=== PATIENT | female | born 1950 | race Caucasian/White ===

== ENCOUNTER 2016-07-25 17:47 | Emergency (ER) | payer MEDICARE, OTHER ==
[2016-07-25 17:55] VITALS: BP 125/62; PULSE 85; TEMP 97.8; BMI 25.6
--- NOTE | 2016-07-25 18:44 | PDOC ---
[id number] History Source: Patient - History of Present Illness Initial Comments: 07/25/16 18:38 66 year old female s/p slip and fall down 7 flight of stairs landed on left side of back on wet floor. now with pain to left side and left hip. pain worsen with movement. denies patient with history of asthma, fibromyalgia, hypercholestremia. denies head trauma or midline tenderness <Cammie Barahona - Last Filed: 08/08/16 12:09> - General Chief Complaint: Injury Stated Complaint: FALL Time Seen by Provider: 07/25/16 18:16 Past History <Denia Jaramillo - Last Filed: 07/25/16 22:35> - Past Medical History Anemia: No Asthma: Yes Cancer: No Cardiac Disorders: No CVA: No COPD: No CHF: No Dementia: No Diabetes: No GI Disorders: Yes (DIVERTICULITIS (clinical diagnosis, not demonstrated on previous CT study)) Disorders: No HTN: No Hypercholesterolemia: Yes Liver Disease: No Suicide Attempt (Hx): No Seizures: No Thyroid Disease: No Other medical history: fibromyalgia - Surgical History Abdominal Surgery: No Appendectomy: Yes Cardiac Surgery: No Cholecystectomy: No Lung Surgery: No Neurologic Surgery: No Orthopedic Surgery: Yes - Immunization History Immunization Up to Date: Yes - Psycho/Social/Smoking Cessation Hx Anxiety: No Suicidal Ideation: No Smoking Status: No Smoking History: Never smoked Have you smoked in the past 12 months: No Number of Cigarettes Smoked Daily: 0 Information on smoking cessation initiated: No Hx Alcohol Use: No Drug/Substance Use Hx: No Substance Use Type: None Hx Substance Use Treatment: No <Cammie Barahona - Last Filed: 08/08/16 12:09> - Past Medical History Allergies/Adverse Reactions: Allergies Allergy/AdvReac Type Severity Reaction Status Date / Time No Known Allergies Allergy Verified 08/04/14 21:02 Home Medications: Ambulatory Orders Amitriptyline HCl [Elavil -] 10 mg PO DAILY 07/25/16 Fluoxetine HCl [Prozac -] 20 mg PO DAILY 07/25/16 Ibuprofen [Motrin -] 600 mg PO TID PRN #21 tablet 07/25/16 Omeprazole 20 mg PO ASDIR 07/25/16 Oxycodone HCl/Acetaminophen [Percocet 5-325 mg Tablet] 1 - 2 tab PO Q6H PRN #10 tab MDD 8 tabs 07/25/16 Simvastatin 40 mg PO ASDIR 07/25/16 *Physical Exam - Vital Signs Last Vital Signs Temp Pulse Resp BP Pulse Ox 97.8 F 85 20 125/62 99 07/25/16 17:52 07/25/16 17:52 07/25/16 17:52 07/25/16 17:52 07/25/16 17:52 <Denia Jaramillo - Last Filed: 07/25/16 22:35> - Vital Signs Last Vital Signs Temp Pulse Resp BP Pulse Ox 97.8 F 85 20 125/62 99 07/25/16 17:52 07/25/16 17:52 07/25/16 17:52 07/25/16 17:52 07/25/16 17:52 - Physical Exam General Appearance: Yes: Appropriately Dressed Respiratory/Chest: positive: Lungs Clear, Normal Breath Sounds Cardiovascular: positive: Regular Rhythm, Regular Rate Gastrointestinal/Abdominal: positive: Normal Bowel Sounds, Soft Musculoskeletal: positive: Muscle Spasm (left flank area), Other (left hip + weightbearing with difficulty. ) Extremity: positive: Normal Inspection, Normal Range of Motion Integumentary: positive: Normal Color, Dry, Warm Neurologic: positive: Fully Oriented, Alert, Normal Mood/Affect <Cammie Barahona - Last Filed: 08/08/16 12:09> ED Treatment Course - ADDITIONAL ORDERS Additional order review: Laboratory Results 07/25/16 19:15 Urine Color Yellow Urine Appearance Clear Urine pH 5.0 Ur Specific [place] 1.025 Urine Protein Negative Urine Glucose (UA) Negative Urine Ketones Negative Urine Blood 1+ H Urine Nitrite Negative Urine Bilirubin Negative Urine Urobilinogen Negative Ur Leukocyte Esterase Negative Urine RBC 2 Urine WBC <1 Urine Mucus Rare - Medications Given in the ED: ED Medications Discontinued Medications Generic Name Dose Route Start Last Admin Trade Name Freq PRN Reason Stop Dose Admin Ibuprofen 600 mg 07/25/16 19:31 07/25/16 19:57 Motrin - PO 07/25/16 19:32 Not Given ONCE ONE Oxycodone/Acetaminophen 1 combo 07/25/16 19:33 07/25/16 19:56 Percocet 5/325 - PO 07/25/16 19:34 1 combo ONCE ONE Administration <Denia Jaramillo - Last Filed: 07/25/16 22:35> - RADIOLOGY Radiograph Interpretation: 07/25/16 19:31 rib xray: negative <Cammie Barahona - Last Filed: 08/08/16 12:09> Progress Note - Progress Note Progress Note: A: elderly fall, left hip and flank pain P: xray: negative ctAP r/o occult bleeding: pending result patient signed out to Mary jaramillo. <Cammie Barahona - Last Filed: 08/08/16 12:09> Medical Decision Making - Medical Decision Making 07/25/16 22:35 results of cat scan discussed dc inst given to pt and her daughter. pt ambulatory out of ER no acute distress. all questions regarding follow up care asked and answered. <Denia Jaramillo - Last Filed: 07/25/16 22:35> *DC/Admit/Observation/Transfer <Denia Jaramillo - Last Filed: 07/25/16 22:35> <Cammie Barahona - Last Filed: 08/08/16 12:09> Diagnosis at time of Disposition: Musculoskeletal back pain, Fall in elderly patient - Discharge Dispostion Disposition: HOME Condition at time of disposition: Good - Prescriptions Prescriptions: Ibuprofen [Motrin -] 600 mg PO TID PRN #21 tablet PRN Reason: Pain Oxycodone HCl/Acetaminophen [Percocet 5-325 mg Tablet] 1 - 2 tab PO Q6H PRN #10 tab MDD 8 tabs PRN Reason: Severe Pain - Referrals Referrals: Keesha Gaona MD [Primary Care Provider] - John Hammer MD [Staff Physician] - - Patient Instructions Printed Discharge Instructions: DI for Musculoskeletal Pain Additional Instructions: follow with your primary care doctor Thursday for follow up take the medication as prescribed for pain apply heating pad, warm compresses to the areas of pain Return if any worsening Pain
[2016-07-25 19:23] LABS: URINE APPEARANCE CLEAR; URINE BILIRUBIN NEGATIVE (NEGATIVE); URINE COLOR YELLOW; URINE GLUCOSE (UA) NEGATIVE (NEGATIVE); URINE KETONE NEGATIVE (NEGATIVE); URINE LEUK ESTERASE NEGATIVE (NEGATIVE); URINE NITRITE NEGATIVE (NEGATIVE); URINE PROTEIN NEGATIVE (NEGATIVE); URINE UROBILINOGEN NEGATIVE E.U./dl (0.2-1.0)
[2016-07-25 19:30] LABS: URINE BLOOD 1+ (NEGATIVE); URINE MUCUS RARE; URINE RBC 2 /hpf (0-3); URINE WBC <1 /hpf (3-5)
[2016-07-25] MEDS ORDERED: IBUPROFEN 600 MG TABLET (FP) PO ONE (19:31)
[2016-07-25] MEDS ORDERED: OXYCODONE/APAP 5/325MG COMBO TABLET PO ONE (19:33)
[2016-07-25] MEDS ORDERED: OXYCODONE/APAP 5/325MG COMBO TABLET ONE (19:55)
== END 2016-07-25 20:38 | disposition home or self-care (01) ==
LOC: JERFT 17:47
DX: M54.5 Low back pain (principal); W10.8XXA Fall (on) (from) other stairs and steps, initial encounter; Y93.E5 Activity, floor mopping and cleaning; Y92.038 Other place in apartment as the place of occurrence of the external cause
CPT/HCPCS: 71101-TC; 73523-TC; 74176-TC; 81003; 81015; 99281-25

== ENCOUNTER 2018-04-16 12:40 | Emergency (ER) | payer MEDICARE, OTHER ==
[2018-04-16 13:07] VITALS: BP 128/62; PULSE 79; TEMP 98.8; BMI 25.4
--- NOTE | 2018-04-16 13:20 | PDOC ---
Attending Attestation - HPI HPI: 04/16/18 13:45 The patient is a 68 year old female, with a significant PMH of hypertension, asthma, peptic ulcer disease, fibromyalgia, who presents to the emergency department with 3 episodes of emesis (non bloody, non bilious) beginning at 2 am. The patient states several hours after she developed diarrhea (non bloody) and constant mid abdominal pain. The patient states she has never experienced this abdominal pain before. The patient states she had 2 pieces of coconut prior to going to sleep. The patient states no one else had the coconut. The patient denies chest pain, shortness of breath, headache and dizziness. Denies fever, chills, and constipation. Denies dysuria, frequency, urgency and hematuria. Allergies: NKA Documentation prepared by Ignacio Wilson, acting as medical receptionist biller for Kenna Lutz MD. - Physicial Exam PE: 04/16/18 14:22 GENERAL: The patient is in no acute distress. HEAD: Normal with no signs of trauma. EYES: PERRLA, EOMI, sclera anicteric, conjunctiva clear. ENT: Ears normal, nares patent, oropharynx clear without exudates. Moist mucous membranes. NECK: Normal range of motion, supple without lymphadenopathy, JVD, or masses. LUNGS: Breath sounds equal, clear to auscultation bilaterally. No wheezes, and no crackles. HEART:Regular rate and rhythm, normal S1 and S2 without murmur, rub or gallop. ABDOMEN: (+) Epigastric tenderness, (+) RUQ tenderness, (+) Mild lower abdominal tenderness. No rebound or guarding. Soft, normoactive bowel sounds.No masses palpable. EXTREMITIES: Normal range of motion, no edema. No clubbing or cyanosis. No erythema, or tenderness. NEUROLOGICAL: Cranial nerves II through XII grossly intact. Normal speech. No focal neurological deficits. MUSCULOSKELETAL: Back non-tender to palpation, no CVA tenderness SKIN: Warm, Dry, normal turgor, no rashes or lesions noted. <Ignacio Wilson - Last Filed: 04/16/18 14:22> - Resident Resident Name: Olesya Valdivia - ED Attending Attestation I have performed the following: I have examined & evaluated the patient, The case was reviewed & discussed with the resident, I agree w/resident's findings & plan, Exceptions are as noted - Medical Decision Making 04/16/18 17:22 Laboratory Tests 04/16/18 04/16/18 04/16/18 13:33 13:46 13:46 WBC 13.4 H Hgb 13.3 Hct 41.1 Plt Count 245 Neutrophils % 89.7 H D Lymphocytes % 4.0 L D BUN 17 Creatinine 0.7 Lipase 81 Urine Blood Negative Urine Nitrite Negative Ur Leukocyte Esterase Negative US pending 04/16/18 17:55 US demonstrates no gallstones, no PCCF, no gallbladder wall thickening Pending CT Pt signed out to Dr. Silveira Anticipate discharge <Kenna Lutz - Last Filed: 04/17/18 18:22>
[2018-04-16] MEDS ORDERED: ONDANSETRON 4 MG/2 ML VIAL IVPUSH ONE (13:26)
[2018-04-16] MEDS ORDERED: ACETAMINOPHEN 1000 MG/100 ML VIAL (NON FORMULARY) IVPB ONE (13:26)
[2018-04-16] MEDS ORDERED: MAG HYDROX/AL HYDROX/SIMETH 30 ML UNIT-DOSE CUP PO ONE (13:28)
[2018-04-16] MEDS ORDERED: FAMOTIDINE 20 MG/50 ML IVPB 20 MG/50 ML MG IVPB ONE ×2 (13:28→14:07)
--- NOTE | 2018-04-16 13:28 | PDOC ---
History of Present Illness - General Chief Complaint: Pain Stated Complaint: ABD PAIN Time Seen by Provider: 04/16/18 13:10 - History of Present Illness Initial Comments: 04/16/18 13:24 history of HTN, fibromyalgia, peptic ulcer and asthma who presents with 3 episodes of NBNB vomtiing that started at 0200 and woke her up from sleep and with diarrhea several hours later in the day and with 10/10 mid abdominal pain that has been constant since onset after vomiting. The patient denies dysuria, hematuria, blood in diarrhea, denies abdominal surgeries. Past History - Past Medical History Allergies/Adverse Reactions: Allergies Allergy/AdvReac Type Severity Reaction Status Date / Time No Known Allergies Allergy Verified 04/16/18 13:07 Home Medications: Ambulatory Orders Amitriptyline HCl [Elavil -] 20 mg PO DAILY 07/25/16 Fluoxetine HCl [Prozac -] 20 mg PO HS 07/25/16 Ondansetron [Zofran Odt -] 4 mg SL PRN #14 od.tablet 04/16/18 Anemia: No Asthma: Yes Cancer: No Cardiac Disorders: No CVA: No COPD: No CHF: No Dementia: No Diabetes: No GI Disorders: Yes (DIVERTICULITIS (clinical diagnosis, not demonstrated on previous CT study)) Disorders: No HTN: No Hypercholesterolemia: Yes Liver Disease: No Seizures: No Thyroid Disease: No - Surgical History Abdominal Surgery: No Appendectomy: Yes Cardiac Surgery: No Cholecystectomy: No Lung Surgery: No Neurologic Surgery: No Orthopedic Surgery: Yes - Immunization History Immunization Up to Date: Yes - Suicide/Smoking/Psychosocial Hx Smoking Status: No Smoking History: Never smoked Have you smoked in the past 12 months: No Number of Cigarettes Smoked Daily: 0 Information on smoking cessation initiated: No Hx Alcohol Use: No Drug/Substance Use Hx: No Substance Use Type: None Hx Substance Use Treatment: No *Physical Exam - Vital Signs Last Vital Signs Temp Pulse Resp BP Pulse Ox 98.8 F 79 18 128/62 96 04/16/18 13:05 04/16/18 13:05 04/16/18 13:05 04/16/18 13:05 04/16/18 13:05 - Physical Exam Comments: 04/16/18 13:28 RUQ and LUQ tenderness to palpation L CVA tenderness CTAB, RRR Moderate Sedation - Procedure Monitoring Vital Signs: Procedure Monitoring Vital Signs Temperature 98.8 F 04/16/18 13:05 Pulse Rate 79 04/16/18 13:05 Respiratory Rate 18 04/16/18 13:05 Blood Pressure 128/62 04/16/18 13:05 O2 Sat by Pulse Oximetry (%) 96 04/16/18 13:05 ED Treatment Course - LABORATORY CBC & Chemistry Diagram: 04/16/18 13:46 04/16/18 13:46 Medical Decision Making - Medical Decision Making 04/16/18 13:29 ED Course consider gastroenteritis vs pud vs pancreatitis vs cholecystits 04/16/18 14:30 wbs 13.4 with left shift 04/16/18 14:39 lipase unremarkable, cmp wnl pending lactic 04/16/18 16:24 patient reassessed with positive oneil's sign lactic .7 will order US to r/o gallstones/ cholecystitis 04/16/18 16:44 ua - unremarkable. pending abd US 04/16/18 18:31 US: without acute findings Patient reassessed, RUQ tenderness to palpation 04/16/18 22:[address]: unremarkable Will PO trial successful and discharge with follow up/. 04/16/18 22:26 *DC/Admit/Observation/Transfer Diagnosis at time of Disposition: Vomiting, Diarrhea - Discharge Dispostion Disposition: HOME Condition at time of disposition: Stable Decision to Admit order: No - Prescriptions Prescriptions: Ondansetron [Zofran Odt -] 4 mg SL PRN #14 od.tablet - Referrals Referrals: Chalo Gaona MD [Primary Care Provider] - - Patient Instructions Printed Discharge Instructions: DI for Viral Gastroenteritis -- Adult Additional Instructions: You were seen in the ED for complaints of vomiting and diarrhea. In the ED you were evaluated with labwork and imaging. Your results were unremarkable. There does not appear to be an acute need for immediate hospitalization. You are advised to follow up with your Primary Care Physician within 1 week. You were given a prescription for Zofran anti-nausea medication. Please take medication as directed. Return to the ED immediately if you experience worsening abdominal pain, bloody vomiting or diarrhea, fever > 101F, chest pain or shortness of breath. Usted fue visto en el servicio de urgencias por quejas de vmitos y diarrea. En el servicio de urgencias se le evalu con trabajo de laboratorio e imgenes. Carmen resultados no fueron notables. No parece ronda fabiola necesidad aguda de hospitalizacin inmediata. Se recomienda realizar un seguimiento con grant mdico de atencin primaria dentro de 1 semana. Recibieron fabiola receta para el medicamento contra la nusea Zofran. Por favor, tome la medicacin segn las indicaciones. Regrese a la oriana de urgencias inmediatamente si experimenta un empeoramiento del dolor abdominal, vmitos con cary o diarrea, fiebre> 101F, dolor en el pecho o falta de aire. - Post Discharge Activity
[2018-04-16] MEDS ORDERED: SODIUM CHLORIDE 1,000 ML IV SCH (13:30)
[2018-04-16 13:56] LABS: BASO % 0.2 % (0-2.0); EOS % 0.1 % (0-4.5); HEMATOCRIT 41.1 % (32.4-45.2); HEMOGLOBIN 13.3 GM/dL (10.7-15.3); MCH 27.4 pg (25.7-33.7); MCHC 32.3 g/dl (32.0-36.0); MEAN CELL VOLUME 84.9 fl (80-96); MEAN PLT VOLUME 8.3 fl (7.5-11.1); NEUT % 89.7 % (42.8-82.8); PLATELET COUNT 245 K/MM3 (134-434); RBC 4.84 M/mm3 (3.60-5.2); RDW 13.3 % (11.6-15.6); WHITE BLOOD COUNT 13.4 K/mm3 (4.0-10.0)
[2018-04-16] MEDS ORDERED: MAG HYDROX/AL HYDROX/SIMETH 30 ML UNIT-DOSE CUP ONE (14:07)
[2018-04-16] MEDS ORDERED: ONDANSETRON 4 MG/2 ML VIAL ONE (14:07)
[2018-04-16] MEDS ORDERED: ACETAMINOPHEN INJECTION 100 ML IVPB ONE (14:07)
[2018-04-16 14:37] LABS: ALBUMIN 3.2 g/dl (3.4-5.0); ALK PHOS 77 U/L (45-117); ANION GAP 5 MMOL/L (8-16); BILIRUBIN,TOTAL 0.4 mg/dL (0.2-1); BLOOD UREA NITROGEN 17 mg/dL (7-18); CALCIUM 8.6 mg/dL (8.5-10.1); CHLORIDE 108 mmol/L (98-107); CO2 25 mmol/L (21-32); CREATININE 0.7 mg/dL (0.55-1.3); GLUCOSE,RANDOM 121 mg/dL (74-106); LIPASE 81 U/L (73-393); SGOT/AST 35 U/L (15-37); SGPT/ALT 30 U/L (13-61); SODIUM 138 mmol/L (136-145); TOT PROT 6.8 g/dl (6.4-8.2)
[2018-04-16 16:23] LABS: URINE APPEARANCE CLEAR; URINE BILIRUBIN NEGATIVE (<2.0 mg/dL); URINE COLOR LTYELLOW; URINE GLUCOSE (UA) NEGATIVE (NEGATIVE); URINE KETONE NEGATIVE (NEGATIVE); URINE LEUK ESTERASE NEGATIVE (NEGATIVE); URINE NITRITE NEGATIVE (NEGATIVE); URINE PROTEIN NEGATIVE (NEGATIVE); URINE UROBILINOGEN NEGATIVE mg/dL (0.2-1.0)
--- NOTE | 2018-04-16 19:56 | PDOC ---
*Physical Exam - Vital Signs Last Vital Signs Temp Pulse Resp BP Pulse Ox 98.8 F 79 18 128/62 96 04/16/18 13:05 04/16/18 13:05 04/16/18 13:05 04/16/18 13:05 04/16/18 13:05 ED Treatment Course - LABORATORY CBC & Chemistry Diagram: 04/16/18 13:46 04/16/18 13:46 - ADDITIONAL ORDERS Additional order review: Laboratory Results 04/16/18 04/16/18 04/16/18 13:46 13:46 13:33 Sodium 138 Potassium 5.0 Chloride 108 H Carbon Dioxide 25 Anion Gap 5 L BUN 17 Creatinine 0.7 Creat Clearance w eGFR > 60 Random Glucose 121 H Lactic Acid 0.7 Calcium 8.6 Total Bilirubin 0.4 AST 35 ALT 30 Alkaline Phosphatase 77 Total Protein 6.8 Albumin 3.2 L Lipase 81 Urine Color Ltyellow Urine Appearance Clear Urine pH 7.0 D Ur Specific [place] 1.019 Urine Protein Negative Urine Glucose (UA) Negative Urine Ketones Negative Urine Blood Negative Urine Nitrite Negative Urine Bilirubin Negative Urine Urobilinogen Negative Ur Leukocyte Esterase Negative 04/16/18 13:46 RBC 4.84 MCV 84.9 MCHC 32.3 RDW 13.3 MPV 8.3 Neutrophils % 89.7 H D Lymphocytes % 4.0 L D Monocytes % 6.0 Eosinophils % 0.1 D Basophils % 0.2 - Medications Given in the ED: ED Medications Discontinued Medications Generic Name Dose Route Start Last Admin Trade Name Freq PRN Reason Stop Dose Admin Acetaminophen 1,000 mg 04/16/18 13:26 04/16/18 14:16 Ofirmev Injection - IVPB 04/16/18 13:27 1,000 mg ONCE ONE Administration Al Hydroxide/Mg Hydroxide 30 ml 04/16/18 13:28 04/16/18 14:16 Mylanta Oral Suspension - PO 04/16/18 13:29 30 ml ONCE ONE Administration Famotidine/Sodium Chloride 20 mg in 50 mls @ 100 mls/hr 04/16/18 13:28 14:16 Pepcid 20 Mg Premixed Ivpb - IVPB 04/16/18 13:57 100 mls/hr ONCE ONE Administration Ondansetron HCl 4 mg 04/16/18 13:26 04/16/18 14:16 Zofran Injection IVPUSH 04/16/18 13:27 4 mg ONCE ONE Administration Medical Decision Making - Medical Decision Making 04/16/18 19:55 Pt signed out to me; She has abd pain and diarrhea and vomiting. Sounds like gastroenteritis. However with epig pain; RUQ sono was normal. Labs normal. Only high WBC. Pt awaiting a CT scan. She states that she is feeling better after hydration and after pain meds. She wants to eat, but we will wait till after the CT scan. 04/18/18 06:[address] normal. Pt will be discharged. *DC/Admit/Observation/Transfer Diagnosis at time of Disposition: Vomiting, Diarrhea - Discharge Dispostion Disposition: HOME Condition at time of disposition: Stable - Prescriptions Prescriptions: Ondansetron [Zofran Odt -] 4 mg SL PRN #14 od.tablet - Referrals Referrals: Chalo Gaona MD [Primary Care Provider] - - Patient Instructions Printed Discharge Instructions: DI for Viral Gastroenteritis -- Adult Additional Instructions: You were seen in the ED for complaints of vomiting and diarrhea. In the ED you were evaluated with labwork and imaging. Your results were unremarkable. There does not appear to be an acute need for immediate hospitalization. You are advised to follow up with your Primary Care Physician within 1 week. You were given a prescription for Zofran anti-nausea medication. Please take medication as directed. Return to the ED immediately if you experience worsening abdominal pain, bloody vomiting or diarrhea, fever > 101F, chest pain or shortness of breath. Usted fue visto en el servicio de urgencias por quejas de vmitos y diarrea. En el servicio de urgencias se le evalu con trabajo de laboratorio e imgenes. Carmen resultados no fueron notables. No parece ronda fabiola necesidad aguda de hospitalizacin inmediata. Se recomienda realizar un seguimiento con grant mdico de atencin primaria dentro de 1 semana. Recibieron fabiola receta para el medicamento contra la nusea Zofran. Por favor, tome la medicacin segn las indicaciones. Regrese a la oriana de urgencias inmediatamente si experimenta un empeoramiento del dolor abdominal, vmitos con cary o diarrea, fiebre> 101F, dolor en el pecho o falta de aire. - Post Discharge Activity
== END 2018-04-16 22:38 | disposition home or self-care (01) ==
LOC: JER 12:40
PROC: 3E033GC Introduction of Other Therapeutic Substance into Peripheral Vein, Percutaneous Approach (ICD-10-PCS; principal; 2018-04-16)
PROC: 3E033GC Introduction of Other Therapeutic Substance into Peripheral Vein, Percutaneous Approach (ICD-10-PCS; 2018-04-16)
PROC: 3E033NZ Introduction of Analgesics, Hypnotics, Sedatives into Peripheral Vein, Percutaneous Approach (ICD-10-PCS; 2018-04-16)
DX: A08.4 Viral intestinal infection, unspecified (principal); B97.89 Other viral agents as the cause of diseases classified elsewhere; I10 Essential (primary) hypertension; M79.7 Fibromyalgia; Z87.19 Personal history of other diseases of the digestive system; Z87.09 Personal history of other diseases of the respiratory system
CPT/HCPCS: 36415; 74177-TC; 76700-TC; 80053; 81003; 83605; 83690; 85025; 87086; 96365; 96375; 99282-25; J0131; J7030

== ENCOUNTER 2018-04-23 14:49 | Emergency (ER) | payer MEDICARE, OTHER ==
--- NOTE | 2018-04-23 15:02 | PDOC ---
History of Present Illness - General Stated Complaint: DEHYDRATION Time Seen by Provider: 04/23/18 15:01 - History of Present Illness Initial Comments: 04/23/18 15:01 Ms. Sebastian is a 68 yo female w/ pmh of HTN, peptic ulcer, asthma, fibromylagia; evaluated 04/16 for NBNB vomiting with diarrhea and found to have gastritis who presents for evaluation via EMS from urgent care. Patient reports she presented today as she has experienced 2-3 days of dizziness, headache, cough, and lower back pain. Patient was found to have orthostatic hypotension at urgent care center today and EMS was called for further evaluation. Patient has gotten 1L NS from EMS. The patient denies chest pain, and shortness of breath. Denies chills, nausea, vomit, diarrhea and constipation. Denies dysuria, frequency, urgency and hematuria. Past History - Past Medical History Allergies/Adverse Reactions: Allergies Allergy/AdvReac Type Severity Reaction Status Date / Time No Known Allergies Allergy Verified 04/16/18 13:07 Home Medications: Ambulatory Orders Amitriptyline HCl [Elavil -] 20 mg PO DAILY 07/25/16 Fluoxetine HCl [Prozac -] 20 mg PO HS 07/25/16 Ondansetron [Zofran Odt -] 4 mg SL PRN #14 od.tablet 04/16/18 Anemia: No Asthma: Yes Cancer: No Cardiac Disorders: No CVA: No COPD: No CHF: No Dementia: No Diabetes: No GI Disorders: Yes (DIVERTICULITIS (clinical diagnosis, not demonstrated on previous CT study)) Disorders: No HTN: No Hypercholesterolemia: Yes Liver Disease: No Seizures: No Thyroid Disease: No - Surgical History Abdominal Surgery: No Appendectomy: Yes Cardiac Surgery: No Cholecystectomy: No Lung Surgery: No Neurologic Surgery: No Orthopedic Surgery: Yes - Immunization History Immunization Up to Date: Yes - Suicide/Smoking/Psychosocial Hx Smoking Status: No Smoking History: Never smoked Have you smoked in the past 12 months: No Number of Cigarettes Smoked Daily: 0 Hx Alcohol Use: No Drug/Substance Use Hx: No Substance Use Type: None Hx Substance Use Treatment: No Review of Systems - Review of Systems Comments:: 04/23/18 15:01 GENERAL/CONSTITUTIONAL: +Subjective fevers at home. No chills. No weakness. HEAD, EYES, EARS, NOSE AND THROAT: No change in vision. No ear pain or discharge. No sore throat. CARDIOVASCULAR: No chest pain or shortness of breath RESPIRATORY: +Dry cough for 2-3 days. No wheezing or hemoptysis. GASTROINTESTINAL: No nausea, vomiting, diarrhea or constipation. GENITOURINARY: No dysuria, frequency, or change in urination. MUSCULOSKELETAL: No joint or muscle swelling or pain. No neck or back pain. SKIN: No rash NEUROLOGIC: +Headache coinciding with cough and dizziness. No vertigo, loss of consciousness, or change in strength/sensation. ENDOCRINE: No increased thirst. No abnormal weight change HEMATOLOGIC/LYMPHATIC: No anemia, easy bleeding, or history of blood clots. ALLERGIC/IMMUNOLOGIC: No hives or skin allergy. *Physical Exam - Physical Exam Comments: 04/23/18 15:02 GENERAL: Awake, alert, and fully oriented, in no acute distress HEAD: No signs of trauma, normocephalic, atraumatic EYES: PERRLA, EOMI, sclera anicteric, conjunctiva clear ENT: Auricles normal inspection, hearing grossly normal, nares patent, oropharynx clear without exudates. Moist mucosa NECK: Normal ROM, supple, no lymphadenopathy, JVD, or masses LUNGS: No distress, speaks full sentences, clear to auscultation bilaterally HEART: Regular rate and rhythm, normal S1 and S2, no murmurs, rubs or gallops, peripheral pulses normal and equal bilaterally. ABDOMEN: Soft, nontender, normoactive bowel sounds. No guarding, no rebound. No masses EXTREMITIES: Normal inspection, Normal range of motion, no edema. No clubbing or cyanosis. NEUROLOGICAL: Cranial nerves II through XII grossly intact. Normal speech, normal gait, no focal sensorimotor deficits SKIN: Warm, Dry, normal turgor, no rashes or lesions noted. ED Treatment Course - LABORATORY CBC & Chemistry Diagram: 04/23/18 15:23 04/23/18 15:23 Medical Decision Making - Medical Decision Making 04/23/18 15:33 Ms. Sebastian is a 68 yo female w/ pmh as described who presents for evaluation of symptoms concerning for flu vs. dehydration vs. infectious process vs. electrolyte abnormality vs. cardiac process. Patient evaluated accordingly with CBC/CMP/Cardiac profile/EKG/CXR. Patient given 1L NS by EMS and additional 1L NS upon presentation. Further workup pending. 04/23/18 16:47 Labs grossly wnl as below. EKG normal. CXR negative. Head CT negative for acute process. Patient reporting improvement of symptoms following fluids/reglan/ tylenol. No concern for acute process at this time. Discharging to home. Laboratory Results - last 24 hr 04/23/18 04/23/18 04/23/18 15:23 15:23 15:23 WBC 9.2 RBC 4.41 Hgb 12.7 Hct 37.8 MCV 85.8 MCH 28.9 MCHC 33.6 RDW 13.5 Plt Count 243 MPV 7.9 Absolute Neuts (auto) 7.4 Neutrophils % 80.1 Lymphocytes % 10.3 D Monocytes % 9.0 Eosinophils % 0.2 D Basophils % 0.4 Nucleated RBC % 0 Sodium 138 Potassium 4.4 Chloride 106 Carbon Dioxide 24 Anion Gap 8 BUN 13 Creatinine 0.8 Creat Clearance w eGFR > 60 Random Glucose 101 Calcium 8.4 L Total Bilirubin 0.4 AST 11 L ALT 17 Alkaline Phosphatase 66 Creatine Kinase 97 Troponin I 0.03 Total Protein 6.5 Albumin 3.1 L Urine Color Urine Appearance Urine pH Ur Specific Gilberts Urine Protein Urine Glucose (UA) Urine Ketones Urine Blood Urine Nitrite Urine Bilirubin Urine Urobilinogen Ur Leukocyte Esterase Urine WBC (Auto) Urine RBC (Auto) Ur Epithelial Cells Urine Mucus Influenza A (Rapid) Negative Influenza B (Rapid) Negative 04/23/18 15:23 WBC RBC Hgb Hct MCV MCH MCHC RDW Plt Count MPV Absolute Neuts (auto) Neutrophils % Lymphocytes % Monocytes % Eosinophils % Basophils % Nucleated RBC % Sodium Potassium Chloride Carbon Dioxide Anion Gap BUN Creatinine Creat Clearance w eGFR Random Glucose Calcium Total Bilirubin AST ALT Alkaline Phosphatase Creatine Kinase Troponin I Total Protein Albumin Urine Color Ltyellow Urine Appearance Slcloudy Urine pH 6.0 Ur Specific [place] 1.005 L Urine Protein Negative Urine Glucose (UA) Negative Urine Ketones 1+ H Urine Blood 1+ H Urine Nitrite Negative Urine Bilirubin Negative Urine Urobilinogen Negative Ur Leukocyte Esterase Trace Urine WBC (Auto) 4 Urine RBC (Auto) 1 Ur Epithelial Cells Moderate Urine Mucus Rare Influenza A (Rapid) Influenza B (Rapid) *DC/Admit/Observation/Transfer Diagnosis at time of Disposition: Dehydration Headache Qualifiers: Headache type: unspecified Headache chronicity pattern: unspecified pattern Intractability: not intractable Qualified Code(s): R51 - Headache - Discharge Dispostion Disposition: HOME - Referrals Referrals: Keesha Gaona MD [Primary Care Provider] - - Patient Instructions Printed Discharge Instructions: DI for Viral Upper Respiratory Infection -- Adult Additional Instructions: You were evaluated today in the ER for your symptoms and found to be very dehydrated. Chest Xray, EKG, Flu tests, Head CT, and labs were all normal. We believe you have a viral illness at this time. Please follow-up with primary care provider later this week for further evaluation. Return to ER if any exacerbation of headache, fever, chills, or other concerning symptoms. - Post Discharge Activity
[2018-04-23 15:04] VITALS: BMI 26.9
[2018-04-23 15:06] VITALS: TEMP 98.7
[2018-04-23] MEDS ORDERED: SODIUM CHLORIDE 1,000 ML IV STA (15:22)
[2018-04-23 15:47] LABS: BASO % 0.4 % (0-2.0); EOS % 0.2 % (0-4.5); HEMATOCRIT 37.8 % (32.4-45.2); HEMOGLOBIN 12.7 GM/dL (10.7-15.3); LYMPH % 10.3 % (8-40); MCH 28.9 pg (25.7-33.7); MCHC 33.6 g/dl (32.0-36.0); MEAN CELL VOLUME 85.8 fl (80-96); MEAN PLT VOLUME 7.9 fl (7.5-11.1); NEUT % 80.1 % (42.8-82.8); PLATELET COUNT 243 K/MM3 (134-434); RBC 4.41 M/mm3 (3.60-5.2); RDW 13.5 % (11.6-15.6); WHITE BLOOD COUNT 9.2 K/mm3 (4.0-10.0)
[2018-04-23 15:56] LABS: URINE APPEARANCE SLCLOUDY; URINE BILIRUBIN NEGATIVE (<2.0 mg/dL); URINE COLOR LTYELLOW; URINE GLUCOSE (UA) NEGATIVE (NEGATIVE); URINE KETONE 1+ (NEGATIVE); URINE LEUK ESTERASE TRACE (NEGATIVE); URINE NITRITE NEGATIVE (NEGATIVE); URINE PROTEIN NEGATIVE (NEGATIVE); URINE UROBILINOGEN NEGATIVE mg/dL (0.2-1.0)
[2018-04-23 16:00] LABS: EPI CELLS MODERATE /HPF (FEW); URINE MUCUS RARE
[2018-04-23] MEDS ORDERED: ACETAMINOPHEN 1000 MG/100 ML VIAL (NON FORMULARY) IVPB ONE (16:08)
[2018-04-23] MEDS ORDERED: METOCLOPRAMIDE HCL INJECTION 10 MG/2 ML VIAL IVPB ONE (16:08)
--- NOTE | 2018-04-23 16:17 | PDOC ---
Attending Attestation - Resident Resident Name: Andrea Burrows - ED Attending Attestation I have performed the following: I have examined & evaluated the patient, The case was reviewed & discussed with the resident, I agree w/resident's findings & plan, Exceptions are as noted - HPI HPI: 04/23/18 16:16 The patient is a 68 year old female, with a significant past medical history of hypertension, asthma, peptic ulcer disease, fibromyalgia, who presents to the emergency department from an urgent care with complaint of back pain, and dry cough. The patient states these symptoms began 2-3 days ago. The patient notes the back pain is exacerbated by her dry cough. Denies any injury. The patient states she also has a headache that was brought on by coughing. The patient also notes the urgent care provided her with fluids and sent her to come be seen in the ED. The patient reports to have been in our ED a week ago for nausea , vomiting ,and diarrhea but denies any of these symptoms today. She does report that the back pain she is experiencing started when she was seen here last week. The patient denies chest pain, shortness of breath. The patient denies fever, chills. The patient denies vomiting, diarrhea, and constipation. The patient denies dysuria, frequency, urgency and hematuria. Allergies: NKA - Physicial Exam PE: 04/23/18 16:17 GENERAL: Awake, alert, and fully oriented, in no acute distress. HEAD: No signs of trauma EYES: PERRLA, EOMI, sclera anicteric, conjunctiva clear ENT: Auricles normal inspection, hearing grossly normal, nares patent, oropharynx clear without exudates. Moist mucosa NECK: Nontender, no stepoffs, Normal ROM, supple, no lymphadenopathy, JVD, or masses LUNGS: Breath sounds equal, clear to auscultation bilaterally. No wheezes, and no crackles HEART: Regular rate and rhythm, normal S1 and S2, no murmurs, rubs or gallops ABDOMEN: Soft, nontender, normoactive bowel sounds. No guarding, no rebound. No masses EXTREMITIES: Normal range of motion, no edema. No clubbing or cyanosis. No cords, erythema, or tenderness NEUROLOGICAL: Cranial nerves II through XII intact. 5/5 strength and sensation in all extremities, Normal speech, normal gait, normal cerebellar function SKIN: Warm, Dry, normal turgor, no rashes or lesions noted. - Medical Decision Making 04/23/18 16:18 68 F with cough and headache. Likely viral URI. Pt with no fever in ED. Will r/ o influenza. Will also r/o PNA with CXR. Pt with headache that is exacerbated by cough. No neuro deficits but will obtain CT head given age. - Labs, flu swab - CXR - IVF, tylenol, reglan 04/23/18 17:12 Labs wnl CXR clear on my read CT head pending Pt signed out to oncoming attending, pending CT and re-evaluation.
[2018-04-23] MEDS ORDERED: ACETAMINOPHEN INJECTION 100 ML IVPB ONE ×2 (16:20→16:48)
[2018-04-23] MEDS ORDERED: METOCLOPRAMIDE HCL INJECTION 10 MG/2 ML VIAL ONE (16:20)
[2018-04-23 16:38] LABS: ALBUMIN 3.1 g/dl (3.4-5.0); ALK PHOS 66 U/L (45-117); ANION GAP 8 MMOL/L (8-16); BILIRUBIN,TOTAL 0.4 mg/dL (0.2-1); BLOOD UREA NITROGEN 13 mg/dL (7-18); CALCIUM 8.4 mg/dL (8.5-10.1); CHLORIDE 106 mmol/L (98-107); CO2 24 mmol/L (21-32); CREATININE 0.8 mg/dL (0.55-1.3); GLUCOSE,RANDOM 101 mg/dL (74-106); POTASSIUM 4.4 mmol/L (3.5-5.1); SGOT/AST 11 U/L (15-37); SGPT/ALT 17 U/L (13-61); SODIUM 138 mmol/L (136-145); TOT PROT 6.5 g/dl (6.4-8.2)
[2018-04-23 18:12] VITALS: BP 123/60; PULSE 80
--- NOTE | 2018-04-23 20:16 | EKG ---
Test Reason : Blood Pressure : / mmHG Vent. Rate : 079 BPM Atrial Rate : 079 BPM P-R Int : 162 ms QRS Dur : 064 ms QT Int : 378 ms P-R-T Axes : 059 060 022 degrees QTc Int : 433 ms NORMAL SINUS RHYTHM NORMAL ECG WHEN COMPARED WITH ECG OF 04-AUG-2014 21:39, PREMATURE SUPRAVENTRICULAR COMPLEXES ARE NO LONGER PRESENT Confirmed by AKREN JIMENEZ, KEELEY ([id number]) on 04/23/2018 8:16:35 PM Referred By: Confirmed By:KEELEY JONES MD
== END 2018-04-23 18:25 | disposition home or self-care (01) ==
LOC: JER 14:49
PROC: 3E0337Z Introduction of Electrolytic and Water Balance Substance into Peripheral Vein, Percutaneous Approach (ICD-10-PCS; principal; 2018-04-23)
PROC: 3E033GC Introduction of Other Therapeutic Substance into Peripheral Vein, Percutaneous Approach (ICD-10-PCS; 2018-04-23)
PROC: 3E033NZ Introduction of Analgesics, Hypnotics, Sedatives into Peripheral Vein, Percutaneous Approach (ICD-10-PCS; 2018-04-23)
DX: E86.0 Dehydration (principal); R51 Headache; I10 Essential (primary) hypertension; M79.7 Fibromyalgia
CPT/HCPCS: 36415; 70450-TC; 71045-TC-FY; 80053; 81003; 81015; 82550; 84484; 85025; 87086; 87804; 93005; 93010; 96361; 96374; 96375; 99283-25; J0131; J7030

== ENCOUNTER 2021-07-09 13:43 | Emergency (ER) | payer MEDICARE, OTHER ==
[2021-07-09 14:01] VITALS: BP 119/76; PULSE 76; TEMP 98; BMI 25.0
[2021-07-09 16:41] LABS: BASO % 0.5 % (0-2.0); EOS % 1.4 % (0-4.5); HEMATOCRIT 40.2 % (32.4-45.2); HEMOGLOBIN 13.4 GM/dL (10.7-15.3); LYMPH % 24.8 % (8-40); MCH 28.4 pg (25.7-33.7); MCHC 33.2 g/dl (32.0-36.0); MEAN CELL VOLUME 85.5 fl (80-96); MEAN PLT VOLUME 8.4 fl (7.5-11.1); MONO % 6.5 % (3.8-10.2); NEUT % 66.8 % (42.8-82.8); PLATELET COUNT 213 10^3/uL (134-434); RDW 13.4 % (11.6-15.6); WHITE BLOOD COUNT 7.5 K/mm3 (4.0-10.0)
[2021-07-09 17:03] LABS: CALCIUM 9.7 mg/dL (8.5-10.1)
[2021-07-09 17:04] LABS: ALBUMIN 3.9 g/dl (3.4-5.0); BLOOD UREA NITROGEN 14.6 mg/dL (7-18)
[2021-07-09 17:07] LABS: CREATININE 0.8 mg/dL (0.55-1.3)
[2021-07-09 17:08] LABS: BILIRUBIN,TOTAL 0.4 mg/dL (0.2-1); TOT PROT 7.2 g/dl (6.4-8.2)
[2021-07-09] MEDS ORDERED: ACETAMINOPHEN 500 MG TABLET (FP) PO ONE (17:50)
[2021-07-09] MEDS ORDERED: ACETAMINOPHEN 500 MG TABLET (FP) ONE (17:55)
== END 2021-07-09 20:46 | disposition home or self-care (01) ==
LOC: JERFT 13:43
DX: M79.602 Pain in left arm (principal)
CPT/HCPCS: 36415; 71046-TC-FY; 73030-TC-LT-FY; 73060-TC-LT-FY; 73070-TC-LT-FY; 73090-TC-LT-FY; 80053; 84484; 85025; 93005; 93010; 99285-25

== ENCOUNTER 2021-07-30 15:06 | Inpatient (IN) | payer MEDICARE, OTHER ==
[2021-07-30 15:28] VITALS: BMI 24.2
[2021-07-30] MEDS ORDERED: VANCOMYCIN 1 GM in D5W (PRE-DOCKED) 1,000 MG/250 ML IVPB ONE (17:24)
[2021-07-30] MEDS ORDERED: ACETAMINOPHEN 1000 MG/100 ML BAG IVPB ONE (17:24)
[2021-07-30] MEDS ORDERED: PIPERACILLIN/TAZOB 3.375 GM 3.375 GM in DEXTROSE 5%-WATER - 50 ML IVPB ONE (17:25)
[2021-07-30] MEDS ORDERED: VANCOMYCIN 1 GRAM (PRE-DOCKED) 1,000 MG/250 ML BAG IVPB ONE (17:31)
[2021-07-30] MEDS ORDERED: ACETAMINOPHEN INJECTION 100 ML IVPB ONE (17:31)
[2021-07-30 18:23] LABS: BASO % 0.3 % (0-2.0); EOS % 1.3 % (0-4.5); HEMOGLOBIN 13.2 GM/dL (10.7-15.3); MCH 28.4 pg (25.7-33.7); MEAN CELL VOLUME 85.9 fl (80-96); MEAN PLT VOLUME 7.9 fl (7.5-11.1); NEUT % 68.4 % (42.8-82.8); PLATELET COUNT 280 10^3/uL (134-434); RBC 4.66 M/mm3 (3.60-5.2); RDW 13.5 % (11.6-15.6); WHITE BLOOD COUNT 6.8 K/mm3 (4.0-10.0)
[2021-07-30] MEDS ORDERED: PIPERACILLIN/TAZOB 3.375 GM 3.375 GM/50 ML BAG IVPB ONE (18:27)
[2021-07-30 18:39] LABS: CHLORIDE 104 mmol/L (98-107); SODIUM 136 mmol/L (136-145)
[2021-07-30 18:40] LABS: CALCIUM 9.2 mg/dL (8.5-10.1)
[2021-07-30 18:41] LABS: ALBUMIN 3.6 g/dl (3.4-5.0); ANION GAP 7 MMOL/L (8-16); BLOOD UREA NITROGEN 15.6 mg/dL (7-18); CO2 25 mmol/L (21-32); GLUCOSE,RANDOM 147 mg/dL (74-106)
[2021-07-30 18:44] LABS: CREATININE 0.8 mg/dL (0.55-1.3); SGOT/AST 23 U/L (15-37); SGPT/ALT 37 U/L (13-61)
[2021-07-30 18:46] LABS: ALK PHOS 95 U/L (45-117); BILIRUBIN,TOTAL 0.2 mg/dL (0.2-1); TOT PROT 7.3 g/dl (6.4-8.2)
[2021-07-30 19:09] LABS: INR 1.04 (0.83-1.09)
[2021-07-30 19:27] LABS: ERYTHROCYTE SEDIMENTATION RATE 81 mm/hr (0-30)
[2021-07-31] MEDS ORDERED: PIPERACILLIN/TAZOBACTAM 3.375 GM VIAL IVPB ONE ×2 (01:00→08:54)
[2021-07-31] MEDS ORDERED: DEXTROSE 5%-WATER - 50 ML IVPB ONE ×2 (01:00→08:54)
[2021-07-31] MEDS: PIPERACILLIN/TAZOB 3.375 GM 3.375 GM in DEXTROSE 5%-WATER - 50 ML IVPB SCH ×4 (01:49→20:24)
[2021-07-31] MEDS ORDERED: VANCOMYCIN 1 GM in D5W (PRE-DOCKED) 1,000 MG/250 ML IVPB SCH (02:00)
[2021-07-31] MEDS: ACETAMINOPHEN 1000 MG/100 ML BAG IVPB PRN ×2 (04:03→17:20)
[2021-07-31] MEDS: VANCOMYCIN 1 GM/200 ML PREMIX BAG IVPB SCH ×2 (05:58→20:15)
[2021-07-31] MEDS: LEVOTHYROXINE NA 25 MCG TABLET (FP) PO SCH (06:06)
[2021-07-31 08:30] LABS: BASO % 0.7 % (0-2.0); EOS % 2.9 % (0-4.5); HEMATOCRIT 33.4 % (32.4-45.2); HEMOGLOBIN 11.4 GM/dL (10.7-15.3); LYMPH % 29.2 % (8-40); MCHC 34.2 g/dl (32.0-36.0); MEAN PLT VOLUME 8.2 fl (7.5-11.1); MONO % 9.5 % (3.8-10.2); NEUT % 57.7 % (42.8-82.8); PLATELET COUNT 228 10^3/uL (134-434); RBC 3.93 M/mm3 (3.60-5.2); RDW 13.4 % (11.6-15.6); WHITE BLOOD COUNT 5.6 K/mm3 (4.0-10.0)
[2021-07-31 08:56] LABS: CHOLESTEROL 150 mg/dL (50-200); TRIGLYCERIDES 44 mg/dL (0-150)
[2021-07-31 08:58] LABS: BLOOD UREA NITROGEN 15.3 mg/dL (7-18); CALCIUM 8.5 mg/dL (8.5-10.1); LDL CHOLESTEROL (ONLY SJRH) 99 mg/dL (5-100)
[2021-07-31 08:59] LABS: HDL CHOLESTEROL 46 mg/dL (40-60)
[2021-07-31 09:02] LABS: CREATININE 0.9 mg/dL (0.55-1.3)
[2021-07-31] MEDS: ENOXAPARIN NA (PORCINE) 40 MG/0.4 ML DISP.SYRIN SQ SCH ×2 (09:23→09:37)
[2021-07-31] MEDS: EZETIMIBE 10 MG TABLET (FP) PO SCH (09:23)
[2021-07-31] MEDS ORDERED: DEXTROSE 5%-WATER 100 ML IVPB ONE (17:05)
[2021-07-31] MEDS: CEFTRIAXONE 2 GM in DEXTROSE 5%-WATER 2 GM/100 ML BAG IVPB SCH (18:57)
[2021-07-31] MEDS: ATORVASTATIN CA 80 MG TABLET (FP) PO SCH (21:33)
[2021-08-01 04:56] LABS: HEMATOCRIT 35.5 % (32.4-45.2); HEMOGLOBIN 12.1 GM/dL (10.7-15.3); MCHC 34.1 g/dl (32.0-36.0); MEAN CELL VOLUME 85.1 fl (80-96); MEAN PLT VOLUME 7.9 fl (7.5-11.1); PLATELET COUNT 226 10^3/uL (134-434); RBC 4.18 M/mm3 (3.60-5.2); RDW 13.5 % (11.6-15.6); WHITE BLOOD COUNT 5.6 K/mm3 (4.0-10.0)
[2021-08-01 05:22] LABS: CALCIUM 8.6 mg/dL (8.5-10.1)
[2021-08-01 05:26] LABS: CREATININE 0.8 mg/dL (0.55-1.3)
[2021-08-01] MEDS ORDERED: ACETAMINOPHEN 1000 MG/100 ML BAG IVPB ONE (06:06)
[2021-08-01] MEDS: LEVOTHYROXINE NA 25 MCG TABLET (FP) PO SCH (06:29)
[2021-08-01] MEDS: VANCOMYCIN 1 GM/200 ML PREMIX BAG IVPB SCH ×2 (06:33→17:02)
[2021-08-01] MEDS ORDERED: DEXTROSE 5%-WATER 100 ML IVPB ONE (10:00)
[2021-08-01] MEDS: CEFTRIAXONE 2 GM in DEXTROSE 5%-WATER 2 GM/100 ML BAG IVPB SCH (10:04)
[2021-08-01] MEDS: ENOXAPARIN NA (PORCINE) 40 MG/0.4 ML DISP.SYRIN SQ SCH ×2 (10:04→10:15)
[2021-08-01] MEDS: EZETIMIBE 10 MG TABLET (FP) PO SCH (10:04)
[2021-08-01] MEDS: ACETAMINOPHEN 325 MG TABLET (FP) PO PRN ×2 (15:10→21:04)
[2021-08-01] MEDS: VANCOMYCIN/WATER FOR INJ (PEG) 750 MG/150 ML BAG IVPB SCH (20:11)
[2021-08-01] MEDS: ATORVASTATIN CA 80 MG TABLET (FP) PO SCH (21:02)
[2021-08-02] MEDS: ACETAMINOPHEN 325 MG TABLET (FP) PO PRN ×2 (03:00→22:23)
[2021-08-02] MEDS: LEVOTHYROXINE NA 25 MCG TABLET (FP) PO SCH (06:09)
[2021-08-02] MEDS ORDERED: DEXTROSE 5%-WATER 100 ML IVPB ONE (10:16)
[2021-08-02] MEDS: ENOXAPARIN NA (PORCINE) 40 MG/0.4 ML DISP.SYRIN SQ SCH ×2 (10:25→10:39)
[2021-08-02] MEDS: CEFTRIAXONE 2 GM in DEXTROSE 5%-WATER 2 GM/100 ML BAG IVPB SCH (10:25)
[2021-08-02] MEDS: EZETIMIBE 10 MG TABLET (FP) PO SCH (10:27)
[2021-08-02 10:49] LABS: BASO % 0.5 % (0-2.0); HEMOGLOBIN 12.7 GM/dL (10.7-15.3); LYMPH % 28.5 % (8-40); MCH 28.8 pg (25.7-33.7); MCHC 33.3 g/dl (32.0-36.0); MEAN CELL VOLUME 86.3 fl (80-96); MEAN PLT VOLUME 8.2 fl (7.5-11.1); MONO % 8.4 % (3.8-10.2); NEUT % 59.6 % (42.8-82.8); PLATELET COUNT 261 10^3/uL (134-434); RDW 13.5 % (11.6-15.6); WHITE BLOOD COUNT 4.8 K/mm3 (4.0-10.0)
[2021-08-02] MEDS: VANCOMYCIN/WATER FOR INJ (PEG) 750 MG/150 ML BAG IVPB SCH ×2 (10:49→20:22)
[2021-08-02 11:26] LABS: BLOOD UREA NITROGEN 20.4 mg/dL (7-18); CREATININE 0.9 mg/dL (0.55-1.3)
[2021-08-02] MEDS: ATORVASTATIN CA 80 MG TABLET (FP) PO SCH (21:51)
[2021-08-03] MEDS: LEVOTHYROXINE NA 25 MCG TABLET (FP) PO SCH (06:50)
[2021-08-03] MEDS ORDERED: DEXTROSE 5%-WATER 100 ML IVPB ONE ×2 (10:59→16:08)
[2021-08-03] MEDS: CEFTRIAXONE 2 GM in DEXTROSE 5%-WATER 2 GM/100 ML BAG IVPB SCH ×2 (11:00→16:13)
[2021-08-03] MEDS: EZETIMIBE 10 MG TABLET (FP) PO SCH (11:01)
[2021-08-03] MEDS: ENOXAPARIN NA (PORCINE) 40 MG/0.4 ML DISP.SYRIN SQ SCH (11:06)
[2021-08-03 11:21] LABS: BASO % 0.6 % (0-2.0); EOS % 2.1 % (0-4.5); HEMOGLOBIN 12.2 GM/dL (10.7-15.3); LYMPH % 24.3 % (8-40); MCH 28.9 pg (25.7-33.7); MCHC 33.9 g/dl (32.0-36.0); MEAN CELL VOLUME 85.3 fl (80-96); MONO % 7.4 % (3.8-10.2); NEUT % 65.6 % (42.8-82.8); PLATELET COUNT 231 10^3/uL (134-434); RBC 4.22 M/mm3 (3.60-5.2); RDW 13.6 % (11.6-15.6); WHITE BLOOD COUNT 4.8 K/mm3 (4.0-10.0)
[2021-08-03 11:44] LABS: ALBUMIN 3.1 g/dl (3.4-5.0); BLOOD UREA NITROGEN 19.2 mg/dL (7-18)
[2021-08-03 11:46] LABS: CREATININE 0.9 mg/dL (0.55-1.3)
[2021-08-03 11:48] LABS: BILIRUBIN,TOTAL 0.2 mg/dL (0.2-1); TOT PROT 6.3 g/dl (6.4-8.2)
[2021-08-03] MEDS: VANCOMYCIN/WATER FOR INJ (PEG) 750 MG/150 ML BAG IVPB SCH ×2 (15:09→21:57)
[2021-08-03] MEDS: ACETAMINOPHEN 325 MG TABLET (FP) PO PRN (18:56)
[2021-08-03] MEDS: ATORVASTATIN CA 80 MG TABLET (FP) PO SCH (21:57)
[2021-08-04] MEDS: ACETAMINOPHEN 325 MG TABLET (FP) PO PRN ×3 (06:20→21:40)
[2021-08-04] MEDS: LEVOTHYROXINE NA 25 MCG TABLET (FP) PO SCH (06:21)
[2021-08-04] MEDS ORDERED: ASPIRIN 81 MG CHEWABLE TABLETS PO ONE (07:23)
[2021-08-04] MEDS ORDERED: CLOPIDOGREL BISULFATE 75 MG PO SCH (07:27)
[2021-08-04] MEDS: VANCOMYCIN/WATER FOR INJ (PEG) 750 MG/150 ML BAG IVPB SCH (09:00)
[2021-08-04] MEDS: ENOXAPARIN NA (PORCINE) 40 MG/0.4 ML DISP.SYRIN SQ SCH (09:00)
[2021-08-04] MEDS: CLOPIDOGREL BISULFATE 75 MG TABLET (FP) PO SCH (09:08)
[2021-08-04] MEDS: CEFTRIAXONE 2 GM in DEXTROSE 5%-WATER 2 GM/100 ML BAG IVPB SCH ×2 (09:08→14:27)
[2021-08-04] MEDS: metoPROLOL SUCCINATE 25 MG TAB.SR.24H (FP) PO SCH (09:08)
[2021-08-04] MEDS: EZETIMIBE 10 MG TABLET (FP) PO SCH (09:08)
[2021-08-04 10:32] LABS: HEMATOCRIT 37.4 % (32.4-45.2); HEMOGLOBIN 12.4 GM/dL (10.7-15.3); MCH 28.5 pg (25.7-33.7); MCHC 33.2 g/dl (32.0-36.0); MEAN CELL VOLUME 85.6 fl (80-96); MEAN PLT VOLUME 8.2 fl (7.5-11.1); PLATELET COUNT 259 10^3/uL (134-434); RBC 4.36 M/mm3 (3.60-5.2); RDW 13.5 % (11.6-15.6); WHITE BLOOD COUNT 5.6 K/mm3 (4.0-10.0)
[2021-08-04 10:39] LABS: CALCIUM 8.9 mg/dL (8.5-10.1)
[2021-08-04 10:40] LABS: ALBUMIN 3.2 g/dl (3.4-5.0); BLOOD UREA NITROGEN 20.8 mg/dL (7-18); MAGNESIUM 2.1 mg/dL (1.8-2.4)
[2021-08-04 10:43] LABS: CREATININE 0.8 mg/dL (0.55-1.3)
[2021-08-04 10:45] LABS: BILIRUBIN,TOTAL 0.3 mg/dL (0.2-1); TOT PROT 6.6 g/dl (6.4-8.2)
[2021-08-04] MEDS ORDERED: DEXTROSE 5%-WATER 100 ML IVPB ONE (14:16)
[2021-08-04] MEDS: ATORVASTATIN CA 80 MG TABLET (FP) PO SCH (21:40)
[2021-08-05] MEDS: LEVOTHYROXINE NA 25 MCG TABLET (FP) PO SCH (06:05)
[2021-08-05] MEDS: traMADol HCL 50 MG TABLET PO PRN ×2 (09:33→21:05)
[2021-08-05] MEDS: metoPROLOL SUCCINATE 25 MG TAB.SR.24H (FP) PO SCH ×2 (09:34→09:48)
[2021-08-05] MEDS: EZETIMIBE 10 MG TABLET (FP) PO SCH (09:40)
[2021-08-05] MEDS: CLOPIDOGREL BISULFATE 75 MG TABLET (FP) PO SCH (09:40)
[2021-08-05] MEDS: ASPIRIN 81 MG CHEWABLE TABLETS PO SCH (09:40)
[2021-08-05] MEDS: ENOXAPARIN NA (PORCINE) 40 MG/0.4 ML DISP.SYRIN SQ SCH (09:40)
[2021-08-05] MEDS ORDERED: PATIENT'S OWN MEDICATION (NON-FORMULARY) (Aspirin 81 MG) PO SCH (10:00)
[2021-08-05] MEDS ORDERED: DEXTROSE 5%-WATER 100 ML IVPB ONE (12:45)
[2021-08-05] MEDS: CEFTRIAXONE 2 GM in DEXTROSE 5%-WATER 2 GM/100 ML BAG IVPB SCH (12:50)
[2021-08-05] MEDS: DAPTOMYCIN 450 MG in SODIUM CHLORIDE 50 ML IVPB SCH (18:26)
[2021-08-06] MEDS: ACETAMINOPHEN 325 MG TABLET (FP) PO PRN ×2 (01:40→20:13)
[2021-08-06] MEDS: LEVOTHYROXINE NA 25 MCG TABLET (FP) PO SCH (06:15)
[2021-08-06] MEDS ORDERED: DEXTROSE 5%-WATER 100 ML IVPB ONE (08:59)
[2021-08-06] MEDS: CEFTRIAXONE 2 GM in DEXTROSE 5%-WATER 2 GM/100 ML BAG IVPB SCH (09:20)
[2021-08-06] MEDS: CLOPIDOGREL BISULFATE 75 MG TABLET (FP) PO SCH (09:21)
[2021-08-06] MEDS: ASPIRIN 81 MG CHEWABLE TABLETS PO SCH (09:21)
[2021-08-06] MEDS: ENOXAPARIN NA (PORCINE) 40 MG/0.4 ML DISP.SYRIN SQ SCH (09:21)
[2021-08-06] MEDS: metoPROLOL SUCCINATE 25 MG TAB.SR.24H (FP) PO SCH (09:21)
[2021-08-06] MEDS: EZETIMIBE 10 MG TABLET (FP) PO SCH (09:21)
[2021-08-06] MEDS: DAPTOMYCIN 450 MG in SODIUM CHLORIDE 50 ML IVPB SCH (10:50)
[2021-08-06] MEDS: traMADol HCL 50 MG TABLET PO PRN (20:10)
[2021-08-07] MEDS: ACETAMINOPHEN 325 MG TABLET (FP) PO PRN (05:44)
[2021-08-07] MEDS: LEVOTHYROXINE NA 25 MCG TABLET (FP) PO SCH (06:03)
[2021-08-07] MEDS ORDERED: DEXTROSE 5%-WATER 100 ML IVPB ONE (10:01)
[2021-08-07] MEDS: EZETIMIBE 10 MG TABLET (FP) PO SCH (10:29)
[2021-08-07] MEDS: metoPROLOL SUCCINATE 25 MG TAB.SR.24H (FP) PO SCH (10:29)
[2021-08-07] MEDS: CLOPIDOGREL BISULFATE 75 MG TABLET (FP) PO SCH (10:30)
[2021-08-07] MEDS: ASPIRIN 81 MG CHEWABLE TABLETS PO SCH (10:30)
[2021-08-07] MEDS: CEFTRIAXONE 2 GM in DEXTROSE 5%-WATER 2 GM/100 ML BAG IVPB SCH (10:42)
[2021-08-07] MEDS: DAPTOMYCIN 450 MG in SODIUM CHLORIDE 50 ML IVPB SCH (11:09)
[2021-08-07 11:34] VITALS: BP 116/71; PULSE 87; TEMP 98.2
== END 2021-08-07 13:00 | disposition home or self-care (01) | DRG 541 ==
LOC: JER 15:06 → JERBED 19:46 → J5S 21:49
PROVIDERS: ADMIT Hospitalist
PROC: 02HV33Z Insertion of Infusion Device into Superior Vena Cava, Percutaneous Approach (ICD-10-PCS; principal; 2021-08-05)
PROC: B518ZZA Fluoroscopy of Superior Vena Cava, Guidance (ICD-10-PCS; 2021-08-05)
DX: M86.8X2 Other osteomyelitis, upper arm (principal); M60.822 Other myositis, left upper arm; I25.10 Atherosclerotic heart disease of native coronary artery without angina pectoris; I10 Essential (primary) hypertension; E78.5 Hyperlipidemia, unspecified; E03.9 Hypothyroidism, unspecified; E55.9 Vitamin D deficiency, unspecified; J45.909 Unspecified asthma, uncomplicated; M79.7 Fibromyalgia; K21.9 Gastro-esophageal reflux disease without esophagitis; M54.50 Low back pain, unspecified; F41.8 Other specified anxiety disorders; E78.1 Pure hyperglyceridemia; R07.89 Other chest pain; R73.03 Prediabetes; Z95.5 Presence of coronary angioplasty implant and graft
CPT/HCPCS: 36415; 36569; 71045-TC-FY; 77001-TC-FY; 80048; 80053; 80061; 83036; 83735; 84443; 84484; 85025; 85027; 85610; 85651; 86140; 87040; 93005; 93010; 97116-GP; 97161-GP; 99285-25; C1751; C9803-CS; G0480; J0878; U0003; U0005

== ENCOUNTER 2021-08-08 12:46 | Day surgery (SDC) | payer MEDICARE, OTHER ==
[~2021-08-08 12:46] MED LIST: CEFTRIAXONE 2 GM in DEXTROSE 5%-WATER 2 GM/100 ML BAG IVPB ONE; DAPTOMYCIN 450 MG in SODIUM CHLORIDE 50 ML IVPB ONE
[2021-08-08] MEDS ORDERED: DEXTROSE 5%-WATER 100 ML IVPB ONE (13:22)
[2021-08-08] MEDS ORDERED: CEFTRIAXONE 2 GM in DEXTROSE 5%-WATER 2 GM/100 ML BAG IVPB ONE (13:30)
[2021-08-08] MEDS ORDERED: DAPTOMYCIN 450 MG in SODIUM CHLORIDE 50 ML IVPB ONE (13:45)
[2021-08-08 16:06] VITALS: BP 120/57; PULSE 78; TEMP 98.5
== END 2021-08-08 15:30 | disposition home or self-care (01) ==
LOC: JINFUSION 12:46 → J7W 12:47 → JINFUSION 15:30
PROVIDERS: ATTEND Internal Medicine Infectious Disease
DX: M86.8X2 Other osteomyelitis, upper arm (principal)
CPT/HCPCS: 96365; 96367; J0878

== ENCOUNTER 2021-08-09 12:40 | Day surgery (SDC) | payer MEDICARE, OTHER ==
[~2021-08-09 12:40] MED LIST changes: +CEFTRIAXONE 2 GM in DEXTROSE 5%-WATER 100 ML IVPB ONE; -CEFTRIAXONE 2 GM in DEXTROSE 5%-WATER 2 GM/100 ML BAG IVPB ONE
[2021-08-09] MEDS ORDERED: DEXTROSE 5%-WATER 100 ML IVPB ONE (13:12)
[2021-08-09 13:33] LABS: HEMATOCRIT 37.2 % (32.4-45.2); HEMOGLOBIN 12.2 GM/dL (10.7-15.3); MCH 28.4 pg (25.7-33.7); MCHC 32.9 g/dl (32.0-36.0); MEAN CELL VOLUME 86.3 fl (80-96); PLATELET COUNT 262 10^3/uL (134-434); RBC 4.31 M/mm3 (3.60-5.2); RDW 13.7 % (11.6-15.6); WHITE BLOOD COUNT 6.3 K/mm3 (4.0-10.0)
[2021-08-09 14:00] LABS: ALBUMIN 3.1 g/dl (3.4-5.0)
[2021-08-09 14:01] LABS: BLOOD UREA NITROGEN 16.2 mg/dL (7-18)
[2021-08-09 14:04] LABS: CREATININE 0.7 mg/dL (0.55-1.3)
[2021-08-09 14:05] LABS: BILIRUBIN,TOTAL 0.2 mg/dL (0.2-1); TOT PROT 6.4 g/dl (6.4-8.2)
[2021-08-09 15:31] VITALS: BP 135/80; PULSE 84; TEMP 98
== END 2021-08-09 15:15 | disposition home or self-care (01) ==
LOC: JINFUSION 12:40 → J7W 12:41 → JINFUSION 15:15
PROVIDERS: ATTEND Internal Medicine Infectious Disease
DX: M86.8X2 Other osteomyelitis, upper arm (principal)
CPT/HCPCS: 36415; 80053; 82550; 85027; 96365; 96367; J0878

== ENCOUNTER 2021-08-10 13:26 | Day surgery (SDC) | payer MEDICARE, OTHER ==
[2021-08-10] MEDS ORDERED: DEXTROSE 5%-WATER 100 ML IVPB ONE (13:41)
[2021-08-10] MEDS ORDERED: CEFTRIAXONE 2 GM in DEXTROSE 5%-WATER 100 ML IVPB ONE (14:00)
[2021-08-10] MEDS ORDERED: DAPTOMYCIN 450 MG in SODIUM CHLORIDE 50 ML IVPB ONE (15:00)
[2021-08-10 15:10] VITALS: BP 156/74; PULSE 75; TEMP 97.7
== END 2021-08-10 15:12 | disposition home or self-care (01) ==
LOC: J7W 13:26 → JINFUSION 13:26
PROVIDERS: ATTEND Internal Medicine Infectious Disease
DX: M86.8X2 Other osteomyelitis, upper arm (principal)
CPT/HCPCS: 96365; 96367; J0878

== ENCOUNTER 2021-08-13 11:47 | Day surgery (SDC) | payer MEDICARE, OTHER ==
[2021-08-13] MEDS ORDERED: DEXTROSE 5%-WATER 100 ML IVPB ONE (11:56)
[2021-08-13] MEDS ORDERED: CEFTRIAXONE 2 GM in DEXTROSE 5%-WATER 100 ML IVPB ONE (12:00)
[2021-08-13] MEDS ORDERED: DAPTOMYCIN 450 MG in SODIUM CHLORIDE 50 ML IVPB ONE (12:00)
[2021-08-13 13:13] VITALS: BP 159/108; PULSE 82; TEMP 98.4
== END 2021-08-13 13:26 | disposition home or self-care (01) ==
LOC: JINFUSION 11:47 → J7W 11:47 → JINFUSION 13:26
PROVIDERS: ATTEND Internal Medicine Infectious Disease
DX: M86.8X2 Other osteomyelitis, upper arm (principal)
CPT/HCPCS: 96365; 96367; J0878

== ENCOUNTER 2021-08-13 13:07 | Inpatient (IN) | payer MEDICARE, OTHER ==
[2021-08-13] MEDS ORDERED: morphine CARPU-JECT 4 MG/1 ML DISP.SYRIN IVPUSH ONE ×2 (13:30→15:22)
[2021-08-13 14:48] LABS: HEMATOCRIT 38.5 % (32.4-45.2); MCH 28.8 pg (25.7-33.7); MCHC 33.7 g/dl (32.0-36.0); MEAN CELL VOLUME 85.4 fl (80-96); MEAN PLT VOLUME 7.5 fl (7.5-11.1); PLATELET COUNT 206 10^3/uL (134-434); RBC 4.51 M/mm3 (3.60-5.2); RDW 13.9 % (11.6-15.6)
[2021-08-13 14:49] LABS: ALBUMIN 3.3 g/dl (3.4-5.0); BLOOD UREA NITROGEN 17.4 mg/dL (7-18); CALCIUM 9.3 mg/dL (8.5-10.1)
[2021-08-13 14:52] LABS: CREATININE 0.7 mg/dL (0.55-1.3); WHITE BLOOD COUNT 0.9 K/mm3 (4.0-10.0)
[2021-08-13 14:54] LABS: BILIRUBIN,TOTAL 0.4 mg/dL (0.2-1); TOT PROT 6.9 g/dl (6.4-8.2)
[2021-08-13] MEDS ORDERED: ONDANSETRON 4 MG/2 ML VIAL IVPUSH ONE (15:22)
[2021-08-13] MEDS ORDERED: ACETAMINOPHEN 1000 MG/100 ML BAG IVPB ONE ×2 (15:25→22:38)
[2021-08-13] MEDS ORDERED: ACETAMINOPHEN INJECTION 100 ML IVPB ONE ×2 (15:27→22:46)
[2021-08-13] MEDS ORDERED: ONDANSETRON 4 MG/2 ML VIAL ONE (15:27)
[2021-08-13 15:30] LABS: PLATELET ESTIMATE NORMAL
[2021-08-13 15:38] LABS: ERYTHROCYTE SEDIMENTATION RATE 83 mm/hr (0-30)
[2021-08-13] MEDS ORDERED: LIDOCAINE 5% TOPICAL PATCH TP ONE (21:47)
[2021-08-13] MEDS ORDERED: LIDOCAINE 5% TOPICAL PATCH ONE (22:46)
[2021-08-14 00:20] LABS: HEMATOCRIT 31.7 % (32.4-45.2); HEMOGLOBIN 10.7 GM/dL (10.7-15.3); MCH 28.9 pg (25.7-33.7); MCHC 33.9 g/dl (32.0-36.0); MEAN CELL VOLUME 85.1 fl (80-96); MEAN PLT VOLUME 7.7 fl (7.5-11.1); PLATELET COUNT 200 10^3/uL (134-434); RBC 3.72 M/mm3 (3.60-5.2); RDW 13.5 % (11.6-15.6)
[2021-08-14] MEDS ORDERED: ONDANSETRON 4 MG/2 ML VIAL IVPUSH PRN (00:58)
[2021-08-14] MEDS ORDERED: DAPTOMYCIN 450 MG in SODIUM CHLORIDE 50 ML IVPB SCH ×2 (01:01→02:00)
[2021-08-14] MEDS ORDERED: CEFTRIAXONE 2 GM/100 ML BAG IVPB ONE (01:43)
[2021-08-14] MEDS: CEFTRIAXONE 2 GM in DEXTROSE 5%-WATER 2 GM/100 ML BAG IVPB SCH ×2 (01:49→09:18)
[2021-08-14 02:55] LABS: ANISOCYTOSIS 2+; MACROCYTOSIS 0; OVALOCYTE 1+
[2021-08-14 04:01] VITALS: BMI 27.3
[2021-08-14] MEDS: LIDOCAINE PATCH REMOVAL MC SCH ×2 (04:20→21:02)
[2021-08-14] MEDS: ACETAMINOPHEN 1000 MG/100 ML BAG IVPB PRN ×3 (04:35→21:04)
[2021-08-14] MEDS: LEVOTHYROXINE NA 25 MCG TABLET (FP) PO SCH (06:02)
[2021-08-14] MEDS: INSULIN SLIDING SCALE (NOVOLOG) 1 VIAL SQ SCH ×4 (06:05→21:02)
[2021-08-14 08:13] LABS: BASO % 0.1 % (0-2.0); EOS % 2.5 % (0-4.5); HEMATOCRIT 32.2 % (32.4-45.2); MCHC 34.3 g/dl (32.0-36.0); MEAN CELL VOLUME 84.6 fl (80-96); MEAN PLT VOLUME 7.9 fl (7.5-11.1); MONO % 6.3 % (3.8-10.2); NEUT % 85.1 % (42.8-82.8); PLATELET COUNT 184 10^3/uL (134-434); RDW 13.5 % (11.6-15.6); WHITE BLOOD COUNT 6.6 K/mm3 (4.0-10.0)
[2021-08-14] MEDS ORDERED: DEXTROSE 5%-WATER 100 ML IVPB ONE (09:13)
[2021-08-14] MEDS: CLOPIDOGREL BISULFATE 75 MG TABLET (FP) PO SCH (09:15)
[2021-08-14] MEDS: PANTOPRAZOLE 40 MG TABLET PO SCH (09:15)
[2021-08-14] MEDS: ASPIRIN 81 MG CHEWABLE TABLETS PO SCH (09:15)
[2021-08-14] MEDS: metoPROLOL SUCCINATE 25 MG TAB.SR.24H (FP) PO SCH (09:15)
[2021-08-14] MEDS: ENOXAPARIN NA (PORCINE) 40 MG/0.4 ML DISP.SYRIN SQ SCH ×2 (09:15→10:09)
[2021-08-14 09:24] LABS: CALCIUM 8.4 mg/dL (8.5-10.1)
[2021-08-14 09:25] LABS: BLOOD UREA NITROGEN 15.9 mg/dL (7-18)
[2021-08-14 09:28] LABS: CREATININE 0.8 mg/dL (0.55-1.3); PHOSPHOROUS 3.5 mg/dL (2.5-4.9)
[2021-08-14 09:29] LABS: BILIRUBIN,TOTAL 0.3 mg/dL (0.2-1); TOT PROT 5.4 g/dl (6.4-8.2)
[2021-08-14 09:50] LABS: ALBUMIN 2.6 g/dl (3.4-5.0); MAGNESIUM 2.2 mg/dL (1.8-2.4)
[2021-08-14 18:02] LABS: PH,URINE 5.5 (5.0-8.0); URINE APPEARANCE CLEAR; URINE BILIRUBIN NEGATIVE (NEGATIVE); URINE COLOR YELLOW; URINE GLUCOSE (UA) NEGATIVE (NEGATIVE); URINE KETONE NEGATIVE (NEGATIVE); URINE NITRITE NEGATIVE (NEGATIVE); URINE PROTEIN 1+ (NEGATIVE); URINE UROBILINOGEN 0.2 mg/dL (0.2-1.0)
[2021-08-14 18:03] LABS: URINE LEUK ESTERASE NEGATIVE (NEGATIVE)
[2021-08-15] MEDS ORDERED: ACETAMINOPHEN 1000 MG/100 ML BAG IVPB ONE (05:56)
[2021-08-15] MEDS: LEVOTHYROXINE NA 25 MCG TABLET (FP) PO SCH (06:09)
[2021-08-15] MEDS: INSULIN SLIDING SCALE (NOVOLOG) 1 VIAL SQ SCH ×4 (06:45→21:44)
[2021-08-15 07:52] LABS: BASO % 0.3 % (0-2.0); EOS % 4.6 % (0-4.5); HEMATOCRIT 35.1 % (32.4-45.2); HEMOGLOBIN 11.5 GM/dL (10.7-15.3); LYMPH % 11.9 % (8-40); MCH 28.2 pg (25.7-33.7); MCHC 32.9 g/dl (32.0-36.0); MEAN CELL VOLUME 85.8 fl (80-96); MEAN PLT VOLUME 8.5 fl (7.5-11.1); MONO % 6.6 % (3.8-10.2); NEUT % 76.6 % (42.8-82.8); PLATELET COUNT 180 10^3/uL (134-434); RBC 4.09 M/mm3 (3.60-5.2); RDW 14.1 % (11.6-15.6); WHITE BLOOD COUNT 5.6 K/mm3 (4.0-10.0)
[2021-08-15 08:38] LABS: CALCIUM 8.5 mg/dL (8.5-10.1)
[2021-08-15 08:39] LABS: ALBUMIN 2.6 g/dl (3.4-5.0); BLOOD UREA NITROGEN 15.4 mg/dL (7-18)
[2021-08-15 08:42] LABS: CREATININE 0.7 mg/dL (0.55-1.3)
[2021-08-15 08:44] LABS: TOT PROT 5.8 g/dl (6.4-8.2)
[2021-08-15 08:45] LABS: BILIRUBIN,TOTAL 0.6 mg/dL (0.2-1)
[2021-08-15] MEDS ORDERED: DEXTROSE 5%-WATER 100 ML IVPB ONE (09:15)
[2021-08-15] MEDS: PANTOPRAZOLE 40 MG TABLET PO SCH (09:30)
[2021-08-15] MEDS: CEFTRIAXONE 2 GM in DEXTROSE 5%-WATER 2 GM/100 ML BAG IVPB SCH (09:30)
[2021-08-15] MEDS: CLOPIDOGREL BISULFATE 75 MG TABLET (FP) PO SCH (09:30)
[2021-08-15] MEDS: ASPIRIN 81 MG CHEWABLE TABLETS PO SCH (09:30)
[2021-08-15] MEDS: metoPROLOL SUCCINATE 25 MG TAB.SR.24H (FP) PO SCH (09:30)
[2021-08-15] MEDS: ENOXAPARIN NA (PORCINE) 40 MG/0.4 ML DISP.SYRIN SQ SCH (09:33)
[2021-08-15] MEDS: DAPTOMYCIN 450 MG in SODIUM CHLORIDE 50 ML IVPB SCH (10:30)
[2021-08-15] MEDS: LIDOCAINE PATCH REMOVAL MC SCH (21:45)
[2021-08-15] MEDS: ACETAMINOPHEN 325 MG TABLET (FP) PO PRN (22:27)
[2021-08-16] MEDS: LEVOTHYROXINE NA 25 MCG TABLET (FP) PO SCH (06:46)
[2021-08-16] MEDS: INSULIN SLIDING SCALE (NOVOLOG) 1 VIAL SQ SCH ×4 (06:49→23:40)
[2021-08-16] MEDS ORDERED: DEXTROSE 5%-WATER 100 ML IVPB ONE (09:35)
[2021-08-16] MEDS: metoPROLOL SUCCINATE 25 MG TAB.SR.24H (FP) PO SCH (09:40)
[2021-08-16] MEDS: CEFTRIAXONE 2 GM in DEXTROSE 5%-WATER 2 GM/100 ML BAG IVPB SCH (09:40)
[2021-08-16] MEDS: PANTOPRAZOLE 40 MG TABLET PO SCH (09:40)
[2021-08-16] MEDS: ENOXAPARIN NA (PORCINE) 40 MG/0.4 ML DISP.SYRIN SQ SCH (10:35)
[2021-08-16] MEDS: DAPTOMYCIN 450 MG in SODIUM CHLORIDE 50 ML IVPB SCH (11:54)
[2021-08-16] MEDS: ACETAMINOPHEN 325 MG TABLET (FP) PO PRN ×2 (11:58→19:55)
[2021-08-16] MEDS: LIDOCAINE PATCH REMOVAL MC SCH (21:40)
[2021-08-17] MEDS: LEVOTHYROXINE NA 25 MCG TABLET (FP) PO SCH (06:21)
[2021-08-17] MEDS: INSULIN SLIDING SCALE (NOVOLOG) 1 VIAL SQ SCH ×4 (06:21→21:14)
[2021-08-17] MEDS: ACETAMINOPHEN 325 MG TABLET (FP) PO PRN ×2 (08:20→21:06)
[2021-08-17] MEDS ORDERED: DEXTROSE 5%-WATER 100 ML IVPB ONE (10:05)
[2021-08-17] MEDS: CEFTRIAXONE 2 GM in DEXTROSE 5%-WATER 2 GM/100 ML BAG IVPB SCH (10:32)
[2021-08-17] MEDS: ENOXAPARIN NA (PORCINE) 40 MG/0.4 ML DISP.SYRIN SQ SCH (10:32)
[2021-08-17] MEDS: PANTOPRAZOLE 40 MG TABLET PO SCH (10:32)
[2021-08-17] MEDS: metoPROLOL SUCCINATE 25 MG TAB.SR.24H (FP) PO SCH (10:32)
[2021-08-17] MEDS: DAPTOMYCIN 450 MG in SODIUM CHLORIDE 50 ML IVPB SCH (11:33)
[2021-08-17] MEDS ORDERED: INSULIN (NOVOLOG) ASPART 100 UNITS/ML 10ML VIAL ONE (11:38)
[2021-08-17] MEDS: LIDOCAINE PATCH REMOVAL MC SCH (21:14)
[2021-08-18] MEDS: LEVOTHYROXINE NA 25 MCG TABLET (FP) PO SCH (06:26)
[2021-08-18] MEDS: INSULIN SLIDING SCALE (NOVOLOG) 1 VIAL SQ SCH ×4 (06:27→21:19)
[2021-08-18] MEDS: ACETAMINOPHEN 325 MG TABLET (FP) PO PRN (08:25)
[2021-08-18] MEDS ORDERED: DEXTROSE 5%-WATER 100 ML IVPB ONE (09:35)
[2021-08-18] MEDS: metoPROLOL SUCCINATE 25 MG TAB.SR.24H (FP) PO SCH (09:36)
[2021-08-18] MEDS: PANTOPRAZOLE 40 MG TABLET PO SCH (09:36)
[2021-08-18] MEDS: CEFTRIAXONE 2 GM in DEXTROSE 5%-WATER 2 GM/100 ML BAG IVPB SCH (09:37)
[2021-08-18] MEDS: ENOXAPARIN NA (PORCINE) 40 MG/0.4 ML DISP.SYRIN SQ SCH (09:37)
[2021-08-18] MEDS: LORATADINE 10 MG TABLET PO SCH (10:46)
[2021-08-18] MEDS: DAPTOMYCIN 450 MG in SODIUM CHLORIDE 50 ML IVPB SCH (12:14)
[2021-08-18 14:36] LABS: ALBUMIN 2.8 g/dl (3.4-5.0); BLOOD UREA NITROGEN 15.9 mg/dL (7-18); CALCIUM 8.8 mg/dL (8.5-10.1)
[2021-08-18 14:40] LABS: CREATININE 0.7 mg/dL (0.55-1.3); TOT PROT 6.7 g/dl (6.4-8.2)
[2021-08-18 14:42] LABS: BILIRUBIN,TOTAL 0.3 mg/dL (0.2-1)
[2021-08-18] MEDS: LIDOCAINE PATCH REMOVAL MC SCH (21:19)
[2021-08-19] MEDS: ACETAMINOPHEN 325 MG TABLET (FP) PO PRN (02:07)
[2021-08-19] MEDS: INSULIN SLIDING SCALE (NOVOLOG) 1 VIAL SQ SCH ×3 (06:35→16:31)
[2021-08-19] MEDS: LEVOTHYROXINE NA 25 MCG TABLET (FP) PO SCH (06:35)
[2021-08-19] MEDS ORDERED: DEXTROSE 5%-WATER 100 ML IVPB ONE (10:08)
[2021-08-19] MEDS: PANTOPRAZOLE 40 MG TABLET PO SCH (10:15)
[2021-08-19] MEDS: ENOXAPARIN NA (PORCINE) 40 MG/0.4 ML DISP.SYRIN SQ SCH ×2 (10:15→10:21)
[2021-08-19] MEDS: CEFTRIAXONE 2 GM in DEXTROSE 5%-WATER 2 GM/100 ML BAG IVPB SCH (10:15)
[2021-08-19] MEDS: DAPTOMYCIN 450 MG in SODIUM CHLORIDE 50 ML IVPB SCH (10:15)
[2021-08-19] MEDS: LORATADINE 10 MG TABLET PO SCH (10:15)
[2021-08-19] MEDS: metoPROLOL SUCCINATE 25 MG TAB.SR.24H (FP) PO SCH (10:16)
[2021-08-19 11:06] LABS: BLOOD UREA NITROGEN 17.2 mg/dL (7-18)
[2021-08-19 11:08] LABS: ALBUMIN 2.6 g/dl (3.4-5.0); CALCIUM 8.8 mg/dL (8.5-10.1)
[2021-08-19 11:10] LABS: BILIRUBIN,TOTAL 0.5 mg/dL (0.2-1); CREATININE 0.7 mg/dL (0.55-1.3); TOT PROT 6.3 g/dl (6.4-8.2)
[2021-08-19 11:31] LABS: HEMATOCRIT 35.8 % (32.4-45.2); HEMOGLOBIN 11.8 GM/dL (10.7-15.3); MCH 28.4 pg (25.7-33.7); MEAN CELL VOLUME 86.2 fl (80-96); MEAN PLT VOLUME 8.4 fl (7.5-11.1); PLATELET COUNT 285 10^3/uL (134-434); RBC 4.15 M/mm3 (3.60-5.2); RDW 14.3 % (11.6-15.6); WHITE BLOOD COUNT 5.9 K/mm3 (4.0-10.0)
[2021-08-19 13:17] LABS: PLATELET ESTIMATE NORMAL
[2021-08-19] MEDS: CLOPIDOGREL BISULFATE 75 MG TABLET (FP) PO SCH (13:22)
[2021-08-19] MEDS: ASPIRIN 81 MG CHEWABLE TABLETS PO SCH (13:22)
[2021-08-19 14:22] VITALS: BP 110/64; PULSE 75; TEMP 98.5
== END 2021-08-19 18:45 | disposition home or self-care (01) | DRG 552 ==
LOC: JER 13:07 → JERBED 22:49 → J6S 08-14 03:24
PROVIDERS: ADMIT Internal Medicine
DX: M51.36 Other intervertebral disc degeneration, lumbar region (principal); C34.32 Malignant neoplasm of lower lobe, left bronchus or lung; C79.51 Secondary malignant neoplasm of bone; M86.8X2 Other osteomyelitis, upper arm; I10 Essential (primary) hypertension; I25.10 Atherosclerotic heart disease of native coronary artery without angina pectoris; E11.9 Type 2 diabetes mellitus without complications; E03.9 Hypothyroidism, unspecified; M79.7 Fibromyalgia; J45.909 Unspecified asthma, uncomplicated; I25.2 Old myocardial infarction; D70.9 Neutropenia, unspecified; K21.9 Gastro-esophageal reflux disease without esophagitis; F41.8 Other specified anxiety disorders; G89.29 Other chronic pain; M60.822 Other myositis, left upper arm; Z95.5 Presence of coronary angioplasty implant and graft
CPT/HCPCS: 36415; 70553-TC; 71270-TC; 72131-TC; 72149-TC; 78306-TC; 80053; 81003; 82550; 82962; 83735; 84100; 85025; 85651; 86140; 93005; 93010; 97116-GP; 97162-GP; 99291; A9503; A9579; C9803-CS; J0878; Q9967; U0003; U0005

== ENCOUNTER 2021-10-18 07:28 | Day surgery (SDC) | payer MEDICARE, OTHER ==
[2021-10-18] MEDS ORDERED: ZOLEDRONIC ACID 4 MG in SODIUM CHLORIDE 100 ML IVPB ONE (10:00)
[2021-10-18 12:06] LABS: BASO % 0.7 % (0-2.0); EOS % 1.2 % (0-4.5); HEMATOCRIT 35.8 % (32.4-45.2); LYMPH % 11.1 % (8-40); MCH 28.7 pg (25.7-33.7); MCHC 33.5 g/dl (32.0-36.0); MEAN CELL VOLUME 85.6 fl (80-96); MEAN PLT VOLUME 7.2 fl (7.5-11.1); MONO % 7.4 % (3.8-10.2); NEUT % 79.6 % (42.8-82.8); PLATELET COUNT 349 10^3/uL (134-434); RBC 4.18 M/mm3 (3.60-5.2); RDW 13.5 % (11.6-15.6); WHITE BLOOD COUNT 9.1 K/mm3 (4.0-10.0)
[2021-10-18 12:34] LABS: ALBUMIN 3.1 g/dl (3.4-5.0); BLOOD UREA NITROGEN 17.8 mg/dL (7-18)
[2021-10-18 12:37] LABS: CREATININE 0.8 mg/dL (0.55-1.3)
[2021-10-18 12:39] LABS: BILIRUBIN,TOTAL 0.3 mg/dL (0.2-1); TOT PROT 6.5 g/dl (6.4-8.2)
[2021-10-18] MEDS ORDERED: ACETAMINOPHEN 325 MG TABLET (FP) PO ONE (13:00)
[2021-10-18] MEDS ORDERED: oxyCODONE HCL 5 MG TABLET PO ONE (13:07)
[2021-10-18] MEDS ORDERED: CYANOCOBALAMIN (VITAMIN B-12) 1000 MCG/1 ML VIAL IM ONE (13:30)
[2021-10-18 17:11] VITALS: BP 145/68; PULSE 64; TEMP 98.6
== END 2021-10-18 15:05 | disposition home or self-care (01) ==
LOC: JONCCHEMO 07:28
PROVIDERS: ATTEND Internal Medicine Hematology & Oncology
PROC: 3E033GC Introduction of Other Therapeutic Substance into Peripheral Vein, Percutaneous Approach (ICD-10-PCS; principal; 2021-10-18)
PROC: 3E013GC Introduction of Other Therapeutic Substance into Subcutaneous Tissue, Percutaneous Approach (ICD-10-PCS; 2021-10-18)
DX: Z76.89 Persons encountering health services in other specified circumstances (principal); C34.90 Malignant neoplasm of unspecified part of unspecified bronchus or lung; C79.51 Secondary malignant neoplasm of bone
CPT/HCPCS: 36415; 80053; 85025; 96365; 96372; J3489

== ENCOUNTER 2021-10-23 07:19 | Day surgery (SDC) | payer MEDICARE, OTHER ==
[2021-10-23 10:35] LABS: BASO % 0.4 % (0-2.0); EOS % 1.5 % (0-4.5); HEMATOCRIT 36.6 % (32.4-45.2); HEMOGLOBIN 11.9 GM/dL (10.7-15.3); LYMPH % 16.9 % (8-40); MCHC 32.5 g/dl (32.0-36.0); MEAN CELL VOLUME 85.9 fl (80-96); MEAN PLT VOLUME 7.6 fl (7.5-11.1); MONO % 8.9 % (3.8-10.2); NEUT % 72.3 % (42.8-82.8); PLATELET COUNT 372 10^3/uL (134-434); RBC 4.26 M/mm3 (3.60-5.2); RDW 13.6 % (11.6-15.6)
[2021-10-23 10:52] LABS: BLOOD UREA NITROGEN 9.4 mg/dL (7-18); CALCIUM 7.8 mg/dL (8.5-10.1); MAGNESIUM 2.5 mg/dL (1.8-2.4)
[2021-10-23 10:55] LABS: CREATININE 0.6 mg/dL (0.55-1.3)
[2021-10-23 10:57] LABS: BILIRUBIN,TOTAL 0.2 mg/dL (0.2-1); TOT PROT 6.4 g/dl (6.4-8.2)
[2021-10-23] MEDS ORDERED: SODIUM CHLORIDE 250 ML IV ONE (11:00)
[2021-10-23] MEDS ORDERED: DEXAMETHASONE SOD PHOSPHATE 10 MG/1 ML VIAL IVPB ONE (11:16)
[2021-10-23] MEDS ORDERED: FOSAPREPITANT DIMEGLUMINE 150 MG in SODIUM CHLORIDE 145 ML IVPB ONE (11:30)
[2021-10-23] MEDS ORDERED: PALONOSETRON HCL 0.25 MG/5 ML VIAL IVPUSH ONE (11:30)
[2021-10-23] MEDS ORDERED: PEMBROLIZUMAB 200 MG in SODIUM CHLORIDE 100 ML IV ONE (12:00)
[2021-10-23] MEDS ORDERED: PEMETREXED DISODIUM IVPB ONE (12:30)
[2021-10-23] MEDS ORDERED: SODIUM CHLORIDE IVPB ONE ×2 (12:30→12:45)
[2021-10-23] MEDS ORDERED: CARBOPLATIN IVPB ONE (12:45)
[2021-10-23 12:54] VITALS: TEMP 98.8
[2021-10-23] MEDS ORDERED: DEXAMETHASONE SODIUM PHOSPHATE 10 MG in SODIUM CHLORIDE 50 ML IVPB ONE (13:00)
[2021-10-23 16:29] VITALS: BP 131/66; PULSE 73
== END 2021-10-23 16:00 | disposition home or self-care (01) ==
LOC: JONCCHEMO 07:19
PROVIDERS: ATTEND Internal Medicine Hematology & Oncology
DX: Z51.11 Encounter for antineoplastic chemotherapy (principal); C34.90 Malignant neoplasm of unspecified part of unspecified bronchus or lung; C79.51 Secondary malignant neoplasm of bone
CPT/HCPCS: 36415; 80053; 83735; 84439; 84443; 85025; 96367; 96375; 96411; 96413; 96417; J1453; J2469; J9271; J9305

== ENCOUNTER 2021-10-25 07:28 | Day surgery (SDC) | payer MEDICARE, OTHER ==
[2021-10-25] MEDS ORDERED: PEGFILGRASTIM-BMEZ 6 MG/0.6 ML SYRINGE SQ ONE (11:00)
[2021-10-25 17:10] VITALS: BP 133/71; PULSE 59; RESP 18; TEMP 98.5
== END 2021-10-25 13:20 | disposition home or self-care (01) ==
LOC: JONCNONCHE 07:28
PROVIDERS: ATTEND Internal Medicine Hematology & Oncology
PROC: 3E013GC Introduction of Other Therapeutic Substance into Subcutaneous Tissue, Percutaneous Approach (ICD-10-PCS; principal; 2021-10-25)
DX: C34.90 Malignant neoplasm of unspecified part of unspecified bronchus or lung (principal); C79.51 Secondary malignant neoplasm of bone; Z76.89 Persons encountering health services in other specified circumstances
CPT/HCPCS: 96372; Q5120

== ENCOUNTER 2021-11-13 07:23 | Day surgery (SDC) | payer MEDICARE, OTHER ==
[2021-11-13] MEDS ORDERED: SODIUM CHLORIDE 250 ML IV ONE (10:15)
[2021-11-13 10:22] LABS: BASO % 0.7 % (0-2.0); EOS % 1.3 % (0-4.5); HEMATOCRIT 34.8 % (32.4-45.2); HEMOGLOBIN 11.5 GM/dL (10.7-15.3); LYMPH % 25.3 % (8-40); MCH 28.3 pg (25.7-33.7); MEAN CELL VOLUME 85.8 fl (80-96); MEAN PLT VOLUME 7.6 fl (7.5-11.1); MONO % 8.9 % (3.8-10.2); NEUT % 63.8 % (42.8-82.8); PLATELET COUNT 434 10^3/uL (134-434); RBC 4.06 M/mm3 (3.60-5.2); RDW 14.4 % (11.6-15.6); WHITE BLOOD COUNT 6.7 K/mm3 (4.0-10.0)
[2021-11-13 10:51] LABS: ALBUMIN 3.1 g/dl (3.4-5.0); BLOOD UREA NITROGEN 14.6 mg/dL (7-18)
[2021-11-13 10:53] LABS: CALCIUM 8.3 mg/dL (8.5-10.1); CREATININE 0.7 mg/dL (0.55-1.3)
[2021-11-13 10:54] LABS: BILIRUBIN,TOTAL 0.2 mg/dL (0.2-1)
[2021-11-13 10:56] LABS: TOT PROT 6.3 g/dl (6.4-8.2)
[2021-11-13] MEDS ORDERED: PEMBROLIZUMAB 200 MG in SODIUM CHLORIDE 100 ML IV ONE (11:00)
[2021-11-13] MEDS ORDERED: PALONOSETRON HCL 0.25 MG/5 ML VIAL IVPUSH ONE (11:00)
[2021-11-13] MEDS ORDERED: FOSAPREPITANT DIMEGLUMINE 150 MG in SODIUM CHLORIDE 145 ML IVPB ONE (11:00)
[2021-11-13] MEDS ORDERED: DEXAMETHASONE SOD PHOSPHATE 10 MG/1 ML VIAL IVPB ONE (11:28)
[2021-11-13] MEDS ORDERED: SODIUM CHLORIDE IVPB ONE ×2 (11:30→12:00)
[2021-11-13] MEDS ORDERED: PEMETREXED DISODIUM IVPB ONE (11:30)
[2021-11-13] MEDS ORDERED: CARBOPLATIN IVPB ONE (12:00)
[2021-11-13] MEDS ORDERED: DEXAMETHASONE INJECTION 10 MG in SODIUM CHLORIDE 50 ML IVPB ONE (12:00)
[2021-11-13 16:31] VITALS: TEMP 98.8
[2021-11-13 16:33] VITALS: BP 135/62; PULSE 64; RESP 18
== END 2021-11-13 14:45 | disposition home or self-care (01) ==
LOC: JONCCHEMO 07:23
PROVIDERS: ATTEND Internal Medicine Hematology & Oncology
DX: Z51.11 Encounter for antineoplastic chemotherapy (principal); C34.90 Malignant neoplasm of unspecified part of unspecified bronchus or lung; C79.51 Secondary malignant neoplasm of bone
CPT/HCPCS: 36415; 80053; 84439; 84443; 85025; 96367; 96375; 96411; 96413; 96417; J1100; J1453; J2469; J9271; J9305

== ENCOUNTER 2021-11-14 07:55 | Day surgery (SDC) | payer MEDICARE, OTHER ==
[2021-11-14] MEDS ORDERED: PEGFILGRASTIM-BMEZ 6 MG/0.6 ML SYRINGE SQ ONE (13:15)
[2021-11-14 14:27] VITALS: BP 104/50; PULSE 71; RESP 18; TEMP 98.2
== END 2021-11-14 16:27 | disposition home or self-care (01) ==
LOC: JONCCHEMO 07:55
PROVIDERS: ATTEND Internal Medicine Hematology & Oncology
DX: C34.90 Malignant neoplasm of unspecified part of unspecified bronchus or lung (principal); C79.51 Secondary malignant neoplasm of bone; Z76.89 Persons encountering health services in other specified circumstances
CPT/HCPCS: 96372; Q5120

== ENCOUNTER 2021-12-05 07:45 | Day surgery (SDC) | payer MEDICARE, OTHER ==
[2021-12-05] MEDS ORDERED: SODIUM CHLORIDE 250 ML IV ONE (09:00)
[2021-12-05] MEDS ORDERED: DEXAMETHASONE INJECTION 10 MG in SODIUM CHLORIDE 50 ML IVPB ONE (09:30)
[2021-12-05] MEDS ORDERED: PALONOSETRON HCL 0.25 MG/5 ML VIAL IVPUSH ONE (09:30)
[2021-12-05] MEDS ORDERED: FOSAPREPITANT DIMEGLUMINE 150 MG in SODIUM CHLORIDE 145 ML IVPB ONE (09:30)
[2021-12-05] MEDS ORDERED: PEMBROLIZUMAB 200 MG in SODIUM CHLORIDE 100 ML IV ONE (10:00)
[2021-12-05] MEDS ORDERED: PEMETREXED DISODIUM IVPB ONE (10:30)
[2021-12-05] MEDS ORDERED: SODIUM CHLORIDE IVPB ONE ×2 (10:30→10:45)
[2021-12-05] MEDS ORDERED: CARBOPLATIN IVPB ONE (10:45)
[2021-12-05] MEDS ORDERED: CYANOCOBALAMIN (VITAMIN B-12) 1000 MCG/1 ML VIAL IM ONE (11:24)
[2021-12-05 12:27] LABS: BASO % 0.1 % (0-2.0); HEMATOCRIT 35.5 % (32.4-45.2); HEMOGLOBIN 11.6 GM/dL (10.7-15.3); LYMPH % 8.5 % (8-40); MCH 28.4 pg (25.7-33.7); MCHC 32.7 g/dl (32.0-36.0); MEAN CELL VOLUME 86.7 fl (80-96); MEAN PLT VOLUME 7.7 fl (7.5-11.1); MONO % 6.6 % (3.8-10.2); NEUT % 84.8 % (42.8-82.8); PLATELET COUNT 302 10^3/uL (134-434); RBC 4.09 M/mm3 (3.60-5.2); RDW 15.3 % (11.6-15.6); WHITE BLOOD COUNT 8.7 K/mm3 (4.0-10.0)
[2021-12-05 12:48] LABS: ALBUMIN 3.4 g/dl (3.4-5.0); BLOOD UREA NITROGEN 15.6 mg/dL (7-18); MAGNESIUM 1.9 mg/dL (1.8-2.4)
[2021-12-05 12:50] LABS: ACTIVATED PTT 29.8 SECONDS (25.2-36.5); INR 1.02 (0.83-1.09); PROTHROMBIN TIME (PATIENT) 11.7 SEC (9.7-13.0)
[2021-12-05 12:51] LABS: BILIRUBIN,DIRECT 0.1 mg/dL (0.0-0.2); CREATININE 0.8 mg/dL (0.55-1.3)
[2021-12-05 12:53] LABS: BILIRUBIN,TOTAL 0.2 mg/dL (0.2-1); TOT PROT 6.7 g/dl (6.4-8.2)
[2021-12-05 17:23] VITALS: BP 114/50; PULSE 79; RESP 18; TEMP 98.1
== END 2021-12-05 16:30 | disposition home or self-care (01) ==
LOC: JONCCHEMO 07:45
PROVIDERS: ATTEND Internal Medicine Hematology & Oncology
PROC: 3E03305 Introduction of Other Antineoplastic into Peripheral Vein, Percutaneous Approach (ICD-10-PCS; principal; 2021-12-05)
PROC: 3E013GC Introduction of Other Therapeutic Substance into Subcutaneous Tissue, Percutaneous Approach (ICD-10-PCS; 2021-12-05)
DX: Z51.11 Encounter for antineoplastic chemotherapy (principal); C34.90 Malignant neoplasm of unspecified part of unspecified bronchus or lung; C79.51 Secondary malignant neoplasm of bone
CPT/HCPCS: 36415; 80048; 80076; 82378; 83735; 84439; 84443; 85025; 85610; 85730; 96367; 96372; 96375; 96411; 96413; 96417; J1100; J1453; J2469; J9271; J9305

== ENCOUNTER 2021-12-06 07:52 | Day surgery (SDC) | payer MEDICARE, OTHER ==
[2021-12-06] MEDS ORDERED: PEGFILGRASTIM-CBQV (UDENYCA) 6 MG/0.6 ML SYRINGE SQ ONE (10:00)
[2021-12-06] MEDS ORDERED: PEGFILGRASTIM-BMEZ 6 MG/0.6 ML SYRINGE SQ ONE (10:00)
[2021-12-06 16:33] VITALS: BP 131/64; PULSE 67; RESP 20; TEMP 98.3
== END 2021-12-06 13:55 | disposition home or self-care (01) ==
LOC: JONCCHEMO 07:52
PROVIDERS: ATTEND Internal Medicine Hematology & Oncology
PROC: 3E033GC Introduction of Other Therapeutic Substance into Peripheral Vein, Percutaneous Approach (ICD-10-PCS; principal; 2021-12-06)
DX: Z76.89 Persons encountering health services in other specified circumstances (principal); C34.90 Malignant neoplasm of unspecified part of unspecified bronchus or lung
CPT/HCPCS: 96372; Q5120

== ENCOUNTER 2021-12-25 06:08 | Day surgery (SDC) | payer MEDICARE, OTHER ==
[2021-12-23 16:13] VITALS: BMI 23.8
[2021-12-25] MEDS ORDERED: MIDAZOLAM HCL 2 MG/2 ML SINGLE DOSE VIAL ONE (10:47)
[2021-12-25] MEDS: MIDAZOLAM HCL 2 MG/2 ML SINGLE DOSE VIAL IVPB SCH ×2 (10:58→11:08)
[2021-12-25] MEDS ORDERED: ACETAMINOPHEN 325 MG TABLET (FP) ONE (12:32)
[2021-12-25 15:33] VITALS: BP 113/60; PULSE 80; RESP 20; TEMP 97.8
== END 2021-12-25 14:30 | disposition home or self-care (01) ==
LOC: JRADIR 06:08
PROVIDERS: ATTEND Internal Medicine Hematology & Oncology
PROC: 05HP33Z Insertion of Infusion Device into Right External Jugular Vein, Percutaneous Approach (ICD-10-PCS; principal; 2021-12-25)
PROC: B543ZZA Ultrasonography of Right Jugular Veins, Guidance (ICD-10-PCS; 2021-12-25)
DX: Z45.2 Encounter for adjustment and management of vascular access device (principal); C34.90 Malignant neoplasm of unspecified part of unspecified bronchus or lung
CPT/HCPCS: 36561; 76937; C1751; 77001-TC-FY; C1788

== ENCOUNTER 2021-12-26 12:57 | Day surgery (SDC) | payer MEDICARE, OTHER ==
[~2021-12-26 12:57] MED LIST changes: +CARBOPLATIN IVPB ONE; -CEFTRIAXONE 2 GM in DEXTROSE 5%-WATER 100 ML IVPB ONE; +CYANOCOBALAMIN (VITAMIN B-12) 1000 MCG/1 ML VIAL IM ONE; -DAPTOMYCIN 450 MG in SODIUM CHLORIDE 50 ML IVPB ONE; +DEXAMETHASONE INJECTION 10 MG in SODIUM CHLORIDE 50 ML IVPB ONE; +FOSAPREPITANT DIMEGLUMINE 150 MG in SODIUM CHLORIDE 145 ML IVPB ONE; +PALONOSETRON HCL 0.25 MG/5 ML VIAL IVPUSH ONE; +PEMBROLIZUMAB 200 MG in SODIUM CHLORIDE 100 ML IV ONE; +PEMETREXED DISODIUM IVPB ONE; +SODIUM CHLORIDE 250 ML IV ONE; +SODIUM CHLORIDE IVPB ONE; +ZOLEDRONIC ACID 3.5 MG in SODIUM CHLORIDE 100 ML IVPB ONE
[2021-12-26 13:54] LABS: HEMATOCRIT 38.1 % (32.4-45.2); HEMOGLOBIN 12.3 GM/dL (10.7-15.3); MCH 28.9 pg (25.7-33.7); MCHC 32.3 g/dl (32.0-36.0); MEAN CELL VOLUME 89.5 fl (80-96); MEAN PLT VOLUME 8.1 fl (7.5-11.1); PLATELET COUNT 320 10^3/uL (134-434); RBC 4.26 M/mm3 (3.60-5.2); RDW 19.1 % (11.6-15.6)
[2021-12-26 14:23] LABS: CALCIUM 8.9 mg/dL (8.5-10.1)
[2021-12-26 14:24] LABS: ALBUMIN 3.4 g/dl (3.4-5.0); BLOOD UREA NITROGEN 13.7 mg/dL (7-18); MAGNESIUM 1.7 mg/dL (1.8-2.4)
[2021-12-26 14:26] LABS: BILIRUBIN,DIRECT 0.1 mg/dL (0.0-0.2); CREATININE 0.8 mg/dL (0.55-1.3)
[2021-12-26 14:28] LABS: BILIRUBIN,TOTAL 0.3 mg/dL (0.2-1); TOT PROT 6.8 g/dl (6.4-8.2)
[2021-12-26 15:14] LABS: ANISOCYTOSIS 1+; MACROCYTOSIS 1+
[2021-12-26] MEDS ORDERED: MAGNESIUM 2GM/50ML STERILE WATER IVPB IVPB ONE (15:30)
[2021-12-26 16:46] VITALS: RESP 20; TEMP 99
[2021-12-26] MEDS ORDERED: PORTA CATH FLUSH 10 ML IVPUSH PRN (16:52)
[2021-12-26 18:36] VITALS: BP 119/57; PULSE 81
== END 2021-12-26 18:48 | disposition home or self-care (01) ==
LOC: JONCCHEMO 12:57
PROVIDERS: ATTEND Internal Medicine Hematology & Oncology
PROC: 3E04305 Introduction of Other Antineoplastic into Central Vein, Percutaneous Approach (ICD-10-PCS; principal; 2021-12-26)
PROC: 3E043GC Introduction of Other Therapeutic Substance into Central Vein, Percutaneous Approach (ICD-10-PCS; 2021-12-26)
PROC: 3E0437Z Introduction of Electrolytic and Water Balance Substance into Central Vein, Percutaneous Approach (ICD-10-PCS; 2021-12-26)
PROC: 3E04305 Introduction of Other Antineoplastic into Central Vein, Percutaneous Approach (ICD-10-PCS; 2021-12-26)
DX: Z51.11 Encounter for antineoplastic chemotherapy (principal); C34.90 Malignant neoplasm of unspecified part of unspecified bronchus or lung
CPT/HCPCS: 36415; 80048; 80076; 82150; 82378; 82533; 83690; 83735; 84439; 84443; 85025; 96367; 96375; 96409; 96413; 96415; 96417; J1100; J1453; J2469; J3489; J9271; J9305

== ENCOUNTER 2021-12-27 16:33 | Day surgery (SDC) | payer MEDICARE, OTHER ==
[~2021-12-27 16:33] MED LIST changes: -CARBOPLATIN IVPB ONE; -CYANOCOBALAMIN (VITAMIN B-12) 1000 MCG/1 ML VIAL IM ONE; -DEXAMETHASONE INJECTION 10 MG in SODIUM CHLORIDE 50 ML IVPB ONE; -FOSAPREPITANT DIMEGLUMINE 150 MG in SODIUM CHLORIDE 145 ML IVPB ONE; -PALONOSETRON HCL 0.25 MG/5 ML VIAL IVPUSH ONE; +PEGFILGRASTIM-BMEZ 6 MG/0.6 ML SYRINGE SQ ONE; -PEMBROLIZUMAB 200 MG in SODIUM CHLORIDE 100 ML IV ONE; -PEMETREXED DISODIUM IVPB ONE; -SODIUM CHLORIDE 250 ML IV ONE; -SODIUM CHLORIDE IVPB ONE; -ZOLEDRONIC ACID 3.5 MG in SODIUM CHLORIDE 100 ML IVPB ONE
[2021-12-27 17:14] VITALS: BP 112/83; PULSE 85; RESP 20; TEMP 98
== END 2021-12-27 17:16 | disposition home or self-care (01) ==
LOC: JONCCHEMO 16:33
PROVIDERS: ATTEND Internal Medicine Hematology & Oncology
PROC: 3E013GC Introduction of Other Therapeutic Substance into Subcutaneous Tissue, Percutaneous Approach (ICD-10-PCS; principal; 2021-12-27)
DX: Z76.89 Persons encountering health services in other specified circumstances (principal); C34.90 Malignant neoplasm of unspecified part of unspecified bronchus or lung
CPT/HCPCS: Q5120

== ENCOUNTER 2021-12-31 14:38 | Inpatient (IN) | payer MEDICARE, OTHER ==
[2021-12-31] MEDS ORDERED: ACETAMINOPHEN 1000 MG/100 ML BAG IVPB ONE (15:33)
[2021-12-31] MEDS ORDERED: SODIUM CHLORIDE 0.9% 500 ML INFUS.BAG IV ONE (15:33)
[2021-12-31] MEDS ORDERED: ACETAMINOPHEN INJECTION 100 ML IVPB ONE (15:48)
[2021-12-31] MEDS ORDERED: morphine CARPU-JECT 2 MG/1 ML DISP.SYRIN IVPUSH ONE ×2 (16:13→16:51)
[2021-12-31 17:03] LABS: BASO % 0.3 % (0-2.0); EOS % 0.3 % (0-4.5); HEMATOCRIT 36.8 % (32.4-45.2); LYMPH % 6.6 % (8-40); MCHC 32.5 g/dl (32.0-36.0); MEAN CELL VOLUME 89.2 fl (80-96); MEAN PLT VOLUME 8.1 fl (7.5-11.1); NEUT % 85.8 % (42.8-82.8); PLATELET COUNT 290 10^3/uL (134-434); RBC 4.12 M/mm3 (3.60-5.2); RDW 19.4 % (11.6-15.6); WHITE BLOOD COUNT 18.5 K/mm3 (4.0-10.0)
[2021-12-31 17:11] LABS: INR 1.06 (0.83-1.09); PROTHROMBIN TIME (PATIENT) 12.2 SEC (9.7-13.0)
[2021-12-31] MEDS ORDERED: morphine CARPU-JECT 4 MG/1 ML DISP.SYRIN IVPUSH ONE (17:11)
[2021-12-31] MEDS ORDERED: HYDROmorphone HCL CARPU-JECT 2 MG/1 ML DISP.SYRIN IVPUSH ONE (17:12)
[2021-12-31 17:14] LABS: ACTIVATED PTT 27.6 SECONDS (25.2-36.5)
[2021-12-31] MEDS ORDERED: HYDROmorphone HCl 2 MG/ML VIAL ONE (17:17)
[2021-12-31 17:32] LABS: ALBUMIN 3.2 g/dl (3.4-5.0); CALCIUM 8.4 mg/dL (8.5-10.1)
[2021-12-31 17:35] LABS: CREATININE 0.5 mg/dL (0.55-1.3)
[2021-12-31 17:37] LABS: BILIRUBIN,TOTAL 0.4 mg/dL (0.2-1); TOT PROT 6.7 g/dl (6.4-8.2)
[2021-12-31 21:06] LABS: PH,URINE 7.5 (5.0-8.0); URINE APPEARANCE CLEAR; URINE BILIRUBIN NEGATIVE (NEGATIVE); URINE COLOR YELLOW; URINE GLUCOSE (UA) NEGATIVE (NEGATIVE); URINE KETONE 1+ (NEGATIVE); URINE LEUK ESTERASE NEGATIVE (NEGATIVE); URINE NITRITE NEGATIVE (NEGATIVE); URINE PROTEIN NEGATIVE (NEGATIVE); URINE UROBILINOGEN 0.2 mg/dL (0.2-1.0)
[2021-12-31] MEDS ORDERED: DOCUSATE SODIUM 100 MG CAPSULE (FP) PO PRN (22:05)
[2021-12-31] MEDS ORDERED: HYDROmorphone HCL 2 MG TABLET PO PRN (22:05)
[2021-12-31] MEDS ORDERED: ACETAMINOPHEN 325 MG TABLET (FP) PO PRN (22:07)
[2022-01-01 07:09] LABS: HEMATOCRIT 35.1 % (32.4-45.2); HEMOGLOBIN 11.8 GM/dL (10.7-15.3); MCH 29.8 pg (25.7-33.7); MCHC 33.6 g/dl (32.0-36.0); MEAN CELL VOLUME 88.6 fl (80-96); MEAN PLT VOLUME 7.6 fl (7.5-11.1); PLATELET COUNT 241 10^3/uL (134-434); RBC 3.96 M/mm3 (3.60-5.2); RDW 19.2 % (11.6-15.6); WHITE BLOOD COUNT 17.9 K/mm3 (4.0-10.0)
[2022-01-01 07:22] LABS: CALCIUM 8.5 mg/dL (8.5-10.1)
[2022-01-01 07:23] LABS: ALBUMIN 3.2 g/dl (3.4-5.0); BLOOD UREA NITROGEN 10.1 mg/dL (7-18); MAGNESIUM 2.1 mg/dL (1.8-2.4)
[2022-01-01 07:24] LABS: PHOSPHOROUS 2.8 mg/dL (2.5-4.9)
[2022-01-01 07:26] LABS: BILIRUBIN,TOTAL 0.4 mg/dL (0.2-1); CREATININE 0.5 mg/dL (0.55-1.3); TOT PROT 6.5 g/dl (6.4-8.2)
[2022-01-01 08:45] LABS: ANISOCYTOSIS 0; HELMET CELLS 0; HOWELL-JOLLY BODIES 0; MACROCYTOSIS 0; OVALOCYTE 0; ROULEAU 0; SICKELED CELLS 0; TARGET CELLS 0; TEAR DROP CELLS 0; TOXIC GRANULATION 0
[2022-01-01] MEDS: INSULIN SLIDING SCALE (NOVOLOG) 1 VIAL SQ SCH ×4 (09:37→22:50)
[2022-01-01] MEDS ORDERED: ENOXAPARIN NA (PORCINE) 40 MG/0.4 ML DISP.SYRIN SQ ONE ×2 (09:48→11:09)
[2022-01-01] MEDS ORDERED: ENOXAPARIN NA (PORCINE) 40 MG/0.4 ML DISP.SYRIN SQ SCH (10:00)
[2022-01-01] MEDS: HYDROmorphone HCL 2 MG TABLET PO PRN ×2 (10:30→22:00)
[2022-01-01] MEDS ORDERED: HYDROmorphone HCL 2 MG TABLET ONE ×2 (10:56→22:01)
[2022-01-01] MEDS: ENOXAPARIN NA (PORCINE) 40 MG/0.4 ML DISP.SYRIN SQ SCH (11:11)
[2022-01-01] MEDS ORDERED: HYDROmorphone HCL CARPU-JECT 2 MG/1 ML DISP.SYRIN IVPUSH ONE (14:33)
[2022-01-01] MEDS ORDERED: HYDROmorphone HCl 2 MG/ML VIAL ONE (14:48)
[2022-01-01] MEDS ORDERED: SENNOSIDES 8.6MG TABLET (FP) PO ONE (22:01)
[2022-01-01] MEDS: SENNOSIDES 8.6MG TABLET (FP) PO SCH (22:50)
[2022-01-02] MEDS: HYDROmorphone HCL 2 MG TABLET PO PRN ×2 (03:00→08:23)
[2022-01-02] MEDS: INSULIN SLIDING SCALE (NOVOLOG) 1 VIAL SQ SCH ×4 (06:21→21:34)
[2022-01-02 09:31] LABS: HEMATOCRIT 36.5 % (32.4-45.2); HEMOGLOBIN 11.8 GM/dL (10.7-15.3); MCH 28.6 pg (25.7-33.7); MCHC 32.4 g/dl (32.0-36.0); MEAN CELL VOLUME 88.3 fl (80-96); MEAN PLT VOLUME 8.1 fl (7.5-11.1); PLATELET COUNT 237 10^3/uL (134-434); RBC 4.13 M/mm3 (3.60-5.2); WHITE BLOOD COUNT 23.4 K/mm3 (4.0-10.0)
[2022-01-02 10:25] LABS: ALBUMIN 3.5 g/dl (3.4-5.0); BLOOD UREA NITROGEN 12.7 mg/dL (7-18); CALCIUM 8.6 mg/dL (8.5-10.1)
[2022-01-02 10:28] LABS: CREATININE 0.6 mg/dL (0.55-1.3)
[2022-01-02 10:30] LABS: TOT PROT 6.6 g/dl (6.4-8.2)
[2022-01-02 10:32] LABS: BILIRUBIN,TOTAL 0.8 mg/dL (0.2-1)
[2022-01-02] MEDS: ENOXAPARIN NA (PORCINE) 40 MG/0.4 ML DISP.SYRIN SQ SCH (11:56)
[2022-01-02 12:11] VITALS: BMI 22.0
[2022-01-02] MEDS ORDERED: GABAPENTIN 300 MG CAPSULE PO ONE (13:00)
[2022-01-02] MEDS ORDERED: HYDROmorphone HCl 2 MG/ML VIAL IVPUSH PRN (15:37)
[2022-01-02] MEDS ORDERED: FENTANYL PATCH WASTE TD PRN (15:38)
[2022-01-02] MEDS: fentaNYL 75mcg/hr PATCH.TD72 TD SCH (16:09)
[2022-01-02] MEDS ORDERED: COSYNTROPIN 0.25 MG VIAL IM ONE (16:14)
[2022-01-02] MEDS: PREGABALIN 50 MG CAPSULE PO SCH (21:35)
[2022-01-02] MEDS: SENNOSIDES 8.6MG TABLET (FP) PO SCH (21:35)
[2022-01-02] MEDS: GABAPENTIN 300 MG CAPSULE PO SCH (21:35)
[2022-01-03] MEDS: GABAPENTIN 300 MG CAPSULE PO SCH (05:42)
[2022-01-03] MEDS: INSULIN SLIDING SCALE (NOVOLOG) 1 VIAL SQ SCH ×4 (06:05→21:58)
[2022-01-03 07:34] LABS: HEMATOCRIT 32.7 % (32.4-45.2); HEMOGLOBIN 11.1 GM/dL (10.7-15.3); MCH 29.8 pg (25.7-33.7); MCHC 33.8 g/dl (32.0-36.0); MEAN CELL VOLUME 88.1 fl (80-96); MEAN PLT VOLUME 7.6 fl (7.5-11.1); PLATELET COUNT 192 10^3/uL (134-434); RBC 3.71 M/mm3 (3.60-5.2); WHITE BLOOD COUNT 14.1 K/mm3 (4.0-10.0)
[2022-01-03 08:11] LABS: ALBUMIN 3.1 g/dl (3.4-5.0)
[2022-01-03 08:12] LABS: BLOOD UREA NITROGEN 17.4 mg/dL (7-18); CALCIUM 8.1 mg/dL (8.5-10.1); MAGNESIUM 2.1 mg/dL (1.8-2.4)
[2022-01-03 08:15] LABS: CREATININE 0.5 mg/dL (0.55-1.3)
[2022-01-03 08:16] LABS: BILIRUBIN,TOTAL 0.4 mg/dL (0.2-1); TOT PROT 6.1 g/dl (6.4-8.2)
[2022-01-03] MEDS: ENOXAPARIN NA (PORCINE) 40 MG/0.4 ML DISP.SYRIN SQ SCH (09:34)
[2022-01-03] MEDS: PREGABALIN 50 MG CAPSULE PO SCH ×2 (09:34→21:38)
[2022-01-03] MEDS ORDERED: oxyCODONE HCL 5 MG TABLET PO PRN (12:30)
[2022-01-03] MEDS: SENNOSIDES 8.6MG TABLET (FP) PO SCH (21:38)
[2022-01-04] MEDS: INSULIN SLIDING SCALE (NOVOLOG) 1 VIAL SQ SCH ×4 (06:15→22:45)
[2022-01-04 08:24] LABS: HEMOGLOBIN 10.2 GM/dL (10.7-15.3); MCH 29.1 pg (25.7-33.7); MCHC 32.9 g/dl (32.0-36.0); MEAN CELL VOLUME 88.4 fl (80-96); PLATELET COUNT 171 10^3/uL (134-434); RBC 3.51 M/mm3 (3.60-5.2); RDW 19.3 % (11.6-15.6); WHITE BLOOD COUNT 13.5 K/mm3 (4.0-10.0)
[2022-01-04 08:45] LABS: ALBUMIN 2.9 g/dl (3.4-5.0); BLOOD UREA NITROGEN 24.8 mg/dL (7-18); CALCIUM 8.6 mg/dL (8.5-10.1)
[2022-01-04 08:49] LABS: CREATININE 0.6 mg/dL (0.55-1.3)
[2022-01-04 08:51] LABS: BILIRUBIN,TOTAL 0.2 mg/dL (0.2-1); TOT PROT 5.8 g/dl (6.4-8.2)
[2022-01-04] MEDS: PREGABALIN 50 MG CAPSULE PO SCH ×2 (09:47→22:44)
[2022-01-04] MEDS: ENOXAPARIN NA (PORCINE) 40 MG/0.4 ML DISP.SYRIN SQ SCH (09:47)
[2022-01-04] MEDS ORDERED: PORTA CATH FLUSH 10 ML IVPUSH PRN (19:00)
[2022-01-04] MEDS: SENNOSIDES 8.6MG TABLET (FP) PO SCH ×2 (22:44→22:47)
[2022-01-05] MEDS: INSULIN SLIDING SCALE (NOVOLOG) 1 VIAL SQ SCH ×2 (06:16→11:01)
[2022-01-05 08:44] VITALS: RESP 20; TEMP 97.8
[2022-01-05 09:20] LABS: BASO % 0.3 % (0-2.0); EOS % 0.6 % (0-4.5); HEMOGLOBIN 10.3 GM/dL (10.7-15.3); MCH 29.6 pg (25.7-33.7); MCHC 33.3 g/dl (32.0-36.0); MEAN CELL VOLUME 88.9 fl (80-96); MEAN PLT VOLUME 8.3 fl (7.5-11.1); MONO % 8.9 % (3.8-10.2); NEUT % 73.2 % (42.8-82.8); PLATELET COUNT 160 10^3/uL (134-434); RBC 3.49 M/mm3 (3.60-5.2); RDW 19.1 % (11.6-15.6); WHITE BLOOD COUNT 9.7 K/mm3 (4.0-10.0)
[2022-01-05] MEDS: ENOXAPARIN NA (PORCINE) 40 MG/0.4 ML DISP.SYRIN SQ SCH (09:28)
[2022-01-05] MEDS: PREGABALIN 50 MG CAPSULE PO SCH (09:29)
[2022-01-05 09:36] LABS: CALCIUM 8.4 mg/dL (8.5-10.1)
[2022-01-05 09:38] LABS: BLOOD UREA NITROGEN 18.2 mg/dL (7-18)
[2022-01-05 09:40] LABS: CREATININE 0.7 mg/dL (0.55-1.3)
[2022-01-05 11:00] VITALS: BP 126/56; PULSE 100
[2022-01-05] MEDS: fentaNYL 75mcg/hr PATCH.TD72 TD SCH (15:06)
== END 2022-01-05 15:53 | disposition home health service (06) | DRG 543 ==
LOC: JER 14:38 → JERBED 18:16 → J7W 01-02 01:08
PROVIDERS: ADMIT Internal Medicine; ATTEND Internal Medicine
DX: C79.51 Secondary malignant neoplasm of bone (principal); C34.90 Malignant neoplasm of unspecified part of unspecified bronchus or lung; I10 Essential (primary) hypertension; Z95.5 Presence of coronary angioplasty implant and graft; D72.829 Elevated white blood cell count, unspecified; I25.10 Atherosclerotic heart disease of native coronary artery without angina pectoris; R94.5 Abnormal results of liver function studies; E11.9 Type 2 diabetes mellitus without complications; K21.9 Gastro-esophageal reflux disease without esophagitis; R63.0 Anorexia; E03.9 Hypothyroidism, unspecified; R53.83 Other fatigue; J45.909 Unspecified asthma, uncomplicated; E78.5 Hyperlipidemia, unspecified; R74.01 Elevation of levels of liver transaminase levels
CPT/HCPCS: 36415; 71045-TC-FY; 80048; 80053; 81003; 82024; 82533; 82550; 82962; 83036; 83605; 83735; 84100; 84484; 85025; 85027; 85610; 85730; 87040; 87086; 93005; 93010; 97116-GP; 99285-25; C9803-CS; J0834; U0003; U0005

== ENCOUNTER 2022-01-23 12:46 | Day surgery (SDC) | payer MEDICARE, OTHER ==
[~2022-01-23 12:46] MED LIST changes: +CYANOCOBALAMIN (VITAMIN B-12) 1000 MCG/1 ML VIAL IM ONE; +DEXAMETHASONE SODIUM PHOSPHATE 6 MG, ONDANSETRON INJECTION 8 MG in SODIUM CHLORIDE 100 ML IVPB ONE; -PEGFILGRASTIM-BMEZ 6 MG/0.6 ML SYRINGE SQ ONE; +PEMBROLIZUMAB 200 MG in SODIUM CHLORIDE 100 ML IVPB ONE; +PEMETREXED DISODIUM IVPB ONE; +SODIUM CHLORIDE 250 ML IV ONE; +SODIUM CHLORIDE IVPB ONE; +ZOLEDRONIC ACID 3.5 MG in SODIUM CHLORIDE 100 ML IVPB ONE
[2022-01-23 13:35] LABS: BASO % 0.3 % (0-2.0); HEMOGLOBIN 11.1 GM/dL (10.7-15.3); LYMPH % 14.3 % (8-40); MCH 31.1 pg (25.7-33.7); MCHC 33.6 g/dl (32.0-36.0); MEAN CELL VOLUME 92.5 fl (80-96); MEAN PLT VOLUME 7.6 fl (7.5-11.1); MONO % 13.6 % (3.8-10.2); NEUT % 71.8 % (42.8-82.8); PLATELET COUNT 293 10^3/uL (134-434); RBC 3.57 M/mm3 (3.60-5.2); RDW 20.7 % (11.6-15.6); WHITE BLOOD COUNT 9.6 K/mm3 (4.0-10.0)
[2022-01-23 14:11] LABS: ANISOCYTOSIS 2+; MACROCYTOSIS 1+; OVALOCYTE 1+; TEAR DROP CELLS 0
[2022-01-23 14:41] LABS: ALBUMIN 3.4 g/dl (3.4-5.0); BLOOD UREA NITROGEN 22.1 mg/dL (7-18); CALCIUM 8.9 mg/dL (8.5-10.1)
[2022-01-23 14:44] LABS: CREATININE 0.8 mg/dL (0.55-1.3)
[2022-01-23 14:45] LABS: BILIRUBIN,TOTAL 0.3 mg/dL (0.2-1)
[2022-01-23 14:46] LABS: TOT PROT 6.8 g/dl (6.4-8.2)
[2022-01-23 14:53] LABS: BILIRUBIN,DIRECT 0.1 mg/dL (0.0-0.2)
[2022-01-23 18:19] VITALS: RESP 18; TEMP 98.1
[2022-01-23 18:29] VITALS: BP 112/46; PULSE 89
[2022-01-23] MEDS ORDERED: PORTA CATH FLUSH 10 ML IVPUSH PRN (18:29)
== END 2022-01-23 18:20 | disposition home or self-care (01) ==
LOC: JONCCHEMO 12:46
PROVIDERS: ATTEND Internal Medicine Hematology & Oncology
DX: Z51.11 Encounter for antineoplastic chemotherapy (principal); C34.31 Malignant neoplasm of lower lobe, right bronchus or lung
CPT/HCPCS: 36415; 80048; 80076; 82150; 82378; 82533; 82540; 83690; 83735; 84439; 84443; 85025; 96367; 96372; 96411; 96413; J3489; J9271; J9305

== ENCOUNTER 2022-01-24 18:33 | Day surgery (SDC) | payer MEDICARE, OTHER ==
[2022-01-24 18:31] VITALS: BP 146/59; PULSE 88; RESP 20; TEMP 98.1
[~2022-01-24 18:33] MED LIST changes: -CYANOCOBALAMIN (VITAMIN B-12) 1000 MCG/1 ML VIAL IM ONE; -DEXAMETHASONE SODIUM PHOSPHATE 6 MG, ONDANSETRON INJECTION 8 MG in SODIUM CHLORIDE 100 ML IVPB ONE; +PEGFILGRASTIM-CBQV (UDENYCA) 6 MG/0.6 ML SYRINGE SQ ONE; -PEMBROLIZUMAB 200 MG in SODIUM CHLORIDE 100 ML IVPB ONE; -PEMETREXED DISODIUM IVPB ONE; -SODIUM CHLORIDE 250 ML IV ONE; -SODIUM CHLORIDE IVPB ONE; -ZOLEDRONIC ACID 3.5 MG in SODIUM CHLORIDE 100 ML IVPB ONE
== END 2022-01-24 19:15 | disposition home or self-care (01) ==
LOC: JONCCHEMO 18:33
PROVIDERS: ATTEND Internal Medicine Hematology & Oncology
PROC: 3E013GC Introduction of Other Therapeutic Substance into Subcutaneous Tissue, Percutaneous Approach (ICD-10-PCS; principal; 2022-01-24)
DX: C34.31 Malignant neoplasm of lower lobe, right bronchus or lung (principal); Z76.89 Persons encountering health services in other specified circumstances
CPT/HCPCS: 96372; Q5111

== ENCOUNTER 2022-03-11 11:57 | Day surgery (SDC) | payer MEDICARE, OTHER ==
[~2022-03-11 11:57] MED LIST changes: +GEMCITABINE HCL IVPB ONE; +ONDANSETRON INJECTION 8 MG in SODIUM CHLORIDE 50 ML IVPB ONE; +SODIUM CHLORIDE 250 ML IV ONE; +SODIUM CHLORIDE IVPB ONE
[2022-03-11] MEDS ORDERED: LIDOCAINE 2.5%/PRILOCAINE 2.5% 30 GRAM TUBE TP SCH (12:00)
[2022-03-11 12:36] LABS: BASO % 0.2 % (0-2.0); HEMATOCRIT 36.1 % (32.4-45.2); HEMOGLOBIN 12.1 GM/dL (10.7-15.3); LYMPH % 5.2 % (8-40); MCH 31.8 pg (25.7-33.7); MCHC 33.6 g/dl (32.0-36.0); MEAN CELL VOLUME 94.7 fl (80-96); MEAN PLT VOLUME 7.6 fl (7.5-11.1); MONO % 14.8 % (3.8-10.2); NEUT % 79.8 % (42.8-82.8); PLATELET COUNT 248 10^3/uL (134-434); RBC 3.81 M/mm3 (3.60-5.2); RDW 13.7 % (11.6-15.6); WHITE BLOOD COUNT 8.3 K/mm3 (4.0-10.0)
[2022-03-11 12:57] LABS: ALBUMIN 3.2 g/dl (3.4-5.0); CALCIUM 8.6 mg/dL (8.5-10.1); MAGNESIUM 2.3 mg/dL (1.8-2.4)
[2022-03-11 13:00] LABS: BILIRUBIN,DIRECT 0.1 mg/dL (0.0-0.2); CREATININE 0.7 mg/dL (0.55-1.3)
[2022-03-11 13:02] LABS: BILIRUBIN,TOTAL 0.2 mg/dL (0.2-1); TOT PROT 6.7 g/dl (6.4-8.2)
[2022-03-11 15:08] VITALS: RESP 18; TEMP 97.3
[2022-03-11 15:09] VITALS: BP 122/67; PULSE 74
[2022-03-11] MEDS ORDERED: PORTA CATH FLUSH 10 ML IVPUSH PRN (15:15)
== END 2022-03-11 15:16 | disposition home or self-care (01) ==
LOC: JONCCHEMO 11:57
PROVIDERS: ATTEND Internal Medicine Hematology & Oncology
DX: Z51.11 Encounter for antineoplastic chemotherapy (principal); C34.31 Malignant neoplasm of lower lobe, right bronchus or lung
CPT/HCPCS: 36415; 80048; 80076; 83735; 85025; 96375; 96413

== ENCOUNTER 2022-03-18 11:02 | Day surgery (SDC) | payer MEDICARE, OTHER ==
[~2022-03-18 11:02] MED LIST changes: +DEXAMETHASONE SODIUM PHOSPHATE 6 MG, ONDANSETRON INJECTION 8 MG in SODIUM CHLORIDE 100 ML IVPB ONE; +DOCETAXEL 124 MG in SODIUM CHLORIDE 250 ML IV ONE; +LORATADINE 10 MG TABLET PO ONE; -ONDANSETRON INJECTION 8 MG in SODIUM CHLORIDE 50 ML IVPB ONE; -PEGFILGRASTIM-CBQV (UDENYCA) 6 MG/0.6 ML SYRINGE SQ ONE; +oxyCODONE HCL 5 MG TABLET PO ONE
[2022-03-18 11:42] LABS: ALBUMIN 2.8 g/dl (3.4-5.0); CALCIUM 8.6 mg/dL (8.5-10.1)
[2022-03-18 11:43] LABS: BLOOD UREA NITROGEN 25.5 mg/dL (7-18)
[2022-03-18 11:45] LABS: BASO % 0.3 % (0-2.0); BILIRUBIN,DIRECT 0.1 mg/dL (0.0-0.2); CREATININE 0.8 mg/dL (0.55-1.3); HEMATOCRIT 33.5 % (32.4-45.2); HEMOGLOBIN 11.1 GM/dL (10.7-15.3); LYMPH % 5.7 % (8-40); MCHC 33.1 g/dl (32.0-36.0); MEAN CELL VOLUME 93.8 fl (80-96); MEAN PLT VOLUME 7.6 fl (7.5-11.1); MONO % 7.9 % (3.8-10.2); NEUT % 86.1 % (42.8-82.8); PLATELET COUNT 107 10^3/uL (134-434); RBC 3.57 M/mm3 (3.60-5.2); RDW 13.6 % (11.6-15.6); WHITE BLOOD COUNT 7.2 K/mm3 (4.0-10.0)
[2022-03-18 11:47] LABS: BILIRUBIN,TOTAL 0.3 mg/dL (0.2-1); TOT PROT 6.3 g/dl (6.4-8.2)
[2022-03-18] MEDS ORDERED: ACETAMINOPHEN 325 MG TABLET (FP) PO ONE (14:12)
[2022-03-18 16:49] VITALS: BP 117/65; PULSE 64; RESP 18; TEMP 98.1
[2022-03-18] MEDS ORDERED: PORTA CATH FLUSH 10 ML IVPUSH PRN (16:49)
== END 2022-03-18 15:25 | disposition home or self-care (01) ==
LOC: JONCCHEMO 11:02
PROVIDERS: ATTEND Internal Medicine Hematology & Oncology
DX: Z51.11 Encounter for antineoplastic chemotherapy (principal); C34.31 Malignant neoplasm of lower lobe, right bronchus or lung
CPT/HCPCS: 36415; 80048; 80076; 83735; 85025; 96361; 96367; 96413; 96417; J2405; J9171

== ENCOUNTER 2022-03-19 12:43 | Day surgery (SDC) | payer MEDICARE, OTHER ==
[~2022-03-19 12:43] MED LIST changes: -DEXAMETHASONE SODIUM PHOSPHATE 6 MG, ONDANSETRON INJECTION 8 MG in SODIUM CHLORIDE 100 ML IVPB ONE; -DOCETAXEL 124 MG in SODIUM CHLORIDE 250 ML IV ONE; -GEMCITABINE HCL IVPB ONE; +PEGFILGRASTIM-CBQV (UDENYCA) 6 MG/0.6 ML SYRINGE SQ ONE; -SODIUM CHLORIDE 250 ML IV ONE; -SODIUM CHLORIDE IVPB ONE; -oxyCODONE HCL 5 MG TABLET PO ONE
[2022-03-19 15:11] VITALS: BP 122/51; PULSE 75; RESP 20; TEMP 98.1
== END 2022-03-19 13:10 | disposition home or self-care (01) ==
LOC: JONCCHEMO 12:43
PROVIDERS: ATTEND Internal Medicine Hematology & Oncology
PROC: 3E013GC Introduction of Other Therapeutic Substance into Subcutaneous Tissue, Percutaneous Approach (ICD-10-PCS; principal; 2022-03-19)
DX: C34.31 Malignant neoplasm of lower lobe, right bronchus or lung (principal); Z76.89 Persons encountering health services in other specified circumstances
CPT/HCPCS: 96372; Q5111

== ENCOUNTER 2022-03-27 09:54 | Inpatient (IN) | payer MEDICARE, OTHER ==
[2022-03-27] MEDS ORDERED: LACTATED RINGERS SOLUTION 1000 ML INFUS.BAG IV ONE (11:02)
[2022-03-27] MEDS ORDERED: CEFEPIME HCL/D5W 2 GM/50 ML BAG IVPB ONE (11:05)
[2022-03-27] MEDS ORDERED: CEFEPIME 1 GM/100 ML BAG IVPB ONE (11:48)
[2022-03-27 12:10] LABS: VENOUS BASE EXCESS -0.2 mmol/L (-2-2); VENOUS O2 SATURATION 60.7 % (70-80); VENOUS PCO2 39.7 mmHg (38-52); VENOUS PH 7.407 (7.310-7.410)
[2022-03-27 12:13] LABS: HEMATOCRIT 29.5 % (32.4-45.2); HEMOGLOBIN 9.7 GM/dL (10.7-15.3); MCH 30.4 pg (25.7-33.7); MCHC 32.8 g/dl (32.0-36.0); MEAN CELL VOLUME 92.9 fl (80-96); MEAN PLT VOLUME 8.9 fl (7.5-11.1); RBC 3.18 M/mm3 (3.60-5.2); RDW 13.7 % (11.6-15.6)
[2022-03-27 12:20] LABS: INR 1.39 (0.83-1.09)
[2022-03-27 12:23] LABS: ACTIVATED PTT 28.9 SECONDS (25.2-36.5)
[2022-03-27 12:33] LABS: BLOOD UREA NITROGEN 19.5 mg/dL (7-18); CALCIUM 7.9 mg/dL (8.5-10.1)
[2022-03-27 12:36] LABS: CREATININE 0.8 mg/dL (0.55-1.3)
[2022-03-27 12:38] LABS: BILIRUBIN,TOTAL 0.7 mg/dL (0.2-1); TOT PROT 5.6 g/dl (6.4-8.2)
[2022-03-27 12:50] LABS: ALBUMIN 2.2 g/dl (3.4-5.0)
[2022-03-27 13:28] LABS: ANISOCYTOSIS 0; MACROCYTOSIS 0
[2022-03-27 13:30] LABS: PLATELET COUNT 13 10^3/uL (134-434)
[2022-03-27 15:06] LABS: EPI CELLS 10 /uL (0-25.1); HYALINE CASTS 1 /uL (0-3.1); PH,URINE 5.5 (5.0-8.0); URINE APPEARANCE CLEAR; URINE BACTERIA 74 /uL (0-1359); URINE BILIRUBIN NEGATIVE (NEGATIVE); URINE COLOR YELLOW; URINE GLUCOSE (UA) NEGATIVE (NEGATIVE); URINE KETONE TRACE (NEGATIVE); URINE LEUK ESTERASE NEGATIVE (NEGATIVE); URINE NITRITE NEGATIVE (NEGATIVE); URINE PROTEIN 1+ (NEGATIVE); URINE RBC 54 /uL (0-23.9); URINE UROBILINOGEN 0.2 mg/dL (0.2-1.0); URINE WBC 35 /uL (0-25.8)
[2022-03-27] MEDS ORDERED: ACETAMINOPHEN INJECTION 100 ML IVPB ONE (17:38)
[2022-03-27] MEDS ORDERED: ACETAMINOPHEN 1000 MG/100 ML BAG IVPB ONE (17:53)
[2022-03-27] MEDS: INSULIN SLIDING SCALE (NOVOLOG) 1 VIAL SQ SCH ×2 (17:54→23:28)
[2022-03-27 18:23] LABS: RETICULOCYTES 1.14 % (0.5-1.5)
[2022-03-27] MEDS ORDERED: ONDANSETRON 8 MG TABLET (FP) PO PRN (18:33)
[2022-03-27] MEDS ORDERED: PROCHLORPERAZINE MALEATE 5 MG TABLET PO PRN (18:33)
[2022-03-27] MEDS: SENNOSIDES 8.6MG TABLET (FP) PO SCH (22:15)
[2022-03-28] MEDS ORDERED: ACETAMINOPHEN 325 MG TABLET (FP) ONE (00:21)
[2022-03-28] MEDS ORDERED: PIPERACILLIN/TAZOB 3.375 GM 3.375 GM/50 ML BAG IVPB ONE ×2 (01:55→09:09)
[2022-03-28] MEDS: PIPERACILLIN/TAZOB 3.375 GM 3.375 GM in DEXTROSE 5%-WATER - 50 ML IVPB SCH ×2 (02:01→09:20)
[2022-03-28] MEDS ORDERED: LEVOTHYROXINE NA 25 MCG TABLET (FP) ONE (07:51)
[2022-03-28 07:58] LABS: HEMATOCRIT 29.4 % (32.4-45.2); HEMOGLOBIN 9.6 GM/dL (10.7-15.3); MCH 30.2 pg (25.7-33.7); MCHC 32.7 g/dl (32.0-36.0); MEAN CELL VOLUME 92.4 fl (80-96); MEAN PLT VOLUME 8.9 fl (7.5-11.1); PLATELET COUNT 72 10^3/uL (134-434); RBC 3.19 M/mm3 (3.60-5.2); RDW 13.8 % (11.6-15.6); WHITE BLOOD COUNT 5.1 K/mm3 (4.0-10.0)
[2022-03-28] MEDS: LEVOTHYROXINE NA 25 MCG TABLET (FP) PO SCH (07:58)
[2022-03-28] MEDS: INSULIN SLIDING SCALE (NOVOLOG) 1 VIAL SQ SCH ×4 (07:58→21:46)
[2022-03-28 08:18] LABS: ALBUMIN 2.3 g/dl (3.4-5.0); BLOOD UREA NITROGEN 14.6 mg/dL (7-18); CALCIUM 8.5 mg/dL (8.5-10.1); MAGNESIUM 2.4 mg/dL (1.8-2.4)
[2022-03-28 08:21] LABS: CREATININE 0.7 mg/dL (0.55-1.3)
[2022-03-28 08:22] LABS: PHOSPHOROUS 2.8 mg/dL (2.5-4.9)
[2022-03-28 08:23] LABS: BILIRUBIN,TOTAL 0.6 mg/dL (0.2-1)
[2022-03-28 08:52] LABS: ANISOCYTOSIS 2+; MACROCYTOSIS 0; PLATELET ESTIMATE DECREASED
[2022-03-28] MEDS ORDERED: FOLIC ACID 1 MG TABLET (FP) ONE (09:08)
[2022-03-28] MEDS ORDERED: PREGABALIN 25 MG CAPSULE ONE (09:08)
[2022-03-28] MEDS ORDERED: PREGABALIN 50 MG CAPSULE ONE (09:08)
[2022-03-28] MEDS ORDERED: PANTOPRAZOLE 40 MG TABLET PO ONE (09:08)
[2022-03-28] MEDS: EZETIMIBE 10 MG TABLET (FP) PO SCH (09:20)
[2022-03-28] MEDS: PREGABALIN 25 MG CAPSULE PO SCH ×2 (09:20→21:48)
[2022-03-28] MEDS: FOLIC ACID 1 MG TABLET (FP) PO SCH (09:20)
[2022-03-28] MEDS: PANTOPRAZOLE 40 MG TABLET PO SCH (09:20)
[2022-03-28] MEDS ORDERED: REMDESIVIR 200 MG in SODIUM CHLORIDE 250 ML IVPB ONE (13:00)
[2022-03-28] MEDS: CEFTRIAXONE 1 GM in DEXTROSE 5%-WATER - 50 ML IVPB SCH (13:45)
[2022-03-28] MEDS: DEXAMETHASONE SOD PHOSPHATE 10 MG/1 ML VIAL IVPUSH SCH (14:07)
[2022-03-28] MEDS ORDERED: ACETAMINOPHEN 1000 MG/100 ML BAG IVPB PRN (16:45)
[2022-03-28] MEDS: SENNOSIDES 8.6MG TABLET (FP) PO SCH (21:48)
[2022-03-29] MEDS: INSULIN SLIDING SCALE (NOVOLOG) 1 VIAL SQ SCH ×4 (06:33→21:04)
[2022-03-29] MEDS: LEVOTHYROXINE NA 25 MCG TABLET (FP) PO SCH (06:33)
[2022-03-29] MEDS: PIPERACILLIN/TAZOB 3.375 GM 3.375 GM in DEXTROSE 5%-WATER - 50 ML IVPB SCH (08:02)
[2022-03-29 08:19] LABS: HEMATOCRIT 27.5 % (32.4-45.2); HEMOGLOBIN 8.8 GM/dL (10.7-15.3); MCH 29.7 pg (25.7-33.7); MEAN CELL VOLUME 92.9 fl (80-96); MEAN PLT VOLUME 8.7 fl (7.5-11.1); PLATELET COUNT 57 10^3/uL (134-434); RBC 2.96 M/mm3 (3.60-5.2); RDW 13.9 % (11.6-15.6); WHITE BLOOD COUNT 5.6 K/mm3 (4.0-10.0)
[2022-03-29 08:20] LABS: CALCIUM 7.4 mg/dL (8.5-10.1)
[2022-03-29 08:21] LABS: ALBUMIN 1.9 g/dl (3.4-5.0)
[2022-03-29 08:24] LABS: CREATININE 0.7 mg/dL (0.55-1.3)
[2022-03-29 08:25] LABS: TOT PROT 5.6 g/dl (6.4-8.2)
[2022-03-29 08:26] LABS: BILIRUBIN,TOTAL 0.3 mg/dL (0.2-1)
[2022-03-29] MEDS: CEFTRIAXONE 1 GM in DEXTROSE 5%-WATER - 50 ML IVPB SCH (10:41)
[2022-03-29] MEDS: PANTOPRAZOLE 40 MG TABLET PO SCH (10:42)
[2022-03-29] MEDS: DEXAMETHASONE SOD PHOSPHATE 10 MG/1 ML VIAL IVPUSH SCH (10:42)
[2022-03-29] MEDS: EZETIMIBE 10 MG TABLET (FP) PO SCH (10:42)
[2022-03-29] MEDS: FOLIC ACID 1 MG TABLET (FP) PO SCH (10:42)
[2022-03-29] MEDS: PREGABALIN 25 MG CAPSULE PO SCH ×2 (10:42→21:00)
[2022-03-29 11:41] LABS: ANISOCYTOSIS 0; HELMET CELLS 0; HOWELL-JOLLY BODIES 0; MACROCYTOSIS 0; OVALOCYTE 0; ROULEAU 0; SICKELED CELLS 0; TARGET CELLS 0; TEAR DROP CELLS 0; TOXIC GRANULATION 0
[2022-03-29] MEDS: REMDESIVIR 100 MG in SODIUM CHLORIDE 250 ML IVPB SCH (14:22)
[2022-03-29] MEDS: SENNOSIDES 8.6MG TABLET (FP) PO SCH (21:00)
[2022-03-30] MEDS: INSULIN SLIDING SCALE (NOVOLOG) 1 VIAL SQ SCH ×5 (06:31→21:38)
[2022-03-30] MEDS: LEVOTHYROXINE NA 25 MCG TABLET (FP) PO SCH (06:31)
[2022-03-30] MEDS ORDERED: FENTANYL PATCH WASTE TD PRN (08:00)
[2022-03-30 08:10] LABS: HEMATOCRIT 26.8 % (32.4-45.2); HEMOGLOBIN 8.7 GM/dL (10.7-15.3); MCH 30.1 pg (25.7-33.7); MCHC 32.5 g/dl (32.0-36.0); MEAN CELL VOLUME 92.7 fl (80-96); MEAN PLT VOLUME 9.5 fl (7.5-11.1); PLATELET COUNT 70 10^3/uL (134-434); RBC 2.89 M/mm3 (3.60-5.2); WHITE BLOOD COUNT 7.1 K/mm3 (4.0-10.0)
[2022-03-30 08:23] LABS: CHLORIDE 100 mmol/L (98-107); SODIUM 132 mmol/L (136-145)
[2022-03-30 08:25] LABS: CALCIUM 7.3 mg/dL (8.5-10.1)
[2022-03-30 08:26] LABS: ANION GAP 12 MMOL/L (8-16); BLOOD UREA NITROGEN 28.5 mg/dL (7-18); CO2 20 mmol/L (21-32); MAGNESIUM 2.5 mg/dL (1.8-2.4)
[2022-03-30 08:29] LABS: CREATININE 0.8 mg/dL (0.55-1.3)
[2022-03-30 08:30] LABS: GLUCOSE,RANDOM 445 mg/dL (74-106)
[2022-03-30] MEDS: PANTOPRAZOLE 40 MG TABLET PO SCH (09:25)
[2022-03-30] MEDS: PREGABALIN 25 MG CAPSULE PO SCH ×2 (09:25→21:24)
[2022-03-30] MEDS: EZETIMIBE 10 MG TABLET (FP) PO SCH (09:26)
[2022-03-30] MEDS: CEFTRIAXONE 1 GM in DEXTROSE 5%-WATER - 50 ML IVPB SCH (09:27)
[2022-03-30] MEDS: DEXAMETHASONE SOD PHOSPHATE 10 MG/1 ML VIAL IVPUSH SCH (09:27)
[2022-03-30] MEDS: FOLIC ACID 1 MG TABLET (FP) PO SCH (09:27)
[2022-03-30 10:04] LABS: ANISOCYTOSIS 0; HELMET CELLS 0; HOWELL-JOLLY BODIES 0; MACROCYTOSIS 0; OVALOCYTE 0; ROULEAU 0; SICKELED CELLS 0; TARGET CELLS 0; TEAR DROP CELLS 0; TOXIC GRANULATION 0
[2022-03-30] MEDS: fentaNYL 75mcg/hr PATCH.TD72 TD SCH (10:29)
[2022-03-30] MEDS: REMDESIVIR 100 MG in SODIUM CHLORIDE 250 ML IVPB SCH (13:11)
[2022-03-30] MEDS ORDERED: ACETAMINOPHEN 325 MG TABLET (FP) PO ONE (18:07)
[2022-03-30] MEDS ORDERED: ACETAMINOPHEN 1000 MG/100 ML BAG IVPB ONE (18:11)
[2022-03-30] MEDS: SENNOSIDES 8.6MG TABLET (FP) PO SCH (21:24)
[2022-03-30] MEDS ORDERED: KETOROLAC TROMETHAMINE 15 MG/ML VIAL IVPUSH ONE (22:06)
[2022-03-31] MEDS: INSULIN SLIDING SCALE (NOVOLOG) 1 VIAL SQ SCH ×4 (06:11→22:04)
[2022-03-31] MEDS: LEVOTHYROXINE NA 25 MCG TABLET (FP) PO SCH (06:11)
[2022-03-31 07:22] LABS: HEMATOCRIT 26.8 % (32.4-45.2); HEMOGLOBIN 8.7 GM/dL (10.7-15.3); MCHC 32.6 g/dl (32.0-36.0); MEAN CELL VOLUME 91.8 fl (80-96); MEAN PLT VOLUME 9.5 fl (7.5-11.1); PLATELET COUNT 74 10^3/uL (134-434); RBC 2.92 M/mm3 (3.60-5.2); RDW 14.3 % (11.6-15.6); WHITE BLOOD COUNT 7.9 K/mm3 (4.0-10.0)
[2022-03-31 07:50] LABS: ALBUMIN 1.8 g/dl (3.4-5.0); BLOOD UREA NITROGEN 36.5 mg/dL (7-18); CALCIUM 7.6 mg/dL (8.5-10.1); MAGNESIUM 2.3 mg/dL (1.8-2.4)
[2022-03-31 07:53] LABS: CREATININE 0.7 mg/dL (0.55-1.3); PHOSPHOROUS 2.5 mg/dL (2.5-4.9)
[2022-03-31 07:55] LABS: BILIRUBIN,TOTAL 0.2 mg/dL (0.2-1); TOT PROT 5.1 g/dl (6.4-8.2)
[2022-03-31] MEDS: EZETIMIBE 10 MG TABLET (FP) PO SCH (10:47)
[2022-03-31] MEDS: FOLIC ACID 1 MG TABLET (FP) PO SCH (10:47)
[2022-03-31] MEDS: PANTOPRAZOLE 40 MG TABLET PO SCH (10:47)
[2022-03-31] MEDS: DEXAMETHASONE SOD PHOSPHATE 10 MG/1 ML VIAL IVPUSH SCH (10:47)
[2022-03-31] MEDS: PREGABALIN 25 MG CAPSULE PO SCH ×2 (10:47→22:09)
[2022-03-31] MEDS: INSULIN (LEVEMIR) 100 UNITS/ML UNITS SQ SCH ×2 (11:25→22:04)
[2022-03-31] MEDS: REMDESIVIR 100 MG in SODIUM CHLORIDE 250 ML IVPB SCH (12:54)
[2022-03-31] MEDS: oxyCODONE HCL 5 MG TABLET PO PRN (20:19)
[2022-03-31] MEDS: SENNOSIDES 8.6MG TABLET (FP) PO SCH (22:09)
[2022-04-01] MEDS: INSULIN SLIDING SCALE (NOVOLOG) 1 VIAL SQ SCH ×4 (06:44→22:02)
[2022-04-01] MEDS: INSULIN (LEVEMIR) 100 UNITS/ML UNITS SQ SCH ×2 (06:45→22:02)
[2022-04-01] MEDS: LEVOTHYROXINE NA 25 MCG TABLET (FP) PO SCH (06:51)
[2022-04-01] MEDS: PANTOPRAZOLE 40 MG TABLET PO SCH (09:21)
[2022-04-01] MEDS: EZETIMIBE 10 MG TABLET (FP) PO SCH (09:21)
[2022-04-01] MEDS: DEXAMETHASONE SOD PHOSPHATE 10 MG/1 ML VIAL IVPUSH SCH (09:22)
[2022-04-01] MEDS: FOLIC ACID 1 MG TABLET (FP) PO SCH (09:22)
[2022-04-01] MEDS: PREGABALIN 25 MG CAPSULE PO SCH ×2 (09:22→22:01)
[2022-04-01] MEDS: REMDESIVIR 100 MG in SODIUM CHLORIDE 250 ML IVPB SCH (12:15)
[2022-04-01] MEDS: oxyCODONE HCL 5 MG TABLET PO PRN (12:39)
[2022-04-01] MEDS ORDERED: LIDOCAINE 5% TOPICAL PATCH TP ONE (14:57)
[2022-04-01 17:16] LABS: HEMATOCRIT 28.5 % (32.4-45.2); HEMOGLOBIN 9.5 GM/dL (10.7-15.3); MCH 30.4 pg (25.7-33.7); MCHC 33.2 g/dl (32.0-36.0); MEAN CELL VOLUME 91.6 fl (80-96); PLATELET COUNT 87 10^3/uL (134-434); RBC 3.11 M/mm3 (3.60-5.2); RDW 14.1 % (11.6-15.6); WHITE BLOOD COUNT 9.7 K/mm3 (4.0-10.0)
[2022-04-01 17:49] LABS: ALBUMIN 1.9 g/dl (3.4-5.0); BLOOD UREA NITROGEN 23.6 mg/dL (7-18); CALCIUM 7.9 mg/dL (8.5-10.1); MAGNESIUM 1.7 mg/dL (1.8-2.4)
[2022-04-01 17:53] LABS: CREATININE 0.7 mg/dL (0.55-1.3); PHOSPHOROUS 3.1 mg/dL (2.5-4.9)
[2022-04-01 17:54] LABS: TOT PROT 5.2 g/dl (6.4-8.2)
[2022-04-01 17:55] LABS: BILIRUBIN,TOTAL 0.2 mg/dL (0.2-1)
[2022-04-01] MEDS ORDERED: MAGNESIUM SULF 50% (8.12 MEQ/2 ML-1 GM VIAL) IVPB ONE ×2 (18:40→22:00)
[2022-04-01] MEDS: ATORVASTATIN CA 80 MG TABLET (FP) PO SCH (22:01)
[2022-04-01] MEDS: SENNOSIDES 8.6MG TABLET (FP) PO SCH (22:01)
[2022-04-01] MEDS: LIDOCAINE PATCH REMOVAL MC SCH (22:32)
[2022-04-02] MEDS: INSULIN (LEVEMIR) 100 UNITS/ML UNITS SQ SCH (06:18)
[2022-04-02] MEDS: LEVOTHYROXINE NA 25 MCG TABLET (FP) PO SCH (06:18)
[2022-04-02] MEDS: INSULIN SLIDING SCALE (NOVOLOG) 1 VIAL SQ SCH ×4 (06:19→22:47)
[2022-04-02 06:55] LABS: PH,URINE 5.5 (5.0-8.0); URINE APPEARANCE CLEAR; URINE BILIRUBIN NEGATIVE (NEGATIVE); URINE COLOR YELLOW; URINE GLUCOSE (UA) 3+ (NEGATIVE); URINE KETONE NEGATIVE (NEGATIVE); URINE LEUK ESTERASE NEGATIVE (NEGATIVE); URINE NITRITE NEGATIVE (NEGATIVE); URINE PROTEIN NEGATIVE (NEGATIVE); URINE UROBILINOGEN 0.2 mg/dL (0.2-1.0)
[2022-04-02 08:38] LABS: HEMATOCRIT 27.2 % (32.4-45.2); HEMOGLOBIN 8.7 GM/dL (10.7-15.3); MCH 29.3 pg (25.7-33.7); MCHC 32.1 g/dl (32.0-36.0); MEAN CELL VOLUME 91.4 fl (80-96); MEAN PLT VOLUME 8.7 fl (7.5-11.1); PLATELET COUNT 78 10^3/uL (134-434); RBC 2.98 M/mm3 (3.60-5.2); RDW 14.6 % (11.6-15.6); WHITE BLOOD COUNT 8.5 K/mm3 (4.0-10.0)
[2022-04-02] MEDS: oxyCODONE HCL 5 MG TABLET PO PRN (08:44)
[2022-04-02 09:03] LABS: CALCIUM 8.1 mg/dL (8.5-10.1)
[2022-04-02 09:04] LABS: BLOOD UREA NITROGEN 20.3 mg/dL (7-18)
[2022-04-02 09:06] LABS: ALBUMIN 1.8 g/dl (3.4-5.0)
[2022-04-02 09:07] LABS: CREATININE 0.5 mg/dL (0.55-1.3)
[2022-04-02 09:10] LABS: BILIRUBIN,TOTAL 0.4 mg/dL (0.2-1); TOT PROT 4.9 g/dl (6.4-8.2)
[2022-04-02 09:43] LABS: ANISOCYTOSIS 0; MACROCYTOSIS 0; TARGET CELLS 1+
[2022-04-02] MEDS: PREGABALIN 25 MG CAPSULE PO SCH ×2 (09:45→22:41)
[2022-04-02] MEDS ORDERED: metoPROLOL SUCCINATE 25 MG TAB.SR.24H (FP) PO SCH (10:00)
[2022-04-02] MEDS: DEXAMETHASONE SOD PHOSPHATE 10 MG/1 ML VIAL IVPUSH SCH (10:27)
[2022-04-02] MEDS: FOLIC ACID 1 MG TABLET (FP) PO SCH (10:27)
[2022-04-02] MEDS: EZETIMIBE 10 MG TABLET (FP) PO SCH (10:27)
[2022-04-02] MEDS: CLOPIDOGREL BISULFATE 75 MG TABLET (FP) PO SCH (10:27)
[2022-04-02] MEDS: PANTOPRAZOLE 40 MG TABLET PO SCH (10:27)
[2022-04-02] MEDS: fentaNYL 75mcg/hr PATCH.TD72 TD SCH (10:38)
[2022-04-02] MEDS ORDERED: oxyCODONE HCL 5 MG TABLET PO PRN (14:27)
[2022-04-02] MEDS ORDERED: IBUPROFEN 400 MG TABLET (FP) PO ONE (16:38)
[2022-04-02] MEDS ORDERED: INSULIN (LEVEMIR) 100 UNITS/ML UNITS SQ SCH (22:00)
[2022-04-02] MEDS: SENNOSIDES 8.6MG TABLET (FP) PO SCH (22:41)
[2022-04-02] MEDS: ATORVASTATIN CA 80 MG TABLET (FP) PO SCH (22:41)
[2022-04-02] MEDS: LIDOCAINE PATCH REMOVAL MC SCH (22:47)
[2022-04-03] MEDS: INSULIN SLIDING SCALE (NOVOLOG) 1 VIAL SQ SCH ×4 (06:12→22:00)
[2022-04-03] MEDS: LEVOTHYROXINE NA 25 MCG TABLET (FP) PO SCH (06:45)
[2022-04-03] MEDS ORDERED: SODIUM CHLORIDE 500 ML IV STA ×2 (08:02→11:12)
[2022-04-03] MEDS ORDERED: metoPROLOL SUCCINATE 25 MG TAB.SR.24H (FP) PO SCH (08:02)
[2022-04-03 08:30] LABS: HEMATOCRIT 31.3 % (32.4-45.2); HEMOGLOBIN 10.2 GM/dL (10.7-15.3); MCH 29.9 pg (25.7-33.7); MCHC 32.7 g/dl (32.0-36.0); MEAN CELL VOLUME 91.6 fl (80-96); MEAN PLT VOLUME 8.9 fl (7.5-11.1); PLATELET COUNT 89 10^3/uL (134-434); RBC 3.42 M/mm3 (3.60-5.2); RDW 14.6 % (11.6-15.6); WHITE BLOOD COUNT 8.3 K/mm3 (4.0-10.0)
[2022-04-03] MEDS: DEXAMETHASONE SOD PHOSPHATE 10 MG/1 ML VIAL IVPUSH SCH (10:27)
[2022-04-03] MEDS: PREGABALIN 25 MG CAPSULE PO SCH ×2 (10:28→21:47)
[2022-04-03] MEDS: EZETIMIBE 10 MG TABLET (FP) PO SCH (10:28)
[2022-04-03] MEDS: CLOPIDOGREL BISULFATE 75 MG TABLET (FP) PO SCH (10:29)
[2022-04-03] MEDS: FOLIC ACID 1 MG TABLET (FP) PO SCH (10:30)
[2022-04-03] MEDS: PANTOPRAZOLE 40 MG TABLET PO SCH (10:30)
[2022-04-03] MEDS: LIDOCAINE 5% TOPICAL PATCH TP SCH (12:18)
[2022-04-03] MEDS ORDERED: CEFTRIAXONE 2 MG in DEXTROSE 5%-WATER - 50 ML IVPB ONE (14:47)
[2022-04-03] MEDS ORDERED: CEFTRIAXONE 1 GM in DEXTROSE 5%-WATER - 50 ML IVPB ONE (15:30)
[2022-04-03] MEDS ORDERED: SODIUM CHLORIDE 1,000 ML IV STA (17:39)
[2022-04-03] MEDS: AZITHROMYCIN IVPB 500 MG/250 ML BAG IVPB SCH (18:41)
[2022-04-03 19:22] LABS: CHLORIDE 102 mmol/L (98-107); SODIUM 133 mmol/L (136-145)
[2022-04-03 19:23] LABS: ANION GAP 12 MMOL/L (8-16); BLOOD UREA NITROGEN 31.2 mg/dL (7-18); CALCIUM 7.8 mg/dL (8.5-10.1); CO2 20 mmol/L (21-32)
[2022-04-03 19:28] LABS: CREATININE 1.4 mg/dL (0.55-1.3)
[2022-04-03 19:51] LABS: GLUCOSE,RANDOM 477 mg/dL (74-106)
[2022-04-03] MEDS: SENNOSIDES 8.6MG TABLET (FP) PO SCH (21:48)
[2022-04-03] MEDS: ATORVASTATIN CA 80 MG TABLET (FP) PO SCH (21:48)
[2022-04-03] MEDS: LIDOCAINE PATCH REMOVAL MC SCH (21:48)
[2022-04-03] MEDS: INSULIN (LEVEMIR) 100 UNITS/ML UNITS SQ SCH (22:00)
[2022-04-04] MEDS: INSULIN SLIDING SCALE (NOVOLOG) 1 VIAL SQ SCH ×4 (06:23→22:09)
[2022-04-04] MEDS: LEVOTHYROXINE NA 25 MCG TABLET (FP) PO SCH (06:27)
[2022-04-04 07:50] LABS: HEMATOCRIT 27.2 % (32.4-45.2); HEMOGLOBIN 8.7 GM/dL (10.7-15.3); MCH 29.4 pg (25.7-33.7); MEAN PLT VOLUME 9.1 fl (7.5-11.1); PLATELET COUNT 81 10^3/uL (134-434); RBC 2.96 M/mm3 (3.60-5.2); RDW 14.7 % (11.6-15.6); WHITE BLOOD COUNT 8.6 K/mm3 (4.0-10.0)
[2022-04-04 08:05] LABS: CALCIUM 8.1 mg/dL (8.5-10.1)
[2022-04-04 08:07] LABS: ALBUMIN 1.8 g/dl (3.4-5.0)
[2022-04-04 08:13] LABS: BILIRUBIN,TOTAL 0.3 mg/dL (0.2-1)
[2022-04-04 08:20] LABS: CREATININE 0.7 mg/dL (0.55-1.3)
[2022-04-04 09:01] LABS: ANISOCYTOSIS 0; MACROCYTOSIS 0
[2022-04-04] MEDS ORDERED: CEFTRIAXONE 1 GM in DEXTROSE 5%-WATER - 50 ML IVPB SCH (10:00)
[2022-04-04] MEDS: SODIUM CHLORIDE 1,000 ML IV SCH (10:08)
[2022-04-04] MEDS: PREGABALIN 25 MG CAPSULE PO SCH ×2 (10:14→21:14)
[2022-04-04] MEDS: FOLIC ACID 1 MG TABLET (FP) PO SCH (10:15)
[2022-04-04] MEDS: CLOPIDOGREL BISULFATE 75 MG TABLET (FP) PO SCH (10:15)
[2022-04-04] MEDS: EZETIMIBE 10 MG TABLET (FP) PO SCH (10:15)
[2022-04-04] MEDS: PANTOPRAZOLE 40 MG TABLET PO SCH (10:15)
[2022-04-04] MEDS: LIDOCAINE 5% TOPICAL PATCH TP SCH (10:15)
[2022-04-04] MEDS: AZITHROMYCIN IVPB 500 MG/250 ML BAG IVPB SCH (12:14)
[2022-04-04] MEDS ORDERED: oxyCODONE HCL 5 MG TABLET PO PRN (12:25)
[2022-04-04] MEDS: ATORVASTATIN CA 80 MG TABLET (FP) PO SCH (21:14)
[2022-04-04] MEDS: SENNOSIDES 8.6MG TABLET (FP) PO SCH (21:14)
[2022-04-04] MEDS ORDERED: ENOXAPARIN NA (PORCINE) 40 MG/0.4 ML DISP.SYRIN SQ SCH (22:00)
[2022-04-04] MEDS: HEPARIN NA (PORCINE) 5,000 UNITS/ML 1ML VIAL SQ SCH (22:08)
[2022-04-04] MEDS: INSULIN (LEVEMIR) 100 UNITS/ML UNITS SQ SCH (22:08)
[2022-04-04] MEDS: LIDOCAINE PATCH REMOVAL MC SCH (22:09)
[2022-04-05] MEDS: HEPARIN NA (PORCINE) 5,000 UNITS/ML 1ML VIAL SQ SCH ×3 (05:42→22:17)
[2022-04-05] MEDS: SODIUM CHLORIDE 1,000 ML IV SCH ×2 (05:43→12:45)
[2022-04-05] MEDS: LEVOTHYROXINE NA 25 MCG TABLET (FP) PO SCH (06:01)
[2022-04-05] MEDS: ACETAMINOPHEN 325 MG TABLET (FP) PO PRN ×3 (06:13→20:36)
[2022-04-05] MEDS: INSULIN SLIDING SCALE (NOVOLOG) 1 VIAL SQ SCH ×4 (07:34→22:30)
[2022-04-05] MEDS ORDERED: CEFEPIME 0.5 GM in DEXTROSE 5%-WATER - 100 ML IVPB SCH (10:00)
[2022-04-05] MEDS ORDERED: ENOXAPARIN NA (PORCINE) 40 MG/0.4 ML DISP.SYRIN SQ SCH (10:15)
[2022-04-05] MEDS: fentaNYL 75mcg/hr PATCH.TD72 TD SCH (12:39)
[2022-04-05] MEDS: FOLIC ACID 1 MG TABLET (FP) PO SCH (12:44)
[2022-04-05] MEDS: CLOPIDOGREL BISULFATE 75 MG TABLET (FP) PO SCH (12:44)
[2022-04-05] MEDS: PANTOPRAZOLE 40 MG TABLET PO SCH (12:44)
[2022-04-05] MEDS: PREGABALIN 25 MG CAPSULE PO SCH ×2 (12:44→22:17)
[2022-04-05] MEDS: EZETIMIBE 10 MG TABLET (FP) PO SCH (12:44)
[2022-04-05] MEDS: AZITHROMYCIN IVPB 500 MG/250 ML BAG IVPB SCH (12:45)
[2022-04-05] MEDS: LIDOCAINE 5% TOPICAL PATCH TP SCH (12:45)
[2022-04-05 12:53] LABS: HEMOGLOBIN 9.4 GM/dL (10.7-15.3); MCH 29.6 pg (25.7-33.7); MCHC 32.6 g/dl (32.0-36.0); MEAN CELL VOLUME 90.9 fl (80-96); MEAN PLT VOLUME 9.2 fl (7.5-11.1); PLATELET COUNT 76 10^3/uL (134-434); RBC 3.19 M/mm3 (3.60-5.2); RDW 15.2 % (11.6-15.6); WHITE BLOOD COUNT 8.4 K/mm3 (4.0-10.0)
[2022-04-05 13:23] LABS: ALBUMIN 1.8 g/dl (3.4-5.0); BLOOD UREA NITROGEN 20.4 mg/dL (7-18)
[2022-04-05 13:26] LABS: CREATININE 0.8 mg/dL (0.55-1.3)
[2022-04-05 13:27] LABS: BILIRUBIN,TOTAL 0.2 mg/dL (0.2-1); TOT PROT 5.2 g/dl (6.4-8.2)
[2022-04-05 13:32] LABS: ANISOCYTOSIS 2+; MACROCYTOSIS 0; PLATELET ESTIMATE DECREASED
[2022-04-05] MEDS ORDERED: POLYETHYLENE GLYCOL (HEALTHYLAX) 3350 17 GM PACKET PO PRN (14:32)
[2022-04-05 19:17] LABS: URINE APPEARANCE CLEAR; URINE BILIRUBIN NEGATIVE (NEGATIVE); URINE COLOR YELLOW; URINE GLUCOSE (UA) NEGATIVE (NEGATIVE); URINE KETONE NEGATIVE (NEGATIVE); URINE LEUK ESTERASE NEGATIVE (NEGATIVE); URINE NITRITE NEGATIVE (NEGATIVE); URINE PROTEIN NEGATIVE (NEGATIVE); URINE UROBILINOGEN 0.2 mg/dL (0.2-1.0)
[2022-04-05] MEDS: CEFEPIME 1 GM in DEXTROSE 5%-WATER 100 ML IVPB SCH (20:37)
[2022-04-05] MEDS: SENNOSIDES 8.6MG TABLET (FP) PO SCH (22:17)
[2022-04-05] MEDS: ATORVASTATIN CA 80 MG TABLET (FP) PO SCH (22:17)
[2022-04-05] MEDS: LIDOCAINE PATCH REMOVAL MC SCH (22:31)
[2022-04-05] MEDS: INSULIN (LEVEMIR) 100 UNITS/ML UNITS SQ SCH (22:31)
[2022-04-06] MEDS: CEFEPIME 1 GM in DEXTROSE 5%-WATER 100 ML IVPB SCH ×2 (03:30→10:00)
[2022-04-06] MEDS: HEPARIN NA (PORCINE) 5,000 UNITS/ML 1ML VIAL SQ SCH ×3 (06:19→21:12)
[2022-04-06] MEDS: INSULIN SLIDING SCALE (NOVOLOG) 1 VIAL SQ SCH ×4 (06:19→21:29)
[2022-04-06] MEDS: LEVOTHYROXINE NA 25 MCG TABLET (FP) PO SCH (06:19)
[2022-04-06] MEDS: SODIUM CHLORIDE 1,000 ML IV SCH ×3 (06:20→21:17)
[2022-04-06 08:09] LABS: HEMATOCRIT 25.8 % (32.4-45.2); HEMOGLOBIN 8.3 GM/dL (10.7-15.3); MCHC 32.1 g/dl (32.0-36.0); MEAN CELL VOLUME 90.5 fl (80-96); MEAN PLT VOLUME 9.2 fl (7.5-11.1); PLATELET COUNT 72 10^3/uL (134-434); RBC 2.85 M/mm3 (3.60-5.2); RDW 14.9 % (11.6-15.6); WHITE BLOOD COUNT 9.2 K/mm3 (4.0-10.0)
[2022-04-06 08:28] LABS: CALCIUM 7.5 mg/dL (8.5-10.1)
[2022-04-06 08:29] LABS: BLOOD UREA NITROGEN 15.6 mg/dL (7-18)
[2022-04-06 08:32] LABS: CREATININE 0.7 mg/dL (0.55-1.3)
[2022-04-06] MEDS: EZETIMIBE 10 MG TABLET (FP) PO SCH (09:59)
[2022-04-06] MEDS: FOLIC ACID 1 MG TABLET (FP) PO SCH (09:59)
[2022-04-06] MEDS: LIDOCAINE 5% TOPICAL PATCH TP SCH (09:59)
[2022-04-06] MEDS: PREGABALIN 25 MG CAPSULE PO SCH ×2 (09:59→21:17)
[2022-04-06] MEDS: CLOPIDOGREL BISULFATE 75 MG TABLET (FP) PO SCH (09:59)
[2022-04-06] MEDS: PANTOPRAZOLE 40 MG TABLET PO SCH (10:00)
[2022-04-06] MEDS: SENNOSIDES 8.6MG TABLET (FP) PO SCH ×2 (10:00→21:14)
[2022-04-06] MEDS ORDERED: CEFEPIME 1 GM in DEXTROSE 5%-WATER 100 ML IVPB SCH (10:00)
[2022-04-06 10:10] LABS: ANISOCYTOSIS 0; HELMET CELLS 0; HOWELL-JOLLY BODIES 0; MACROCYTOSIS 0; OVALOCYTE 0; ROULEAU 0; SICKELED CELLS 0; TARGET CELLS 0; TEAR DROP CELLS 0; TOXIC GRANULATION 0
[2022-04-06] MEDS: AZITHROMYCIN IVPB 500 MG/250 ML BAG IVPB SCH (10:34)
[2022-04-06 11:13] LABS: MAGNESIUM 1.8 mg/dL (1.8-2.4)
[2022-04-06 11:17] LABS: PHOSPHOROUS 2.5 mg/dL (2.5-4.9)
[2022-04-06] MEDS: ACETAMINOPHEN 325 MG TABLET (FP) PO PRN (12:23)
[2022-04-06] MEDS ORDERED: VANCOMYCIN 1 GM/200 ML PREMIX BAG (RESTRICTED TO ID ONLY) IVPB ONE ×2 (12:27→12:45)
[2022-04-06] MEDS ORDERED: KETOROLAC TROMETHAMINE 15 MG/ML VIAL IVPUSH ONE (13:55)
[2022-04-06] MEDS ORDERED: NYSTATIN 500,000 UNITS TABLET PO SCH (14:00)
[2022-04-06 14:29] LABS: ARTERIAL BLOOD GAS BASE EXCESS 0.7 mmol/L (-2-2); ARTERIAL BLOOD GAS PO2 73.8 mmHg (80-100); ARTERIAL BLOOD GAS pH 7.492 (7.350-7.450)
[2022-04-06 14:33] LABS: ALLENS TEST POSITIVE
[2022-04-06] MEDS ORDERED: SODIUM CHLORIDE 1,000 ML IV STA (17:05)
[2022-04-06] MEDS ORDERED: HYDROCORTISONE SOD SUCCINATE 100 MG/2 ML VIAL IVPB ONE (17:40)
[2022-04-06] MEDS: NYSTATIN 500,000 UNITS/5 ML SUSPENSION PO SCH (17:45)
[2022-04-06] MEDS: MEROPENEM 1 GM in DEXTROSE 5%-WATER 100 ML IVPB SCH (18:19)
[2022-04-06 18:48] LABS: N-TERMINAL BNP 295.1 pg/ml (5-125)
[2022-04-06] MEDS: ATORVASTATIN CA 80 MG TABLET (FP) PO SCH (21:13)
[2022-04-06] MEDS: LIDOCAINE PATCH REMOVAL MC SCH (21:16)
[2022-04-06] MEDS: INSULIN (LEVEMIR) 100 UNITS/ML UNITS SQ SCH (21:29)
[2022-04-07] MEDS: HYDROCORTISONE SOD SUCCINATE 100 MG/2 ML VIAL IVPUSH SCH ×2 (01:00→09:13)
[2022-04-07] MEDS: VANCOMYCIN/WATER FOR INJ (PEG) 1,000 MG/200 ML BAG IVPB SCH ×2 (01:01→13:27)
[2022-04-07] MEDS: NYSTATIN 500,000 UNITS/5 ML SUSPENSION PO SCH ×5 (01:02→23:46)
[2022-04-07] MEDS: MEROPENEM 1 GM in DEXTROSE 5%-WATER 100 ML IVPB SCH ×3 (03:44→17:46)
[2022-04-07] MEDS: HEPARIN NA (PORCINE) 5,000 UNITS/ML 1ML VIAL SQ SCH ×3 (06:23→22:06)
[2022-04-07] MEDS: LEVOTHYROXINE NA 25 MCG TABLET (FP) PO SCH (06:23)
[2022-04-07] MEDS: INSULIN SLIDING SCALE (NOVOLOG) 1 VIAL SQ SCH ×4 (06:25→22:07)
[2022-04-07 08:08] LABS: HEMATOCRIT 25.7 % (32.4-45.2); HEMOGLOBIN 8.4 GM/dL (10.7-15.3); MCH 29.9 pg (25.7-33.7); MCHC 32.6 g/dl (32.0-36.0); MEAN CELL VOLUME 91.7 fl (80-96); MEAN PLT VOLUME 9.2 fl (7.5-11.1); PLATELET COUNT 80 10^3/uL (134-434); RDW 14.9 % (11.6-15.6); WHITE BLOOD COUNT 11.8 K/mm3 (4.0-10.0)
[2022-04-07 08:43] LABS: BLOOD UREA NITROGEN 16.3 mg/dL (7-18)
[2022-04-07 08:45] LABS: CALCIUM 7.5 mg/dL (8.5-10.1)
[2022-04-07 08:46] LABS: CREATININE 0.7 mg/dL (0.55-1.3)
[2022-04-07] MEDS: EZETIMIBE 10 MG TABLET (FP) PO SCH (09:14)
[2022-04-07] MEDS: CLOPIDOGREL BISULFATE 75 MG TABLET (FP) PO SCH (09:14)
[2022-04-07] MEDS: LIDOCAINE 5% TOPICAL PATCH TP SCH (09:14)
[2022-04-07] MEDS: FOLIC ACID 1 MG TABLET (FP) PO SCH (09:14)
[2022-04-07] MEDS: PREGABALIN 25 MG CAPSULE PO SCH ×2 (09:14→22:06)
[2022-04-07] MEDS: SENNOSIDES 8.6MG TABLET (FP) PO SCH ×2 (09:14→22:08)
[2022-04-07] MEDS: PANTOPRAZOLE 40 MG TABLET PO SCH (09:14)
[2022-04-07 09:48] LABS: ANISOCYTOSIS 2+; MACROCYTOSIS 1+; PLATELET ESTIMATE NORMAL
[2022-04-07 17:09] LABS: ARTERIAL BLD GAS O2 SATURATION 99.2 % (95-98); ARTERIAL BLOOD GAS BASE EXCESS 0.3 mmol/L (-2-2); ARTERIAL BLOOD GAS PO2 160.6 mmHg (80-100); ARTERIAL BLOOD GAS pH 7.506 (7.350-7.450)
[2022-04-07 17:10] LABS: ALLENS TEST POSITIVE; VENT MODE IPAP15; VENT RATE 12
[2022-04-07] MEDS: DEXMEDETOMIDINE PREMIX 400 MCG/100 ML BAG IVPB SCH (17:32)
[2022-04-07] MEDS ORDERED: FENTANYL PATCH WASTE TD PRN (20:51)
[2022-04-07] MEDS ORDERED: PROCHLORPERAZINE MALEATE 5 MG TABLET PO PRN (20:51)
[2022-04-07] MEDS ORDERED: INSULIN (LEVEMIR) 100 UNITS/ML UNITS SQ SCH (22:00)
[2022-04-07] MEDS: SODIUM CHLORIDE 1,000 ML IV SCH (22:05)
[2022-04-07] MEDS: MUPIROCIN 2% TOPICAL OINTMENT FOR DECOLONIZATION NS SCH (22:06)
[2022-04-07] MEDS: CHLORHEXIDINE GLUCONATE 4% CLEANSER FOR DECOLONIZATION TP SCH (22:06)
[2022-04-07] MEDS: LIDOCAINE PATCH REMOVAL MC SCH (22:07)
[2022-04-07] MEDS: ACETAMINOPHEN 325 MG TABLET (FP) PO PRN (22:09)
[2022-04-07] MEDS: ATORVASTATIN CA 80 MG TABLET (FP) PO SCH (22:11)
[2022-04-07] MEDS ORDERED: COSYNTROPIN 0.25 MG VIAL IVPUSH ONE (22:15)
[2022-04-08] MEDS ORDERED: LACTATED RINGERS SOLUTION 1000 ML INFUS.BAG IV ONE ×2 (00:45→11:20)
[2022-04-08] MEDS: MEROPENEM 1 GM in DEXTROSE 5%-WATER 100 ML IVPB SCH ×3 (01:10→16:59)
[2022-04-08] MEDS: VANCOMYCIN/WATER FOR INJ (PEG) 1,000 MG/200 ML BAG IVPB SCH ×2 (01:37→12:15)
[2022-04-08] MEDS ORDERED: fentaNYL CITRATE 250 MCG/5 ML VIAL ONE (04:18)
[2022-04-08] MEDS ORDERED: DEXTROSE 50%-WATER 25 GM/50 ML DISP.SYRIN ONE (05:44)
[2022-04-08] MEDS ORDERED: HYDROmorphone HCl 2 MG/ML VIAL IVPUSH ONE (06:00)
[2022-04-08] MEDS: NYSTATIN 500,000 UNITS/5 ML SUSPENSION PO SCH ×4 (06:03→23:40)
[2022-04-08] MEDS: HEPARIN NA (PORCINE) 5,000 UNITS/ML 1ML VIAL SQ SCH (06:03)
[2022-04-08] MEDS: INSULIN SLIDING SCALE (NOVOLOG) 1 VIAL SQ SCH ×4 (06:04→21:56)
[2022-04-08] MEDS: INSULIN (LEVEMIR) 100 UNITS/ML UNITS SQ SCH ×2 (06:04→21:55)
[2022-04-08] MEDS: LEVOTHYROXINE NA 25 MCG TABLET (FP) PO SCH (06:04)
[2022-04-08] MEDS ORDERED: DEXTROSE 50%-WATER - 25 GM/50 ML VIAL IVPUSH ONE (06:07)
[2022-04-08] MEDS ORDERED: DEXTROSE 50%-WATER 25 GM/50 ML DISP.SYRIN IVPUSH ONE (06:07)
[2022-04-08] MEDS ORDERED: RAPID SEQUENCE INTUBATION KIT NR ONE (06:22)
[2022-04-08] MEDS ORDERED: PROPOFOL 1,000,000 MCG/100 ML VIAL ONE (06:29)
[2022-04-08] MEDS ORDERED: FENTANYL NS IVPB 500 MCG/100 ML BAG IVPB ONE (06:29)
[2022-04-08] MEDS: PROPOFOL 1,000,000 MCG/100 ML VIAL IVPB SCH ×2 (06:57→14:30)
[2022-04-08] MEDS ORDERED: FENTANYL IVPB 500 MCG/100 ML BAG IVPB SCH (07:00)
[2022-04-08] MEDS: FENTANYL NS IVPB 500 MCG/100 ML BAG IVPB SCH ×2 (07:00→13:10)
[2022-04-08 07:43] LABS: BLOOD UREA NITROGEN 13.5 mg/dL (7-18); CALCIUM 7.2 mg/dL (8.5-10.1); HEMATOCRIT 26.1 % (32.4-45.2); HEMOGLOBIN 8.4 GM/dL (10.7-15.3); MCH 29.3 pg (25.7-33.7); MCHC 32.2 g/dl (32.0-36.0); MEAN PLT VOLUME 9.2 fl (7.5-11.1); PLATELET COUNT 112 10^3/uL (134-434); RBC 2.87 M/mm3 (3.60-5.2); RDW 15.5 % (11.6-15.6); WHITE BLOOD COUNT 17.1 K/mm3 (4.0-10.0)
[2022-04-08 07:46] LABS: CREATININE 0.6 mg/dL (0.55-1.3)
[2022-04-08 07:48] LABS: BILIRUBIN,TOTAL 0.3 mg/dL (0.2-1); TOT PROT 5.4 g/dl (6.4-8.2)
[2022-04-08 07:52] LABS: ALBUMIN 1.4 g/dl (3.4-5.0)
[2022-04-08 08:54] LABS: ARTERIAL BLD GAS O2 SATURATION 90.3 % (95-98); ARTERIAL BLOOD GAS BASE EXCESS -5.5 mmol/L (-2-2); ARTERIAL BLOOD GAS PO2 69.8 mmHg (80-100); ARTERIAL BLOOD GAS pH 7.223 (7.350-7.450)
[2022-04-08] MEDS ORDERED: MINERAL OIL/PETROLATUM,WHITE 3.5 GM TUBE OU PRN (09:25)
[2022-04-08] MEDS ORDERED: ARTIFICIAL TEARS (POLYVINYL ALCOHOL) OPTH DROPS OU PRN (09:25)
[2022-04-08] MEDS ORDERED: ROCURONIUM BROMIDE 50 MG/5 ML VIAL IV ONE (09:25)
[2022-04-08] MEDS ORDERED: ROCURONIUM BROMIDE 500 MG/300 ML BAG IVPB SCH (09:30)
[2022-04-08 09:31] LABS: ANISOCYTOSIS 1+; MACROCYTOSIS 0; PLATELET ESTIMATE DECREASED
[2022-04-08] MEDS ORDERED: VECURONIUM BROMIDE 20 MG/20 ML VIAL ONE (09:45)
[2022-04-08] MEDS ORDERED: VECURONIUM BROMIDE 10 MG/10 ML VIAL IVPUSH ONE (10:00)
[2022-04-08] MEDS ORDERED: PANTOPRAZOLE 40 MG TABLET PO SCH (10:00)
[2022-04-08] MEDS ORDERED: DEXAMETHASONE SOD PHOSPHATE 4 MG/1 ML VIAL IVPUSH SCH (10:00)
[2022-04-08] MEDS ORDERED: fentaNYL 75mcg/hr PATCH.TD72 TD SCH (10:00)
[2022-04-08] MEDS: CLOPIDOGREL BISULFATE 75 MG TABLET (FP) PO SCH (10:07)
[2022-04-08] MEDS: SENNOSIDES 8.6MG TABLET (FP) PO SCH ×2 (10:07→21:56)
[2022-04-08] MEDS: FOLIC ACID 1 MG TABLET (FP) PO SCH (10:07)
[2022-04-08] MEDS: PREGABALIN 25 MG CAPSULE PO SCH ×2 (10:07→21:55)
[2022-04-08] MEDS: EZETIMIBE 10 MG TABLET (FP) PO SCH (10:08)
[2022-04-08] MEDS: SODIUM CHLORIDE 1,000 ML IV SCH ×2 (10:09→21:52)
[2022-04-08] MEDS: LIDOCAINE 5% TOPICAL PATCH TP SCH (10:10)
[2022-04-08] MEDS: ENOXAPARIN NA (PORCINE) 60 MG/0.6 ML DISP.SYRIN SQ SCH ×2 (10:23→21:55)
[2022-04-08] MEDS: DEXAMETHASONE SOD PHOSPHATE 10 MG/1 ML VIAL IVPUSH SCH (10:23)
[2022-04-08] MEDS: MUPIROCIN 2% TOPICAL OINTMENT FOR DECOLONIZATION NS SCH ×2 (10:24→21:55)
[2022-04-08] MEDS: VECURONIUM BROMIDE 100 MG/100 ML BAG IVPB SCH (11:00)
[2022-04-08 11:23] LABS: ARTERIAL BLD GAS O2 SATURATION 98.6 % (95-98); ARTERIAL BLOOD GAS PO2 157.8 mmHg (80-100); ARTERIAL BLOOD GAS pH 7.203 (7.350-7.450)
[2022-04-08 11:24] LABS: ALLENS TEST POSITIVE; VENT MODE AC; VENT RATE 28
[2022-04-08] MEDS: PHENYLEPHRINE NS PREMIX 50,000 MCG/500 ML BAG CVP SCH (16:56)
[2022-04-08] MEDS: DEXMEDETOMIDINE PREMIX 400 MCG/100 ML BAG IVPB SCH (16:56)
[2022-04-08 17:48] LABS: ARTERIAL BLOOD GAS BASE EXCESS -6.1 mmol/L (-2-2); ARTERIAL BLOOD GAS PO2 186.2 mmHg (80-100); ARTERIAL BLOOD GAS pH 7.213 (7.350-7.450)
[2022-04-08 17:51] LABS: ALLENS TEST POSITIVE
[2022-04-08 17:52] LABS: VENT MODE AC; VENT RATE 28
[2022-04-08] MEDS: CHLORHEXIDINE GLUCONATE 4% CLEANSER FOR DECOLONIZATION TP SCH (21:55)
[2022-04-08] MEDS: LIDOCAINE PATCH REMOVAL MC SCH (21:55)
[2022-04-08] MEDS: ATORVASTATIN CA 80 MG TABLET (FP) PO SCH (21:55)
[2022-04-09] MEDS: MEROPENEM 1 GM in DEXTROSE 5%-WATER 100 ML IVPB SCH ×3 (01:03→17:34)
[2022-04-09] MEDS: VANCOMYCIN/WATER FOR INJ (PEG) 1,000 MG/200 ML BAG IVPB SCH ×2 (01:13→12:52)
[2022-04-09] MEDS: PHENYLEPHRINE NS PREMIX 50,000 MCG/500 ML BAG CVP SCH (05:37)
[2022-04-09] MEDS: VASOPRESSIN 40 UNITS/100 ML BAG IV SCH (05:37)
[2022-04-09 06:01] LABS: ALLENS TEST POSITIVE; ARTERIAL BLD GAS O2 SATURATION 97.9 % (95-98); ARTERIAL BLOOD GAS BASE EXCESS -5.8 mmol/L (-2-2); ARTERIAL BLOOD GAS PO2 130.4 mmHg (80-100); ARTERIAL BLOOD GAS pH 7.205 (7.350-7.450)
[2022-04-09 06:02] LABS: VENT MODE A/C; VENT RATE 28
[2022-04-09] MEDS: NYSTATIN 500,000 UNITS/5 ML SUSPENSION PO SCH ×4 (06:03→23:20)
[2022-04-09] MEDS: INSULIN (LEVEMIR) 100 UNITS/ML UNITS SQ SCH ×2 (06:04→22:55)
[2022-04-09] MEDS: LEVOTHYROXINE NA 25 MCG TABLET (FP) PO SCH (06:04)
[2022-04-09] MEDS: INSULIN SLIDING SCALE (NOVOLOG) 1 VIAL SQ SCH ×4 (06:04→22:54)
[2022-04-09 08:25] LABS: HEMATOCRIT 22.5 % (32.4-45.2); HEMOGLOBIN 7.3 GM/dL (10.7-15.3); MCH 29.8 pg (25.7-33.7); MCHC 32.4 g/dl (32.0-36.0); MEAN CELL VOLUME 91.9 fl (80-96); MEAN PLT VOLUME 8.8 fl (7.5-11.1); PLATELET COUNT 98 10^3/uL (134-434); RBC 2.45 M/mm3 (3.60-5.2); RDW 15.2 % (11.6-15.6); WHITE BLOOD COUNT 12.2 K/mm3 (4.0-10.0)
[2022-04-09 09:09] LABS: ALBUMIN 1.2 g/dl (3.4-5.0); BILIRUBIN,TOTAL 0.2 mg/dL (0.2-1); BLOOD UREA NITROGEN 28.7 mg/dL (7-18); CREATININE 1.1 mg/dL (0.55-1.3); MAGNESIUM 2.2 mg/dL (1.8-2.4); PHOSPHOROUS 4.1 mg/dL (2.5-4.9); TOT PROT 4.7 g/dl (6.4-8.2)
[2022-04-09 09:23] LABS: ANISOCYTOSIS 0; HELMET CELLS 0; HOWELL-JOLLY BODIES 0; MACROCYTOSIS 0; OVALOCYTE 0; ROULEAU 0; SICKELED CELLS 0; TARGET CELLS 0; TEAR DROP CELLS 0; TOXIC GRANULATION 0
[2022-04-09] MEDS: PROPOFOL 1,000,000 MCG/100 ML VIAL IVPB SCH ×2 (10:00→17:32)
[2022-04-09] MEDS: EZETIMIBE 10 MG TABLET (FP) PO SCH (10:01)
[2022-04-09] MEDS: PANTOPRAZOLE SODIUM 40 MG VIAL IVPUSH SCH (10:01)
[2022-04-09] MEDS: ENOXAPARIN NA (PORCINE) 60 MG/0.6 ML DISP.SYRIN SQ SCH ×2 (10:01→22:30)
[2022-04-09] MEDS: SENNOSIDES 8.6MG TABLET (FP) PO SCH ×2 (10:01→22:30)
[2022-04-09] MEDS: FOLIC ACID 1 MG TABLET (FP) PO SCH (10:01)
[2022-04-09] MEDS: CLOPIDOGREL BISULFATE 75 MG TABLET (FP) PO SCH (10:01)
[2022-04-09] MEDS: DEXAMETHASONE SOD PHOSPHATE 10 MG/1 ML VIAL IVPUSH SCH (10:01)
[2022-04-09] MEDS: MUPIROCIN 2% TOPICAL OINTMENT FOR DECOLONIZATION NS SCH ×2 (10:02→22:29)
[2022-04-09] MEDS: LIDOCAINE 5% TOPICAL PATCH TP SCH (10:02)
[2022-04-09] MEDS: FENTANYL NS IVPB 500 MCG/100 ML BAG IVPB SCH ×2 (10:03→20:20)
[2022-04-09] MEDS: PREGABALIN 25 MG CAPSULE PO SCH ×2 (10:03→22:29)
[2022-04-09 13:22] LABS: HEMATOCRIT 23.7 % (32.4-45.2); HEMOGLOBIN 7.4 GM/dL (10.7-15.3); MCH 29.1 pg (25.7-33.7); MCHC 31.4 g/dl (32.0-36.0); MEAN CELL VOLUME 92.8 fl (80-96); MEAN PLT VOLUME 8.8 fl (7.5-11.1); PLATELET COUNT 103 10^3/uL (134-434); RBC 2.56 M/mm3 (3.60-5.2); RDW 15.4 % (11.6-15.6); WHITE BLOOD COUNT 12.9 K/mm3 (4.0-10.0)
[2022-04-09] MEDS ORDERED: FUROSEMIDE 40 MG/4 ML INJECTABLE VIAL IVPUSH ONE (13:42)
[2022-04-09] MEDS: SODIUM CHLORIDE 1,000 ML IV SCH (13:45)
[2022-04-09] MEDS ORDERED: METOPROLOL TARTRATE 5 MG/5 ML VIAL ONE (17:31)
[2022-04-09] MEDS: LIDOCAINE PATCH REMOVAL MC SCH (22:30)
[2022-04-09] MEDS: ATORVASTATIN CA 80 MG TABLET (FP) PO SCH (22:30)
[2022-04-09] MEDS: CHLORHEXIDINE GLUCONATE 4% CLEANSER FOR DECOLONIZATION TP SCH (22:30)
[2022-04-09 23:43] LABS: HEMATOCRIT 24.7 % (32.4-45.2); HEMOGLOBIN 8.1 GM/dL (10.7-15.3); MCHC 32.9 g/dl (32.0-36.0); MEAN PLT VOLUME 8.2 fl (7.5-11.1); PLATELET COUNT 86 10^3/uL (134-434); RBC 2.71 M/mm3 (3.60-5.2); RDW 14.5 % (11.6-15.6); WHITE BLOOD COUNT 8.3 K/mm3 (4.0-10.0)
[2022-04-10] MEDS: VANCOMYCIN/WATER FOR INJ (PEG) 1,000 MG/200 ML BAG IVPB SCH (00:50)
[2022-04-10] MEDS: PROPOFOL 1,000,000 MCG/100 ML VIAL IVPB SCH ×3 (00:55→22:00)
[2022-04-10] MEDS: MEROPENEM 1 GM in DEXTROSE 5%-WATER 100 ML IVPB SCH ×3 (01:42→18:39)
[2022-04-10] MEDS ORDERED: MIDAZOLAM IN 0.9 % SOD.CHLORID 100 MG/100 ML PLAST..BAG IVPB SCH (02:15)
[2022-04-10] MEDS: FENTANYL NS IVPB 500 MCG/100 ML BAG IVPB SCH ×3 (02:37→23:40)
[2022-04-10] MEDS: VASOPRESSIN 40 UNITS/100 ML BAG IV SCH ×2 (04:00→20:18)
[2022-04-10 05:51] LABS: ARTERIAL BLD GAS O2 SATURATION 98.7 % (95-98); ARTERIAL BLOOD GAS BASE EXCESS -7.7 mmol/L (-2-2); ARTERIAL BLOOD GAS PO2 149.6 mmHg (80-100); ARTERIAL BLOOD GAS pH 7.297 (7.350-7.450)
[2022-04-10 05:56] LABS: VENT MODE V-A/C; VENT RATE 28
[2022-04-10] MEDS: LEVOTHYROXINE NA 25 MCG TABLET (FP) PO SCH (06:08)
[2022-04-10] MEDS: NYSTATIN 500,000 UNITS/5 ML SUSPENSION PO SCH ×4 (06:09→23:44)
[2022-04-10] MEDS: INSULIN SLIDING SCALE (NOVOLOG) 1 VIAL SQ SCH ×4 (06:33→21:42)
[2022-04-10] MEDS: INSULIN (LEVEMIR) 100 UNITS/ML UNITS SQ SCH ×2 (06:34→21:43)
[2022-04-10 08:18] LABS: BASO % 0.2 % (0-2.0); HEMATOCRIT 22.7 % (32.4-45.2); HEMOGLOBIN 7.8 GM/dL (10.7-15.3); LYMPH % 2.3 % (8-40); MCH 31.5 pg (25.7-33.7); MCHC 34.3 g/dl (32.0-36.0); MEAN CELL VOLUME 91.9 fl (80-96); MEAN PLT VOLUME 8.5 fl (7.5-11.1); MONO % 6.9 % (3.8-10.2); NEUT % 90.6 % (42.8-82.8); PLATELET COUNT 75 10^3/uL (134-434); RBC 2.47 M/mm3 (3.60-5.2); RDW 14.4 % (11.6-15.6); WHITE BLOOD COUNT 6.9 K/mm3 (4.0-10.0)
[2022-04-10 09:28] LABS: CHLORIDE 108 mmol/L (98-107); SODIUM 139 mmol/L (136-145)
[2022-04-10 09:30] LABS: ANION GAP 11 MMOL/L (8-16); BLOOD UREA NITROGEN 40.2 mg/dL (7-18); CO2 21 mmol/L (21-32); GLUCOSE,RANDOM 200 mg/dL (74-106); MAGNESIUM 2.4 mg/dL (1.8-2.4)
[2022-04-10 09:31] LABS: ALBUMIN 1.2 g/dl (3.4-5.0)
[2022-04-10 09:33] LABS: CREATININE 1.1 mg/dL (0.55-1.3); PHOSPHOROUS 3.6 mg/dL (2.5-4.9); SGOT/AST 42 U/L (15-37)
[2022-04-10 09:34] LABS: SGPT/ALT 27 U/L (13-61)
[2022-04-10 09:35] LABS: ALK PHOS 97 U/L (45-117); BILIRUBIN,TOTAL 0.2 mg/dL (0.2-1); CALCIUM 6.7 mg/dL (8.5-10.1); TOT PROT 4.5 g/dl (6.4-8.2)
[2022-04-10] MEDS: PREGABALIN 25 MG CAPSULE PO SCH ×2 (10:53→21:35)
[2022-04-10] MEDS: PANTOPRAZOLE SODIUM 40 MG VIAL IVPUSH SCH ×2 (10:54→21:35)
[2022-04-10] MEDS: SENNOSIDES 8.6MG TABLET (FP) PO SCH ×2 (10:54→21:36)
[2022-04-10] MEDS: LIDOCAINE 5% TOPICAL PATCH TP SCH (10:54)
[2022-04-10] MEDS: ENOXAPARIN NA (PORCINE) 60 MG/0.6 ML DISP.SYRIN SQ SCH (10:54)
[2022-04-10] MEDS: CLOPIDOGREL BISULFATE 75 MG TABLET (FP) PO SCH (10:54)
[2022-04-10] MEDS: DEXAMETHASONE SOD PHOSPHATE 10 MG/1 ML VIAL IVPUSH SCH (10:54)
[2022-04-10] MEDS: MUPIROCIN 2% TOPICAL OINTMENT FOR DECOLONIZATION NS SCH ×2 (10:54→21:35)
[2022-04-10] MEDS: FOLIC ACID 1 MG TABLET (FP) PO SCH (10:54)
[2022-04-10] MEDS: EZETIMIBE 10 MG TABLET (FP) PO SCH (10:54)
[2022-04-10] MEDS ORDERED: VASOPRESSIN 20 UNITS/ML VIAL IV ONE (13:15)
[2022-04-10] MEDS: HEPARIN NA (PORCINE) 5,000 UNITS/ML 1ML VIAL SQ SCH ×2 (14:00→21:35)
[2022-04-10] MEDS: SODIUM CHLORIDE 1,000 ML IV SCH (19:03)
[2022-04-10 19:29] LABS: HEMATOCRIT 22.9 % (32.4-45.2); MCH 30.5 pg (25.7-33.7); MCHC 29.7 g/dl (32.0-36.0); MEAN CELL VOLUME 102.6 fl (80-96); MEAN PLT VOLUME 8.5 fl (7.5-11.1); PLATELET COUNT 44 10^3/uL (134-434); RBC 2.23 M/mm3 (3.60-5.2); RDW 16.7 % (11.6-15.6); WHITE BLOOD COUNT 6.5 K/mm3 (4.0-10.0)
[2022-04-10 19:40] LABS: HEMOGLOBIN 6.8 GM/dL (10.7-15.3)
[2022-04-10] MEDS ORDERED: VECURONIUM BROMIDE 50 MG/50 ML VIAL IVPUSH ONE (19:43)
[2022-04-10] MEDS ORDERED: NOREPINEPHRINE BITARTRATE 4,000 MCG in DEXTROSE 5%-WATER - 496 ML IV SCH (19:45)
[2022-04-10] MEDS ORDERED: VECURONIUM BROMIDE 20 MG/20 ML VIAL IV ONE (20:00)
[2022-04-10] MEDS: VECURONIUM BROMIDE 100 MG/100 ML BAG IVPB SCH (20:17)
[2022-04-10] MEDS: NOREPINEPHRINE BITARTRATE 16,000 MCG in DEXTROSE 5%-WATER - 484 ML IVPB SCH (20:19)
[2022-04-10 21:28] LABS: HEMATOCRIT 31.5 % (32.4-45.2); HEMOGLOBIN 10.6 GM/dL (10.7-15.3); MCH 29.8 pg (25.7-33.7); MCHC 33.6 g/dl (32.0-36.0); MEAN CELL VOLUME 88.7 fl (80-96); MEAN PLT VOLUME 7.9 fl (7.5-11.1); PLATELET COUNT 76 10^3/uL (134-434); RBC 3.55 M/mm3 (3.60-5.2); RDW 14.8 % (11.6-15.6); WHITE BLOOD COUNT 10.2 K/mm3 (4.0-10.0)
[2022-04-10] MEDS: CHLORHEXIDINE GLUCONATE 4% CLEANSER FOR DECOLONIZATION TP SCH (21:35)
[2022-04-10] MEDS: LIDOCAINE PATCH REMOVAL MC SCH (21:36)
[2022-04-10] MEDS: ATORVASTATIN CA 80 MG TABLET (FP) PO SCH (21:36)
[2022-04-11] MEDS: MEROPENEM 1 GM in DEXTROSE 5%-WATER 100 ML IVPB SCH ×3 (02:37→17:21)
[2022-04-11] MEDS: VECURONIUM BROMIDE 100 MG/100 ML BAG IVPB SCH ×2 (02:48→09:53)
[2022-04-11] MEDS: PROPOFOL 1,000,000 MCG/100 ML VIAL IVPB SCH ×2 (04:21→13:58)
[2022-04-11] MEDS: HEPARIN NA (PORCINE) 5,000 UNITS/ML 1ML VIAL SQ SCH (06:15)
[2022-04-11] MEDS: NYSTATIN 500,000 UNITS/5 ML SUSPENSION PO SCH ×3 (06:21→17:21)
[2022-04-11] MEDS: INSULIN SLIDING SCALE (NOVOLOG) 1 VIAL SQ SCH ×3 (06:21→19:02)
[2022-04-11] MEDS: LEVOTHYROXINE NA 25 MCG TABLET (FP) PO SCH (06:21)
[2022-04-11] MEDS: FENTANYL NS IVPB 500 MCG/100 ML BAG IVPB SCH ×4 (06:21→17:20)
[2022-04-11] MEDS: INSULIN (LEVEMIR) 100 UNITS/ML UNITS SQ SCH ×2 (06:23→22:58)
[2022-04-11 06:29] LABS: ARTERIAL BLD GAS O2 SATURATION 95.6 % (95-98); ARTERIAL BLOOD GAS BASE EXCESS -4.3 mmol/L (-2-2); ARTERIAL BLOOD GAS PO2 94.6 mmHg (80-100); ARTERIAL BLOOD GAS pH 7.217 (7.350-7.450)
[2022-04-11 06:49] LABS: ALLENS TEST POSITIVE
[2022-04-11 06:51] LABS: VENT MODE A/C
[2022-04-11 06:52] LABS: BG HCT 24.4 % (32.4-45.2); VENT RATE 28
[2022-04-11 07:37] LABS: HEMATOCRIT 33.6 % (32.4-45.2); HEMOGLOBIN 11.3 GM/dL (10.7-15.3); MCH 29.9 pg (25.7-33.7); MCHC 33.6 g/dl (32.0-36.0); MEAN PLT VOLUME 8.6 fl (7.5-11.1); PLATELET COUNT 91 10^3/uL (134-434); RBC 3.77 M/mm3 (3.60-5.2); RDW 15.9 % (11.6-15.6); WHITE BLOOD COUNT 12.3 K/mm3 (4.0-10.0)
[2022-04-11 09:37] LABS: ALBUMIN 1.5 g/dl (3.4-5.0); BILIRUBIN,TOTAL 0.5 mg/dL (0.2-1); BLOOD UREA NITROGEN 40.4 mg/dL (7-18); CALCIUM 7.6 mg/dL (8.5-10.1); TOT PROT 5.5 g/dl (6.4-8.2)
[2022-04-11] MEDS: CLOPIDOGREL BISULFATE 75 MG TABLET (FP) PO SCH (09:51)
[2022-04-11] MEDS: DEXAMETHASONE SOD PHOSPHATE 10 MG/1 ML VIAL IVPUSH SCH (09:51)
[2022-04-11] MEDS: PREGABALIN 25 MG CAPSULE PO SCH ×2 (09:51→22:57)
[2022-04-11] MEDS: FOLIC ACID 1 MG TABLET (FP) PO SCH (09:51)
[2022-04-11] MEDS: EZETIMIBE 10 MG TABLET (FP) PO SCH (09:52)
[2022-04-11] MEDS: PANTOPRAZOLE SODIUM 40 MG VIAL IVPUSH SCH ×2 (09:52→22:59)
[2022-04-11] MEDS: SENNOSIDES 8.6MG TABLET (FP) PO SCH ×2 (09:52→22:59)
[2022-04-11] MEDS: LIDOCAINE 5% TOPICAL PATCH TP SCH ×2 (09:54→11:09)
[2022-04-11] MEDS: MUPIROCIN 2% TOPICAL OINTMENT FOR DECOLONIZATION NS SCH ×2 (10:32→22:57)
[2022-04-11] MEDS: SODIUM CHLORIDE 1,000 ML IV SCH (12:34)
[2022-04-11] MEDS: VANCOMYCIN/WATER FOR INJ (PEG) 1,000 MG/200 ML BAG IVPB SCH (13:05)
[2022-04-11] MEDS: NOREPINEPHRINE BITARTRATE 16,000 MCG in DEXTROSE 5%-WATER - 484 ML IVPB SCH (22:55)
[2022-04-11] MEDS: VASOPRESSIN 40 UNITS/100 ML BAG IV SCH (22:55)
[2022-04-11] MEDS: CHLORHEXIDINE GLUCONATE 4% CLEANSER FOR DECOLONIZATION TP SCH (22:58)
[2022-04-11] MEDS: LIDOCAINE PATCH REMOVAL MC SCH (22:58)
[2022-04-11] MEDS: ATORVASTATIN CA 80 MG TABLET (FP) PO SCH (22:58)
[2022-04-12] MEDS: VANCOMYCIN/WATER FOR INJ (PEG) 1,000 MG/200 ML BAG IVPB SCH ×2 (00:51→12:51)
[2022-04-12] MEDS: INSULIN SLIDING SCALE (NOVOLOG) 1 VIAL SQ SCH ×5 (01:15→21:38)
[2022-04-12] MEDS: MEROPENEM 1 GM in DEXTROSE 5%-WATER 100 ML IVPB SCH ×3 (02:00→17:11)
[2022-04-12] MEDS ORDERED: METOPROLOL TARTRATE 5 MG/5 ML VIAL IVPUSH ONE (02:04)
[2022-04-12] MEDS ORDERED: DEXTROSE 5%-NORMAL SALINE 1,000 ML IV SCH (02:15)
[2022-04-12] MEDS: NYSTATIN 500,000 UNITS/5 ML SUSPENSION PO SCH ×4 (06:52→17:12)
[2022-04-12] MEDS: INSULIN (LEVEMIR) 100 UNITS/ML UNITS SQ SCH ×2 (06:59→21:35)
[2022-04-12] MEDS: PROPOFOL 1,000,000 MCG/100 ML VIAL IVPB SCH ×2 (06:59→14:21)
[2022-04-12] MEDS: LEVOTHYROXINE NA 25 MCG TABLET (FP) PO SCH (07:07)
[2022-04-12 08:33] LABS: HEMATOCRIT 32.6 % (32.4-45.2); HEMOGLOBIN 10.9 GM/dL (10.7-15.3); MCH 29.8 pg (25.7-33.7); MCHC 33.6 g/dl (32.0-36.0); MEAN CELL VOLUME 88.8 fl (80-96); MEAN PLT VOLUME 7.6 fl (7.5-11.1); PLATELET COUNT 72 10^3/uL (134-434); RBC 3.66 M/mm3 (3.60-5.2); RDW 15.9 % (11.6-15.6); WHITE BLOOD COUNT 9.7 K/mm3 (4.0-10.0)
[2022-04-12 08:53] LABS: CALCIUM 8.3 mg/dL (8.5-10.1)
[2022-04-12 08:54] LABS: ALBUMIN 1.3 g/dl (3.4-5.0); BLOOD UREA NITROGEN 30.9 mg/dL (7-18); MAGNESIUM 2.2 mg/dL (1.8-2.4); PHOSPHOROUS 3.5 mg/dL (2.5-4.9)
[2022-04-12 08:56] LABS: BILIRUBIN,TOTAL 0.4 mg/dL (0.2-1); TOT PROT 4.8 g/dl (6.4-8.2)
[2022-04-12 08:57] LABS: CREATININE 0.7 mg/dL (0.55-1.3)
[2022-04-12] MEDS: PREGABALIN 25 MG CAPSULE PO SCH ×2 (08:59→20:32)
[2022-04-12] MEDS: LIDOCAINE 5% TOPICAL PATCH TP SCH (09:00)
[2022-04-12] MEDS: PANTOPRAZOLE SODIUM 40 MG VIAL IVPUSH SCH ×2 (09:01→21:15)
[2022-04-12] MEDS: SENNOSIDES 8.6MG TABLET (FP) PO SCH ×2 (09:01→21:15)
[2022-04-12] MEDS: FOLIC ACID 1 MG TABLET (FP) PO SCH (09:01)
[2022-04-12] MEDS: EZETIMIBE 10 MG TABLET (FP) PO SCH (09:01)
[2022-04-12] MEDS: FENTANYL NS IVPB 500 MCG/100 ML BAG IVPB SCH ×4 (09:02→16:49)
[2022-04-12] MEDS: MUPIROCIN 2% TOPICAL OINTMENT FOR DECOLONIZATION NS SCH (09:03)
[2022-04-12] MEDS: VECURONIUM BROMIDE 100 MG/100 ML BAG IVPB SCH ×2 (10:53→14:30)
[2022-04-12] MEDS: CLOPIDOGREL BISULFATE 75 MG TABLET (FP) PO SCH (10:56)
[2022-04-12] MEDS: DEXAMETHASONE SOD PHOSPHATE 10 MG/1 ML VIAL IVPUSH SCH (10:56)
[2022-04-12] MEDS: HEPARIN NA (PORCINE) 5,000 UNITS/ML 1ML VIAL SQ SCH ×2 (14:21→21:15)
[2022-04-12] MEDS: FUROSEMIDE 40 MG/4 ML INJECTABLE VIAL IVPUSH SCH (14:21)
[2022-04-12] MEDS ORDERED: LACTATED RINGERS SOLUTION 1,000 ML/1,000 ML INFUS.BAG IV STA (20:00)
[2022-04-12] MEDS ORDERED: LACTATED RINGERS SOLUTION 1000 ML INFUS.BAG IV STA (20:01)
[2022-04-12] MEDS: LIDOCAINE PATCH REMOVAL MC SCH (21:16)
[2022-04-12] MEDS: ATORVASTATIN CA 80 MG TABLET (FP) PO SCH (21:16)
[2022-04-12] MEDS: CHLORHEXIDINE GLUCONATE 4% CLEANSER FOR DECOLONIZATION TP SCH (21:17)
[2022-04-13] MEDS: NYSTATIN 500,000 UNITS/5 ML SUSPENSION PO SCH ×5 (00:30→23:06)
[2022-04-13] MEDS: MEROPENEM 1 GM in DEXTROSE 5%-WATER 100 ML IVPB SCH ×3 (01:25→17:12)
[2022-04-13] MEDS: HEPARIN NA (PORCINE) 5,000 UNITS/ML 1ML VIAL SQ SCH ×3 (05:55→22:01)
[2022-04-13] MEDS: FUROSEMIDE 40 MG/4 ML INJECTABLE VIAL IVPUSH SCH ×2 (05:56→13:38)
[2022-04-13] MEDS: INSULIN (LEVEMIR) 100 UNITS/ML UNITS SQ SCH ×2 (06:06→22:47)
[2022-04-13] MEDS: INSULIN SLIDING SCALE (NOVOLOG) 1 VIAL SQ SCH ×4 (06:07→22:47)
[2022-04-13] MEDS: LEVOTHYROXINE NA 25 MCG TABLET (FP) PO SCH (06:08)
[2022-04-13 06:49] LABS: ARTERIAL BLD GAS O2 SATURATION 97.6 % (95-98); ARTERIAL BLOOD GAS BASE EXCESS 1.4 mmol/L (-2-2); ARTERIAL BLOOD GAS PO2 107.4 mmHg (80-100); ARTERIAL BLOOD GAS pH 7.341 (7.350-7.450)
[2022-04-13 06:56] LABS: ALLENS TEST POSITIVE; VENT MODE A/C; VENT RATE 28
[2022-04-13 07:34] LABS: HEMATOCRIT 32.8 % (32.4-45.2); HEMOGLOBIN 11.1 GM/dL (10.7-15.3); MCH 29.5 pg (25.7-33.7); MCHC 33.9 g/dl (32.0-36.0); MEAN CELL VOLUME 87.1 fl (80-96); MEAN PLT VOLUME 7.8 fl (7.5-11.1); PLATELET COUNT 80 10^3/uL (134-434); RBC 3.77 M/mm3 (3.60-5.2); RDW 15.3 % (11.6-15.6); WHITE BLOOD COUNT 8.8 K/mm3 (4.0-10.0)
[2022-04-13 08:36] LABS: BLOOD UREA NITROGEN 32.2 mg/dL (7-18); CALCIUM 8.5 mg/dL (8.5-10.1); CREATININE 0.7 mg/dL (0.55-1.3); MAGNESIUM 2.2 mg/dL (1.8-2.4); PHOSPHOROUS 3.1 mg/dL (2.5-4.9)
[2022-04-13] MEDS: LIDOCAINE 5% TOPICAL PATCH TP SCH (09:34)
[2022-04-13] MEDS: ONDANSETRON 8 MG TABLET (FP) PO PRN (09:35)
[2022-04-13] MEDS: PREGABALIN 25 MG CAPSULE PO SCH (09:35)
[2022-04-13] MEDS: SENNOSIDES 8.6MG TABLET (FP) PO SCH ×2 (09:35→22:01)
[2022-04-13] MEDS: EZETIMIBE 10 MG TABLET (FP) PO SCH (09:36)
[2022-04-13] MEDS: DEXAMETHASONE SOD PHOSPHATE 10 MG/1 ML VIAL IVPUSH SCH (09:36)
[2022-04-13] MEDS: CLOPIDOGREL BISULFATE 75 MG TABLET (FP) PO SCH (09:36)
[2022-04-13] MEDS: FOLIC ACID 1 MG TABLET (FP) PO SCH (09:36)
[2022-04-13] MEDS: PANTOPRAZOLE SODIUM 40 MG VIAL IVPUSH SCH ×2 (09:41→22:01)
[2022-04-13 10:20] LABS: ANISOCYTOSIS 0; HELMET CELLS 0; HOWELL-JOLLY BODIES 0; MACROCYTOSIS 0; OVALOCYTE 0; ROULEAU 0; SICKELED CELLS 0; TARGET CELLS 0; TEAR DROP CELLS 0; TOXIC GRANULATION 0
[2022-04-13] MEDS ORDERED: POTASSIUM CHLORIDE ORAL LIQUID 20 MEQ/15 ML PO ONE (10:33)
[2022-04-13] MEDS: FENTANYL NS IVPB 500 MCG/100 ML BAG IVPB SCH ×2 (11:43→17:12)
[2022-04-13] MEDS ORDERED: METOLAZONE 5 MG TABLET PO ONE (13:30)
[2022-04-13] MEDS: LIDOCAINE PATCH REMOVAL MC SCH (22:01)
[2022-04-13] MEDS: CHLORHEXIDINE GLUCONATE 4% CLEANSER FOR DECOLONIZATION TP SCH (22:01)
[2022-04-13] MEDS: ATORVASTATIN CA 80 MG TABLET (FP) PO SCH (22:01)
[2022-04-13] MEDS: PROPOFOL 1,000,000 MCG/100 ML VIAL IVPB SCH (22:02)
[2022-04-13] MEDS ORDERED: PREGABALIN 25 MG CAPSULE PO SCH (22:45)
[2022-04-13] MEDS: PREGABALIN 75 MG CAPSULE PO SCH (23:08)
[2022-04-14] MEDS: MEROPENEM 1 GM in DEXTROSE 5%-WATER 100 ML IVPB SCH ×3 (01:09→17:03)
[2022-04-14] MEDS: FUROSEMIDE 40 MG/4 ML INJECTABLE VIAL IVPUSH SCH ×2 (05:17→12:59)
[2022-04-14] MEDS: HEPARIN NA (PORCINE) 5,000 UNITS/ML 1ML VIAL SQ SCH ×3 (05:36→21:38)
[2022-04-14] MEDS: NYSTATIN 500,000 UNITS/5 ML SUSPENSION PO SCH ×4 (05:36→23:26)
[2022-04-14] MEDS: LEVOTHYROXINE NA 25 MCG TABLET (FP) PO SCH (06:24)
[2022-04-14] MEDS: INSULIN (LEVEMIR) 100 UNITS/ML UNITS SQ SCH ×2 (06:34→21:39)
[2022-04-14] MEDS: INSULIN SLIDING SCALE (NOVOLOG) 1 VIAL SQ SCH ×4 (06:46→21:39)
[2022-04-14 07:01] LABS: ARTERIAL BLD GAS O2 SATURATION 96.2 % (95-98); ARTERIAL BLOOD GAS BASE EXCESS 9.1 mmol/L (-2-2); ARTERIAL BLOOD GAS PO2 83.9 mmHg (80-100); ARTERIAL BLOOD GAS pH 7.419 (7.350-7.450)
[2022-04-14 07:07] LABS: ALLENS TEST POSITIVE
[2022-04-14 07:08] LABS: VENT MODE A/C; VENT RATE 28
[2022-04-14 07:26] LABS: HEMATOCRIT 30.2 % (32.4-45.2); MEAN CELL VOLUME 87.9 fl (80-96); MEAN PLT VOLUME 8.9 fl (7.5-11.1); PLATELET COUNT 74 10^3/uL (134-434); RBC 3.44 M/mm3 (3.60-5.2); RDW 15.2 % (11.6-15.6); WHITE BLOOD COUNT 8.3 K/mm3 (4.0-10.0)
[2022-04-14 09:10] LABS: BLOOD UREA NITROGEN 37.7 mg/dL (7-18); CALCIUM 8.8 mg/dL (8.5-10.1); CREATININE 0.8 mg/dL (0.55-1.3); MAGNESIUM 1.9 mg/dL (1.8-2.4); PHOSPHOROUS 1.9 mg/dL (2.5-4.9)
[2022-04-14 09:26] LABS: ANISOCYTOSIS 3+; MACROCYTOSIS 0; PLATELET ESTIMATE DECREASED
[2022-04-14] MEDS: PROPOFOL 1,000,000 MCG/100 ML VIAL IVPB SCH (09:42)
[2022-04-14] MEDS: FENTANYL NS IVPB 500 MCG/100 ML BAG IVPB SCH ×2 (09:43→21:39)
[2022-04-14] MEDS: PANTOPRAZOLE SODIUM 40 MG VIAL IVPUSH SCH ×2 (09:43→21:38)
[2022-04-14] MEDS: EZETIMIBE 10 MG TABLET (FP) PO SCH (09:43)
[2022-04-14] MEDS: CLOPIDOGREL BISULFATE 75 MG TABLET (FP) PO SCH (09:44)
[2022-04-14] MEDS: SENNOSIDES 8.6MG TABLET (FP) PO SCH ×2 (09:44→21:38)
[2022-04-14] MEDS: FOLIC ACID 1 MG TABLET (FP) PO SCH (09:44)
[2022-04-14] MEDS: DEXAMETHASONE SOD PHOSPHATE 10 MG/1 ML VIAL IVPUSH SCH (09:44)
[2022-04-14] MEDS: PREGABALIN 75 MG CAPSULE PO SCH ×2 (10:13→23:26)
[2022-04-14] MEDS: LIDOCAINE 5% TOPICAL PATCH TP SCH (10:13)
[2022-04-14] MEDS: METOPROLOL TARTRATE 5 MG/5 ML VIAL IVPUSH PRN ×2 (12:59→17:02)
[2022-04-14] MEDS ORDERED: NAPH,MB-DB/K PH,MBDB POWDER PACKET NGT ONE (14:50)
[2022-04-14] MEDS: PREGABALIN 25 MG CAPSULE PO SCH (21:00)
[2022-04-14] MEDS: ACETAMINOPHEN 325 MG TABLET (FP) PO PRN (21:38)
[2022-04-14] MEDS: ATORVASTATIN CA 80 MG TABLET (FP) PO SCH (21:38)
[2022-04-14] MEDS: LIDOCAINE PATCH REMOVAL MC SCH (21:39)
[2022-04-14] MEDS: CHLORHEXIDINE GLUCONATE 4% CLEANSER FOR DECOLONIZATION TP SCH (21:39)
[2022-04-15] MEDS ORDERED: SODIUM CHLORIDE 500 ML IV STA ×2 (00:11→01:30)
[2022-04-15] MEDS: MEROPENEM 1 GM in DEXTROSE 5%-WATER 100 ML IVPB SCH ×2 (02:11→09:13)
[2022-04-15] MEDS: FUROSEMIDE 40 MG/4 ML INJECTABLE VIAL IVPUSH SCH ×2 (05:30→13:10)
[2022-04-15] MEDS: HEPARIN NA (PORCINE) 5,000 UNITS/ML 1ML VIAL SQ SCH ×3 (05:30→21:24)
[2022-04-15] MEDS: NYSTATIN 500,000 UNITS/5 ML SUSPENSION PO SCH ×3 (05:30→17:02)
[2022-04-15] MEDS: INSULIN SLIDING SCALE (NOVOLOG) 1 VIAL SQ SCH ×4 (06:01→21:59)
[2022-04-15] MEDS: INSULIN (LEVEMIR) 100 UNITS/ML UNITS SQ SCH ×2 (06:01→21:59)
[2022-04-15] MEDS: PROPOFOL 1,000,000 MCG/100 ML VIAL IVPB SCH (06:01)
[2022-04-15] MEDS: FENTANYL NS IVPB 500 MCG/100 ML BAG IVPB SCH (06:02)
[2022-04-15] MEDS: LEVOTHYROXINE NA 25 MCG TABLET (FP) PO SCH (06:02)
[2022-04-15 07:42] LABS: HEMATOCRIT 26.7 % (32.4-45.2); HEMOGLOBIN 9.1 GM/dL (10.7-15.3); MCH 29.8 pg (25.7-33.7); MEAN CELL VOLUME 87.7 fl (80-96); MEAN PLT VOLUME 9.4 fl (7.5-11.1); PLATELET COUNT 59 10^3/uL (134-434); RBC 3.04 M/mm3 (3.60-5.2); WHITE BLOOD COUNT 5.3 K/mm3 (4.0-10.0)
[2022-04-15 08:40] LABS: ALBUMIN 1.3 g/dl (3.4-5.0); BILIRUBIN,TOTAL 0.5 mg/dL (0.2-1); BLOOD UREA NITROGEN 50.4 mg/dL (7-18); CREATININE 0.8 mg/dL (0.55-1.3); MAGNESIUM 1.8 mg/dL (1.8-2.4); PHOSPHOROUS 1.8 mg/dL (2.5-4.9); TOT PROT 4.7 g/dl (6.4-8.2)
[2022-04-15] MEDS: CLOPIDOGREL BISULFATE 75 MG TABLET (FP) PO SCH (09:13)
[2022-04-15] MEDS: SENNOSIDES 8.6MG TABLET (FP) PO SCH ×2 (09:13→21:24)
[2022-04-15] MEDS: LIDOCAINE 5% TOPICAL PATCH TP SCH (09:13)
[2022-04-15] MEDS: POLYETHYLENE GLYCOL (HEALTHYLAX) 3350 17 GM PACKET PO PRN (09:13)
[2022-04-15] MEDS: DEXAMETHASONE SOD PHOSPHATE 10 MG/1 ML VIAL IVPUSH SCH (09:13)
[2022-04-15] MEDS: FOLIC ACID 1 MG TABLET (FP) PO SCH (09:13)
[2022-04-15] MEDS: EZETIMIBE 10 MG TABLET (FP) PO SCH (09:13)
[2022-04-15] MEDS: PANTOPRAZOLE SODIUM 40 MG VIAL IVPUSH SCH ×2 (09:13→21:24)
[2022-04-15] MEDS: PREGABALIN 75 MG CAPSULE PO SCH ×2 (10:21→22:07)
[2022-04-15] MEDS ORDERED: POTASSIUM PHOSPHATE 40 MM in SODIUM CHLORIDE 500 ML IVPB ONE (14:00)
[2022-04-15] MEDS: METOPROLOL TARTRATE 5 MG/5 ML VIAL IVPUSH PRN (14:38)
[2022-04-15] MEDS: DEXMEDETOMIDINE PREMIX 400 MCG/100 ML BAG IVPB SCH (15:56)
[2022-04-15] MEDS ORDERED: LACTATED RINGERS SOLUTION 1000 ML INFUS.BAG IV ONE (19:04)
[2022-04-15] MEDS: ATORVASTATIN CA 80 MG TABLET (FP) PO SCH (21:24)
[2022-04-15] MEDS: CHLORHEXIDINE GLUCONATE 4% CLEANSER FOR DECOLONIZATION TP SCH (21:25)
[2022-04-15] MEDS: LIDOCAINE PATCH REMOVAL MC SCH (21:25)
[2022-04-15 23:25] LABS: EPI CELLS 17 /uL (0-25.1); HYALINE CASTS 0 /uL (0-3.1); PH,URINE 8.5 (5.0-8.0); URINE APPEARANCE CLEAR; URINE BACTERIA 3 /uL (0-1359); URINE BILIRUBIN NEGATIVE (NEGATIVE); URINE COLOR RED; URINE GLUCOSE (UA) NEGATIVE (NEGATIVE); URINE KETONE NEGATIVE (NEGATIVE); URINE LEUK ESTERASE TRACE (NEGATIVE); URINE NITRITE NEGATIVE (NEGATIVE); URINE PROTEIN 2+ (NEGATIVE); URINE RBC 5576 /uL (0-23.9); URINE UROBILINOGEN 0.2 mg/dL (0.2-1.0); URINE WBC 55 /uL (0-25.8)
[2022-04-16] MEDS: NYSTATIN 500,000 UNITS/5 ML SUSPENSION PO SCH ×4 (01:35→18:52)
[2022-04-16] MEDS ORDERED: NOREPINEPHRINE BITARTRATE 16,000 MCG in SODIUM CHLORIDE 484 ML IV SCH (06:30)
[2022-04-16] MEDS: FUROSEMIDE 40 MG/4 ML INJECTABLE VIAL IVPUSH SCH ×2 (06:41→13:26)
[2022-04-16] MEDS: HEPARIN NA (PORCINE) 5,000 UNITS/ML 1ML VIAL SQ SCH ×3 (06:42→22:31)
[2022-04-16] MEDS: NOREPINEPHRINE 0.9 % NACL 8 MG/250 ML BAG IVPB SCH ×2 (06:47→20:53)
[2022-04-16] MEDS: INSULIN (LEVEMIR) 100 UNITS/ML UNITS SQ SCH ×2 (06:54→22:53)
[2022-04-16] MEDS: INSULIN SLIDING SCALE (NOVOLOG) 1 VIAL SQ SCH ×4 (06:54→22:54)
[2022-04-16] MEDS: LEVOTHYROXINE NA 25 MCG TABLET (FP) PO SCH (06:55)
[2022-04-16 09:09] LABS: HEMATOCRIT 30.3 % (32.4-45.2); HEMOGLOBIN 9.9 GM/dL (10.7-15.3); MCH 28.6 pg (25.7-33.7); MCHC 32.9 g/dl (32.0-36.0); MEAN CELL VOLUME 87.2 fl (80-96); MEAN PLT VOLUME 8.3 fl (7.5-11.1); PLATELET COUNT 62 10^3/uL (134-434); RBC 3.47 M/mm3 (3.60-5.2); RDW 15.2 % (11.6-15.6); WHITE BLOOD COUNT 8.3 K/mm3 (4.0-10.0)
[2022-04-16] MEDS: FOLIC ACID 1 MG TABLET (FP) PO SCH (09:29)
[2022-04-16] MEDS: LIDOCAINE 5% TOPICAL PATCH TP SCH (09:30)
[2022-04-16] MEDS: PANTOPRAZOLE SODIUM 40 MG VIAL IVPUSH SCH ×2 (09:30→22:32)
[2022-04-16] MEDS: DEXAMETHASONE SOD PHOSPHATE 10 MG/1 ML VIAL IVPUSH SCH (09:30)
[2022-04-16] MEDS: SENNOSIDES 8.6MG TABLET (FP) PO SCH ×2 (09:30→22:31)
[2022-04-16] MEDS: EZETIMIBE 10 MG TABLET (FP) PO SCH (09:30)
[2022-04-16] MEDS: CLOPIDOGREL BISULFATE 75 MG TABLET (FP) PO SCH (09:30)
[2022-04-16] MEDS: PREGABALIN 75 MG CAPSULE PO SCH ×2 (09:58→22:32)
[2022-04-16 11:23] LABS: ALBUMIN 1.5 g/dl (3.4-5.0); BILIRUBIN,TOTAL 0.6 mg/dL (0.2-1); BLOOD UREA NITROGEN 40.7 mg/dL (7-18); CREATININE 0.7 mg/dL (0.55-1.3); MAGNESIUM 1.6 mg/dL (1.8-2.4); PHOSPHOROUS 3.1 mg/dL (2.5-4.9); TOT PROT 5.3 g/dl (6.4-8.2)
[2022-04-16] MEDS: FENTANYL NS IVPB 500 MCG/100 ML BAG IVPB SCH (12:13)
[2022-04-16] MEDS: DEXMEDETOMIDINE PREMIX 400 MCG/100 ML BAG IVPB SCH ×2 (14:42→20:55)
[2022-04-16] MEDS ORDERED: MAGNESIUM 2GM/50ML STERILE WATER IVPB IVPB ONE (15:00)
[2022-04-16 16:32] VITALS: BMI 25.0
[2022-04-16] MEDS: CHLORHEXIDINE GLUCONATE 4% CLEANSER FOR DECOLONIZATION TP SCH (22:31)
[2022-04-16] MEDS: LIDOCAINE PATCH REMOVAL MC SCH (22:32)
[2022-04-16] MEDS: ATORVASTATIN CA 80 MG TABLET (FP) PO SCH (22:32)
[2022-04-17] MEDS: NYSTATIN 500,000 UNITS/5 ML SUSPENSION PO SCH ×4 (01:51→17:42)
[2022-04-17] MEDS: HEPARIN NA (PORCINE) 5,000 UNITS/ML 1ML VIAL SQ SCH ×3 (06:30→21:05)
[2022-04-17] MEDS: FUROSEMIDE 40 MG/4 ML INJECTABLE VIAL IVPUSH SCH ×2 (06:30→13:37)
[2022-04-17] MEDS: INSULIN SLIDING SCALE (NOVOLOG) 1 VIAL SQ SCH ×4 (06:30→21:19)
[2022-04-17] MEDS: INSULIN (LEVEMIR) 100 UNITS/ML UNITS SQ SCH ×2 (06:30→21:17)
[2022-04-17] MEDS: LEVOTHYROXINE NA 25 MCG TABLET (FP) PO SCH (06:30)
[2022-04-17 07:56] LABS: HEMATOCRIT 28.2 % (32.4-45.2); HEMOGLOBIN 9.3 GM/dL (10.7-15.3); MCHC 33.1 g/dl (32.0-36.0); MEAN CELL VOLUME 87.6 fl (80-96); MEAN PLT VOLUME 9.6 fl (7.5-11.1); PLATELET COUNT 64 10^3/uL (134-434); RBC 3.22 M/mm3 (3.60-5.2); RDW 14.7 % (11.6-15.6); WHITE BLOOD COUNT 8.4 K/mm3 (4.0-10.0)
[2022-04-17 08:17] LABS: CALCIUM 7.8 mg/dL (8.5-10.1)
[2022-04-17 08:18] LABS: ALBUMIN 1.6 g/dl (3.4-5.0); MAGNESIUM 2.4 mg/dL (1.8-2.4)
[2022-04-17 08:21] LABS: CREATININE 0.7 mg/dL (0.55-1.3); PHOSPHOROUS 2.6 mg/dL (2.5-4.9)
[2022-04-17 08:22] LABS: TOT PROT 5.2 g/dl (6.4-8.2)
[2022-04-17] MEDS: NOREPINEPHRINE 0.9 % NACL 8 MG/250 ML BAG IVPB SCH (08:28)
[2022-04-17 08:32] LABS: BILIRUBIN,TOTAL 0.5 mg/dL (0.2-1)
[2022-04-17 09:04] LABS: INR 1.04 (0.83-1.09)
[2022-04-17] MEDS: FOLIC ACID 1 MG TABLET (FP) PO SCH (09:50)
[2022-04-17] MEDS: SENNOSIDES 8.6MG TABLET (FP) PO SCH ×2 (09:51→21:05)
[2022-04-17] MEDS: LIDOCAINE 5% TOPICAL PATCH TP SCH (09:51)
[2022-04-17] MEDS: CLOPIDOGREL BISULFATE 75 MG TABLET (FP) PO SCH (09:51)
[2022-04-17] MEDS: PANTOPRAZOLE SODIUM 40 MG VIAL IVPUSH SCH ×2 (09:51→21:05)
[2022-04-17] MEDS: EZETIMIBE 10 MG TABLET (FP) PO SCH (09:51)
[2022-04-17] MEDS: DEXAMETHASONE SOD PHOSPHATE 10 MG/1 ML VIAL IVPUSH SCH (10:11)
[2022-04-17] MEDS: PREGABALIN 75 MG CAPSULE PO SCH ×2 (10:11→22:03)
[2022-04-17] MEDS: FENTANYL NS IVPB 500 MCG/100 ML BAG IVPB SCH (11:27)
[2022-04-17] MEDS: DEXMEDETOMIDINE PREMIX 400 MCG/100 ML BAG IVPB SCH ×2 (17:32→18:36)
[2022-04-17] MEDS: LIDOCAINE PATCH REMOVAL MC SCH ×2 (21:05→21:28)
[2022-04-17] MEDS: ONDANSETRON 8 MG TABLET (FP) PO PRN (21:05)
[2022-04-17] MEDS: CHLORHEXIDINE GLUCONATE 4% CLEANSER FOR DECOLONIZATION TP SCH (21:05)
[2022-04-17] MEDS: ATORVASTATIN CA 80 MG TABLET (FP) PO SCH (21:05)
[2022-04-18] MEDS: NYSTATIN 500,000 UNITS/5 ML SUSPENSION PO SCH ×4 (01:01→17:25)
[2022-04-18] MEDS: NOREPINEPHRINE 0.9 % NACL 8 MG/250 ML BAG IVPB SCH ×2 (02:38→06:49)
[2022-04-18] MEDS: FUROSEMIDE 40 MG/4 ML INJECTABLE VIAL IVPUSH SCH ×2 (06:17→14:35)
[2022-04-18] MEDS: HEPARIN NA (PORCINE) 5,000 UNITS/ML 1ML VIAL SQ SCH ×3 (06:17→21:12)
[2022-04-18] MEDS: LEVOTHYROXINE NA 25 MCG TABLET (FP) PO SCH (06:18)
[2022-04-18] MEDS: INSULIN SLIDING SCALE (NOVOLOG) 1 VIAL SQ SCH ×4 (06:18→21:17)
[2022-04-18] MEDS: INSULIN (LEVEMIR) 100 UNITS/ML UNITS SQ SCH ×2 (06:18→21:18)
[2022-04-18] MEDS ORDERED: ACETAMINOPHEN 1000 MG/100 ML BAG IVPB ONE (06:20)
[2022-04-18 08:35] LABS: HEMATOCRIT 25.6 % (32.4-45.2); HEMOGLOBIN 8.7 GM/dL (10.7-15.3); MCH 29.8 pg (25.7-33.7); MEAN CELL VOLUME 87.8 fl (80-96); PLATELET COUNT 63 10^3/uL (134-434); RBC 2.92 M/mm3 (3.60-5.2); RDW 15.1 % (11.6-15.6); WHITE BLOOD COUNT 7.6 K/mm3 (4.0-10.0)
[2022-04-18 08:54] LABS: ALBUMIN 1.6 g/dl (3.4-5.0); BLOOD UREA NITROGEN 51.9 mg/dL (7-18); CALCIUM 7.6 mg/dL (8.5-10.1); MAGNESIUM 2.3 mg/dL (1.8-2.4)
[2022-04-18 08:57] LABS: BILIRUBIN,TOTAL 0.5 mg/dL (0.2-1); PHOSPHOROUS 2.5 mg/dL (2.5-4.9); TOT PROT 4.8 g/dl (6.4-8.2)
[2022-04-18] MEDS: PREGABALIN 75 MG CAPSULE PO SCH ×2 (10:16→22:55)
[2022-04-18] MEDS: SENNOSIDES 8.6MG TABLET (FP) PO SCH ×2 (10:16→21:13)
[2022-04-18] MEDS: EZETIMIBE 10 MG TABLET (FP) PO SCH (10:16)
[2022-04-18] MEDS: FOLIC ACID 1 MG TABLET (FP) PO SCH (10:16)
[2022-04-18] MEDS: CLOPIDOGREL BISULFATE 75 MG TABLET (FP) PO SCH (10:16)
[2022-04-18] MEDS: DEXAMETHASONE SOD PHOSPHATE 10 MG/1 ML VIAL IVPUSH SCH (10:16)
[2022-04-18] MEDS: LIDOCAINE 5% TOPICAL PATCH TP SCH (10:16)
[2022-04-18] MEDS: PANTOPRAZOLE SODIUM 40 MG VIAL IVPUSH SCH ×2 (10:16→21:11)
[2022-04-18] MEDS ORDERED: DEXTROSE 50%-WATER 25 GM/50 ML DISP.SYRIN IVPUSH ONE (10:30)
[2022-04-18] MEDS ORDERED: VANCOMYCIN/WATER FOR INJ (PEG) 1,000 MG/200 ML BAG IVPB SCH (11:00)
[2022-04-18] MEDS ORDERED: MEROPENEM 1 GM in DEXTROSE 5%-WATER 100 ML IVPB SCH (11:00)
[2022-04-18] MEDS ORDERED: GLYCERIN 1 RECTAL SUPPOSITORY, ADULT RC ONE (14:15)
[2022-04-18] MEDS: FENTANYL NS IVPB 500 MCG/100 ML BAG IVPB SCH (14:35)
[2022-04-18] MEDS: DEXMEDETOMIDINE PREMIX 400 MCG/100 ML BAG IVPB SCH (15:31)
[2022-04-18] MEDS: MEROPENEM 1 GM in DEXTROSE 5%-WATER 100 ML IVPB SCH (17:25)
[2022-04-18] MEDS: LIDOCAINE PATCH REMOVAL MC SCH (21:12)
[2022-04-18] MEDS: CHLORHEXIDINE GLUCONATE 4% CLEANSER FOR DECOLONIZATION TP SCH (21:12)
[2022-04-18] MEDS: ATORVASTATIN CA 80 MG TABLET (FP) PO SCH (21:12)
[2022-04-19] MEDS: NYSTATIN 500,000 UNITS/5 ML SUSPENSION PO SCH ×4 (00:33→17:22)
[2022-04-19] MEDS: MEROPENEM 1 GM in DEXTROSE 5%-WATER 100 ML IVPB SCH ×3 (01:30→17:22)
[2022-04-19] MEDS: ACETAMINOPHEN 1000 MG/100 ML BAG IVPB PRN ×3 (04:04→21:44)
[2022-04-19] MEDS: FUROSEMIDE 40 MG/4 ML INJECTABLE VIAL IVPUSH SCH ×2 (05:12→13:03)
[2022-04-19] MEDS: HEPARIN NA (PORCINE) 5,000 UNITS/ML 1ML VIAL SQ SCH ×3 (05:12→21:42)
[2022-04-19] MEDS: INSULIN SLIDING SCALE (NOVOLOG) 1 VIAL SQ SCH ×4 (06:16→21:41)
[2022-04-19] MEDS: INSULIN (LEVEMIR) 100 UNITS/ML UNITS SQ SCH ×2 (06:17→21:42)
[2022-04-19] MEDS: LEVOTHYROXINE NA 25 MCG TABLET (FP) PO SCH (06:17)
[2022-04-19 07:21] LABS: ALBUMIN 1.6 g/dl (3.4-5.0); BLOOD UREA NITROGEN 41.1 mg/dL (7-18); MAGNESIUM 1.9 mg/dL (1.8-2.4)
[2022-04-19 07:22] LABS: HEMATOCRIT 23.7 % (32.4-45.2); MCHC 33.8 g/dl (32.0-36.0); MEAN CELL VOLUME 88.7 fl (80-96); MEAN PLT VOLUME 10.3 fl (7.5-11.1); PLATELET COUNT 73 10^3/uL (134-434); RBC 2.68 M/mm3 (3.60-5.2); RDW 14.7 % (11.6-15.6); WHITE BLOOD COUNT 10.8 K/mm3 (4.0-10.0)
[2022-04-19 07:24] LABS: CREATININE 0.7 mg/dL (0.55-1.3); PHOSPHOROUS 2.9 mg/dL (2.5-4.9)
[2022-04-19 07:25] LABS: BILIRUBIN,TOTAL 0.6 mg/dL (0.2-1); TOT PROT 4.9 g/dl (6.4-8.2)
[2022-04-19] MEDS: FOLIC ACID 1 MG TABLET (FP) PO SCH (09:06)
[2022-04-19] MEDS: CLOPIDOGREL BISULFATE 75 MG TABLET (FP) PO SCH (09:06)
[2022-04-19] MEDS: SENNOSIDES 8.6MG TABLET (FP) PO SCH ×2 (09:06→21:43)
[2022-04-19] MEDS: EZETIMIBE 10 MG TABLET (FP) PO SCH (09:08)
[2022-04-19] MEDS ORDERED: KCL 10 MEQ IVPB 10 MEQ/100 ML INFUS.BAG IVPB SCH (09:45)
[2022-04-19] MEDS ORDERED: acetaZOLAMIDE 250 MG TABLET PO SCH (10:00)
[2022-04-19] MEDS: DEXAMETHASONE SOD PHOSPHATE 10 MG/1 ML VIAL IVPUSH SCH (10:10)
[2022-04-19] MEDS: PREGABALIN 75 MG CAPSULE PO SCH ×2 (10:10→22:36)
[2022-04-19] MEDS: PANTOPRAZOLE SODIUM 40 MG VIAL IVPUSH SCH ×2 (10:10→21:41)
[2022-04-19] MEDS: NOREPINEPHRINE 0.9 % NACL 8 MG/250 ML BAG IVPB SCH (10:40)
[2022-04-19] MEDS: POTASSIUM CHLORIDE 20 MEQ PREMIX IVPB 100 ML IVPB SCH ×3 (10:40→14:04)
[2022-04-19] MEDS: LIDOCAINE 5% TOPICAL PATCH TP SCH (10:40)
[2022-04-19] MEDS ORDERED: BISACODYL 10 MG SUPP.RECT PR ONE (16:40)
[2022-04-19] MEDS ORDERED: FENTANYL PATCH WASTE TD PRN (17:15)
[2022-04-19] MEDS ORDERED: fentaNYL 50mcg/hr PATCH.TD72 TD SCH (17:15)
[2022-04-19] MEDS: LIDOCAINE PATCH REMOVAL MC SCH (21:42)
[2022-04-19] MEDS: CHLORHEXIDINE GLUCONATE 4% CLEANSER FOR DECOLONIZATION TP SCH (21:43)
[2022-04-19] MEDS: ATORVASTATIN CA 80 MG TABLET (FP) PO SCH (21:43)
[2022-04-19] MEDS ORDERED: VANCOMYCIN/WATER FOR INJ (PEG) 1,000 MG/200 ML BAG IVPB SCH (23:00)
[2022-04-19] MEDS ORDERED: MEROPENEM 1 GM in DEXTROSE 5%-WATER 100 ML IVPB SCH (23:00)
[2022-04-20] MEDS: NYSTATIN 500,000 UNITS/5 ML SUSPENSION PO SCH ×4 (00:15→17:14)
[2022-04-20] MEDS: MEROPENEM 1 GM in DEXTROSE 5%-WATER 100 ML IVPB SCH ×3 (01:36→17:14)
[2022-04-20] MEDS: HEPARIN NA (PORCINE) 5,000 UNITS/ML 1ML VIAL SQ SCH ×3 (05:54→22:25)
[2022-04-20] MEDS: FUROSEMIDE 40 MG/4 ML INJECTABLE VIAL IVPUSH SCH ×2 (05:56→09:40)
[2022-04-20] MEDS: INSULIN SLIDING SCALE (NOVOLOG) 1 VIAL SQ SCH ×4 (06:52→22:26)
[2022-04-20] MEDS: NOREPINEPHRINE 0.9 % NACL 8 MG/250 ML BAG IVPB SCH (06:52)
[2022-04-20] MEDS: INSULIN (LEVEMIR) 100 UNITS/ML UNITS SQ SCH ×2 (06:52→22:25)
[2022-04-20] MEDS: LEVOTHYROXINE NA 25 MCG TABLET (FP) PO SCH (06:53)
[2022-04-20 08:13] LABS: HEMATOCRIT 23.2 % (32.4-45.2); HEMOGLOBIN 7.7 GM/dL (10.7-15.3); MCH 29.6 pg (25.7-33.7); MCHC 33.4 g/dl (32.0-36.0); MEAN CELL VOLUME 88.7 fl (80-96); MEAN PLT VOLUME 10.2 fl (7.5-11.1); PLATELET COUNT 94 10^3/uL (134-434); RBC 2.62 M/mm3 (3.60-5.2); RDW 14.9 % (11.6-15.6); WHITE BLOOD COUNT 10.3 K/mm3 (4.0-10.0)
[2022-04-20 08:37] LABS: CALCIUM 8.3 mg/dL (8.5-10.1)
[2022-04-20 08:38] LABS: ALBUMIN 1.7 g/dl (3.4-5.0); BLOOD UREA NITROGEN 36.6 mg/dL (7-18)
[2022-04-20 08:41] LABS: CREATININE 0.6 mg/dL (0.55-1.3); PHOSPHOROUS 1.7 mg/dL (2.5-4.9)
[2022-04-20 08:42] LABS: BILIRUBIN,TOTAL 0.5 mg/dL (0.2-1)
[2022-04-20 08:43] LABS: TOT PROT 5.1 g/dl (6.4-8.2)
[2022-04-20] MEDS: EZETIMIBE 10 MG TABLET (FP) PO SCH (09:31)
[2022-04-20] MEDS: FOLIC ACID 1 MG TABLET (FP) PO SCH (09:31)
[2022-04-20] MEDS: SENNOSIDES 8.6MG TABLET (FP) PO SCH ×2 (09:31→22:27)
[2022-04-20] MEDS: CLOPIDOGREL BISULFATE 75 MG TABLET (FP) PO SCH (09:31)
[2022-04-20] MEDS: LIDOCAINE 5% TOPICAL PATCH TP SCH (09:40)
[2022-04-20] MEDS: PANTOPRAZOLE SODIUM 40 MG VIAL IVPUSH SCH ×2 (09:40→22:27)
[2022-04-20] MEDS: PREGABALIN 75 MG CAPSULE PO SCH (10:36)
[2022-04-20] MEDS ORDERED: POTASSIUM PHOSPHATE 30 MM in DEXTROSE 5%-WATER - 250 ML IVPB ONE (11:30)
[2022-04-20] MEDS ORDERED: BISACODYL 10 MG SUPP.RECT PR PRN (16:05)
[2022-04-20] MEDS ORDERED: Methylnaltrexone Bromide 12 MG/0.6 ML KIT SQ ONE (17:00)
[2022-04-20] MEDS: CHLORHEXIDINE GLUCONATE 4% CLEANSER FOR DECOLONIZATION TP SCH (22:25)
[2022-04-20] MEDS: LIDOCAINE PATCH REMOVAL MC SCH (22:25)
[2022-04-20] MEDS: ATORVASTATIN CA 80 MG TABLET (FP) PO SCH (22:26)
[2022-04-21] MEDS: NYSTATIN 500,000 UNITS/5 ML SUSPENSION PO SCH ×4 (00:12→17:19)
[2022-04-21] MEDS: MEROPENEM 1 GM in DEXTROSE 5%-WATER 100 ML IVPB SCH ×2 (01:37→09:37)
[2022-04-21] MEDS: HEPARIN NA (PORCINE) 5,000 UNITS/ML 1ML VIAL SQ SCH ×2 (06:06→21:16)
[2022-04-21] MEDS: INSULIN (LEVEMIR) 100 UNITS/ML UNITS SQ SCH ×2 (06:07→21:19)
[2022-04-21] MEDS: LEVOTHYROXINE NA 25 MCG TABLET (FP) PO SCH (06:07)
[2022-04-21] MEDS: INSULIN SLIDING SCALE (NOVOLOG) 1 VIAL SQ SCH ×4 (06:07→21:19)
[2022-04-21 06:51] LABS: HEMATOCRIT 23.5 % (32.4-45.2); HEMOGLOBIN 8.1 GM/dL (10.7-15.3); MCH 30.3 pg (25.7-33.7); MCHC 34.4 g/dl (32.0-36.0); MEAN CELL VOLUME 88.1 fl (80-96); MEAN PLT VOLUME 9.9 fl (7.5-11.1); PLATELET COUNT 109 10^3/uL (134-434); RBC 2.66 M/mm3 (3.60-5.2); RDW 14.7 % (11.6-15.6); WHITE BLOOD COUNT 8.9 K/mm3 (4.0-10.0)
[2022-04-21 07:20] LABS: ALBUMIN 1.9 g/dl (3.4-5.0); BLOOD UREA NITROGEN 32.1 mg/dL (7-18)
[2022-04-21 07:21] LABS: MAGNESIUM 1.8 mg/dL (1.8-2.4)
[2022-04-21 07:23] LABS: PHOSPHOROUS 2.3 mg/dL (2.5-4.9)
[2022-04-21 07:24] LABS: CREATININE 0.6 mg/dL (0.55-1.3)
[2022-04-21 07:25] LABS: BILIRUBIN,TOTAL 0.7 mg/dL (0.2-1); TOT PROT 5.4 g/dl (6.4-8.2)
[2022-04-21] MEDS ORDERED: ACETAMINOPHEN 1000 MG/100 ML BAG IVPB PRN (09:20)
[2022-04-21] MEDS: FOLIC ACID 1 MG TABLET (FP) PO SCH (09:36)
[2022-04-21] MEDS: CLOPIDOGREL BISULFATE 75 MG TABLET (FP) PO SCH (09:36)
[2022-04-21] MEDS: SENNOSIDES 8.6MG TABLET (FP) PO SCH ×2 (09:36→21:17)
[2022-04-21] MEDS: EZETIMIBE 10 MG TABLET (FP) PO SCH (09:37)
[2022-04-21] MEDS: FUROSEMIDE 40 MG/4 ML INJECTABLE VIAL IVPUSH SCH (09:38)
[2022-04-21] MEDS: PANTOPRAZOLE SODIUM 40 MG VIAL IVPUSH SCH ×2 (09:38→21:17)
[2022-04-21] MEDS: LIDOCAINE 5% TOPICAL PATCH TP SCH (09:54)
[2022-04-21] MEDS: NOREPINEPHRINE 0.9 % NACL 8 MG/250 ML BAG IVPB SCH (09:56)
[2022-04-21] MEDS ORDERED: MINERAL OIL ENEMA 133 ML ENEMA RC ONE (10:23)
[2022-04-21] MEDS ORDERED: POTASSIUM PHOSPHATE 20 MM in SODIUM CHLORIDE 250 ML IVPB ONE (11:13)
[2022-04-21 11:41] LABS: ANISOCYTOSIS 0; HELMET CELLS 0; HOWELL-JOLLY BODIES 0; MACROCYTOSIS 0; OVALOCYTE 0; ROULEAU 0; SICKELED CELLS 0; TARGET CELLS 0; TEAR DROP CELLS 0; TOXIC GRANULATION 0
[2022-04-21] MEDS: POLYETHYLENE GLYCOL (HEALTHYLAX) 3350 17 GM PACKET PO PRN (11:51)
[2022-04-21] MEDS: DEXAMETHASONE 4 MG TABLET (FP) PO SCH ×2 (12:25→21:16)
[2022-04-21] MEDS ORDERED: DAPTOMYCIN 300 MG in SODIUM CHLORIDE 50 ML IVPB SCH (16:15)
[2022-04-21] MEDS: LINEZOLID 600 MG TABLET (RESTRICTED TO ID) PO SCH ×2 (17:00→21:26)
[2022-04-21] MEDS: GABAPENTIN 100 MG CAPSULE PO SCH ×2 (20:38→21:17)
[2022-04-21] MEDS: ATORVASTATIN CA 80 MG TABLET (FP) PO SCH (21:17)
[2022-04-21] MEDS: CHLORHEXIDINE GLUCONATE 4% CLEANSER FOR DECOLONIZATION TP SCH (21:17)
[2022-04-21] MEDS: LIDOCAINE PATCH REMOVAL MC SCH (21:17)
[2022-04-22] MEDS: NYSTATIN 500,000 UNITS/5 ML SUSPENSION PO SCH ×5 (00:33→23:21)
[2022-04-22] MEDS: GABAPENTIN 100 MG CAPSULE PO SCH ×2 (05:28→13:04)
[2022-04-22] MEDS: INSULIN (LEVEMIR) 100 UNITS/ML UNITS SQ SCH ×2 (06:15→21:26)
[2022-04-22] MEDS: INSULIN SLIDING SCALE (NOVOLOG) 1 VIAL SQ SCH ×4 (06:15→21:26)
[2022-04-22] MEDS: LEVOTHYROXINE NA 25 MCG TABLET (FP) PO SCH (06:16)
[2022-04-22 06:41] LABS: HEMOGLOBIN 7.7 GM/dL (10.7-15.3); MCH 29.6 pg (25.7-33.7); MCHC 33.5 g/dl (32.0-36.0); MEAN CELL VOLUME 88.2 fl (80-96); MEAN PLT VOLUME 9.3 fl (7.5-11.1); PLATELET COUNT 127 10^3/uL (134-434); RBC 2.61 M/mm3 (3.60-5.2); RDW 14.8 % (11.6-15.6); WHITE BLOOD COUNT 9.2 K/mm3 (4.0-10.0)
[2022-04-22 06:58] LABS: ALBUMIN 1.8 g/dl (3.4-5.0); BLOOD UREA NITROGEN 31.2 mg/dL (7-18); MAGNESIUM 1.7 mg/dL (1.8-2.4)
[2022-04-22 07:01] LABS: CREATININE 0.5 mg/dL (0.55-1.3); PHOSPHOROUS 2.1 mg/dL (2.5-4.9)
[2022-04-22 07:03] LABS: BILIRUBIN,TOTAL 0.6 mg/dL (0.2-1); TOT PROT 5.4 g/dl (6.4-8.2)
[2022-04-22] MEDS ORDERED: NAPH,MB-DB/K PH,MBDB POWDER PACKET PO ONE (08:09)
[2022-04-22] MEDS ORDERED: MAGNESIUM SULF 50% (8.12 MEQ/2 ML-1 GM VIAL) IVPB ONE (08:09)
[2022-04-22] MEDS ORDERED: MAGNESIUM OXIDE 400 MG TABLET (FP) PO ONE (08:57)
[2022-04-22] MEDS ORDERED: SODIUM PHOSPHATE - 20 MM in SODIUM CHLORIDE 250 ML IVPB ONE (09:30)
[2022-04-22] MEDS: LIDOCAINE 5% TOPICAL PATCH TP SCH (10:27)
[2022-04-22] MEDS: PANTOPRAZOLE SODIUM 40 MG VIAL IVPUSH SCH ×2 (10:27→21:25)
[2022-04-22] MEDS: DEXAMETHASONE 4 MG TABLET (FP) PO SCH ×2 (10:28→21:25)
[2022-04-22] MEDS: SENNOSIDES 8.6MG TABLET (FP) PO SCH ×2 (10:28→21:25)
[2022-04-22] MEDS: CLOPIDOGREL BISULFATE 75 MG TABLET (FP) PO SCH (10:29)
[2022-04-22] MEDS: HEPARIN NA (PORCINE) 5,000 UNITS/ML 1ML VIAL SQ SCH ×2 (10:29→21:25)
[2022-04-22] MEDS: MIDODRINE HCL 5 MG TABLET PO SCH ×3 (10:29→17:18)
[2022-04-22] MEDS: FOLIC ACID 1 MG TABLET (FP) PO SCH (10:29)
[2022-04-22] MEDS: EZETIMIBE 10 MG TABLET (FP) PO SCH (10:30)
[2022-04-22] MEDS: LINEZOLID 600 MG TABLET (RESTRICTED TO ID) PO SCH ×2 (10:45→21:29)
[2022-04-22] MEDS: PREGABALIN 25 MG CAPSULE PO SCH (21:25)
[2022-04-22] MEDS: ATORVASTATIN CA 80 MG TABLET (FP) PO SCH (21:25)
[2022-04-22] MEDS: CHLORHEXIDINE GLUCONATE 4% CLEANSER FOR DECOLONIZATION TP SCH (21:25)
[2022-04-22] MEDS: LIDOCAINE PATCH REMOVAL MC SCH (21:25)
[2022-04-23] MEDS: NYSTATIN 500,000 UNITS/5 ML SUSPENSION PO SCH ×3 (05:15→17:19)
[2022-04-23] MEDS: INSULIN SLIDING SCALE (NOVOLOG) 1 VIAL SQ SCH ×4 (06:09→22:37)
[2022-04-23] MEDS: INSULIN (LEVEMIR) 100 UNITS/ML UNITS SQ SCH ×2 (06:09→22:37)
[2022-04-23] MEDS: LEVOTHYROXINE NA 25 MCG TABLET (FP) PO SCH (06:09)
[2022-04-23 07:32] LABS: HEMATOCRIT 22.6 % (32.4-45.2); HEMOGLOBIN 7.4 GM/dL (10.7-15.3); MCH 29.1 pg (25.7-33.7); MCHC 32.8 g/dl (32.0-36.0); MEAN CELL VOLUME 88.8 fl (80-96); MEAN PLT VOLUME 9.5 fl (7.5-11.1); PLATELET COUNT 133 10^3/uL (134-434); RBC 2.55 M/mm3 (3.60-5.2); RDW 14.6 % (11.6-15.6); WHITE BLOOD COUNT 9.6 K/mm3 (4.0-10.0)
[2022-04-23 08:08] LABS: CALCIUM 7.7 mg/dL (8.5-10.1)
[2022-04-23 08:09] LABS: ALBUMIN 1.8 g/dl (3.4-5.0); BLOOD UREA NITROGEN 29.4 mg/dL (7-18); MAGNESIUM 2.2 mg/dL (1.8-2.4)
[2022-04-23 08:11] LABS: CREATININE 0.6 mg/dL (0.55-1.3)
[2022-04-23 08:13] LABS: BILIRUBIN,TOTAL 0.5 mg/dL (0.2-1); TOT PROT 5.2 g/dl (6.4-8.2)
[2022-04-23] MEDS ORDERED: NAPH,MB-DB/K PH,MBDB POWDER PACKET PO ONE (08:54)
[2022-04-23] MEDS: MIDODRINE HCL 5 MG TABLET PO SCH ×3 (10:49→17:49)
[2022-04-23] MEDS: POLYETHYLENE GLYCOL (HEALTHYLAX) 3350 17 GM PACKET PO PRN (10:49)
[2022-04-23] MEDS: FOLIC ACID 1 MG TABLET (FP) PO SCH (10:49)
[2022-04-23] MEDS: SENNOSIDES 8.6MG TABLET (FP) PO SCH ×2 (10:49→22:38)
[2022-04-23] MEDS: CLOPIDOGREL BISULFATE 75 MG TABLET (FP) PO SCH (10:49)
[2022-04-23] MEDS: DEXAMETHASONE 4 MG TABLET (FP) PO SCH ×2 (10:49→22:37)
[2022-04-23] MEDS: PREGABALIN 25 MG CAPSULE PO SCH ×2 (10:50→22:37)
[2022-04-23] MEDS: LIDOCAINE 5% TOPICAL PATCH TP SCH (10:50)
[2022-04-23] MEDS: HEPARIN NA (PORCINE) 5,000 UNITS/ML 1ML VIAL SQ SCH ×2 (10:50→22:37)
[2022-04-23] MEDS: PANTOPRAZOLE SODIUM 40 MG VIAL IVPUSH SCH ×2 (10:50→22:38)
[2022-04-23] MEDS: LINEZOLID 600 MG TABLET (RESTRICTED TO ID) PO SCH ×2 (10:51→22:38)
[2022-04-23] MEDS: EZETIMIBE 10 MG TABLET (FP) PO SCH (11:39)
[2022-04-23] MEDS: BISACODYL 10 MG SUPP.RECT PR SCH ×2 (14:23→22:37)
[2022-04-23] MEDS: morphine SULFATE 4 MG/ML VIAL IVPUSH PRN ×2 (16:59→22:38)
[2022-04-23] MEDS: Methylnaltrexone Bromide 12 MG/0.6 ML KIT SQ SCH (17:18)
[2022-04-23] MEDS: LIDOCAINE PATCH REMOVAL MC SCH (22:37)
[2022-04-23] MEDS: ATORVASTATIN CA 80 MG TABLET (FP) PO SCH (22:37)
[2022-04-23] MEDS: CHLORHEXIDINE GLUCONATE 4% CLEANSER FOR DECOLONIZATION TP SCH (22:37)
[2022-04-24] MEDS: INSULIN (LEVEMIR) 100 UNITS/ML UNITS SQ SCH ×2 (06:57→21:37)
[2022-04-24] MEDS: INSULIN SLIDING SCALE (NOVOLOG) 1 VIAL SQ SCH ×4 (06:57→21:38)
[2022-04-24] MEDS: LEVOTHYROXINE NA 25 MCG TABLET (FP) PO SCH (06:57)
[2022-04-24] MEDS: NYSTATIN 500,000 UNITS/5 ML SUSPENSION PO SCH ×4 (06:57→17:09)
[2022-04-24] MEDS: BISACODYL 10 MG SUPP.RECT PR SCH ×3 (06:57→21:35)
[2022-04-24 07:35] LABS: HEMATOCRIT 21.6 % (32.4-45.2); HEMOGLOBIN 7.2 GM/dL (10.7-15.3); MCH 29.5 pg (25.7-33.7); MCHC 33.5 g/dl (32.0-36.0); MEAN CELL VOLUME 88.2 fl (80-96); MEAN PLT VOLUME 8.9 fl (7.5-11.1); PLATELET COUNT 124 10^3/uL (134-434); RBC 2.45 M/mm3 (3.60-5.2); RDW 15.1 % (11.6-15.6); WHITE BLOOD COUNT 8.4 K/mm3 (4.0-10.0)
[2022-04-24 08:00] LABS: CALCIUM 7.9 mg/dL (8.5-10.1)
[2022-04-24 08:01] LABS: ALBUMIN 1.8 g/dl (3.4-5.0); MAGNESIUM 1.7 mg/dL (1.8-2.4)
[2022-04-24 08:04] LABS: CREATININE 0.5 mg/dL (0.55-1.3); PHOSPHOROUS 2.6 mg/dL (2.5-4.9)
[2022-04-24 08:05] LABS: TOT PROT 4.9 g/dl (6.4-8.2)
[2022-04-24 08:06] LABS: BILIRUBIN,TOTAL 0.5 mg/dL (0.2-1)
[2022-04-24] MEDS ORDERED: MAGNESIUM 2GM/50ML STERILE WATER IVPB IVPB ONE (09:00)
[2022-04-24] MEDS: PANTOPRAZOLE SODIUM 40 MG VIAL IVPUSH SCH ×2 (10:46→21:35)
[2022-04-24] MEDS: LIDOCAINE 5% TOPICAL PATCH TP SCH (10:46)
[2022-04-24] MEDS: SENNOSIDES 8.6MG TABLET (FP) PO SCH ×2 (10:47→21:36)
[2022-04-24] MEDS: MIDODRINE HCL 5 MG TABLET PO SCH ×3 (10:47→17:09)
[2022-04-24] MEDS: HEPARIN NA (PORCINE) 5,000 UNITS/ML 1ML VIAL SQ SCH ×2 (10:47→21:35)
[2022-04-24] MEDS: PREGABALIN 25 MG CAPSULE PO SCH ×2 (10:47→21:36)
[2022-04-24] MEDS: DEXAMETHASONE 4 MG TABLET (FP) PO SCH ×2 (10:47→21:36)
[2022-04-24] MEDS: CLOPIDOGREL BISULFATE 75 MG TABLET (FP) PO SCH (10:47)
[2022-04-24] MEDS: FOLIC ACID 1 MG TABLET (FP) PO SCH (10:47)
[2022-04-24] MEDS: EZETIMIBE 10 MG TABLET (FP) PO SCH (10:47)
[2022-04-24] MEDS: LINEZOLID 600 MG TABLET (RESTRICTED TO ID) PO SCH ×2 (10:51→21:36)
[2022-04-24] MEDS: morphine SULFATE 4 MG/ML VIAL IVPUSH PRN ×3 (11:36→18:46)
[2022-04-24] MEDS: Methylnaltrexone Bromide 12 MG/0.6 ML KIT SQ SCH (14:39)
[2022-04-24] MEDS ORDERED: FENTANYL PATCH WASTE TD PRN (15:03)
[2022-04-24] MEDS ORDERED: DOCUSATE SODIUM 100 MG CAPSULE (FP) PO PRN (15:03)
[2022-04-24] MEDS ORDERED: fentaNYL 50mcg/hr PATCH.TD72 TD SCH (15:15)
[2022-04-24] MEDS: valACYclovir HCL 500 MG TABLET (FP) PO SCH (21:35)
[2022-04-24] MEDS: CHLORHEXIDINE GLUCONATE 4% CLEANSER FOR DECOLONIZATION TP SCH (21:36)
[2022-04-24] MEDS: ATORVASTATIN CA 80 MG TABLET (FP) PO SCH (21:36)
[2022-04-24] MEDS: LIDOCAINE PATCH REMOVAL MC SCH (21:36)
[2022-04-25] MEDS: NYSTATIN 500,000 UNITS/5 ML SUSPENSION PO SCH ×4 (00:06→18:06)
[2022-04-25] MEDS: morphine SULFATE 4 MG/ML VIAL IVPUSH PRN ×3 (06:00→14:28)
[2022-04-25] MEDS: BISACODYL 10 MG SUPP.RECT PR SCH ×3 (06:28→22:17)
[2022-04-25] MEDS: LEVOTHYROXINE NA 25 MCG TABLET (FP) PO SCH (06:28)
[2022-04-25] MEDS: INSULIN SLIDING SCALE (NOVOLOG) 1 VIAL SQ SCH ×4 (06:29→22:20)
[2022-04-25] MEDS: INSULIN (LEVEMIR) 100 UNITS/ML UNITS SQ SCH ×2 (06:29→22:17)
[2022-04-25 07:23] LABS: HEMATOCRIT 21.8 % (32.4-45.2); HEMOGLOBIN 7.5 GM/dL (10.7-15.3); MCH 30.4 pg (25.7-33.7); MCHC 34.3 g/dl (32.0-36.0); MEAN CELL VOLUME 88.4 fl (80-96); PLATELET COUNT 132 10^3/uL (134-434); RBC 2.46 M/mm3 (3.60-5.2); RDW 15.3 % (11.6-15.6); WHITE BLOOD COUNT 7.6 K/mm3 (4.0-10.0)
[2022-04-25 07:44] LABS: CALCIUM 7.9 mg/dL (8.5-10.1)
[2022-04-25 07:45] LABS: ALBUMIN 1.8 g/dl (3.4-5.0); BLOOD UREA NITROGEN 23.5 mg/dL (7-18)
[2022-04-25 07:48] LABS: CREATININE 0.6 mg/dL (0.55-1.3); PHOSPHOROUS 2.5 mg/dL (2.5-4.9)
[2022-04-25 07:49] LABS: BILIRUBIN,TOTAL 0.6 mg/dL (0.2-1); TOT PROT 5.2 g/dl (6.4-8.2)
[2022-04-25] MEDS: PANTOPRAZOLE SODIUM 40 MG VIAL IVPUSH SCH ×2 (09:57→22:20)
[2022-04-25] MEDS: Methylnaltrexone Bromide 12 MG/0.6 ML KIT SQ SCH (09:57)
[2022-04-25] MEDS: LIDOCAINE 5% TOPICAL PATCH TP SCH (09:57)
[2022-04-25] MEDS: HEPARIN NA (PORCINE) 5,000 UNITS/ML 1ML VIAL SQ SCH ×2 (09:58→22:17)
[2022-04-25] MEDS: valACYclovir HCL 500 MG TABLET (FP) PO SCH ×2 (09:58→22:21)
[2022-04-25] MEDS: LINEZOLID 600 MG TABLET (RESTRICTED TO ID) PO SCH ×2 (09:58→22:21)
[2022-04-25] MEDS: SULFAMETHOXAZOLE/TRIMETHOPRIM 800MG/160MG D.S. TABLET PO SCH (09:59)
[2022-04-25] MEDS: PREGABALIN 25 MG CAPSULE PO SCH ×2 (09:59→22:20)
[2022-04-25] MEDS: CLOPIDOGREL BISULFATE 75 MG TABLET (FP) PO SCH (09:59)
[2022-04-25] MEDS: SENNOSIDES 8.6MG TABLET (FP) PO SCH ×2 (09:59→22:20)
[2022-04-25] MEDS: EZETIMIBE 10 MG TABLET (FP) PO SCH (09:59)
[2022-04-25] MEDS: FOLIC ACID 1 MG TABLET (FP) PO SCH (09:59)
[2022-04-25] MEDS: MIDODRINE HCL 5 MG TABLET PO SCH ×3 (09:59→18:06)
[2022-04-25] MEDS: DEXAMETHASONE 4 MG TABLET (FP) PO SCH ×2 (09:59→22:17)
[2022-04-25] MEDS ORDERED: FENTANYL PATCH WASTE TD PRN (10:22)
[2022-04-25] MEDS: fentaNYL 75mcg/hr PATCH.TD72 TD SCH (12:02)
[2022-04-25] MEDS: CHLORHEXIDINE GLUCONATE 4% CLEANSER FOR DECOLONIZATION TP SCH (22:17)
[2022-04-25] MEDS: LIDOCAINE PATCH REMOVAL MC SCH (22:19)
[2022-04-25] MEDS: ATORVASTATIN CA 80 MG TABLET (FP) PO SCH (22:20)
[2022-04-25] MEDS ORDERED: ONDANSETRON 8 MG TABLET (FP) PO PRN (23:45)
[2022-04-25] MEDS ORDERED: ARTIFICIAL TEARS (POLYVINYL ALCOHOL) OPTH DROPS OU PRN (23:45)
[2022-04-25] MEDS ORDERED: POLYETHYLENE GLYCOL (HEALTHYLAX) 3350 17 GM PACKET PO PRN (23:45)
[2022-04-25] MEDS ORDERED: METOPROLOL TARTRATE 5 MG/5 ML VIAL IVPUSH PRN (23:45)
[2022-04-25] MEDS ORDERED: PROCHLORPERAZINE MALEATE 5 MG TABLET PO PRN (23:45)
[2022-04-26] MEDS: NYSTATIN 500,000 UNITS/5 ML SUSPENSION PO SCH ×5 (00:09→23:30)
[2022-04-26] MEDS: morphine SULFATE 4 MG/ML VIAL IVPUSH PRN ×3 (00:59→16:13)
[2022-04-26] MEDS: BISACODYL 10 MG SUPP.RECT PR SCH ×3 (06:01→22:22)
[2022-04-26] MEDS: INSULIN (LEVEMIR) 100 UNITS/ML UNITS SQ SCH ×2 (06:02→22:24)
[2022-04-26] MEDS: INSULIN SLIDING SCALE (NOVOLOG) 1 VIAL SQ SCH ×4 (06:03→22:50)
[2022-04-26] MEDS: LEVOTHYROXINE NA 25 MCG TABLET (FP) PO SCH (06:22)
[2022-04-26 09:33] LABS: HEMATOCRIT 23.2 % (32.4-45.2); HEMOGLOBIN 7.9 GM/dL (10.7-15.3); MCH 30.3 pg (25.7-33.7); MCHC 34.1 g/dl (32.0-36.0); MEAN CELL VOLUME 88.9 fl (80-96); MEAN PLT VOLUME 8.7 fl (7.5-11.1); PLATELET COUNT 134 10^3/uL (134-434); RBC 2.61 M/mm3 (3.60-5.2); RDW 15.6 % (11.6-15.6); WHITE BLOOD COUNT 7.2 K/mm3 (4.0-10.0)
[2022-04-26 10:03] LABS: ALBUMIN 2.1 g/dl (3.4-5.0)
[2022-04-26 10:04] LABS: BILIRUBIN,TOTAL 0.5 mg/dL (0.2-1); TOT PROT 5.6 g/dl (6.4-8.2)
[2022-04-26 10:06] LABS: CREATININE 0.7 mg/dL (0.55-1.3)
[2022-04-26 10:07] LABS: PHOSPHOROUS 2.8 mg/dL (2.5-4.9)
[2022-04-26 10:08] LABS: BLOOD UREA NITROGEN 23.5 mg/dL (7-18)
[2022-04-26 10:10] LABS: CALCIUM 8.2 mg/dL (8.5-10.1)
[2022-04-26] MEDS: LIDOCAINE 5% TOPICAL PATCH TP SCH (10:13)
[2022-04-26] MEDS: EZETIMIBE 10 MG TABLET (FP) PO SCH (10:14)
[2022-04-26] MEDS: SENNOSIDES 8.6MG TABLET (FP) PO SCH ×2 (10:14→22:22)
[2022-04-26] MEDS: PANTOPRAZOLE SODIUM 40 MG VIAL IVPUSH SCH ×2 (10:14→22:23)
[2022-04-26] MEDS: valACYclovir HCL 500 MG TABLET (FP) PO SCH ×2 (10:14→22:23)
[2022-04-26] MEDS: SULFAMETHOXAZOLE/TRIMETHOPRIM 800MG/160MG D.S. TABLET PO SCH (10:14)
[2022-04-26] MEDS: HEPARIN NA (PORCINE) 5,000 UNITS/ML 1ML VIAL SQ SCH ×2 (10:15→22:23)
[2022-04-26] MEDS: CLOPIDOGREL BISULFATE 75 MG TABLET (FP) PO SCH (10:15)
[2022-04-26] MEDS: FOLIC ACID 1 MG TABLET (FP) PO SCH (10:15)
[2022-04-26] MEDS: MIDODRINE HCL 5 MG TABLET PO SCH ×3 (10:15→17:07)
[2022-04-26] MEDS: DEXAMETHASONE 4 MG TABLET (FP) PO SCH ×2 (10:16→22:23)
[2022-04-26] MEDS: PREGABALIN 25 MG CAPSULE PO SCH ×2 (10:16→22:24)
[2022-04-26] MEDS: LINEZOLID 600 MG TABLET (RESTRICTED TO ID) PO SCH ×2 (11:20→22:23)
[2022-04-26] MEDS: Methylnaltrexone Bromide 12 MG/0.6 ML KIT SQ SCH (11:20)
[2022-04-26] MEDS ORDERED: LIDOCAINE 5% TOPICAL PATCH TP ONE (11:24)
[2022-04-26] MEDS ORDERED: LIDOCAINE PATCH REMOVAL MC ONE (22:00)
[2022-04-26] MEDS ORDERED: CHLORHEXIDINE GLUCONATE 4% CLEANSER FOR DECOLONIZATION TP SCH (22:00)
[2022-04-26] MEDS: ATORVASTATIN CA 80 MG TABLET (FP) PO SCH (22:24)
[2022-04-26] MEDS ORDERED: INSULIN (NOVOLOG) ASPART 100 UNITS/ML 10ML VIAL ONE (22:48)
[2022-04-26] MEDS: LIDOCAINE PATCH REMOVAL MC SCH (23:30)
[2022-04-27] MEDS: morphine SULFATE 4 MG/ML VIAL IVPUSH PRN ×3 (05:03→21:25)
[2022-04-27] MEDS: NYSTATIN 500,000 UNITS/5 ML SUSPENSION PO SCH ×3 (05:58→17:32)
[2022-04-27] MEDS: BISACODYL 10 MG SUPP.RECT PR SCH ×3 (05:58→21:29)
[2022-04-27] MEDS: INSULIN (LEVEMIR) 100 UNITS/ML UNITS SQ SCH ×3 (06:21→21:23)
[2022-04-27] MEDS: INSULIN SLIDING SCALE (NOVOLOG) 1 VIAL SQ SCH ×4 (06:22→22:19)
[2022-04-27] MEDS: LEVOTHYROXINE NA 25 MCG TABLET (FP) PO SCH (06:28)
[2022-04-27] MEDS ORDERED: INSULIN (LEVEMIR) 100 UNITS/ML UNITS SQ ONE (06:35)
[2022-04-27] MEDS: SENNOSIDES 8.6MG TABLET (FP) PO SCH ×2 (09:44→21:28)
[2022-04-27] MEDS: valACYclovir HCL 500 MG TABLET (FP) PO SCH ×2 (09:45→21:25)
[2022-04-27] MEDS: HEPARIN NA (PORCINE) 5,000 UNITS/ML 1ML VIAL SQ SCH ×2 (09:45→21:23)
[2022-04-27] MEDS: DEXAMETHASONE 4 MG TABLET (FP) PO SCH ×2 (09:45→21:28)
[2022-04-27] MEDS: SULFAMETHOXAZOLE/TRIMETHOPRIM 800MG/160MG D.S. TABLET PO SCH (09:45)
[2022-04-27] MEDS: FOLIC ACID 1 MG TABLET (FP) PO SCH (09:45)
[2022-04-27] MEDS: CLOPIDOGREL BISULFATE 75 MG TABLET (FP) PO SCH (09:45)
[2022-04-27] MEDS: PREGABALIN 25 MG CAPSULE PO SCH ×2 (09:45→21:28)
[2022-04-27] MEDS: EZETIMIBE 10 MG TABLET (FP) PO SCH (09:45)
[2022-04-27] MEDS: LIDOCAINE 5% TOPICAL PATCH TP SCH (09:45)
[2022-04-27] MEDS: MIDODRINE HCL 5 MG TABLET PO SCH ×3 (09:46→18:36)
[2022-04-27] MEDS: LINEZOLID 600 MG TABLET (RESTRICTED TO ID) PO SCH ×2 (09:57→21:25)
[2022-04-27] MEDS: PANTOPRAZOLE SODIUM 40 MG VIAL IVPUSH SCH ×2 (10:20→21:23)
[2022-04-27 10:28] LABS: HEMATOCRIT 23.1 % (32.4-45.2); HEMOGLOBIN 7.8 GM/dL (10.7-15.3); MCH 30.1 pg (25.7-33.7); MCHC 33.9 g/dl (32.0-36.0); MEAN CELL VOLUME 88.9 fl (80-96); MEAN PLT VOLUME 8.4 fl (7.5-11.1); PLATELET COUNT 128 10^3/uL (134-434); RDW 15.7 % (11.6-15.6); WHITE BLOOD COUNT 6.8 K/mm3 (4.0-10.0)
[2022-04-27 10:51] LABS: ALBUMIN 2.1 g/dl (3.4-5.0); BLOOD UREA NITROGEN 22.6 mg/dL (7-18)
[2022-04-27 10:54] LABS: CREATININE 0.7 mg/dL (0.55-1.3); PHOSPHOROUS 3.2 mg/dL (2.5-4.9)
[2022-04-27 10:55] LABS: BILIRUBIN,TOTAL 0.5 mg/dL (0.2-1); TOT PROT 5.6 g/dl (6.4-8.2)
[2022-04-27] MEDS: Methylnaltrexone Bromide 12 MG/0.6 ML KIT SQ SCH (12:13)
[2022-04-27] MEDS ORDERED: INSULIN (NOVOLOG) ASPART 100 UNITS/ML 10ML VIAL ONE (20:56)
[2022-04-27] MEDS: ATORVASTATIN CA 80 MG TABLET (FP) PO SCH (21:28)
[2022-04-27] MEDS: LIDOCAINE PATCH REMOVAL MC SCH (21:29)
[2022-04-28] MEDS: NYSTATIN 500,000 UNITS/5 ML SUSPENSION PO SCH ×4 (06:13→17:46)
[2022-04-28] MEDS: BISACODYL 10 MG SUPP.RECT PR SCH ×3 (06:13→22:34)
[2022-04-28] MEDS: LEVOTHYROXINE NA 25 MCG TABLET (FP) PO SCH (06:13)
[2022-04-28] MEDS: INSULIN (LEVEMIR) 100 UNITS/ML UNITS SQ SCH ×2 (06:30→22:47)
[2022-04-28] MEDS: INSULIN SLIDING SCALE (NOVOLOG) 1 VIAL SQ SCH ×4 (06:35→22:47)
[2022-04-28 11:30] LABS: HEMATOCRIT 21.3 % (32.4-45.2); HEMOGLOBIN 7.3 GM/dL (10.7-15.3); MCH 30.5 pg (25.7-33.7); MCHC 34.5 g/dl (32.0-36.0); MEAN CELL VOLUME 88.5 fl (80-96); MEAN PLT VOLUME 8.5 fl (7.5-11.1); PLATELET COUNT 116 10^3/uL (134-434); RDW 15.7 % (11.6-15.6); WHITE BLOOD COUNT 6.1 K/mm3 (4.0-10.0)
[2022-04-28] MEDS: CLOPIDOGREL BISULFATE 75 MG TABLET (FP) PO SCH (11:35)
[2022-04-28] MEDS: valACYclovir HCL 500 MG TABLET (FP) PO SCH ×2 (11:35→22:33)
[2022-04-28] MEDS: SULFAMETHOXAZOLE/TRIMETHOPRIM 800MG/160MG D.S. TABLET PO SCH (11:35)
[2022-04-28] MEDS: PREGABALIN 25 MG CAPSULE PO SCH ×2 (11:36→22:34)
[2022-04-28] MEDS: DEXAMETHASONE 4 MG TABLET (FP) PO SCH ×2 (11:36→22:33)
[2022-04-28] MEDS: FOLIC ACID 1 MG TABLET (FP) PO SCH (11:36)
[2022-04-28] MEDS: MIDODRINE HCL 5 MG TABLET PO SCH ×4 (11:36→17:46)
[2022-04-28] MEDS: HEPARIN NA (PORCINE) 5,000 UNITS/ML 1ML VIAL SQ SCH ×2 (11:36→22:34)
[2022-04-28] MEDS: EZETIMIBE 10 MG TABLET (FP) PO SCH (11:36)
[2022-04-28] MEDS: SENNOSIDES 8.6MG TABLET (FP) PO SCH ×2 (11:37→22:34)
[2022-04-28] MEDS: fentaNYL 75mcg/hr PATCH.TD72 TD SCH (11:38)
[2022-04-28] MEDS: LINEZOLID 600 MG TABLET (RESTRICTED TO ID) PO SCH (11:41)
[2022-04-28 11:56] LABS: BILIRUBIN,TOTAL 0.5 mg/dL (0.2-1); CALCIUM 8.2 mg/dL (8.5-10.1)
[2022-04-28 11:57] LABS: BLOOD UREA NITROGEN 22.6 mg/dL (7-18)
[2022-04-28 11:59] LABS: PHOSPHOROUS 2.7 mg/dL (2.5-4.9)
[2022-04-28 12:00] LABS: CREATININE 0.5 mg/dL (0.55-1.3); TOT PROT 5.3 g/dl (6.4-8.2)
[2022-04-28 12:13] VITALS: RESP 18
[2022-04-28] MEDS: LIDOCAINE 5% TOPICAL PATCH TP SCH (12:27)
[2022-04-28] MEDS: PANTOPRAZOLE SODIUM 40 MG VIAL IVPUSH SCH (12:28)
[2022-04-28] MEDS ORDERED: BISACODYL 10 MG SUPP.RECT PR ONE (13:29)
[2022-04-28] MEDS: Methylnaltrexone Bromide 12 MG/0.6 ML KIT SQ SCH (13:43)
[2022-04-28] MEDS: ATORVASTATIN CA 80 MG TABLET (FP) PO SCH (22:33)
[2022-04-28] MEDS: LIDOCAINE PATCH REMOVAL MC SCH (22:34)
[2022-04-29] MEDS: NYSTATIN 500,000 UNITS/5 ML SUSPENSION PO SCH ×5 (00:35→23:03)
[2022-04-29] MEDS: LEVOTHYROXINE NA 25 MCG TABLET (FP) PO SCH (06:23)
[2022-04-29] MEDS: INSULIN (LEVEMIR) 100 UNITS/ML UNITS SQ SCH (06:29)
[2022-04-29] MEDS: INSULIN SLIDING SCALE (NOVOLOG) 1 VIAL SQ SCH ×5 (06:30→23:04)
[2022-04-29] MEDS: BISACODYL 10 MG SUPP.RECT PR SCH ×3 (06:39→22:33)
[2022-04-29] MEDS ORDERED: INSULIN (NOVOLOG) ASPART 100 UNITS/ML 10ML VIAL ONE ×2 (06:42→17:25)
[2022-04-29] MEDS: HEPARIN NA (PORCINE) 5,000 UNITS/ML 1ML VIAL SQ SCH ×2 (09:20→22:33)
[2022-04-29] MEDS: LIDOCAINE 5% TOPICAL PATCH TP SCH (09:20)
[2022-04-29] MEDS: MULTIVITAMINS (DAILY MVI) TABLET (FP) PO SCH (09:21)
[2022-04-29] MEDS: FOLIC ACID 1 MG TABLET (FP) PO SCH (09:21)
[2022-04-29] MEDS: HYDROmorphone HCL 2 MG TABLET PO PRN ×2 (09:21→17:30)
[2022-04-29] MEDS: PREGABALIN 25 MG CAPSULE PO SCH ×2 (09:21→22:33)
[2022-04-29] MEDS: valACYclovir HCL 500 MG TABLET (FP) PO SCH ×2 (09:22→22:32)
[2022-04-29] MEDS: PANTOPRAZOLE 40 MG TABLET PO SCH (09:22)
[2022-04-29] MEDS: DEXAMETHASONE 4 MG TABLET (FP) PO SCH ×2 (09:22→22:33)
[2022-04-29] MEDS: SULFAMETHOXAZOLE/TRIMETHOPRIM 800MG/160MG D.S. TABLET PO SCH (09:22)
[2022-04-29] MEDS: CLOPIDOGREL BISULFATE 75 MG TABLET (FP) PO SCH (09:22)
[2022-04-29] MEDS: EZETIMIBE 10 MG TABLET (FP) PO SCH (09:22)
[2022-04-29] MEDS: MIDODRINE HCL 5 MG TABLET PO SCH ×3 (09:22→22:26)
[2022-04-29] MEDS: SENNOSIDES 8.6MG TABLET (FP) PO SCH ×2 (09:23→22:32)
[2022-04-29 09:57] LABS: HEMATOCRIT 33.5 % (32.4-45.2); HEMOGLOBIN 11.3 GM/dL (10.7-15.3); MCH 29.6 pg (25.7-33.7); MCHC 33.8 g/dl (32.0-36.0); MEAN CELL VOLUME 87.5 fl (80-96); MEAN PLT VOLUME 8.7 fl (7.5-11.1); PLATELET COUNT 119 10^3/uL (134-434); RBC 3.82 M/mm3 (3.60-5.2); RDW 16.5 % (11.6-15.6); WHITE BLOOD COUNT 6.6 K/mm3 (4.0-10.0)
[2022-04-29 11:30] LABS: CALCIUM 8.3 mg/dL (8.5-10.1)
[2022-04-29 11:31] LABS: ALBUMIN 2.4 g/dl (3.4-5.0); BLOOD UREA NITROGEN 24.1 mg/dL (7-18)
[2022-04-29 11:34] LABS: CREATININE 0.6 mg/dL (0.55-1.3)
[2022-04-29 11:35] LABS: BILIRUBIN,TOTAL 0.7 mg/dL (0.2-1)
[2022-04-29 11:36] LABS: TOT PROT 6.2 g/dl (6.4-8.2)
[2022-04-29] MEDS: COLLAGENASE CLOSTRIDIUM HIST. 30 GRAMS TUBE TP SCH (14:50)
[2022-04-29] MEDS: POLYETHYLENE GLYCOL (HEALTHYLAX) 3350 17 GM PACKET PO SCH (22:32)
[2022-04-29] MEDS: LIDOCAINE PATCH REMOVAL MC SCH (22:33)
[2022-04-29] MEDS: DOCUSATE SODIUM 100 MG CAPSULE (FP) PO SCH (22:33)
[2022-04-30] MEDS ORDERED: INSULIN (NOVOLOG) ASPART 100 UNITS/ML 10ML VIAL ONE ×2 (05:06→12:08)
[2022-04-30] MEDS: POLYETHYLENE GLYCOL (HEALTHYLAX) 3350 17 GM PACKET PO SCH ×2 (06:05→14:33)
[2022-04-30] MEDS: NYSTATIN 500,000 UNITS/5 ML SUSPENSION PO SCH ×2 (06:10→12:16)
[2022-04-30] MEDS: BISACODYL 10 MG SUPP.RECT PR SCH (06:10)
[2022-04-30] MEDS: LEVOTHYROXINE NA 25 MCG TABLET (FP) PO SCH (06:10)
[2022-04-30] MEDS: DOCUSATE SODIUM 100 MG CAPSULE (FP) PO SCH ×2 (06:44→14:33)
[2022-04-30] MEDS: INSULIN (LEVEMIR) 100 UNITS/ML UNITS SQ SCH (06:45)
[2022-04-30] MEDS: INSULIN SLIDING SCALE (NOVOLOG) 1 VIAL SQ SCH ×2 (06:46→12:23)
[2022-04-30 09:16] LABS: CALCIUM 8.6 mg/dL (8.5-10.1)
[2022-04-30 09:17] LABS: ALBUMIN 2.6 g/dl (3.4-5.0); BLOOD UREA NITROGEN 26.4 mg/dL (7-18)
[2022-04-30 09:19] LABS: CREATININE 0.6 mg/dL (0.55-1.3)
[2022-04-30 09:21] LABS: BILIRUBIN,TOTAL 0.7 mg/dL (0.2-1); TOT PROT 6.7 g/dl (6.4-8.2)
[2022-04-30] MEDS: SULFAMETHOXAZOLE/TRIMETHOPRIM 800MG/160MG D.S. TABLET PO SCH (10:07)
[2022-04-30] MEDS: valACYclovir HCL 500 MG TABLET (FP) PO SCH (10:07)
[2022-04-30] MEDS: CLOPIDOGREL BISULFATE 75 MG TABLET (FP) PO SCH (10:07)
[2022-04-30] MEDS: LIDOCAINE 5% TOPICAL PATCH TP SCH (10:07)
[2022-04-30] MEDS: FOLIC ACID 1 MG TABLET (FP) PO SCH (10:07)
[2022-04-30] MEDS: SENNOSIDES 8.6MG TABLET (FP) PO SCH (10:07)
[2022-04-30] MEDS: HEPARIN NA (PORCINE) 5,000 UNITS/ML 1ML VIAL SQ SCH (10:07)
[2022-04-30] MEDS: DEXAMETHASONE 4 MG TABLET (FP) PO SCH (10:07)
[2022-04-30] MEDS: COLLAGENASE CLOSTRIDIUM HIST. 30 GRAMS TUBE TP SCH (10:08)
[2022-04-30] MEDS: PANTOPRAZOLE 40 MG TABLET PO SCH (10:08)
[2022-04-30] MEDS: MULTIVITAMINS (DAILY MVI) TABLET (FP) PO SCH (10:08)
[2022-04-30] MEDS: PREGABALIN 25 MG CAPSULE PO SCH (10:08)
[2022-04-30] MEDS: MIDODRINE HCL 5 MG TABLET PO SCH ×2 (10:08→14:33)
[2022-04-30] MEDS: HYDROmorphone HCL 2 MG TABLET PO PRN (10:24)
[2022-04-30] MEDS ORDERED: BISACODYL 10 MG SUPP.RECT PR PRN (11:02)
[2022-04-30 15:52] VITALS: BP 120/60; PULSE 82; TEMP 98.7
[2022-05-01] MEDS ORDERED: Methylnaltrexone Bromide 12 MG/0.6 ML KIT SQ SCH (10:00)
== END 2022-04-30 16:42 | DRG 870 ==
LOC: JER 09:54 → JERBED 14:02 → J4W 03-28 10:22 → JICU 04-07 17:09 → J8W 04-25 23:35
PROVIDERS: ADMIT Internal Medicine; ATTEND Nurse Practitioner Acute Care
PROC: 30233R1 Transfusion of Nonautologous Platelets into Peripheral Vein, Percutaneous Approach (ICD-10-PCS; 2022-03-27)
PROC: XW033E5 Introduction of Remdesivir Anti-infective into Peripheral Vein, Percutaneous Approach, New Technology Group 5 (ICD-10-PCS; 2022-03-27)
PROC: 5A1955Z Respiratory Ventilation, Greater than 96 Consecutive Hours (ICD-10-PCS; principal; 2022-04-08)
PROC: 0BH17EZ Insertion of Endotracheal Airway into Trachea, Via Natural or Artificial Opening (ICD-10-PCS; 2022-04-08)
PROC: 30233N1 Transfusion of Nonautologous Red Blood Cells into Peripheral Vein, Percutaneous Approach (ICD-10-PCS; 2022-04-09)
PROC: 05HM33Z Insertion of Infusion Device into Right Internal Jugular Vein, Percutaneous Approach (ICD-10-PCS; 2022-04-17)
PROC: B543ZZA Ultrasonography of Right Jugular Veins, Guidance (ICD-10-PCS; 2022-04-17)
DX: A41.9 Sepsis, unspecified organism (principal); J12.82 Pneumonia due to coronavirus disease 2019; U07.1 COVID-19; J80 Acute respiratory distress syndrome; C79.51 Secondary malignant neoplasm of bone; F11.20 Opioid dependence, uncomplicated; C34.90 Malignant neoplasm of unspecified part of unspecified bronchus or lung; D61.818 Other pancytopenia; D69.6 Thrombocytopenia, unspecified; D64.9 Anemia, unspecified; I10 Essential (primary) hypertension; E78.5 Hyperlipidemia, unspecified; K59.00 Constipation, unspecified; R74.01 Elevation of levels of liver transaminase levels; I25.10 Atherosclerotic heart disease of native coronary artery without angina pectoris; Z95.5 Presence of coronary angioplasty implant and graft; E11.65 Type 2 diabetes mellitus with hyperglycemia; K21.9 Gastro-esophageal reflux disease without esophagitis
CPT/HCPCS: 0241U-QW; 36415; 36430; 36511; 36600; 70450-TC; 71045-TC-FY; 71111-TC-FY; 71275-TC; 72070-TC-FY; 72100-TC-FY; 74018-TC-FY; 74176-TC; 76700-TC; 80048; 80053; 81003; 82272; 82308; 82533; 82728; 82803; 82962; 83010; 83036; 83540; 83550; 83605; 83615; 83735; 83880; 84100; 84484; 85025; 85027; 85045; 85610; 85651; 85730; 86140; 86850; 86900; 86901; 86922; 87040; 87070; 87081; 87086; 87186; 87205; 87899; 93005; 93010; 93970-TC; 94002; 94010; 94660; 94761; 97116-GP; 97163-GP; 99285-25; C9399; C9803-CS; G0480; J0834; J1100; J1644; J3490; P9034; P9038; P9058; U0003; U0005

== ENCOUNTER 2022-05-15 13:24 | Inpatient (IN) | payer OTHER ==
[2022-05-15] MEDS ORDERED: PIPERACILLIN/TAZOB 4.5 GM 4.5 GM in DEXTROSE 5%-WATER 100 ML IVPB ONE (14:15)
[2022-05-15] MEDS ORDERED: ACETAMINOPHEN 1000 MG/100 ML BAG IVPB ONE (14:15)
[2022-05-15] MEDS ORDERED: VANCOMYCIN 1 GM in D5W (PRE-DOCKED) 1,000 MG/250 ML IVPB ONE (14:15)
[2022-05-15] MEDS ORDERED: SODIUM CHLORIDE 0.9% 500 ML INFUS.BAG IV ONE ×2 (14:16→16:52)
[2022-05-15] MEDS ORDERED: PIPERACILLIN/TAZOB 4.5 GM 4.5 GM/100 ML BAG IVPB ONE (15:02)
[2022-05-15] MEDS ORDERED: ACETAMINOPHEN INJECTION 100 ML IVPB ONE (15:02)
[2022-05-15] MEDS ORDERED: VANCOMYCIN/WATER FOR INJ (PEG) 1,000 MG/200 ML BAG IVPB ONE (15:02)
[2022-05-15 15:04] LABS: VENOUS BASE EXCESS 1.1 mmol/L (-2-2); VENOUS O2 SATURATION 74.6 % (70-80); VENOUS PCO2 47.2 mmHg (38-52); VENOUS PH 7.369 (7.310-7.410)
[2022-05-15 15:13] LABS: BASO % 0.3 % (0-2.0); EOS % 0.1 % (0-4.5); HEMOGLOBIN 8.4 GM/dL (10.7-15.3); LYMPH % 3.2 % (8-40); MCH 30.6 pg (25.7-33.7); MCHC 33.8 g/dl (32.0-36.0); MEAN CELL VOLUME 90.4 fl (80-96); MEAN PLT VOLUME 7.9 fl (7.5-11.1); MONO % 4.7 % (3.8-10.2); NEUT % 91.7 % (42.8-82.8); PLATELET COUNT 71 10^3/uL (134-434); RBC 2.76 M/mm3 (3.60-5.2); RDW 19.1 % (11.6-15.6); WHITE BLOOD COUNT 7.2 K/mm3 (4.0-10.0)
[2022-05-15 15:18] LABS: INR 1.31 (0.83-1.09); PROTHROMBIN TIME (PATIENT) 15.1 SEC (9.7-13.0)
[2022-05-15 15:21] LABS: ACTIVATED PTT 29.4 SECONDS (25.2-36.5)
[2022-05-15 15:38] LABS: ALBUMIN 1.8 g/dl (3.4-5.0); BLOOD UREA NITROGEN 20.3 mg/dL (7-18)
[2022-05-15 15:40] LABS: ANISOCYTOSIS 3+; MACROCYTOSIS 0
[2022-05-15 15:41] LABS: CREATININE 0.4 mg/dL (0.55-1.3)
[2022-05-15 15:43] LABS: BILIRUBIN,TOTAL 0.7 mg/dL (0.2-1); TOT PROT 5.6 g/dl (6.4-8.2)
[2022-05-15 15:46] LABS: N-TERMINAL BNP 1507.1 pg/ml (5-125)
[2022-05-15] MEDS ORDERED: ARTIFICIAL TEARS (POLYVINYL ALCOHOL) OPTH DROPS OU PRN (18:22)
[2022-05-15] MEDS ORDERED: ACETAMINOPHEN 1000 MG/100 ML BAG IVPB PRN (18:30)
[2022-05-15] MEDS: DOCUSATE SODIUM 100 MG CAPSULE (FP) PO SCH (22:33)
[2022-05-15] MEDS: SENNOSIDES 8.6MG TABLET (FP) PO SCH (22:34)
[2022-05-15] MEDS: POLYETHYLENE GLYCOL (HEALTHYLAX) 3350 17 GM PACKET PO SCH (22:34)
[2022-05-15] MEDS: DEXAMETHASONE 4 MG TABLET (FP) PO SCH (22:40)
[2022-05-15] MEDS: HEPARIN NA (PORCINE) 5,000 UNITS/ML 1ML VIAL SQ SCH (22:41)
[2022-05-15] MEDS: INSULIN (LEVEMIR) 100 UNITS/ML UNITS SQ SCH (22:43)
[2022-05-15] MEDS: INSULIN SLIDING SCALE (NOVOLOG) 1 VIAL SQ SCH (22:43)
[2022-05-15] MEDS: LIDOCAINE PATCH REMOVAL MC SCH (22:44)
[2022-05-16] MEDS: POLYETHYLENE GLYCOL (HEALTHYLAX) 3350 17 GM PACKET PO SCH ×3 (06:42→21:17)
[2022-05-16] MEDS: DOCUSATE SODIUM 100 MG CAPSULE (FP) PO SCH ×3 (06:42→21:17)
[2022-05-16] MEDS: HEPARIN NA (PORCINE) 5,000 UNITS/ML 1ML VIAL SQ SCH ×3 (06:42→21:17)
[2022-05-16] MEDS: INSULIN SLIDING SCALE (NOVOLOG) 1 VIAL SQ SCH ×4 (06:47→21:20)
[2022-05-16] MEDS: INSULIN (LEVEMIR) 100 UNITS/ML UNITS SQ SCH ×2 (06:56→21:20)
[2022-05-16] MEDS ORDERED: LEVOTHYROXINE NA 50 MCG TABLET (FP) PO SCH (07:00)
[2022-05-16 07:03] LABS: HEMATOCRIT 24.5 % (32.4-45.2); HEMOGLOBIN 8.2 GM/dL (10.7-15.3); MCH 30.4 pg (25.7-33.7); MCHC 33.5 g/dl (32.0-36.0); MEAN CELL VOLUME 90.9 fl (80-96); MEAN PLT VOLUME 8.1 fl (7.5-11.1); PLATELET COUNT 69 10^3/uL (134-434); RDW 19.6 % (11.6-15.6); WHITE BLOOD COUNT 6.5 K/mm3 (4.0-10.0)
[2022-05-16 07:34] LABS: CALCIUM 8.1 mg/dL (8.5-10.1)
[2022-05-16 07:35] LABS: ALBUMIN 1.8 g/dl (3.4-5.0); BLOOD UREA NITROGEN 16.8 mg/dL (7-18); MAGNESIUM 2.2 mg/dL (1.8-2.4)
[2022-05-16 07:38] LABS: CREATININE 0.3 mg/dL (0.55-1.3); PHOSPHOROUS 2.4 mg/dL (2.5-4.9)
[2022-05-16 07:39] LABS: BILIRUBIN,TOTAL 0.6 mg/dL (0.2-1); TOT PROT 5.5 g/dl (6.4-8.2)
[2022-05-16 09:18] LABS: ANISOCYTOSIS 0; MACROCYTOSIS 0
[2022-05-16] MEDS: CLOPIDOGREL BISULFATE 75 MG TABLET (FP) PO SCH (09:34)
[2022-05-16] MEDS: SENNOSIDES 8.6MG TABLET (FP) PO SCH ×2 (09:34→21:18)
[2022-05-16] MEDS: LIDOCAINE 5% TOPICAL PATCH TP SCH (09:34)
[2022-05-16] MEDS: DEXAMETHASONE 4 MG TABLET (FP) PO SCH (09:34)
[2022-05-16] MEDS: PANTOPRAZOLE 40 MG TABLET PO SCH (09:34)
[2022-05-16] MEDS: MULTIVITAMINS (DAILY MVI) TABLET (FP) PO SCH (09:35)
[2022-05-16] MEDS: ALBUTEROL SO4 2.5/IPRATROPIUM 0.5 INH SOL 3 ML VIAL.NEB. NEB SCH ×3 (11:15→20:45)
[2022-05-16] MEDS: PIPERACILLIN/TAZOB 3.375 GM 3.375 GM in DEXTROSE 5%-WATER - 50 ML IVPB SCH ×2 (12:07→18:18)
[2022-05-16] MEDS ORDERED: NAPH,MB-DB/K PH,MBDB POWDER PACKET PO ONE (14:37)
[2022-05-16] MEDS: fentaNYL 75mcg/hr PATCH.TD72 TD SCH (18:16)
[2022-05-16] MEDS: MELATONIN 5 MG TABLETS PO PRN (21:17)
[2022-05-16] MEDS: LIDOCAINE PATCH REMOVAL MC SCH (21:17)
[2022-05-16] MEDS: ATORVASTATIN CA 40 MG TABLET (FP) PO SCH (21:17)
[2022-05-16] MEDS: PREGABALIN 25 MG CAPSULE PO SCH (21:17)
[2022-05-16] MEDS: oxyCODONE HCL 5 MG TABLET PO PRN (21:26)
[2022-05-17] MEDS: PIPERACILLIN/TAZOB 3.375 GM 3.375 GM in DEXTROSE 5%-WATER - 50 ML IVPB SCH ×5 (00:59→18:19)
[2022-05-17] MEDS: oxyCODONE HCL 5 MG TABLET PO PRN ×2 (03:40→18:17)
[2022-05-17] MEDS: POLYETHYLENE GLYCOL (HEALTHYLAX) 3350 17 GM PACKET PO SCH ×3 (06:01→21:31)
[2022-05-17] MEDS: INSULIN (LEVEMIR) 100 UNITS/ML UNITS SQ SCH (06:01)
[2022-05-17] MEDS: HEPARIN NA (PORCINE) 5,000 UNITS/ML 1ML VIAL SQ SCH ×3 (06:01→21:31)
[2022-05-17] MEDS: DOCUSATE SODIUM 100 MG CAPSULE (FP) PO SCH ×3 (06:01→21:31)
[2022-05-17] MEDS: LEVOTHYROXINE NA 25 MCG TABLET (FP) PO SCH (06:02)
[2022-05-17] MEDS: INSULIN SLIDING SCALE (NOVOLOG) 1 VIAL SQ SCH ×4 (06:02→21:32)
[2022-05-17 07:07] LABS: HEMATOCRIT 21.5 % (32.4-45.2); HEMOGLOBIN 7.3 GM/dL (10.7-15.3); MCH 30.7 pg (25.7-33.7); MCHC 33.9 g/dl (32.0-36.0); MEAN CELL VOLUME 90.3 fl (80-96); MEAN PLT VOLUME 7.8 fl (7.5-11.1); PLATELET COUNT 67 10^3/uL (134-434); RBC 2.38 M/mm3 (3.60-5.2); RDW 19.1 % (11.6-15.6); WHITE BLOOD COUNT 7.6 K/mm3 (4.0-10.0)
[2022-05-17 07:33] LABS: CALCIUM 7.7 mg/dL (8.5-10.1)
[2022-05-17 07:34] LABS: ALBUMIN 1.6 g/dl (3.4-5.0); BLOOD UREA NITROGEN 13.2 mg/dL (7-18)
[2022-05-17 07:37] LABS: CREATININE 0.3 mg/dL (0.55-1.3); PHOSPHOROUS 2.2 mg/dL (2.5-4.9)
[2022-05-17 07:39] LABS: BILIRUBIN,TOTAL 0.5 mg/dL (0.2-1)
[2022-05-17] MEDS: ALBUTEROL SO4 2.5/IPRATROPIUM 0.5 INH SOL 3 ML VIAL.NEB. NEB SCH ×3 (08:46→20:26)
[2022-05-17] MEDS ORDERED: POTASSIUM PHOSPHATE 15 MM in SODIUM CHLORIDE 250 ML IVPB ONE (09:00)
[2022-05-17 09:24] LABS: ANISOCYTOSIS 0; MACROCYTOSIS 1+
[2022-05-17] MEDS: PREGABALIN 25 MG CAPSULE PO SCH ×2 (09:30→21:32)
[2022-05-17] MEDS: MULTIVITAMINS (DAILY MVI) TABLET (FP) PO SCH (09:31)
[2022-05-17] MEDS: SENNOSIDES 8.6MG TABLET (FP) PO SCH ×2 (09:31→21:32)
[2022-05-17] MEDS: PANTOPRAZOLE 40 MG TABLET PO SCH (09:31)
[2022-05-17] MEDS: CLOPIDOGREL BISULFATE 75 MG TABLET (FP) PO SCH (09:31)
[2022-05-17] MEDS: FOLIC ACID 1 MG TABLET (FP) PO SCH (09:36)
[2022-05-17] MEDS: metoPROLOL SUCCINATE 25 MG TAB.SR.24H (FP) PO SCH (09:37)
[2022-05-17] MEDS: EZETIMIBE 10 MG TABLET (FP) PO SCH (09:37)
[2022-05-17] MEDS: LIDOCAINE 5% TOPICAL PATCH TP SCH (10:08)
[2022-05-17] MEDS ORDERED: KETAMINE HCL 200 MG/20 ML VIAL IVPUSH ONE (10:36)
[2022-05-17] MEDS ORDERED: MIDAZOLAM HCL 2 MG/2 ML SINGLE DOSE VIAL IVPUSH ONE (10:37)
[2022-05-17] MEDS ORDERED: FENTANYL CITRATE/PF 50 MCG/ML VIAL IVPUSH ONE (11:15)
[2022-05-17] MEDS ORDERED: HYDROmorphone HCl 2 MG/ML VIAL IVPUSH ONE (12:02)
[2022-05-17] MEDS ORDERED: INSULIN (LEVEMIR) 100 UNITS/ML UNITS SQ SCH (13:04)
[2022-05-17 13:56] LABS: BF WBC & OTHER NUCLEATED CELLS 838 /mm3
[2022-05-17 14:01] LABS: BODY FLUID MACROPHAGES 58 %; BODY FLUID MESOTHELIAL 2 %; BODY FLUID MONOCYTE 4 %; BODYL FLD EOSINOPHIL 2 %
[2022-05-17] MEDS: VANCOMYCIN/WATER FOR INJ (PEG) 1,000 MG/200 ML BAG IVPB SCH (15:46)
[2022-05-17] MEDS: ATORVASTATIN CA 40 MG TABLET (FP) PO SCH (21:31)
[2022-05-17] MEDS: LIDOCAINE PATCH REMOVAL MC SCH (21:31)
[2022-05-18] MEDS: PIPERACILLIN/TAZOB 3.375 GM 3.375 GM in DEXTROSE 5%-WATER - 50 ML IVPB SCH ×3 (01:15→18:00)
[2022-05-18] MEDS: VANCOMYCIN/WATER FOR INJ (PEG) 1,000 MG/200 ML BAG IVPB SCH ×2 (01:45→13:32)
[2022-05-18] MEDS ORDERED: DEXTROSE 50%-WATER 25 GM/50 ML DISP.SYRIN IVPUSH PRN (04:40)
[2022-05-18] MEDS: DOCUSATE SODIUM 100 MG CAPSULE (FP) PO SCH ×3 (06:40→21:12)
[2022-05-18] MEDS: LEVOTHYROXINE NA 25 MCG TABLET (FP) PO SCH (06:40)
[2022-05-18] MEDS: HEPARIN NA (PORCINE) 5,000 UNITS/ML 1ML VIAL SQ SCH ×3 (06:40→21:14)
[2022-05-18] MEDS: INSULIN SLIDING SCALE (NOVOLOG) 1 VIAL SQ SCH ×4 (06:40→22:31)
[2022-05-18] MEDS: POLYETHYLENE GLYCOL (HEALTHYLAX) 3350 17 GM PACKET PO SCH ×3 (06:40→21:12)
[2022-05-18] MEDS: ALBUTEROL SO4 2.5/IPRATROPIUM 0.5 INH SOL 3 ML VIAL.NEB. NEB SCH ×3 (07:31→15:40)
[2022-05-18 08:10] LABS: BASO % 0.6 % (0-2.0); EOS % 1.8 % (0-4.5); HEMATOCRIT 22.5 % (32.4-45.2); HEMOGLOBIN 7.6 GM/dL (10.7-15.3); LYMPH % 6.4 % (8-40); MCH 30.7 pg (25.7-33.7); MCHC 33.6 g/dl (32.0-36.0); MEAN CELL VOLUME 91.1 fl (80-96); MEAN PLT VOLUME 8.1 fl (7.5-11.1); MONO % 4.8 % (3.8-10.2); NEUT % 86.4 % (42.8-82.8); PLATELET COUNT 64 10^3/uL (134-434); RBC 2.47 M/mm3 (3.60-5.2); RDW 20.2 % (11.6-15.6); WHITE BLOOD COUNT 6.2 K/mm3 (4.0-10.0)
[2022-05-18 08:30] LABS: CALCIUM 7.5 mg/dL (8.5-10.1)
[2022-05-18 08:31] LABS: ALBUMIN 1.4 g/dl (3.4-5.0); BLOOD UREA NITROGEN 11.7 mg/dL (7-18)
[2022-05-18 08:32] LABS: MAGNESIUM 1.6 mg/dL (1.8-2.4)
[2022-05-18 08:34] LABS: CREATININE 0.3 mg/dL (0.55-1.3); PHOSPHOROUS 3.1 mg/dL (2.5-4.9)
[2022-05-18 08:35] LABS: BILIRUBIN,TOTAL 0.4 mg/dL (0.2-1); TOT PROT 4.6 g/dl (6.4-8.2)
[2022-05-18] MEDS ORDERED: MAGNESIUM 2GM/50ML STERILE WATER IVPB IVPB ONE (09:37)
[2022-05-18] MEDS: SENNOSIDES 8.6MG TABLET (FP) PO SCH ×2 (10:25→21:12)
[2022-05-18] MEDS: CLOPIDOGREL BISULFATE 75 MG TABLET (FP) PO SCH (10:25)
[2022-05-18] MEDS: MULTIVITAMINS (DAILY MVI) TABLET (FP) PO SCH (10:25)
[2022-05-18] MEDS: EZETIMIBE 10 MG TABLET (FP) PO SCH (10:25)
[2022-05-18] MEDS: FOLIC ACID 1 MG TABLET (FP) PO SCH (10:25)
[2022-05-18] MEDS: metoPROLOL SUCCINATE 25 MG TAB.SR.24H (FP) PO SCH (10:25)
[2022-05-18] MEDS: PREGABALIN 25 MG CAPSULE PO SCH ×2 (10:25→21:14)
[2022-05-18] MEDS: PANTOPRAZOLE 40 MG TABLET PO SCH (10:25)
[2022-05-18] MEDS: oxyCODONE HCL 5 MG TABLET PO PRN ×3 (10:27→21:12)
[2022-05-18] MEDS ORDERED: POTASSIUM PHOSPHATE 15 MM in SODIUM CHLORIDE 250 ML IVPB ONE (10:30)
[2022-05-18] MEDS: LIDOCAINE 5% TOPICAL PATCH TP SCH (11:44)
[2022-05-18] MEDS: MELATONIN 5 MG TABLETS PO PRN (21:13)
[2022-05-18] MEDS: ATORVASTATIN CA 40 MG TABLET (FP) PO SCH (21:14)
[2022-05-18] MEDS: LIDOCAINE PATCH REMOVAL MC SCH (21:14)
[2022-05-19] MEDS: VANCOMYCIN/WATER FOR INJ (PEG) 1,000 MG/200 ML BAG IVPB SCH (01:15)
[2022-05-19] MEDS: PIPERACILLIN/TAZOB 3.375 GM 3.375 GM in DEXTROSE 5%-WATER - 50 ML IVPB SCH ×3 (01:15→17:09)
[2022-05-19] MEDS: oxyCODONE HCL 5 MG TABLET PO PRN ×5 (01:57→21:13)
[2022-05-19] MEDS: HEPARIN NA (PORCINE) 5,000 UNITS/ML 1ML VIAL SQ SCH ×3 (05:39→21:10)
[2022-05-19] MEDS: DOCUSATE SODIUM 100 MG CAPSULE (FP) PO SCH ×3 (05:40→21:09)
[2022-05-19] MEDS: POLYETHYLENE GLYCOL (HEALTHYLAX) 3350 17 GM PACKET PO SCH ×3 (05:40→21:10)
[2022-05-19] MEDS: INSULIN SLIDING SCALE (NOVOLOG) 1 VIAL SQ SCH ×4 (06:03→21:30)
[2022-05-19] MEDS: LEVOTHYROXINE NA 25 MCG TABLET (FP) PO SCH (06:04)
[2022-05-19 07:15] LABS: HEMATOCRIT 21.9 % (32.4-45.2); HEMOGLOBIN 7.3 GM/dL (10.7-15.3); MCH 30.2 pg (25.7-33.7); MCHC 33.4 g/dl (32.0-36.0); MEAN CELL VOLUME 90.5 fl (80-96); MEAN PLT VOLUME 7.4 fl (7.5-11.1); PLATELET COUNT 60 10^3/uL (134-434); RBC 2.42 M/mm3 (3.60-5.2); RDW 20.3 % (11.6-15.6)
[2022-05-19 07:35] LABS: CALCIUM 7.8 mg/dL (8.5-10.1); MAGNESIUM 1.9 mg/dL (1.8-2.4)
[2022-05-19 07:36] LABS: BLOOD UREA NITROGEN 9.7 mg/dL (7-18)
[2022-05-19 07:39] LABS: CREATININE 0.3 mg/dL (0.55-1.3); PHOSPHOROUS 2.9 mg/dL (2.5-4.9)
[2022-05-19] MEDS: ALBUTEROL SO4 2.5/IPRATROPIUM 0.5 INH SOL 3 ML VIAL.NEB. NEB SCH ×4 (08:00→20:30)
[2022-05-19 08:33] LABS: ANISOCYTOSIS 3+; MACROCYTOSIS 0
[2022-05-19] MEDS: EZETIMIBE 10 MG TABLET (FP) PO SCH (09:35)
[2022-05-19] MEDS: PREGABALIN 25 MG CAPSULE PO SCH ×2 (09:35→21:11)
[2022-05-19] MEDS: CLOPIDOGREL BISULFATE 75 MG TABLET (FP) PO SCH (09:36)
[2022-05-19] MEDS: MULTIVITAMINS (DAILY MVI) TABLET (FP) PO SCH (09:36)
[2022-05-19] MEDS: metoPROLOL SUCCINATE 25 MG TAB.SR.24H (FP) PO SCH (09:36)
[2022-05-19] MEDS: PANTOPRAZOLE 40 MG TABLET PO SCH (09:37)
[2022-05-19] MEDS: SENNOSIDES 8.6MG TABLET (FP) PO SCH ×2 (09:37→21:12)
[2022-05-19] MEDS: FOLIC ACID 1 MG TABLET (FP) PO SCH (09:37)
[2022-05-19] MEDS: LIDOCAINE 5% TOPICAL PATCH TP SCH (09:38)
[2022-05-19] MEDS ORDERED: POTASSIUM CHLORIDE TABS 20 MEQ TABLET.ER (FP) PO ONE (12:00)
[2022-05-19] MEDS: fentaNYL 75mcg/hr PATCH.TD72 TD SCH (15:45)
[2022-05-19] MEDS: FENTANYL PATCH WASTE TD PRN (15:49)
[2022-05-19] MEDS: ATORVASTATIN CA 40 MG TABLET (FP) PO SCH (21:10)
[2022-05-19] MEDS: LIDOCAINE PATCH REMOVAL MC SCH (21:10)
[2022-05-19] MEDS: MELATONIN 5 MG TABLETS PO PRN (21:13)
[2022-05-20] MEDS: PIPERACILLIN/TAZOB 3.375 GM 3.375 GM in DEXTROSE 5%-WATER - 50 ML IVPB SCH ×3 (02:43→17:06)
[2022-05-20] MEDS: oxyCODONE HCL 5 MG TABLET PO PRN ×4 (04:51→19:48)
[2022-05-20] MEDS: DOCUSATE SODIUM 100 MG CAPSULE (FP) PO SCH ×3 (05:46→21:13)
[2022-05-20] MEDS: POLYETHYLENE GLYCOL (HEALTHYLAX) 3350 17 GM PACKET PO SCH ×3 (05:47→21:13)
[2022-05-20] MEDS: HEPARIN NA (PORCINE) 5,000 UNITS/ML 1ML VIAL SQ SCH ×3 (05:47→21:13)
[2022-05-20] MEDS: LEVOTHYROXINE NA 25 MCG TABLET (FP) PO SCH (06:01)
[2022-05-20] MEDS: INSULIN SLIDING SCALE (NOVOLOG) 1 VIAL SQ SCH ×4 (06:01→21:17)
[2022-05-20] MEDS: ALBUTEROL SO4 2.5/IPRATROPIUM 0.5 INH SOL 3 ML VIAL.NEB. NEB SCH ×4 (07:45→20:35)
[2022-05-20 08:26] LABS: BLOOD UREA NITROGEN 8.4 mg/dL (7-18); CALCIUM 7.9 mg/dL (8.5-10.1)
[2022-05-20 08:27] LABS: ALBUMIN 1.4 g/dl (3.4-5.0); MAGNESIUM 1.6 mg/dL (1.8-2.4)
[2022-05-20 08:28] LABS: HEMATOCRIT 21.9 % (32.4-45.2); HEMOGLOBIN 7.4 GM/dL (10.7-15.3); MCH 30.7 pg (25.7-33.7); MCHC 33.9 g/dl (32.0-36.0); MEAN CELL VOLUME 90.8 fl (80-96); MEAN PLT VOLUME 8.4 fl (7.5-11.1); PLATELET COUNT 56 10^3/uL (134-434); RBC 2.42 M/mm3 (3.60-5.2); WHITE BLOOD COUNT 6.8 K/mm3 (4.0-10.0)
[2022-05-20 08:30] LABS: CREATININE 0.3 mg/dL (0.55-1.3)
[2022-05-20 08:31] LABS: BILIRUBIN,TOTAL 0.4 mg/dL (0.2-1); TOT PROT 4.6 g/dl (6.4-8.2)
[2022-05-20] MEDS: CLOPIDOGREL BISULFATE 75 MG TABLET (FP) PO SCH (09:22)
[2022-05-20] MEDS: FOLIC ACID 1 MG TABLET (FP) PO SCH (09:22)
[2022-05-20] MEDS: PANTOPRAZOLE 40 MG TABLET PO SCH (09:22)
[2022-05-20] MEDS: PREGABALIN 25 MG CAPSULE PO SCH ×2 (09:22→21:13)
[2022-05-20] MEDS: EZETIMIBE 10 MG TABLET (FP) PO SCH (09:22)
[2022-05-20] MEDS: SENNOSIDES 8.6MG TABLET (FP) PO SCH ×2 (09:23→21:14)
[2022-05-20] MEDS: MULTIVITAMINS (DAILY MVI) TABLET (FP) PO SCH (09:23)
[2022-05-20] MEDS: LIDOCAINE 5% TOPICAL PATCH TP SCH (09:24)
[2022-05-20] MEDS ORDERED: SODIUM CHLORIDE 250 ML IV STA ×2 (09:50→14:29)
[2022-05-20 09:57] LABS: ANISOCYTOSIS 2+; MACROCYTOSIS 0
[2022-05-20] MEDS ORDERED: MAGNESIUM OXIDE 400 MG TABLET (FP) PO ONE (10:12)
[2022-05-20] MEDS: metoPROLOL SUCCINATE 25 MG TAB.SR.24H (FP) PO SCH (11:47)
[2022-05-20] MEDS: MELATONIN 5 MG TABLETS PO PRN (21:12)
[2022-05-20] MEDS: LIDOCAINE PATCH REMOVAL MC SCH (21:13)
[2022-05-20] MEDS: ATORVASTATIN CA 40 MG TABLET (FP) PO SCH (21:13)
[2022-05-21] MEDS: oxyCODONE HCL 5 MG TABLET PO PRN ×5 (00:05→21:33)
[2022-05-21] MEDS: PIPERACILLIN/TAZOB 3.375 GM 3.375 GM in DEXTROSE 5%-WATER - 50 ML IVPB SCH ×3 (02:12→18:10)
[2022-05-21] MEDS: HEPARIN NA (PORCINE) 5,000 UNITS/ML 1ML VIAL SQ SCH ×3 (05:58→21:32)
[2022-05-21] MEDS: DOCUSATE SODIUM 100 MG CAPSULE (FP) PO SCH ×3 (05:58→21:35)
[2022-05-21] MEDS: POLYETHYLENE GLYCOL (HEALTHYLAX) 3350 17 GM PACKET PO SCH ×3 (05:58→21:35)
[2022-05-21] MEDS: LEVOTHYROXINE NA 25 MCG TABLET (FP) PO SCH (06:02)
[2022-05-21] MEDS: INSULIN SLIDING SCALE (NOVOLOG) 1 VIAL SQ SCH ×4 (07:41→21:51)
[2022-05-21 08:04] LABS: HEMATOCRIT 21.4 % (32.4-45.2); HEMOGLOBIN 7.1 GM/dL (10.7-15.3); MCHC 33.2 g/dl (32.0-36.0); MEAN CELL VOLUME 90.4 fl (80-96); MEAN PLT VOLUME 7.8 fl (7.5-11.1); PLATELET COUNT 53 10^3/uL (134-434); RBC 2.37 M/mm3 (3.60-5.2); RDW 19.9 % (11.6-15.6); WHITE BLOOD COUNT 6.5 K/mm3 (4.0-10.0)
[2022-05-21] MEDS: ALBUTEROL SO4 2.5/IPRATROPIUM 0.5 INH SOL 3 ML VIAL.NEB. NEB SCH ×4 (08:25→20:35)
[2022-05-21 08:26] LABS: CALCIUM 7.7 mg/dL (8.5-10.1)
[2022-05-21 08:27] LABS: ALBUMIN 1.4 g/dl (3.4-5.0); BLOOD UREA NITROGEN 6.8 mg/dL (7-18); MAGNESIUM 1.5 mg/dL (1.8-2.4)
[2022-05-21 08:29] LABS: CREATININE 0.3 mg/dL (0.55-1.3); PHOSPHOROUS 3.3 mg/dL (2.5-4.9)
[2022-05-21 08:30] LABS: BILIRUBIN,TOTAL 0.5 mg/dL (0.2-1); TOT PROT 4.8 g/dl (6.4-8.2)
[2022-05-21] MEDS: LIDOCAINE 5% TOPICAL PATCH TP SCH (09:21)
[2022-05-21] MEDS: PANTOPRAZOLE 40 MG TABLET PO SCH (09:26)
[2022-05-21] MEDS: FOLIC ACID 1 MG TABLET (FP) PO SCH (09:26)
[2022-05-21] MEDS: PREGABALIN 25 MG CAPSULE PO SCH ×2 (09:27→21:35)
[2022-05-21] MEDS: MULTIVITAMINS (DAILY MVI) TABLET (FP) PO SCH (09:27)
[2022-05-21] MEDS: EZETIMIBE 10 MG TABLET (FP) PO SCH (09:27)
[2022-05-21] MEDS: CLOPIDOGREL BISULFATE 75 MG TABLET (FP) PO SCH (09:28)
[2022-05-21] MEDS: SENNOSIDES 8.6MG TABLET (FP) PO SCH ×2 (09:31→21:36)
[2022-05-21] MEDS: metoPROLOL SUCCINATE 25 MG TAB.SR.24H (FP) PO SCH (09:50)
[2022-05-21 10:52] LABS: ANISOCYTOSIS 2+; MACROCYTOSIS 0
[2022-05-21] MEDS: MAGNESIUM 1GM/D5W - 1 GM/100 ML IVPB IVPB SCH ×2 (15:03→16:10)
[2022-05-21] MEDS: MIDODRINE HCL 5 MG TABLET PO SCH (18:12)
[2022-05-21 20:02] LABS: PH,URINE 6.5 (5.0-8.0); URINE APPEARANCE CLEAR; URINE BILIRUBIN NEGATIVE (NEGATIVE); URINE COLOR YELLOW; URINE GLUCOSE (UA) TRACE (NEGATIVE); URINE KETONE NEGATIVE (NEGATIVE); URINE LEUK ESTERASE NEGATIVE (NEGATIVE); URINE NITRITE NEGATIVE (NEGATIVE); URINE PROTEIN TRACE (NEGATIVE)
[2022-05-21 21:13] LABS: HEMATOCRIT 23.2 % (32.4-45.2); HEMOGLOBIN 7.6 GM/dL (10.7-15.3); MCH 29.6 pg (25.7-33.7); MCHC 32.6 g/dl (32.0-36.0); MEAN CELL VOLUME 90.9 fl (80-96); MEAN PLT VOLUME 8.2 fl (7.5-11.1); PLATELET COUNT 59 10^3/uL (134-434); RBC 2.55 M/mm3 (3.60-5.2); WHITE BLOOD COUNT 8.5 K/mm3 (4.0-10.0)
[2022-05-21] MEDS: ATORVASTATIN CA 40 MG TABLET (FP) PO SCH (21:34)
[2022-05-21] MEDS: LIDOCAINE PATCH REMOVAL MC SCH (21:35)
[2022-05-22] MEDS: oxyCODONE HCL 5 MG TABLET PO PRN ×5 (01:37→20:00)
[2022-05-22] MEDS: PIPERACILLIN/TAZOB 3.375 GM 3.375 GM in DEXTROSE 5%-WATER - 50 ML IVPB SCH ×3 (02:00→21:08)
[2022-05-22] MEDS: HEPARIN NA (PORCINE) 5,000 UNITS/ML 1ML VIAL SQ SCH ×2 (06:21→14:43)
[2022-05-22] MEDS: DOCUSATE SODIUM 100 MG CAPSULE (FP) PO SCH ×3 (06:23→21:08)
[2022-05-22] MEDS: POLYETHYLENE GLYCOL (HEALTHYLAX) 3350 17 GM PACKET PO SCH ×3 (06:23→21:08)
[2022-05-22] MEDS: INSULIN SLIDING SCALE (NOVOLOG) 1 VIAL SQ SCH ×4 (07:00→21:08)
[2022-05-22] MEDS: LEVOTHYROXINE NA 25 MCG TABLET (FP) PO SCH (07:00)
[2022-05-22] MEDS: ALBUTEROL SO4 2.5/IPRATROPIUM 0.5 INH SOL 3 ML VIAL.NEB. NEB SCH ×4 (08:00→20:05)
[2022-05-22 08:15] LABS: HEMATOCRIT 20.4 % (32.4-45.2); MCH 30.6 pg (25.7-33.7); MCHC 33.8 g/dl (32.0-36.0); MEAN CELL VOLUME 90.7 fl (80-96); MEAN PLT VOLUME 7.6 fl (7.5-11.1); PLATELET COUNT 54 10^3/uL (134-434); RBC 2.24 M/mm3 (3.60-5.2); RDW 19.4 % (11.6-15.6); WHITE BLOOD COUNT 8.1 K/mm3 (4.0-10.0)
[2022-05-22 08:20] LABS: ALBUMIN 1.6 g/dl (3.4-5.0); BLOOD UREA NITROGEN 6.2 mg/dL (7-18); CALCIUM 7.6 mg/dL (8.5-10.1); MAGNESIUM 2.2 mg/dL (1.8-2.4)
[2022-05-22 08:23] LABS: CREATININE 0.3 mg/dL (0.55-1.3); PHOSPHOROUS 2.6 mg/dL (2.5-4.9)
[2022-05-22 08:25] LABS: TOT PROT 5.1 g/dl (6.4-8.2)
[2022-05-22 08:34] LABS: BILIRUBIN,TOTAL 0.4 mg/dL (0.2-1)
[2022-05-22 09:02] LABS: ANISOCYTOSIS 3+; MACROCYTOSIS 1+
[2022-05-22 09:18] LABS: HEMOGLOBIN 6.9 GM/dL (10.7-15.3)
[2022-05-22] MEDS: FOLIC ACID 1 MG TABLET (FP) PO SCH (09:38)
[2022-05-22] MEDS: LIDOCAINE 5% TOPICAL PATCH TP SCH (09:38)
[2022-05-22] MEDS: PREGABALIN 25 MG CAPSULE PO SCH ×2 (09:38→21:08)
[2022-05-22] MEDS: PANTOPRAZOLE 40 MG TABLET PO SCH (09:39)
[2022-05-22] MEDS: NYSTATIN POWDER 100,000 UNITS/GM - 15 GM TOPICAL POWDER TP SCH ×2 (09:39→21:09)
[2022-05-22] MEDS: MULTIVITAMINS (DAILY MVI) TABLET (FP) PO SCH ×2 (09:39→09:59)
[2022-05-22] MEDS: SENNOSIDES 8.6MG TABLET (FP) PO SCH ×3 (09:39→21:09)
[2022-05-22] MEDS: MIDODRINE HCL 5 MG TABLET PO SCH ×3 (09:39→21:08)
[2022-05-22] MEDS: CLOPIDOGREL BISULFATE 75 MG TABLET (FP) PO SCH (09:39)
[2022-05-22] MEDS: EZETIMIBE 10 MG TABLET (FP) PO SCH (09:40)
[2022-05-22] MEDS: metoPROLOL SUCCINATE 25 MG TAB.SR.24H (FP) PO SCH (09:40)
[2022-05-22] MEDS: fentaNYL 75mcg/hr PATCH.TD72 TD SCH (15:12)
[2022-05-22 16:26] VITALS: BMI 22.4
[2022-05-22] MEDS: FENTANYL PATCH WASTE TD PRN (17:21)
[2022-05-22] MEDS: AMINO ACIDS/PROTEIN HYDROLYS 30 ML LIQUID.PKT PO SCH (21:07)
[2022-05-22] MEDS: LIDOCAINE PATCH REMOVAL MC SCH (21:08)
[2022-05-22] MEDS: ATORVASTATIN CA 40 MG TABLET (FP) PO SCH (21:08)
[2022-05-22 21:30] LABS: HEMATOCRIT 25.6 % (32.4-45.2); HEMOGLOBIN 8.8 GM/dL (10.7-15.3); MCH 30.7 pg (25.7-33.7); MCHC 34.3 g/dl (32.0-36.0); MEAN CELL VOLUME 89.5 fl (80-96); MEAN PLT VOLUME 8.1 fl (7.5-11.1); PLATELET COUNT 58 10^3/uL (134-434); RBC 2.85 M/mm3 (3.60-5.2); RDW 17.6 % (11.6-15.6); WHITE BLOOD COUNT 10.4 K/mm3 (4.0-10.0)
[2022-05-23] MEDS: PIPERACILLIN/TAZOB 3.375 GM 3.375 GM in DEXTROSE 5%-WATER - 50 ML IVPB SCH ×3 (01:00→17:44)
[2022-05-23] MEDS: oxyCODONE HCL 5 MG TABLET PO PRN (05:15)
[2022-05-23] MEDS: POLYETHYLENE GLYCOL (HEALTHYLAX) 3350 17 GM PACKET PO SCH ×3 (06:53→21:06)
[2022-05-23] MEDS: DOCUSATE SODIUM 100 MG CAPSULE (FP) PO SCH ×3 (06:53→21:05)
[2022-05-23] MEDS: INSULIN SLIDING SCALE (NOVOLOG) 1 VIAL SQ SCH ×4 (06:54→21:06)
[2022-05-23] MEDS: LEVOTHYROXINE NA 25 MCG TABLET (FP) PO SCH (06:54)
[2022-05-23] MEDS: ALBUTEROL SO4 2.5/IPRATROPIUM 0.5 INH SOL 3 ML VIAL.NEB. NEB SCH ×4 (07:20→20:05)
[2022-05-23 07:22] LABS: HEMATOCRIT 27.3 % (32.4-45.2); HEMOGLOBIN 9.5 GM/dL (10.7-15.3); MCH 30.9 pg (25.7-33.7); MCHC 34.6 g/dl (32.0-36.0); MEAN CELL VOLUME 89.1 fl (80-96); MEAN PLT VOLUME 8.3 fl (7.5-11.1); PLATELET COUNT 58 10^3/uL (134-434); RBC 3.07 M/mm3 (3.60-5.2); RDW 18.1 % (11.6-15.6); WHITE BLOOD COUNT 10.2 K/mm3 (4.0-10.0)
[2022-05-23 07:50] LABS: CALCIUM 8.1 mg/dL (8.5-10.1)
[2022-05-23 07:51] LABS: ALBUMIN 1.7 g/dl (3.4-5.0); BLOOD UREA NITROGEN 10.3 mg/dL (7-18); MAGNESIUM 1.9 mg/dL (1.8-2.4)
[2022-05-23 07:54] LABS: CREATININE 0.3 mg/dL (0.55-1.3)
[2022-05-23 07:55] LABS: PHOSPHOROUS 2.7 mg/dL (2.5-4.9)
[2022-05-23 07:56] LABS: BILIRUBIN,TOTAL 0.6 mg/dL (0.2-1); TOT PROT 5.5 g/dl (6.4-8.2)
[2022-05-23 09:00] LABS: ANISOCYTOSIS 1+; MACROCYTOSIS 0; PLATELET ESTIMATE DECREASED
[2022-05-23] MEDS: ACETAMINOPHEN 325 MG TABLET (FP) PO PRN ×2 (09:24→15:55)
[2022-05-23] MEDS: SENNOSIDES 8.6MG TABLET (FP) PO SCH ×2 (09:28→21:06)
[2022-05-23] MEDS: AMINO ACIDS/PROTEIN HYDROLYS 30 ML LIQUID.PKT PO SCH ×2 (09:28→17:46)
[2022-05-23] MEDS: MIDODRINE HCL 5 MG TABLET PO SCH ×3 (09:29→17:46)
[2022-05-23] MEDS: FOLIC ACID 1 MG TABLET (FP) PO SCH (09:29)
[2022-05-23] MEDS: CLOPIDOGREL BISULFATE 75 MG TABLET (FP) PO SCH (09:29)
[2022-05-23] MEDS: PREGABALIN 25 MG CAPSULE PO SCH ×2 (09:29→21:06)
[2022-05-23] MEDS: MULTIVITAMINS (DAILY MVI) TABLET (FP) PO SCH (09:29)
[2022-05-23] MEDS: EZETIMIBE 10 MG TABLET (FP) PO SCH (09:29)
[2022-05-23] MEDS: PANTOPRAZOLE 40 MG TABLET PO SCH (09:29)
[2022-05-23] MEDS: LIDOCAINE 5% TOPICAL PATCH TP SCH (09:30)
[2022-05-23] MEDS: NYSTATIN POWDER 100,000 UNITS/GM - 15 GM TOPICAL POWDER TP SCH ×2 (09:30→21:06)
[2022-05-23] MEDS: ASCORBIC ACID 500 MG TABLET (FP) PO SCH (09:30)
[2022-05-23] MEDS: metoPROLOL SUCCINATE 25 MG TAB.SR.24H (FP) PO SCH (09:31)
[2022-05-23] MEDS: oxyCODONE HCL 5 MG TABLET PO SCH ×2 (17:44→23:00)
[2022-05-23] MEDS: ACETAMINOPHEN 325 MG TABLET (FP) PO SCH ×2 (17:46→23:00)
[2022-05-23] MEDS: ATORVASTATIN CA 40 MG TABLET (FP) PO SCH (21:06)
[2022-05-23] MEDS: LIDOCAINE PATCH REMOVAL MC SCH (21:06)
[2022-05-24] MEDS: PIPERACILLIN/TAZOB 3.375 GM 3.375 GM in DEXTROSE 5%-WATER - 50 ML IVPB SCH ×3 (02:07→18:18)
[2022-05-24] MEDS: oxyCODONE HCL 5 MG TABLET PO PRN (03:30)
[2022-05-24] MEDS: POLYETHYLENE GLYCOL (HEALTHYLAX) 3350 17 GM PACKET PO SCH ×3 (05:57→21:13)
[2022-05-24] MEDS: oxyCODONE HCL 5 MG TABLET PO SCH ×4 (05:57→23:15)
[2022-05-24] MEDS: DOCUSATE SODIUM 100 MG CAPSULE (FP) PO SCH ×3 (05:57→21:12)
[2022-05-24] MEDS: ACETAMINOPHEN 325 MG TABLET (FP) PO SCH ×4 (05:58→23:15)
[2022-05-24] MEDS: LEVOTHYROXINE NA 25 MCG TABLET (FP) PO SCH (05:59)
[2022-05-24] MEDS: INSULIN SLIDING SCALE (NOVOLOG) 1 VIAL SQ SCH ×4 (05:59→21:13)
[2022-05-24 07:12] LABS: HEMATOCRIT 26.1 % (32.4-45.2); HEMOGLOBIN 8.9 GM/dL (10.7-15.3); MCH 30.6 pg (25.7-33.7); MCHC 34.2 g/dl (32.0-36.0); MEAN CELL VOLUME 89.3 fl (80-96); MEAN PLT VOLUME 8.5 fl (7.5-11.1); PLATELET COUNT 58 10^3/uL (134-434); RBC 2.92 M/mm3 (3.60-5.2); RDW 18.2 % (11.6-15.6)
[2022-05-24] MEDS: ALBUTEROL SO4 2.5/IPRATROPIUM 0.5 INH SOL 3 ML VIAL.NEB. NEB SCH ×4 (07:20→20:30)
[2022-05-24 07:32] LABS: CALCIUM 7.9 mg/dL (8.5-10.1)
[2022-05-24 07:33] LABS: ALBUMIN 1.8 g/dl (3.4-5.0); BLOOD UREA NITROGEN 10.1 mg/dL (7-18)
[2022-05-24 07:36] LABS: CREATININE 0.3 mg/dL (0.55-1.3)
[2022-05-24 07:38] LABS: BILIRUBIN,TOTAL 0.4 mg/dL (0.2-1); TOT PROT 5.4 g/dl (6.4-8.2)
[2022-05-24] MEDS: AMINO ACIDS/PROTEIN HYDROLYS 30 ML LIQUID.PKT PO SCH ×3 (08:59→18:54)
[2022-05-24 09:20] LABS: ANISOCYTOSIS 0; HELMET CELLS 0; HOWELL-JOLLY BODIES 0; MACROCYTOSIS 0; OVALOCYTE 0; ROULEAU 0; SICKELED CELLS 0; TARGET CELLS 0; TEAR DROP CELLS 0; TOXIC GRANULATION 0
[2022-05-24] MEDS: CLOPIDOGREL BISULFATE 75 MG TABLET (FP) PO SCH (09:48)
[2022-05-24] MEDS: ASCORBIC ACID 500 MG TABLET (FP) PO SCH (09:48)
[2022-05-24] MEDS: metoPROLOL SUCCINATE 25 MG TAB.SR.24H (FP) PO SCH (09:48)
[2022-05-24] MEDS: EZETIMIBE 10 MG TABLET (FP) PO SCH (09:48)
[2022-05-24] MEDS: MULTIVITAMINS (DAILY MVI) TABLET (FP) PO SCH (09:49)
[2022-05-24] MEDS: FOLIC ACID 1 MG TABLET (FP) PO SCH (09:49)
[2022-05-24] MEDS: PANTOPRAZOLE 40 MG TABLET PO SCH (09:49)
[2022-05-24] MEDS: MIDODRINE HCL 5 MG TABLET PO SCH ×3 (09:49→18:09)
[2022-05-24] MEDS: PREGABALIN 25 MG CAPSULE PO SCH ×2 (09:50→21:13)
[2022-05-24] MEDS: LIDOCAINE 5% TOPICAL PATCH TP SCH (09:55)
[2022-05-24] MEDS: NYSTATIN POWDER 100,000 UNITS/GM - 15 GM TOPICAL POWDER TP SCH ×2 (12:02→21:13)
[2022-05-24] MEDS: SENNOSIDES 8.6MG TABLET (FP) PO SCH ×2 (12:05→21:13)
[2022-05-24] MEDS: MELATONIN 5 MG TABLETS PO PRN (21:13)
[2022-05-24] MEDS: ATORVASTATIN CA 40 MG TABLET (FP) PO SCH (21:13)
[2022-05-24] MEDS: LIDOCAINE PATCH REMOVAL MC SCH (21:13)
[2022-05-25] MEDS ORDERED: MAG HYDROX/AL HYDROX/SIMETH 30 ML UNIT-DOSE CUP PO ONE (01:09)
[2022-05-25] MEDS: PIPERACILLIN/TAZOB 3.375 GM 3.375 GM in DEXTROSE 5%-WATER - 50 ML IVPB SCH ×3 (02:55→17:14)
[2022-05-25] MEDS: oxyCODONE HCL 5 MG TABLET PO PRN ×3 (03:45→16:34)
[2022-05-25] MEDS: DOCUSATE SODIUM 100 MG CAPSULE (FP) PO SCH ×3 (06:02→22:22)
[2022-05-25] MEDS: oxyCODONE HCL 5 MG TABLET PO SCH ×4 (06:02→23:04)
[2022-05-25] MEDS: POLYETHYLENE GLYCOL (HEALTHYLAX) 3350 17 GM PACKET PO SCH ×3 (06:02→22:22)
[2022-05-25] MEDS: LEVOTHYROXINE NA 25 MCG TABLET (FP) PO SCH (06:03)
[2022-05-25] MEDS: ACETAMINOPHEN 325 MG TABLET (FP) PO SCH ×4 (06:03→23:03)
[2022-05-25] MEDS: INSULIN SLIDING SCALE (NOVOLOG) 1 VIAL SQ SCH ×4 (06:03→23:14)
[2022-05-25 07:13] LABS: HEMATOCRIT 25.4 % (32.4-45.2); HEMOGLOBIN 8.7 GM/dL (10.7-15.3); MCH 30.8 pg (25.7-33.7); MCHC 34.2 g/dl (32.0-36.0); MEAN CELL VOLUME 90.1 fl (80-96); MEAN PLT VOLUME 7.9 fl (7.5-11.1); PLATELET COUNT 53 10^3/uL (134-434); RBC 2.82 M/mm3 (3.60-5.2); RDW 18.7 % (11.6-15.6); WHITE BLOOD COUNT 7.9 K/mm3 (4.0-10.0)
[2022-05-25 07:23] LABS: ALBUMIN 1.7 g/dl (3.4-5.0); BLOOD UREA NITROGEN 7.7 mg/dL (7-18)
[2022-05-25 07:24] LABS: CALCIUM 8.1 mg/dL (8.5-10.1)
[2022-05-25 07:26] LABS: CREATININE 0.2 mg/dL (0.55-1.3)
[2022-05-25 07:28] LABS: BILIRUBIN,TOTAL 0.4 mg/dL (0.2-1); TOT PROT 5.2 g/dl (6.4-8.2)
[2022-05-25] MEDS: AMINO ACIDS/PROTEIN HYDROLYS 30 ML LIQUID.PKT PO SCH ×2 (08:23→17:10)
[2022-05-25] MEDS: ALBUTEROL SO4 2.5/IPRATROPIUM 0.5 INH SOL 3 ML VIAL.NEB. NEB SCH ×4 (08:52→20:00)
[2022-05-25 09:26] LABS: ANISOCYTOSIS 0; HELMET CELLS 0; HOWELL-JOLLY BODIES 0; MACROCYTOSIS 0; OVALOCYTE 0; ROULEAU 0; SICKELED CELLS 0; TARGET CELLS 0; TEAR DROP CELLS 0; TOXIC GRANULATION 0
[2022-05-25] MEDS: LIDOCAINE 5% TOPICAL PATCH TP SCH (09:26)
[2022-05-25] MEDS: FOLIC ACID 1 MG TABLET (FP) PO SCH (09:34)
[2022-05-25] MEDS: EZETIMIBE 10 MG TABLET (FP) PO SCH (09:35)
[2022-05-25] MEDS: PANTOPRAZOLE 40 MG TABLET PO SCH (09:35)
[2022-05-25] MEDS: PREGABALIN 25 MG CAPSULE PO SCH ×2 (09:35→22:21)
[2022-05-25] MEDS: MULTIVITAMINS (DAILY MVI) TABLET (FP) PO SCH (09:35)
[2022-05-25] MEDS: CLOPIDOGREL BISULFATE 75 MG TABLET (FP) PO SCH (09:36)
[2022-05-25] MEDS: ASCORBIC ACID 500 MG TABLET (FP) PO SCH (09:36)
[2022-05-25] MEDS: metoPROLOL SUCCINATE 25 MG TAB.SR.24H (FP) PO SCH (09:36)
[2022-05-25] MEDS: MIDODRINE HCL 5 MG TABLET PO SCH ×3 (09:36→17:32)
[2022-05-25] MEDS: NYSTATIN POWDER 100,000 UNITS/GM - 15 GM TOPICAL POWDER TP SCH ×2 (11:00→22:22)
[2022-05-25] MEDS: SENNOSIDES 8.6MG TABLET (FP) PO SCH ×2 (12:03→22:22)
[2022-05-25] MEDS: fentaNYL 75mcg/hr PATCH.TD72 TD SCH (16:34)
[2022-05-25] MEDS: FENTANYL PATCH WASTE TD PRN (16:41)
[2022-05-25] MEDS ORDERED: POTASSIUM CHLORIDE TABS 20 MEQ TABLET.ER (FP) PO ONE ×2 (18:45→19:15)
[2022-05-25] MEDS: MELATONIN 5 MG TABLETS PO PRN (22:21)
[2022-05-25] MEDS: ATORVASTATIN CA 40 MG TABLET (FP) PO SCH ×2 (22:21→23:15)
[2022-05-25] MEDS: LIDOCAINE PATCH REMOVAL MC SCH (22:22)
[2022-05-26] MEDS: PIPERACILLIN/TAZOB 3.375 GM 3.375 GM in DEXTROSE 5%-WATER - 50 ML IVPB SCH ×2 (01:24→09:37)
[2022-05-26] MEDS: oxyCODONE HCL 5 MG TABLET PO PRN (02:03)
[2022-05-26] MEDS: ACETAMINOPHEN 325 MG TABLET (FP) PO SCH ×4 (05:52→23:36)
[2022-05-26] MEDS: oxyCODONE HCL 5 MG TABLET PO SCH ×5 (05:52→23:28)
[2022-05-26] MEDS: LEVOTHYROXINE NA 25 MCG TABLET (FP) PO SCH (06:08)
[2022-05-26] MEDS: DOCUSATE SODIUM 100 MG CAPSULE (FP) PO SCH ×3 (06:09→21:41)
[2022-05-26] MEDS: POLYETHYLENE GLYCOL (HEALTHYLAX) 3350 17 GM PACKET PO SCH ×3 (06:09→21:41)
[2022-05-26] MEDS: INSULIN SLIDING SCALE (NOVOLOG) 1 VIAL SQ SCH ×4 (07:10→21:52)
[2022-05-26] MEDS: ALBUTEROL SO4 2.5/IPRATROPIUM 0.5 INH SOL 3 ML VIAL.NEB. NEB SCH ×4 (07:15→20:06)
[2022-05-26 07:53] LABS: HEMATOCRIT 25.7 % (32.4-45.2); HEMOGLOBIN 8.6 GM/dL (10.7-15.3); MCH 30.6 pg (25.7-33.7); MCHC 33.6 g/dl (32.0-36.0); MEAN CELL VOLUME 91.1 fl (80-96); MEAN PLT VOLUME 8.5 fl (7.5-11.1); PLATELET COUNT 60 10^3/uL (134-434); RBC 2.82 M/mm3 (3.60-5.2); RDW 18.4 % (11.6-15.6); WHITE BLOOD COUNT 8.2 K/mm3 (4.0-10.0)
[2022-05-26 08:25] LABS: ALBUMIN 1.7 g/dl (3.4-5.0); BLOOD UREA NITROGEN 6.4 mg/dL (7-18); CALCIUM 8.2 mg/dL (8.5-10.1)
[2022-05-26 08:29] LABS: BILIRUBIN,TOTAL 0.5 mg/dL (0.2-1); CREATININE 0.2 mg/dL (0.55-1.3)
[2022-05-26 08:30] LABS: TOT PROT 5.1 g/dl (6.4-8.2)
[2022-05-26] MEDS: SENNOSIDES 8.6MG TABLET (FP) PO SCH ×2 (09:37→21:53)
[2022-05-26] MEDS: PREGABALIN 25 MG CAPSULE PO SCH ×2 (09:37→21:52)
[2022-05-26] MEDS: MULTIVITAMINS (DAILY MVI) TABLET (FP) PO SCH (09:37)
[2022-05-26] MEDS: AMINO ACIDS/PROTEIN HYDROLYS 30 ML LIQUID.PKT PO SCH ×2 (09:37→17:14)
[2022-05-26] MEDS: FOLIC ACID 1 MG TABLET (FP) PO SCH (09:37)
[2022-05-26] MEDS: CLOPIDOGREL BISULFATE 75 MG TABLET (FP) PO SCH (09:37)
[2022-05-26] MEDS: ASCORBIC ACID 500 MG TABLET (FP) PO SCH (09:37)
[2022-05-26] MEDS: EZETIMIBE 10 MG TABLET (FP) PO SCH (09:37)
[2022-05-26] MEDS: metoPROLOL SUCCINATE 25 MG TAB.SR.24H (FP) PO SCH ×2 (09:37→12:06)
[2022-05-26] MEDS: LIDOCAINE 5% TOPICAL PATCH TP SCH (09:51)
[2022-05-26] MEDS: NYSTATIN POWDER 100,000 UNITS/GM - 15 GM TOPICAL POWDER TP SCH ×2 (09:51→21:45)
[2022-05-26] MEDS: MIDODRINE HCL 5 MG TABLET PO SCH ×3 (09:52→17:38)
[2022-05-26] MEDS: PANTOPRAZOLE 40 MG TABLET PO SCH (09:53)
[2022-05-26 10:16] LABS: ANISOCYTOSIS 1+; MACROCYTOSIS 0; PLATELET ESTIMATE DECREASED
[2022-05-26] MEDS: LIDOCAINE PATCH REMOVAL MC SCH (21:43)
[2022-05-26] MEDS: ATORVASTATIN CA 40 MG TABLET (FP) PO SCH (21:44)
[2022-05-27] MEDS: oxyCODONE HCL 5 MG TABLET PO SCH ×6 (02:42→22:12)
[2022-05-27] MEDS: POLYETHYLENE GLYCOL (HEALTHYLAX) 3350 17 GM PACKET PO SCH ×3 (06:16→22:11)
[2022-05-27] MEDS: DOCUSATE SODIUM 100 MG CAPSULE (FP) PO SCH ×3 (06:16→22:11)
[2022-05-27] MEDS: ACETAMINOPHEN 325 MG TABLET (FP) PO SCH ×3 (06:18→17:58)
[2022-05-27] MEDS: INSULIN SLIDING SCALE (NOVOLOG) 1 VIAL SQ SCH ×4 (06:43→22:15)
[2022-05-27] MEDS: ALBUTEROL SO4 2.5/IPRATROPIUM 0.5 INH SOL 3 ML VIAL.NEB. NEB SCH ×2 (08:23→12:25)
[2022-05-27] MEDS: NYSTATIN POWDER 100,000 UNITS/GM - 15 GM TOPICAL POWDER TP SCH ×2 (10:00→22:11)
[2022-05-27] MEDS: LEVOTHYROXINE NA 25 MCG TABLET (FP) PO SCH (10:20)
[2022-05-27] MEDS: AMINO ACIDS/PROTEIN HYDROLYS 30 ML LIQUID.PKT PO SCH ×2 (10:20→17:59)
[2022-05-27] MEDS: FOLIC ACID 1 MG TABLET (FP) PO SCH (10:21)
[2022-05-27] MEDS: PREGABALIN 25 MG CAPSULE PO SCH ×2 (10:21→22:11)
[2022-05-27] MEDS: LIDOCAINE 5% TOPICAL PATCH TP SCH (10:21)
[2022-05-27] MEDS: metoPROLOL SUCCINATE 25 MG TAB.SR.24H (FP) PO SCH (10:22)
[2022-05-27] MEDS: PANTOPRAZOLE 40 MG TABLET PO SCH (10:22)
[2022-05-27] MEDS: MIDODRINE HCL 5 MG TABLET PO SCH ×3 (10:22→17:59)
[2022-05-27] MEDS: CLOPIDOGREL BISULFATE 75 MG TABLET (FP) PO SCH (10:22)
[2022-05-27] MEDS: SENNOSIDES 8.6MG TABLET (FP) PO SCH ×2 (10:22→22:12)
[2022-05-27] MEDS: ASCORBIC ACID 500 MG TABLET (FP) PO SCH (10:22)
[2022-05-27] MEDS: MULTIVITAMINS (DAILY MVI) TABLET (FP) PO SCH (10:22)
[2022-05-27] MEDS: EZETIMIBE 10 MG TABLET (FP) PO SCH (10:22)
[2022-05-27] MEDS: LIDOCAINE PATCH REMOVAL MC SCH (22:11)
[2022-05-27] MEDS: ATORVASTATIN CA 40 MG TABLET (FP) PO SCH (22:27)
[2022-05-28] MEDS: ACETAMINOPHEN 325 MG TABLET (FP) PO SCH ×4 (00:17→17:10)
[2022-05-28] MEDS: oxyCODONE HCL 5 MG TABLET PO SCH ×5 (03:00→17:34)
[2022-05-28] MEDS: LEVOTHYROXINE NA 25 MCG TABLET (FP) PO SCH (06:01)
[2022-05-28] MEDS: INSULIN SLIDING SCALE (NOVOLOG) 1 VIAL SQ SCH ×2 (06:02→13:06)
[2022-05-28] MEDS: POLYETHYLENE GLYCOL (HEALTHYLAX) 3350 17 GM PACKET PO SCH ×2 (06:04→13:06)
[2022-05-28] MEDS: DOCUSATE SODIUM 100 MG CAPSULE (FP) PO SCH ×2 (06:04→13:06)
[2022-05-28] MEDS: metoPROLOL SUCCINATE 25 MG TAB.SR.24H (FP) PO SCH (09:55)
[2022-05-28] MEDS: EZETIMIBE 10 MG TABLET (FP) PO SCH (09:55)
[2022-05-28] MEDS: MIDODRINE HCL 5 MG TABLET PO SCH ×3 (09:55→17:10)
[2022-05-28] MEDS: PANTOPRAZOLE 40 MG TABLET PO SCH (09:56)
[2022-05-28] MEDS: FOLIC ACID 1 MG TABLET (FP) PO SCH (09:56)
[2022-05-28] MEDS: ASCORBIC ACID 500 MG TABLET (FP) PO SCH (09:56)
[2022-05-28] MEDS: CLOPIDOGREL BISULFATE 75 MG TABLET (FP) PO SCH (09:57)
[2022-05-28] MEDS: LIDOCAINE 5% TOPICAL PATCH TP SCH (09:57)
[2022-05-28] MEDS: AMINO ACIDS/PROTEIN HYDROLYS 30 ML LIQUID.PKT PO SCH ×2 (09:57→17:34)
[2022-05-28] MEDS: NYSTATIN POWDER 100,000 UNITS/GM - 15 GM TOPICAL POWDER TP SCH (09:57)
[2022-05-28] MEDS: PREGABALIN 25 MG CAPSULE PO SCH (09:57)
[2022-05-28] MEDS: SENNOSIDES 8.6MG TABLET (FP) PO SCH (13:07)
[2022-05-28] MEDS: MULTIVITAMINS (DAILY MVI) TABLET (FP) PO SCH (13:49)
[2022-05-28 14:12] VITALS: BP 124/64; PULSE 96; RESP 20; TEMP 98.7
[2022-05-28] MEDS: fentaNYL 75mcg/hr PATCH.TD72 TD SCH (17:10)
[2022-05-28] MEDS: FENTANYL PATCH WASTE TD PRN (17:14)
== END 2022-05-28 20:05 | DRG 180 ==
LOC: JER 13:24 → JERBED 16:38 → J2W 21:58 → J4W 05-26 18:47 → J2W 05-26 20:27
PROVIDERS: ADMIT Internal Medicine; ATTEND Internal Medicine
PROC: 0W993ZZ Drainage of Right Pleural Cavity, Percutaneous Approach (ICD-10-PCS; principal; 2022-05-17)
PROC: 30233N1 Transfusion of Nonautologous Red Blood Cells into Peripheral Vein, Percutaneous Approach (ICD-10-PCS; 2022-05-22)
DX: C34.90 Malignant neoplasm of unspecified part of unspecified bronchus or lung (principal); J18.9 Pneumonia, unspecified organism; J96.01 Acute respiratory failure with hypoxia; E87.1 Hypo-osmolality and hyponatremia; C79.51 Secondary malignant neoplasm of bone; J90 Pleural effusion, not elsewhere classified; D64.9 Anemia, unspecified; L89.152 Pressure ulcer of sacral region, stage 2; I25.10 Atherosclerotic heart disease of native coronary artery without angina pectoris; I10 Essential (primary) hypertension; E78.5 Hyperlipidemia, unspecified; E03.9 Hypothyroidism, unspecified; Z95.5 Presence of coronary angioplasty implant and graft; K21.9 Gastro-esophageal reflux disease without esophagitis; D69.6 Thrombocytopenia, unspecified; K59.00 Constipation, unspecified; M79.7 Fibromyalgia; G47.00 Insomnia, unspecified
CPT/HCPCS: 0241U-QW; 36415; 36430; 71045-TC-FY; 71250-TC; 80048; 80053; 81003; 82272; 82533; 82550; 82553; 82728; 82803; 82962; 83540; 83550; 83605; 83615; 83735; 83880; 84100; 84157; 84484; 85025; 85027; 85045; 85610; 85730; 86850; 86900; 86901; 86922; 87040; 87070; 87075; 87086; 87205; 87899; 88108; 88305-TC; 88341-TC; 93005; 93010; 94640; 94660; 97161-GP; 99291; C9803-CS; J1644; P9058; U0003; U0005

== ENCOUNTER 2022-06-03 19:46 | Emergency (ER) | payer OTHER ==
[2022-06-03 20:02] VITALS: BMI 30.2
[2022-06-03 22:03] LABS: BASO % 1.1 % (0-2.0); EOS % 2.5 % (0-4.5); HEMATOCRIT 27.4 % (32.4-45.2); HEMOGLOBIN 9.3 GM/dL (10.7-15.3); LYMPH % 15.7 % (8-40); MCH 31.2 pg (25.7-33.7); MCHC 33.8 g/dl (32.0-36.0); MEAN PLT VOLUME 8.9 fl (7.5-11.1); MONO % 10.7 % (3.8-10.2); PLATELET COUNT 93 10^3/uL (134-434); RBC 2.98 M/mm3 (3.60-5.2); RDW 18.9 % (11.6-15.6)
[2022-06-03 22:42] LABS: CALCIUM 8.7 mg/dL (8.5-10.1)
[2022-06-03 22:43] LABS: BLOOD UREA NITROGEN 11.5 mg/dL (7-18)
[2022-06-03 22:46] LABS: CREATININE 0.5 mg/dL (0.55-1.3)
[2022-06-03 22:47] LABS: BILIRUBIN,TOTAL 0.4 mg/dL (0.2-1)
[2022-06-03 22:48] LABS: TOT PROT 6.4 g/dl (6.4-8.2)
[2022-06-03 22:57] LABS: ALBUMIN 2.1 g/dl (3.4-5.0)
[2022-06-03 22:59] LABS: ANISOCYTOSIS 3+; MACROCYTOSIS 0; TEAR DROP CELLS 1+
[2022-06-04 00:37] VITALS: BP 136/72; PULSE 87; RESP 18; TEMP 99.1
== END 2022-06-04 03:22 | disposition home or self-care (01) ==
LOC: JER 19:46
DX: R79.89 Other specified abnormal findings of blood chemistry (principal)
CPT/HCPCS: 0241U-QW; 36415; 80053; 84484; 85025; 93005; 93010; 99284-25

== ENCOUNTER 2022-06-27 14:24 | Inpatient (IN) | payer OTHER ==
[2022-06-27 14:51] VITALS: BMI 20.2
[2022-06-27] MEDS ORDERED: ALBUTEROL SO4 2.5/IPRATROPIUM 0.5 INH SOL 3 ML VIAL.NEB. NEB ONE ×2 (15:32→16:03)
[2022-06-27] MEDS ORDERED: methylPREDNISolone NA SUCC 125 MG/2 ML VIAL IVPUSH ONE (15:32)
[2022-06-27] MEDS ORDERED: MAGNESIUM SULF 50% (8.12 MEQ/2 ML-1 GM VIAL) IVPB ONE (15:33)
[2022-06-27] MEDS ORDERED: methylPREDNISolone NA SUCC 125 MG/2 ML VIAL ONE (16:02)
[2022-06-27] MEDS ORDERED: MAGNESIUM 1GM/D5W - 1 GM/100 ML IVPB IVPB ONE (16:02)
[2022-06-27] MEDS ORDERED: oxyCODONE HCL 5 MG TABLET ONE ×3 (17:54→21:07)
[2022-06-27] MEDS: oxyCODONE HCL 5 MG TABLET PO PRN ×2 (17:55→21:25)
[2022-06-27 18:22] LABS: BASO % 0.5 % (0-2.0); EOS % 2.2 % (0-4.5); HEMATOCRIT 23.7 % (32.4-45.2); HEMOGLOBIN 7.8 GM/dL (10.7-15.3); LYMPH % 13.9 % (8-40); MCH 30.7 pg (25.7-33.7); MCHC 33.1 g/dl (32.0-36.0); MEAN CELL VOLUME 92.8 fl (80-96); MEAN PLT VOLUME 8.1 fl (7.5-11.1); MONO % 10.7 % (3.8-10.2); NEUT % 72.7 % (42.8-82.8); PLATELET COUNT 140 10^3/uL (134-434); RBC 2.55 M/mm3 (3.60-5.2); RDW 18.8 % (11.6-15.6); WHITE BLOOD COUNT 8.9 K/mm3 (4.0-10.0)
[2022-06-27 18:43] LABS: ALBUMIN 2.1 g/dl (3.4-5.0); CALCIUM 8.3 mg/dL (8.5-10.1)
[2022-06-27 18:44] LABS: BLOOD UREA NITROGEN 12.8 mg/dL (7-18); MAGNESIUM 2.1 mg/dL (1.8-2.4)
[2022-06-27 18:45] LABS: CREATININE 0.3 mg/dL (0.55-1.3)
[2022-06-27 18:48] LABS: BILIRUBIN,TOTAL 0.2 mg/dL (0.2-1)
[2022-06-27 18:55] LABS: ANISOCYTOSIS 3+; MACROCYTOSIS 0
[2022-06-27 19:00] LABS: N-TERMINAL BNP 595.8 pg/ml (5-125)
[2022-06-28] MEDS ORDERED: oxyCODONE HCL 5 MG TABLET ONE ×6 (00:33→21:46)
[2022-06-28] MEDS: oxyCODONE HCL 5 MG TABLET PO PRN ×6 (00:40→22:02)
[2022-06-28] MEDS ORDERED: PIPERACILLIN/TAZOB 4.5 GM 4.5 GM in DEXTROSE 5%-WATER 100 ML IVPB ONE (00:41)
[2022-06-28] MEDS ORDERED: VANCOMYCIN 1 GM in D5W (PRE-DOCKED) 1,000 MG/250 ML IVPB ONE (00:41)
[2022-06-28] MEDS ORDERED: PIPERACILLIN/TAZOB 4.5 GM 4.5 GM/100 ML BAG IVPB ONE (01:30)
[2022-06-28] MEDS ORDERED: VANCOMYCIN/WATER FOR INJ (PEG) 1,000 MG/200 ML BAG IVPB ONE (01:58)
[2022-06-28] MEDS ORDERED: FENTANYL PATCH WASTE MC PRN (03:18)
[2022-06-28] MEDS ORDERED: fentaNYL 75mcg/hr PATCH.TD72 TD PRN (03:18)
[2022-06-28] MEDS ORDERED: ARTIFICIAL TEARS (POLYVINYL ALCOHOL) OPTH DROPS OU PRN (04:37)
[2022-06-28] MEDS: POLYETHYLENE GLYCOL (HEALTHYLAX) 3350 17 GM PACKET PO SCH ×3 (06:16→21:25)
[2022-06-28] MEDS: DOCUSATE SODIUM 100 MG CAPSULE (FP) PO SCH ×3 (06:16→21:25)
[2022-06-28] MEDS ORDERED: ALBUTEROL SO4 2.5/IPRATROPIUM 0.5 INH SOL 3 ML VIAL.NEB. NEB ONE ×3 (07:19→20:12)
[2022-06-28] MEDS: INSULIN (NOVOLOG) ASPART 100 UNITS/ML 10ML VIAL SQ SCH ×5 (07:49→22:20)
[2022-06-28] MEDS ORDERED: FENTANYL PATCH WASTE TD PRN (07:57)
[2022-06-28] MEDS ORDERED: PIPERACILLIN/TAZOB 3.375 GM 3.375 GM in DEXTROSE 5%-WATER - 50 ML IVPB SCH (08:00)
[2022-06-28] MEDS ORDERED: ALBUTEROL SO4 2.5/IPRATROPIUM 0.5 INH SOL 3 ML VIAL.NEB. NEB SCH (08:00)
[2022-06-28] MEDS: LEVOTHYROXINE NA 25 MCG TABLET (FP) PO SCH (08:20)
[2022-06-28] MEDS ORDERED: PREGABALIN 25 MG CAPSULE ONE ×2 (08:21→21:45)
[2022-06-28] MEDS ORDERED: LEVOTHYROXINE NA 25 MCG TABLET (FP) ONE (08:21)
[2022-06-28] MEDS: PREGABALIN 25 MG CAPSULE PO SCH ×2 (08:30→22:02)
[2022-06-28] MEDS ORDERED: LIDOCAINE 5% TOPICAL PATCH ONE (09:05)
[2022-06-28] MEDS ORDERED: PIPERACILLIN/TAZOB 3.375 GM 3.375 GM/50 ML BAG IVPB ONE ×2 (09:06→17:58)
[2022-06-28] MEDS ORDERED: ENOXAPARIN NA (PORCINE) 40 MG/0.4 ML DISP.SYRIN SQ ONE (09:06)
[2022-06-28] MEDS ORDERED: methylPREDNISolone NA SUCC 40 MG/1 ML VIAL ONE ×2 (09:06→17:58)
[2022-06-28] MEDS: PIPERACILLIN/TAZOB 3.375 GM 3.375 GM in DEXTROSE 5%-WATER - 50 ML IVPB SCH ×2 (09:52→18:10)
[2022-06-28] MEDS: ENOXAPARIN NA (PORCINE) 40 MG/0.4 ML DISP.SYRIN SQ SCH (09:52)
[2022-06-28] MEDS: EZETIMIBE 10 MG TABLET (FP) PO SCH (09:52)
[2022-06-28] MEDS: LIDOCAINE 5% TOPICAL PATCH TP SCH (09:52)
[2022-06-28] MEDS: methylPREDNISolone NA SUCC 40 MG/1 ML VIAL IVPUSH SCH ×2 (09:52→18:10)
[2022-06-28] MEDS ORDERED: VANCOMYCIN 1 GM in D5W (PRE-DOCKED) 1,000 MG/250 ML IVPB SCH (10:00)
[2022-06-28] MEDS ORDERED: PANTOPRAZOLE 40 MG TABLET PO ONE (11:23)
[2022-06-28] MEDS: PANTOPRAZOLE 40 MG TABLET PO SCH (11:30)
[2022-06-28] MEDS: ALBUTEROL SO4 2.5/IPRATROPIUM 0.5 INH SOL 3 ML VIAL.NEB. NEB SCH ×3 (11:45→20:19)
[2022-06-28] MEDS: BUDESONIDE/FORMETEROL FUMARATE 80/4.5 mcg INHALER IH SCH ×2 (11:50→22:02)
[2022-06-28 12:18] LABS: RETICULOCYTES 3.87 % (0.5-1.5)
[2022-06-28] MEDS ORDERED: DOCUSATE SODIUM 100 MG CAPSULE (FP) PO ONE (14:11)
[2022-06-28] MEDS ORDERED: POLYETHYLENE GLYCOL (HEALTHYLAX) 3350 17 GM PACKET ONE (14:11)
[2022-06-28] MEDS ORDERED: ACETAMINOPHEN 500 MG TABLET (FP) ONE ×3 (14:14→21:51)
[2022-06-28] MEDS ORDERED: SODIUM CHLORIDE 1,000 ML IV SCH (14:15)
[2022-06-28] MEDS: ACETAMINOPHEN 500 MG TABLET (FP) PO PRN ×3 (14:26→22:02)
[2022-06-28] MEDS: SENNOSIDES 8.6MG TABLET (FP) PO SCH (21:25)
[2022-06-28] MEDS ORDERED: ATORVASTATIN CA 40 MG TABLET (FP) ONE (21:45)
[2022-06-28] MEDS: ATORVASTATIN CA 40 MG TABLET (FP) PO SCH (22:02)
[2022-06-28] MEDS: LIDOCAINE PATCH REMOVAL MC SCH (22:02)
[2022-06-29] MEDS ORDERED: ALBUTEROL SO4 2.5/IPRATROPIUM 0.5 INH SOL 3 ML VIAL.NEB. NEB ONE (00:38)
[2022-06-29] MEDS: ALBUTEROL SO4 2.5/IPRATROPIUM 0.5 INH SOL 3 ML VIAL.NEB. NEB SCH ×6 (00:39→20:43)
[2022-06-29] MEDS ORDERED: methylPREDNISolone NA SUCC 40 MG/1 ML VIAL ONE ×2 (00:56→09:10)
[2022-06-29] MEDS ORDERED: PIPERACILLIN/TAZOB 3.375 GM 3.375 GM/50 ML BAG IVPB ONE ×2 (00:57→09:10)
[2022-06-29] MEDS ORDERED: VANCOMYCIN/WATER FOR INJ (PEG) 1,000 MG/200 ML BAG IVPB SCH ×2 (01:00)
[2022-06-29] MEDS ORDERED: oxyCODONE HCL 5 MG TABLET ONE ×3 (01:25→09:09)
[2022-06-29] MEDS ORDERED: ACETAMINOPHEN 500 MG TABLET (FP) ONE ×2 (01:28→06:12)
[2022-06-29] MEDS: methylPREDNISolone NA SUCC 40 MG/1 ML VIAL IVPUSH SCH ×3 (01:33→17:54)
[2022-06-29] MEDS: PIPERACILLIN/TAZOB 3.375 GM 3.375 GM in DEXTROSE 5%-WATER - 50 ML IVPB SCH ×3 (01:33→17:57)
[2022-06-29] MEDS: oxyCODONE HCL 5 MG TABLET PO PRN ×5 (01:34→21:54)
[2022-06-29] MEDS: ACETAMINOPHEN 500 MG TABLET (FP) PO PRN ×4 (01:34→18:15)
[2022-06-29] MEDS ORDERED: PIPERACILLIN/TAZOB 3.375 GM 3.375 GM in DEXTROSE 5%-WATER - 50 ML IVPB SCH (02:00)
[2022-06-29] MEDS: POLYETHYLENE GLYCOL (HEALTHYLAX) 3350 17 GM PACKET PO SCH ×5 (05:31→22:03)
[2022-06-29] MEDS: DOCUSATE SODIUM 100 MG CAPSULE (FP) PO SCH ×3 (05:31→21:56)
[2022-06-29] MEDS ORDERED: FUROSEMIDE 20 MG TABLET (FP) PO ONE (07:49)
[2022-06-29 08:24] LABS: ALBUMIN 2.2 g/dl (3.4-5.0); CALCIUM 8.6 mg/dL (8.5-10.1)
[2022-06-29 08:25] LABS: BLOOD UREA NITROGEN 15.6 mg/dL (7-18); HEMATOCRIT 23.2 % (32.4-45.2); MAGNESIUM 2.2 mg/dL (1.8-2.4); MCH 31.6 pg (25.7-33.7); MCHC 34.6 g/dl (32.0-36.0); MEAN CELL VOLUME 91.5 fl (80-96); MEAN PLT VOLUME 9.1 fl (7.5-11.1); PLATELET COUNT 138 10^3/uL (134-434); RBC 2.54 M/mm3 (3.60-5.2); RDW 18.4 % (11.6-15.6); WHITE BLOOD COUNT 9.9 K/mm3 (4.0-10.0)
[2022-06-29 08:28] LABS: CREATININE 0.4 mg/dL (0.55-1.3); PHOSPHOROUS 2.7 mg/dL (2.5-4.9)
[2022-06-29 08:29] LABS: BILIRUBIN,TOTAL 0.2 mg/dL (0.2-1); TOT PROT 6.1 g/dl (6.4-8.2)
[2022-06-29] MEDS ORDERED: ACETAMINOPHEN 325 MG TABLET (FP) ONE (09:09)
[2022-06-29] MEDS ORDERED: PANTOPRAZOLE 40 MG TABLET PO ONE (09:09)
[2022-06-29] MEDS ORDERED: PREGABALIN 25 MG CAPSULE ONE (09:09)
[2022-06-29] MEDS ORDERED: LIDOCAINE 5% TOPICAL PATCH ONE (09:09)
[2022-06-29] MEDS ORDERED: ENOXAPARIN NA (PORCINE) 40 MG/0.4 ML DISP.SYRIN SQ ONE (09:10)
[2022-06-29] MEDS: LEVOTHYROXINE NA 25 MCG TABLET (FP) PO SCH (09:26)
[2022-06-29] MEDS: ASCORBIC ACID 500 MG TABLET (FP) PO SCH (09:27)
[2022-06-29] MEDS: LIDOCAINE 5% TOPICAL PATCH TP SCH (09:27)
[2022-06-29] MEDS: ENOXAPARIN NA (PORCINE) 40 MG/0.4 ML DISP.SYRIN SQ SCH (09:27)
[2022-06-29] MEDS: FOLIC ACID 1 MG TABLET (FP) PO SCH (09:27)
[2022-06-29] MEDS: SENNOSIDES 8.6MG TABLET (FP) PO SCH ×2 (09:27→21:56)
[2022-06-29] MEDS: BUDESONIDE/FORMETEROL FUMARATE 80/4.5 mcg INHALER IH SCH (09:27)
[2022-06-29] MEDS: PREGABALIN 25 MG CAPSULE PO SCH ×2 (09:27→21:54)
[2022-06-29] MEDS: PANTOPRAZOLE 40 MG TABLET PO SCH (09:27)
[2022-06-29] MEDS ORDERED: LEVOTHYROXINE NA 25 MCG TABLET (FP) ONE (09:29)
[2022-06-29] MEDS ORDERED: FUROSEMIDE 20 MG TABLET (FP) ONE (09:29)
[2022-06-29] MEDS: INSULIN (NOVOLOG) ASPART 100 UNITS/ML 10ML VIAL SQ SCH ×3 (09:37→21:16)
[2022-06-29] MEDS: EZETIMIBE 10 MG TABLET (FP) PO SCH (10:42)
[2022-06-29] MEDS: ATORVASTATIN CA 40 MG TABLET (FP) PO SCH (21:54)
[2022-06-29] MEDS: LIDOCAINE PATCH REMOVAL MC SCH (21:56)
[2022-06-29] MEDS ORDERED: INSULIN (NOVOLOG) ASPART 100 UNITS/ML 10ML VIAL ONE (22:09)
[2022-06-29] MEDS: INSULIN SLIDING SCALE (NOVOLOG) 1 VIAL SQ SCH (22:10)
[2022-06-30] MEDS: ACETAMINOPHEN 500 MG TABLET (FP) PO PRN ×5 (00:36→20:56)
[2022-06-30] MEDS: oxyCODONE HCL 5 MG TABLET PO PRN ×5 (00:58→20:54)
[2022-06-30] MEDS: methylPREDNISolone NA SUCC 40 MG/1 ML VIAL IVPUSH SCH ×3 (02:24→17:44)
[2022-06-30] MEDS: PIPERACILLIN/TAZOB 3.375 GM 3.375 GM in DEXTROSE 5%-WATER - 50 ML IVPB SCH ×3 (02:40→17:47)
[2022-06-30] MEDS: BUDESONIDE/FORMETEROL FUMARATE 80/4.5 mcg INHALER IH SCH ×3 (05:34→22:39)
[2022-06-30] MEDS: POLYETHYLENE GLYCOL (HEALTHYLAX) 3350 17 GM PACKET PO SCH ×4 (05:46→22:39)
[2022-06-30] MEDS: DOCUSATE SODIUM 100 MG CAPSULE (FP) PO SCH ×3 (05:46→22:33)
[2022-06-30] MEDS: LEVOTHYROXINE NA 25 MCG TABLET (FP) PO SCH (06:03)
[2022-06-30] MEDS: INSULIN SLIDING SCALE (NOVOLOG) 1 VIAL SQ SCH ×4 (06:32→22:34)
[2022-06-30] MEDS: ALBUTEROL SO4 2.5/IPRATROPIUM 0.5 INH SOL 3 ML VIAL.NEB. NEB SCH ×4 (08:35→20:30)
[2022-06-30 08:55] LABS: HEMATOCRIT 22.2 % (32.4-45.2); HEMOGLOBIN 7.4 GM/dL (10.7-15.3); MCH 30.5 pg (25.7-33.7); MCHC 33.4 g/dl (32.0-36.0); MEAN CELL VOLUME 91.3 fl (80-96); MEAN PLT VOLUME 8.5 fl (7.5-11.1); PLATELET COUNT 130 10^3/uL (134-434); RBC 2.43 M/mm3 (3.60-5.2); RDW 17.9 % (11.6-15.6); WHITE BLOOD COUNT 11.5 K/mm3 (4.0-10.0)
[2022-06-30 08:58] LABS: CALCIUM 8.5 mg/dL (8.5-10.1)
[2022-06-30 09:00] LABS: CREATININE 0.4 mg/dL (0.55-1.3); PHOSPHOROUS 2.5 mg/dL (2.5-4.9)
[2022-06-30 10:02] LABS: ANISOCYTOSIS 1+; MACROCYTOSIS 0; OVALOCYTE 1+
[2022-06-30] MEDS ORDERED: HYDROmorphone HCl 2 MG/ML VIAL IVPB ONE ×2 (10:13→11:34)
[2022-06-30] MEDS ORDERED: PIPERACILLIN/TAZOBACTAM 3.375 GM VIAL IVPB ONE (11:05)
[2022-06-30] MEDS: LIDOCAINE 5% TOPICAL PATCH TP SCH (11:16)
[2022-06-30] MEDS: fentaNYL 75mcg/hr PATCH.TD72 TD SCH (11:16)
[2022-06-30] MEDS: SENNOSIDES 8.6MG TABLET (FP) PO SCH ×2 (11:18→22:33)
[2022-06-30] MEDS: PREGABALIN 25 MG CAPSULE PO SCH (11:19)
[2022-06-30] MEDS: FOLIC ACID 1 MG TABLET (FP) PO SCH (11:19)
[2022-06-30] MEDS: EZETIMIBE 10 MG TABLET (FP) PO SCH (11:19)
[2022-06-30] MEDS: ASCORBIC ACID 500 MG TABLET (FP) PO SCH (11:19)
[2022-06-30] MEDS: PANTOPRAZOLE 40 MG TABLET PO SCH (11:19)
[2022-06-30] MEDS: ENOXAPARIN NA (PORCINE) 40 MG/0.4 ML DISP.SYRIN SQ SCH (11:20)
[2022-06-30] MEDS ORDERED: INSULIN (NOVOLOG) ASPART 100 UNITS/ML 10ML VIAL ONE ×2 (11:28→19:08)
[2022-06-30] MEDS: GABAPENTIN 300 MG CAPSULE PO SCH ×2 (15:58→22:33)
[2022-06-30] MEDS ORDERED: GABAPENTIN 300 MG CAPSULE PO SCH (22:00)
[2022-06-30] MEDS: ATORVASTATIN CA 40 MG TABLET (FP) PO SCH (22:33)
[2022-06-30] MEDS: LIDOCAINE PATCH REMOVAL MC SCH (23:39)
[2022-07-01] MEDS: ACETAMINOPHEN 500 MG TABLET (FP) PO PRN ×5 (01:30→23:40)
[2022-07-01] MEDS: oxyCODONE HCL 5 MG TABLET PO PRN ×5 (01:31→23:39)
[2022-07-01] MEDS: methylPREDNISolone NA SUCC 40 MG/1 ML VIAL IVPUSH SCH ×3 (01:32→17:30)
[2022-07-01] MEDS: PIPERACILLIN/TAZOB 3.375 GM 3.375 GM in DEXTROSE 5%-WATER - 50 ML IVPB SCH ×3 (01:32→17:30)
[2022-07-01] MEDS ORDERED: INSULIN (NOVOLOG) ASPART 100 UNITS/ML 10ML VIAL ONE ×2 (06:24→11:23)
[2022-07-01] MEDS: GABAPENTIN 300 MG CAPSULE PO SCH ×3 (06:37→22:15)
[2022-07-01] MEDS: DOCUSATE SODIUM 100 MG CAPSULE (FP) PO SCH ×3 (06:37→22:15)
[2022-07-01] MEDS: LEVOTHYROXINE NA 25 MCG TABLET (FP) PO SCH (06:37)
[2022-07-01] MEDS: POLYETHYLENE GLYCOL (HEALTHYLAX) 3350 17 GM PACKET PO SCH ×3 (06:38→22:14)
[2022-07-01] MEDS: INSULIN SLIDING SCALE (NOVOLOG) 1 VIAL SQ SCH ×4 (06:38→22:21)
[2022-07-01] MEDS: ALBUTEROL SO4 2.5/IPRATROPIUM 0.5 INH SOL 3 ML VIAL.NEB. NEB SCH ×4 (07:35→19:56)
[2022-07-01 09:59] LABS: HEMATOCRIT 24.7 % (32.4-45.2); HEMOGLOBIN 8.3 GM/dL (10.7-15.3); MCH 31.1 pg (25.7-33.7); MCHC 33.8 g/dl (32.0-36.0); MEAN CELL VOLUME 92.1 fl (80-96); PLATELET COUNT 140 10^3/uL (134-434); RBC 2.69 M/mm3 (3.60-5.2); RDW 18.7 % (11.6-15.6)
[2022-07-01 10:29] LABS: BLOOD UREA NITROGEN 16.5 mg/dL (7-18)
[2022-07-01 10:30] LABS: ALBUMIN 2.3 g/dl (3.4-5.0); CALCIUM 8.4 mg/dL (8.5-10.1); MAGNESIUM 1.8 mg/dL (1.8-2.4)
[2022-07-01 10:32] LABS: CREATININE 0.6 mg/dL (0.55-1.3); PHOSPHOROUS 2.9 mg/dL (2.5-4.9)
[2022-07-01 10:34] LABS: BILIRUBIN,TOTAL 0.2 mg/dL (0.2-1)
[2022-07-01] MEDS: ENOXAPARIN NA (PORCINE) 40 MG/0.4 ML DISP.SYRIN SQ SCH (10:42)
[2022-07-01] MEDS: PANTOPRAZOLE 40 MG TABLET PO SCH (10:43)
[2022-07-01] MEDS: FOLIC ACID 1 MG TABLET (FP) PO SCH (10:43)
[2022-07-01] MEDS: EZETIMIBE 10 MG TABLET (FP) PO SCH (10:43)
[2022-07-01] MEDS: ASCORBIC ACID 500 MG TABLET (FP) PO SCH (10:43)
[2022-07-01] MEDS: SENNOSIDES 8.6MG TABLET (FP) PO SCH ×2 (10:43→22:15)
[2022-07-01] MEDS: LIDOCAINE 5% TOPICAL PATCH TP SCH (10:57)
[2022-07-01] MEDS: BUDESONIDE/FORMETEROL FUMARATE 80/4.5 mcg INHALER IH SCH ×2 (10:58→22:15)
[2022-07-01 11:47] LABS: ANISOCYTOSIS 0; HELMET CELLS 0; HOWELL-JOLLY BODIES 0; MACROCYTOSIS 0; OVALOCYTE 0; ROULEAU 0; SICKELED CELLS 0; TARGET CELLS 0; TEAR DROP CELLS 0; TOXIC GRANULATION 0
[2022-07-01] MEDS: MULTIVITAMINS THER W-MINERALS COMBO TABLET (FP) PO SCH (22:14)
[2022-07-01] MEDS: ATORVASTATIN CA 40 MG TABLET (FP) PO SCH (22:14)
[2022-07-01] MEDS: LIDOCAINE PATCH REMOVAL MC SCH (22:35)
[2022-07-02] MEDS: PIPERACILLIN/TAZOB 3.375 GM 3.375 GM in DEXTROSE 5%-WATER - 50 ML IVPB SCH ×3 (01:47→17:16)
[2022-07-02] MEDS: methylPREDNISolone NA SUCC 40 MG/1 ML VIAL IVPUSH SCH ×2 (01:47→09:36)
[2022-07-02] MEDS: POLYETHYLENE GLYCOL (HEALTHYLAX) 3350 17 GM PACKET PO SCH ×3 (05:14→21:36)
[2022-07-02] MEDS: oxyCODONE HCL 5 MG TABLET PO PRN ×4 (05:14→20:56)
[2022-07-02] MEDS: DOCUSATE SODIUM 100 MG CAPSULE (FP) PO SCH ×3 (05:15→21:36)
[2022-07-02] MEDS: GABAPENTIN 300 MG CAPSULE PO SCH ×3 (05:15→21:36)
[2022-07-02] MEDS: ACETAMINOPHEN 500 MG TABLET (FP) PO PRN ×3 (05:15→15:07)
[2022-07-02] MEDS: INSULIN SLIDING SCALE (NOVOLOG) 1 VIAL SQ SCH ×4 (06:16→22:26)
[2022-07-02] MEDS: LEVOTHYROXINE NA 25 MCG TABLET (FP) PO SCH (06:20)
[2022-07-02] MEDS: ALBUTEROL SO4 2.5/IPRATROPIUM 0.5 INH SOL 3 ML VIAL.NEB. NEB SCH ×4 (07:40→23:00)
[2022-07-02] MEDS: MULTIVITAMINS THER W-MINERALS COMBO TABLET (FP) PO SCH (09:35)
[2022-07-02] MEDS: SENNOSIDES 8.6MG TABLET (FP) PO SCH ×2 (09:35→21:36)
[2022-07-02] MEDS: PANTOPRAZOLE 40 MG TABLET PO SCH (09:35)
[2022-07-02] MEDS: FOLIC ACID 1 MG TABLET (FP) PO SCH (09:35)
[2022-07-02] MEDS: EZETIMIBE 10 MG TABLET (FP) PO SCH (09:35)
[2022-07-02] MEDS: LIDOCAINE 5% TOPICAL PATCH TP SCH (09:35)
[2022-07-02] MEDS: ENOXAPARIN NA (PORCINE) 40 MG/0.4 ML DISP.SYRIN SQ SCH (09:35)
[2022-07-02] MEDS: ASCORBIC ACID 500 MG TABLET (FP) PO SCH (09:36)
[2022-07-02] MEDS: BUDESONIDE/FORMETEROL FUMARATE 80/4.5 mcg INHALER IH SCH ×2 (09:47→21:41)
[2022-07-02] MEDS ORDERED: oxyCODONE HCL 5 MG TABLET PO ONE (17:13)
[2022-07-02] MEDS ORDERED: fentaNYL 75mcg/hr PATCH.TD72 TD ONE (21:10)
[2022-07-02] MEDS ORDERED: FENTANYL PATCH WASTE TD PRN (21:10)
[2022-07-02] MEDS: LIDOCAINE PATCH REMOVAL MC SCH (21:36)
[2022-07-02] MEDS: ATORVASTATIN CA 40 MG TABLET (FP) PO SCH (21:36)
[2022-07-03] MEDS: oxyCODONE HCL 5 MG TABLET PO PRN ×6 (01:03→22:18)
[2022-07-03] MEDS: PIPERACILLIN/TAZOB 3.375 GM 3.375 GM in DEXTROSE 5%-WATER - 50 ML IVPB SCH ×3 (01:04→18:34)
[2022-07-03] MEDS: ACETAMINOPHEN 500 MG TABLET (FP) PO PRN ×6 (01:04→22:23)
[2022-07-03] MEDS: GABAPENTIN 300 MG CAPSULE PO SCH ×3 (06:10→21:05)
[2022-07-03] MEDS: DOCUSATE SODIUM 100 MG CAPSULE (FP) PO SCH ×3 (06:10→21:05)
[2022-07-03] MEDS: LEVOTHYROXINE NA 25 MCG TABLET (FP) PO SCH (06:11)
[2022-07-03] MEDS: POLYETHYLENE GLYCOL (HEALTHYLAX) 3350 17 GM PACKET PO SCH ×3 (06:12→21:07)
[2022-07-03] MEDS: INSULIN SLIDING SCALE (NOVOLOG) 1 VIAL SQ SCH ×4 (06:12→21:06)
[2022-07-03] MEDS: ALBUTEROL SO4 2.5/IPRATROPIUM 0.5 INH SOL 3 ML VIAL.NEB. NEB SCH ×4 (07:40→20:45)
[2022-07-03] MEDS: ENOXAPARIN NA (PORCINE) 40 MG/0.4 ML DISP.SYRIN SQ SCH (10:06)
[2022-07-03] MEDS: EZETIMIBE 10 MG TABLET (FP) PO SCH (10:07)
[2022-07-03] MEDS: ASCORBIC ACID 500 MG TABLET (FP) PO SCH (10:07)
[2022-07-03] MEDS: FOLIC ACID 1 MG TABLET (FP) PO SCH (10:07)
[2022-07-03] MEDS: SENNOSIDES 8.6MG TABLET (FP) PO SCH ×2 (10:07→21:05)
[2022-07-03] MEDS: PANTOPRAZOLE 40 MG TABLET PO SCH (10:07)
[2022-07-03] MEDS: MULTIVITAMINS THER W-MINERALS COMBO TABLET (FP) PO SCH (10:07)
[2022-07-03] MEDS: LIDOCAINE 5% TOPICAL PATCH TP SCH (10:09)
[2022-07-03] MEDS: BUDESONIDE/FORMETEROL FUMARATE 80/4.5 mcg INHALER IH SCH ×2 (10:14→21:01)
[2022-07-03] MEDS: fentaNYL 75mcg/hr PATCH.TD72 TD SCH (10:34)
[2022-07-03] MEDS: fentaNYL 100mcg/hr PATCH.TD72 TD SCH (13:36)
[2022-07-03] MEDS: FENTANYL PATCH WASTE TD PRN (13:38)
[2022-07-03] MEDS: ATORVASTATIN CA 40 MG TABLET (FP) PO SCH (21:00)
[2022-07-03] MEDS: LIDOCAINE PATCH REMOVAL MC SCH (22:23)
[2022-07-04] MEDS: PIPERACILLIN/TAZOB 3.375 GM 3.375 GM in DEXTROSE 5%-WATER - 50 ML IVPB SCH ×2 (02:01→10:10)
[2022-07-04] MEDS: ACETAMINOPHEN 500 MG TABLET (FP) PO PRN ×5 (02:02→19:43)
[2022-07-04] MEDS: oxyCODONE HCL 5 MG TABLET PO PRN ×5 (02:02→19:42)
[2022-07-04] MEDS: DOCUSATE SODIUM 100 MG CAPSULE (FP) PO SCH ×3 (06:00→21:43)
[2022-07-04] MEDS: LEVOTHYROXINE NA 25 MCG TABLET (FP) PO SCH (06:01)
[2022-07-04] MEDS: POLYETHYLENE GLYCOL (HEALTHYLAX) 3350 17 GM PACKET PO SCH ×3 (06:02→21:43)
[2022-07-04] MEDS: INSULIN SLIDING SCALE (NOVOLOG) 1 VIAL SQ SCH ×4 (06:02→21:43)
[2022-07-04] MEDS: GABAPENTIN 300 MG CAPSULE PO SCH ×3 (06:02→21:42)
[2022-07-04] MEDS: ALBUTEROL SO4 2.5/IPRATROPIUM 0.5 INH SOL 3 ML VIAL.NEB. NEB SCH ×4 (07:48→20:00)
[2022-07-04 09:11] LABS: HEMATOCRIT 23.3 % (32.4-45.2); HEMOGLOBIN 7.8 GM/dL (10.7-15.3); MCHC 33.7 g/dl (32.0-36.0); MEAN CELL VOLUME 92.1 fl (80-96); MEAN PLT VOLUME 8.5 fl (7.5-11.1); PLATELET COUNT 100 10^3/uL (134-434); RBC 2.53 M/mm3 (3.60-5.2); RDW 18.2 % (11.6-15.6)
[2022-07-04 09:17] LABS: BLOOD UREA NITROGEN 14.8 mg/dL (7-18); CALCIUM 8.3 mg/dL (8.5-10.1)
[2022-07-04 09:18] LABS: TOT PROT 5.2 g/dl (6.4-8.2)
[2022-07-04 09:19] LABS: BILIRUBIN,TOTAL 0.3 mg/dL (0.2-1); CREATININE 0.4 mg/dL (0.55-1.3)
[2022-07-04] MEDS: LIDOCAINE 5% TOPICAL PATCH TP SCH (10:10)
[2022-07-04] MEDS: ASCORBIC ACID 500 MG TABLET (FP) PO SCH (10:11)
[2022-07-04] MEDS: SENNOSIDES 8.6MG TABLET (FP) PO SCH ×2 (10:11→21:43)
[2022-07-04] MEDS: FOLIC ACID 1 MG TABLET (FP) PO SCH (10:11)
[2022-07-04] MEDS: MULTIVITAMINS THER W-MINERALS COMBO TABLET (FP) PO SCH (10:11)
[2022-07-04] MEDS: ENOXAPARIN NA (PORCINE) 40 MG/0.4 ML DISP.SYRIN SQ SCH (10:11)
[2022-07-04] MEDS: PANTOPRAZOLE 40 MG TABLET PO SCH (10:11)
[2022-07-04] MEDS: EZETIMIBE 10 MG TABLET (FP) PO SCH (10:11)
[2022-07-04] MEDS: BUDESONIDE/FORMETEROL FUMARATE 80/4.5 mcg INHALER IH SCH ×2 (10:29→21:43)
[2022-07-04] MEDS: ATORVASTATIN CA 40 MG TABLET (FP) PO SCH (21:42)
[2022-07-04] MEDS: LIDOCAINE PATCH REMOVAL MC SCH (21:42)
[2022-07-04] MEDS: MELATONIN 5 MG TABLETS PO PRN (21:42)
[2022-07-05] MEDS: oxyCODONE HCL 5 MG TABLET PO PRN ×5 (00:42→23:37)
[2022-07-05] MEDS: ACETAMINOPHEN 500 MG TABLET (FP) PO PRN ×5 (00:43→23:38)
[2022-07-05] MEDS: GABAPENTIN 300 MG CAPSULE PO SCH ×3 (05:17→23:24)
[2022-07-05] MEDS: POLYETHYLENE GLYCOL (HEALTHYLAX) 3350 17 GM PACKET PO SCH ×3 (05:17→23:25)
[2022-07-05] MEDS: DOCUSATE SODIUM 100 MG CAPSULE (FP) PO SCH ×3 (05:17→23:24)
[2022-07-05] MEDS: LEVOTHYROXINE NA 25 MCG TABLET (FP) PO SCH (06:11)
[2022-07-05] MEDS: INSULIN SLIDING SCALE (NOVOLOG) 1 VIAL SQ SCH ×4 (06:11→23:26)
[2022-07-05] MEDS: ALBUTEROL SO4 2.5/IPRATROPIUM 0.5 INH SOL 3 ML VIAL.NEB. NEB SCH ×4 (07:18→21:21)
[2022-07-05] MEDS: AMOX TR/POT CLAV 875MG/125MG TABLETS (FP) PO SCH ×2 (08:25→17:34)
[2022-07-05] MEDS: FOLIC ACID 1 MG TABLET (FP) PO SCH (09:33)
[2022-07-05] MEDS: MULTIVITAMINS THER W-MINERALS COMBO TABLET (FP) PO SCH (09:33)
[2022-07-05] MEDS: EZETIMIBE 10 MG TABLET (FP) PO SCH (09:33)
[2022-07-05] MEDS: ASCORBIC ACID 500 MG TABLET (FP) PO SCH (09:33)
[2022-07-05] MEDS: PANTOPRAZOLE 40 MG TABLET PO SCH (09:33)
[2022-07-05] MEDS: ENOXAPARIN NA (PORCINE) 40 MG/0.4 ML DISP.SYRIN SQ SCH (09:34)
[2022-07-05] MEDS: SENNOSIDES 8.6MG TABLET (FP) PO SCH ×2 (09:34→23:24)
[2022-07-05] MEDS: BUDESONIDE/FORMETEROL FUMARATE 80/4.5 mcg INHALER IH SCH ×2 (09:39→23:26)
[2022-07-05] MEDS: LIDOCAINE 5% TOPICAL PATCH TP SCH (09:41)
[2022-07-05] MEDS ORDERED: INSULIN (NOVOLOG) ASPART 100 UNITS/ML 10ML VIAL ONE (11:29)
[2022-07-05] MEDS: ATORVASTATIN CA 40 MG TABLET (FP) PO SCH (23:25)
[2022-07-05] MEDS: LIDOCAINE PATCH REMOVAL MC SCH (23:25)
[2022-07-06] MEDS: GABAPENTIN 300 MG CAPSULE PO SCH ×3 (06:05→22:08)
[2022-07-06] MEDS: DOCUSATE SODIUM 100 MG CAPSULE (FP) PO SCH ×3 (06:05→22:12)
[2022-07-06] MEDS: POLYETHYLENE GLYCOL (HEALTHYLAX) 3350 17 GM PACKET PO SCH ×3 (06:05→22:11)
[2022-07-06] MEDS: LEVOTHYROXINE NA 25 MCG TABLET (FP) PO SCH (06:05)
[2022-07-06] MEDS: INSULIN SLIDING SCALE (NOVOLOG) 1 VIAL SQ SCH ×4 (06:06→22:12)
[2022-07-06] MEDS: oxyCODONE HCL 5 MG TABLET PO PRN ×4 (06:37→22:09)
[2022-07-06] MEDS: ACETAMINOPHEN 500 MG TABLET (FP) PO PRN ×4 (06:38→22:08)
[2022-07-06] MEDS: ALBUTEROL SO4 2.5/IPRATROPIUM 0.5 INH SOL 3 ML VIAL.NEB. NEB SCH ×4 (07:37→20:50)
[2022-07-06] MEDS: AMOX TR/POT CLAV 875MG/125MG TABLETS (FP) PO SCH ×2 (08:36→18:39)
[2022-07-06] MEDS: ASCORBIC ACID 500 MG TABLET (FP) PO SCH (11:23)
[2022-07-06] MEDS: PANTOPRAZOLE 40 MG TABLET PO SCH (11:25)
[2022-07-06] MEDS: EZETIMIBE 10 MG TABLET (FP) PO SCH (11:25)
[2022-07-06] MEDS: FOLIC ACID 1 MG TABLET (FP) PO SCH (11:25)
[2022-07-06] MEDS: ENOXAPARIN NA (PORCINE) 40 MG/0.4 ML DISP.SYRIN SQ SCH (11:30)
[2022-07-06] MEDS: LIDOCAINE 5% TOPICAL PATCH TP SCH (11:30)
[2022-07-06] MEDS: MULTIVITAMINS THER W-MINERALS COMBO TABLET (FP) PO SCH (11:31)
[2022-07-06] MEDS: SENNOSIDES 8.6MG TABLET (FP) PO SCH ×2 (11:31→22:11)
[2022-07-06] MEDS: BUDESONIDE/FORMETEROL FUMARATE 80/4.5 mcg INHALER IH SCH ×2 (11:31→22:13)
[2022-07-06] MEDS: fentaNYL 100mcg/hr PATCH.TD72 TD SCH (14:07)
[2022-07-06] MEDS: FENTANYL PATCH WASTE TD PRN (14:11)
[2022-07-06] MEDS: ATORVASTATIN CA 40 MG TABLET (FP) PO SCH (22:11)
[2022-07-06] MEDS: LIDOCAINE PATCH REMOVAL MC SCH (22:11)
[2022-07-07] MEDS: ACETAMINOPHEN 500 MG TABLET (FP) PO PRN ×3 (06:33→20:41)
[2022-07-07] MEDS: DOCUSATE SODIUM 100 MG CAPSULE (FP) PO SCH ×3 (06:33→21:26)
[2022-07-07] MEDS: POLYETHYLENE GLYCOL (HEALTHYLAX) 3350 17 GM PACKET PO SCH ×3 (06:33→21:26)
[2022-07-07] MEDS: GABAPENTIN 300 MG CAPSULE PO SCH ×3 (06:33→21:26)
[2022-07-07] MEDS: oxyCODONE HCL 5 MG TABLET PO PRN ×4 (06:34→20:41)
[2022-07-07] MEDS: INSULIN SLIDING SCALE (NOVOLOG) 1 VIAL SQ SCH ×4 (06:35→21:26)
[2022-07-07] MEDS: LEVOTHYROXINE NA 25 MCG TABLET (FP) PO SCH (07:31)
[2022-07-07] MEDS: ALBUTEROL SO4 2.5/IPRATROPIUM 0.5 INH SOL 3 ML VIAL.NEB. NEB SCH ×4 (08:40→19:53)
[2022-07-07] MEDS: AMOX TR/POT CLAV 875MG/125MG TABLETS (FP) PO SCH ×2 (08:47→17:33)
[2022-07-07] MEDS: ENOXAPARIN NA (PORCINE) 40 MG/0.4 ML DISP.SYRIN SQ SCH (10:46)
[2022-07-07] MEDS: SENNOSIDES 8.6MG TABLET (FP) PO SCH ×2 (10:47→21:26)
[2022-07-07] MEDS: PANTOPRAZOLE 40 MG TABLET PO SCH (10:47)
[2022-07-07] MEDS: EZETIMIBE 10 MG TABLET (FP) PO SCH (10:47)
[2022-07-07] MEDS: MULTIVITAMINS THER W-MINERALS COMBO TABLET (FP) PO SCH (10:47)
[2022-07-07] MEDS: ASCORBIC ACID 500 MG TABLET (FP) PO SCH (10:47)
[2022-07-07] MEDS: FOLIC ACID 1 MG TABLET (FP) PO SCH (10:47)
[2022-07-07] MEDS: BUDESONIDE/FORMETEROL FUMARATE 80/4.5 mcg INHALER IH SCH ×2 (10:50→21:27)
[2022-07-07] MEDS: LIDOCAINE 5% TOPICAL PATCH TP SCH (10:50)
[2022-07-07] MEDS: MELATONIN 5 MG TABLETS PO PRN (21:26)
[2022-07-07] MEDS: ATORVASTATIN CA 40 MG TABLET (FP) PO SCH (21:26)
[2022-07-07] MEDS: LIDOCAINE PATCH REMOVAL MC SCH (21:26)
[2022-07-08] MEDS: oxyCODONE HCL 5 MG TABLET PO PRN ×4 (02:07→21:04)
[2022-07-08] MEDS: ACETAMINOPHEN 500 MG TABLET (FP) PO PRN ×4 (02:08→21:05)
[2022-07-08] MEDS: DOCUSATE SODIUM 100 MG CAPSULE (FP) PO SCH ×3 (06:28→21:05)
[2022-07-08] MEDS: POLYETHYLENE GLYCOL (HEALTHYLAX) 3350 17 GM PACKET PO SCH ×3 (06:28→21:04)
[2022-07-08] MEDS: LEVOTHYROXINE NA 25 MCG TABLET (FP) PO SCH (06:28)
[2022-07-08] MEDS: GABAPENTIN 300 MG CAPSULE PO SCH ×3 (06:28→21:05)
[2022-07-08] MEDS: INSULIN SLIDING SCALE (NOVOLOG) 1 VIAL SQ SCH ×5 (06:29→21:14)
[2022-07-08] MEDS: ALBUTEROL SO4 2.5/IPRATROPIUM 0.5 INH SOL 3 ML VIAL.NEB. NEB SCH ×4 (08:53→21:19)
[2022-07-08] MEDS: ENOXAPARIN NA (PORCINE) 40 MG/0.4 ML DISP.SYRIN SQ SCH (11:18)
[2022-07-08] MEDS: LIDOCAINE 5% TOPICAL PATCH TP SCH (11:18)
[2022-07-08] MEDS: EZETIMIBE 10 MG TABLET (FP) PO SCH (11:18)
[2022-07-08] MEDS: MULTIVITAMINS THER W-MINERALS COMBO TABLET (FP) PO SCH (11:18)
[2022-07-08] MEDS: ASCORBIC ACID 500 MG TABLET (FP) PO SCH (11:19)
[2022-07-08] MEDS: SENNOSIDES 8.6MG TABLET (FP) PO SCH ×2 (11:19→21:05)
[2022-07-08] MEDS: FOLIC ACID 1 MG TABLET (FP) PO SCH (11:19)
[2022-07-08] MEDS: PANTOPRAZOLE 40 MG TABLET PO SCH (11:19)
[2022-07-08] MEDS: BUDESONIDE/FORMETEROL FUMARATE 80/4.5 mcg INHALER IH SCH ×2 (11:24→22:22)
[2022-07-08] MEDS: ATORVASTATIN CA 40 MG TABLET (FP) PO SCH (21:05)
[2022-07-08] MEDS: LIDOCAINE PATCH REMOVAL MC SCH (22:22)
[2022-07-09] MEDS: oxyCODONE HCL 5 MG TABLET PO PRN ×6 (02:18→22:23)
[2022-07-09] MEDS: ACETAMINOPHEN 500 MG TABLET (FP) PO PRN ×6 (02:19→22:23)
[2022-07-09] MEDS: GABAPENTIN 300 MG CAPSULE PO SCH ×3 (06:14→22:22)
[2022-07-09] MEDS: LEVOTHYROXINE NA 25 MCG TABLET (FP) PO SCH (06:14)
[2022-07-09] MEDS: DOCUSATE SODIUM 100 MG CAPSULE (FP) PO SCH ×3 (06:16→22:22)
[2022-07-09] MEDS: POLYETHYLENE GLYCOL (HEALTHYLAX) 3350 17 GM PACKET PO SCH ×3 (06:16→22:23)
[2022-07-09] MEDS: INSULIN SLIDING SCALE (NOVOLOG) 1 VIAL SQ SCH ×4 (06:16→22:30)
[2022-07-09] MEDS: ALBUTEROL SO4 2.5/IPRATROPIUM 0.5 INH SOL 3 ML VIAL.NEB. NEB SCH ×4 (08:10→20:00)
[2022-07-09] MEDS: LIDOCAINE 5% TOPICAL PATCH TP SCH (09:57)
[2022-07-09] MEDS: SENNOSIDES 8.6MG TABLET (FP) PO SCH ×2 (10:01→22:22)
[2022-07-09] MEDS: PANTOPRAZOLE 40 MG TABLET PO SCH (10:01)
[2022-07-09] MEDS: ENOXAPARIN NA (PORCINE) 40 MG/0.4 ML DISP.SYRIN SQ SCH (10:01)
[2022-07-09] MEDS: EZETIMIBE 10 MG TABLET (FP) PO SCH (10:01)
[2022-07-09] MEDS: FOLIC ACID 1 MG TABLET (FP) PO SCH (10:02)
[2022-07-09] MEDS: BUDESONIDE/FORMETEROL FUMARATE 80/4.5 mcg INHALER IH SCH ×2 (10:02→22:28)
[2022-07-09] MEDS: MULTIVITAMINS THER W-MINERALS COMBO TABLET (FP) PO SCH (10:02)
[2022-07-09] MEDS: ASCORBIC ACID 500 MG TABLET (FP) PO SCH (10:09)
[2022-07-09] MEDS: FENTANYL PATCH WASTE TD PRN (13:24)
[2022-07-09] MEDS: fentaNYL 100mcg/hr PATCH.TD72 TD SCH (13:24)
[2022-07-09] MEDS ORDERED: INSULIN (NOVOLOG) ASPART 100 UNITS/ML 10ML VIAL ONE (17:11)
[2022-07-09] MEDS: ATORVASTATIN CA 40 MG TABLET (FP) PO SCH (22:22)
[2022-07-09] MEDS: LIDOCAINE PATCH REMOVAL MC SCH (22:31)
[2022-07-10] MEDS: oxyCODONE HCL 5 MG TABLET PO PRN ×5 (02:23→23:40)
[2022-07-10] MEDS: ACETAMINOPHEN 500 MG TABLET (FP) PO PRN ×3 (02:24→15:43)
[2022-07-10] MEDS: MELATONIN 5 MG TABLETS PO PRN (02:25)
[2022-07-10] MEDS: POLYETHYLENE GLYCOL (HEALTHYLAX) 3350 17 GM PACKET PO SCH ×3 (06:25→22:44)
[2022-07-10] MEDS: LEVOTHYROXINE NA 25 MCG TABLET (FP) PO SCH (06:28)
[2022-07-10] MEDS: INSULIN SLIDING SCALE (NOVOLOG) 1 VIAL SQ SCH ×4 (06:28→22:46)
[2022-07-10] MEDS: GABAPENTIN 300 MG CAPSULE PO SCH ×3 (06:28→22:44)
[2022-07-10] MEDS: DOCUSATE SODIUM 100 MG CAPSULE (FP) PO SCH ×3 (06:28→22:44)
[2022-07-10] MEDS: ALBUTEROL SO4 2.5/IPRATROPIUM 0.5 INH SOL 3 ML VIAL.NEB. NEB SCH ×4 (07:38→20:06)
[2022-07-10] MEDS: ASCORBIC ACID 500 MG TABLET (FP) PO SCH (10:56)
[2022-07-10] MEDS: FOLIC ACID 1 MG TABLET (FP) PO SCH (10:56)
[2022-07-10] MEDS: MULTIVITAMINS THER W-MINERALS COMBO TABLET (FP) PO SCH (10:56)
[2022-07-10] MEDS: PANTOPRAZOLE 40 MG TABLET PO SCH (10:57)
[2022-07-10] MEDS: LIDOCAINE 5% TOPICAL PATCH TP SCH (10:57)
[2022-07-10] MEDS: EZETIMIBE 10 MG TABLET (FP) PO SCH (10:57)
[2022-07-10] MEDS: ENOXAPARIN NA (PORCINE) 40 MG/0.4 ML DISP.SYRIN SQ SCH (10:57)
[2022-07-10] MEDS: SENNOSIDES 8.6MG TABLET (FP) PO SCH ×2 (10:57→22:44)
[2022-07-10] MEDS: BUDESONIDE/FORMETEROL FUMARATE 80/4.5 mcg INHALER IH SCH ×2 (11:06→22:52)
[2022-07-10] MEDS ORDERED: oxyCODONE HCL 5 MG TABLET PO PRN (12:29)
[2022-07-10] MEDS ORDERED: FENTANYL PATCH WASTE TD PRN (18:30)
[2022-07-10] MEDS: ACETAMINOPHEN 325 MG TABLET (FP) PO PRN (21:49)
[2022-07-10] MEDS: ATORVASTATIN CA 40 MG TABLET (FP) PO SCH (22:45)
[2022-07-10] MEDS: LIDOCAINE PATCH REMOVAL MC SCH (22:46)
[2022-07-11] MEDS: ACETAMINOPHEN 325 MG TABLET (FP) PO PRN ×5 (01:50→17:26)
[2022-07-11] MEDS: oxyCODONE HCL 5 MG TABLET PO PRN ×5 (04:01→21:46)
[2022-07-11] MEDS: POLYETHYLENE GLYCOL (HEALTHYLAX) 3350 17 GM PACKET PO SCH ×3 (06:30→21:46)
[2022-07-11] MEDS: LEVOTHYROXINE NA 25 MCG TABLET (FP) PO SCH (06:30)
[2022-07-11] MEDS: GABAPENTIN 300 MG CAPSULE PO SCH ×3 (06:30→21:45)
[2022-07-11] MEDS: DOCUSATE SODIUM 100 MG CAPSULE (FP) PO SCH ×3 (06:30→21:46)
[2022-07-11] MEDS: INSULIN SLIDING SCALE (NOVOLOG) 1 VIAL SQ SCH ×4 (06:34→21:47)
[2022-07-11] MEDS: SENNOSIDES 8.6MG TABLET (FP) PO SCH ×2 (09:01→21:47)
[2022-07-11] MEDS: LIDOCAINE 5% TOPICAL PATCH TP SCH (09:01)
[2022-07-11] MEDS: MULTIVITAMINS THER W-MINERALS COMBO TABLET (FP) PO SCH (09:01)
[2022-07-11] MEDS: EZETIMIBE 10 MG TABLET (FP) PO SCH (09:01)
[2022-07-11] MEDS: PANTOPRAZOLE 40 MG TABLET PO SCH (09:01)
[2022-07-11] MEDS: ASCORBIC ACID 500 MG TABLET (FP) PO SCH (09:02)
[2022-07-11] MEDS: FOLIC ACID 1 MG TABLET (FP) PO SCH (09:02)
[2022-07-11] MEDS: ALBUTEROL SO4 2.5/IPRATROPIUM 0.5 INH SOL 3 ML VIAL.NEB. NEB SCH ×4 (09:53→20:01)
[2022-07-11] MEDS: BUDESONIDE/FORMETEROL FUMARATE 80/4.5 mcg INHALER IH SCH ×2 (12:06→21:47)
[2022-07-11 15:46] VITALS: RESP 18
[2022-07-11] MEDS: ATORVASTATIN CA 40 MG TABLET (FP) PO SCH (21:45)
[2022-07-11] MEDS: LIDOCAINE PATCH REMOVAL MC SCH (21:46)
[2022-07-12] MEDS: ACETAMINOPHEN 325 MG TABLET (FP) PO PRN ×2 (02:15→06:18)
[2022-07-12] MEDS: oxyCODONE HCL 5 MG TABLET PO PRN ×2 (02:34→06:17)
[2022-07-12] MEDS: MELATONIN 5 MG TABLETS PO PRN (02:35)
[2022-07-12 05:55] VITALS: BP 136/70; PULSE 107; TEMP 99.4
[2022-07-12] MEDS: DOCUSATE SODIUM 100 MG CAPSULE (FP) PO SCH (06:19)
[2022-07-12] MEDS: LEVOTHYROXINE NA 25 MCG TABLET (FP) PO SCH (06:19)
[2022-07-12] MEDS: GABAPENTIN 300 MG CAPSULE PO SCH (06:19)
[2022-07-12] MEDS: INSULIN SLIDING SCALE (NOVOLOG) 1 VIAL SQ SCH (06:19)
[2022-07-12] MEDS: POLYETHYLENE GLYCOL (HEALTHYLAX) 3350 17 GM PACKET PO SCH (06:22)
[2022-07-12] MEDS ORDERED: fentaNYL 75mcg/hr PATCH.TD72 TD SCH (10:00)
== END 2022-07-12 09:10 | DRG 180 ==
LOC: JER 14:24 → JERBED 06-28 02:56 → J6S 06-29 09:47
PROVIDERS: ADMIT Internal Medicine; ATTEND Internal Medicine
DX: C34.90 Malignant neoplasm of unspecified part of unspecified bronchus or lung (principal); J18.9 Pneumonia, unspecified organism; J96.01 Acute respiratory failure with hypoxia; F11.20 Opioid dependence, uncomplicated; C79.51 Secondary malignant neoplasm of bone; M86.9 Osteomyelitis, unspecified; J91.0 Malignant pleural effusion; R04.2 Hemoptysis; E11.69 Type 2 diabetes mellitus with other specified complication; I12.9 Hypertensive chronic kidney disease with stage 1 through stage 4 chronic kidney disease, or unspecified chronic kidney disease; D69.6 Thrombocytopenia, unspecified; E03.9 Hypothyroidism, unspecified; D63.8 Anemia in other chronic diseases classified elsewhere; N18.9 Chronic kidney disease, unspecified; D50.9 Iron deficiency anemia, unspecified; E78.1 Pure hyperglyceridemia; I25.10 Atherosclerotic heart disease of native coronary artery without angina pectoris; E78.5 Hyperlipidemia, unspecified; M79.7 Fibromyalgia; E11.22 Type 2 diabetes mellitus with diabetic chronic kidney disease; G89.3 Neoplasm related pain (acute) (chronic); Z95.5 Presence of coronary angioplasty implant and graft
CPT/HCPCS: 0241U-QW; 36415; 71045-TC-FY; 71275-TC; 73070-TC-LT-FY; 78306-TC; 80048; 80053; 82272; 82728; 82962; 83540; 83550; 83735; 83880; 84100; 84466; 84484; 85025; 85027; 85045; 85379; 93005; 93010; 94640; 97116-GP; 97162-GP; 99285-25; A9503; C9803-CS; Q9967; U0003; U0005